=== PATIENT | female | born 1930 | race Two or more races ===

== ENCOUNTER → 2016-06-27 | Emergency (ER) | payer MEDICARE, OTHER ==
[~2016-06-27] MED LIST: Aspirin Low Dose CHEW TAB* 81 MG PO ONE; Ondansetron INJ* 2 MG/ML VIAL IV ONE
[2016-06-27 01:56] LABS: Hematocrit 40 % (35-47); Mean Corpuscular HGB Conc 33 g/dl (31-36); Mean Corpuscular Hemoglobin 30 pg (27-31); Mean Corpuscular Volume 91 fL (80-97); Mean Platelet Volume 9 um3 (7.4-10.4); Red Blood Count 4.39 10^6/ul (4.0-5.4); Red Cell Distribution Width 14 % (10.5-15); White Blood Count 6.4 10^3/ul (3.5-10.8)
--- NOTE | 2016-06-27 01:56 | ED ---
Hermilo Bansal Karl, scribed for Sung Pizano MD on 06/27/16 at 0057 . HPI Chest Pain - HPI Summary HPI Summary: Pt is an 85 y/o female BIBA that presents to the ED c/o constant CP since this morning. Pt reported that her CP has since resolved after tx with NTG from EMT. Pt reported pain is 0/10 while in room stating "I feel fine." Hx: PA, HTN, CAD, CHF. - History of Current Complaint Hx Obtained From: Patient Onset/Duration: Started Hours Ago, Atraumatic Timing: Constant Initial Severity: Mild Current Severity: Mild Pain Intensity: 0 - CP Pain Scale Used: 0-10 Numeric Chest Pain Location: Mid Sternal Aggravating Factor(s): Nothing Alleviating Factor(s): NTG 123, EMS Tx Associated Signs and Symptoms: Positive: Chest Pain - Additional Pertinent History Primary Care Physician: OLLIE - Allergy/Home Medications Allergies/Adverse Reactions: Allergies Allergy/AdvReac Type Severity Reaction Status Date / Time Sulfa Antibiotics Allergy Severe Hives Verified 04/04/13 09:59 PMH/Surg Hx/FS Hx/Imm Hx Endocrine/Hematology History: Reports: Hx Anticoagulant Therapy - plavix, Hx Thyroid Disease - hypothyroid Denies: Hx Diabetes Cardiovascular History: Reports: Hx Angina, Hx Congestive Heart Failure, Hx Coronary Artery Disease, Hx Deep Vein Thrombosis, Hx Hypercholesterolemia, Hx Hypertension, Hx Peripheral Vascular Disease, Other Cardiovascular Problems/ Disorders - HEART MURMUR, CAD, PVD, DVT. Denies: Hx Pacemaker/ICD Respiratory History: Reports: Hx Asthma GI History: Reports: Hx Gastroesophageal Reflux Disease History: Reports: Other Problems/Disorders - solitary congenital kidney Denies: Hx Renal Disease Musculoskeletal History: Reports: Hx Back Problems Denies: Hx Arthritis, Hx Osteoporosis Sensory History: Reports: Hx Contacts or Glasses, Hx Vision Problem, Hx Hearing Problem Denies: Hx Cataracts, Hx Glaucoma Opthamlomology History: Reports: Hx Contacts or Glasses, Hx Vision Problem Denies: Hx Cataracts, Hx Glaucoma Neurological History: Reports: Hx Dementia Denies: Hx Seizures, Other Neuro Impairments/Disorders Psychiatric History: Reports: Hx Anxiety, Hx Depression Denies: Hx Substance Abuse - Surgical History Surgery Procedure, Year, and Place: RCA stent 2010. APPENDECTOMY Hx Anesthesia Reactions: No - Immunization History Date of Tetanus Vaccine: unable to obtain Date of Influenza Vaccine: unkown Infectious Disease History: Denies: Hx Human Immunodeficiency Virus (HIV) - Family History Known Family History: Positive: Cardiac Disease Family History: CAD - Social History Alcohol Use: Daily Alcohol Amount: One glass of Scotch Hx Substance Use: No Substance Use Type: Reports: None Hx Tobacco Use: No Smoking Status (MU): Never Smoked Tobacco Review of Systems Constitutional: Negative Eyes: Negative ENT: Negative Positive: Chest Pain Respiratory: Negative Gastrointestinal: Negative Genitourinary: Negative Musculoskeletal: Negative Skin: Negative Neurological: Negative Psychological: Normal All Other Systems Reviewed And Are Negative: Yes Physical Exam Triage Information Reviewed: Yes Vital Signs On Initial Exam: Initial Vitals Temp Pulse Resp BP Pulse Ox 98.0 F 77 13 125/62 96 06/27/16 00:54 06/27/16 00:54 06/27/16 00:54 06/27/16 00:54 06/27/16 00:54 Vital Signs Reviewed: Yes Appearance: Positive: Well-Appearing, No Pain Distress Skin: Positive: Warm Head/Face: Positive: Normal Head/Face Inspection Eyes: Positive: EOMI, THEE Neck: Positive: Supple Respiratory/Lung Sounds: Positive: Clear to Auscultation, Breath Sounds Present Cardiovascular: Positive: Normal Abdomen Description: Positive: Nontender, No Organomegaly, Soft Bowel Sounds: Positive: Present Musculoskeletal: Positive: Strength/ROM Intact Neurological: Positive: Sensory/Motor Intact, Alert, Oriented to Person Place, Time Psychiatric: Positive: Affect/Mood Appropriate Diagnostics - Vital Signs Vital Signs Temp Pulse Resp BP Pulse Ox 06/27/16 00:54 98.0 F 77 13 125/62 96 - Laboratory Pertinent Lab Values Are: WNL Result Diagrams: 06/27/16 01:36 06/27/16 01:36 Lab Statement: Any lab studies that have been ordered have been reviewed, and results considered in the medical decision making process. - Radiology CXR Xray Interpretation: No Acute Changes Radiology Interpretation Completed By: ED Physician - IMPRESSION: No acute cardiopulmonary disease. Re-Evaluation - Re-Evaluation First Eval Re-Evaluation Time: 05:42 - pt remains pain free, stable angina, will d/c f/u pcp Change: Improved Chest Pain Course/Dx - Diagnoses Provider Diagnoses: Chest pain Discharge - Discharge Plan Condition: Stable Disposition: HOME Patient Education Materials: Chest Pain (ED) Referrals: Hiral Bloom MD [Primary Care Provider] - Additional Instructions: Please follow up with your primary care provider. Return to the emergency department for changing or worsening symptoms. The documentation as recorded by the Hermilo curtis Karl accurately reflects the service I personally performed and the decisions made by me, Sung Pizano MD.
[2016-06-27 02:06] LABS: Albumin 3.3 g/dL (3.2-5.2); BUN/Creatinine Ratio 13.1 (8-20); Calcium 8.9 mg/dL (8.6-10.3); EGFR African American 68.7 (>60); EGFR Non-African American 53.4 (>60); Globulin 3.7 g/dL (2-4); Potassium 3.4 mmol/L (3.5-5.0); Total Bilirubin 0.3 mg/dL (0.2-1.0)
[2016-06-27 02:08] LABS: Troponin I 0.01 ng/mL (<0.04)
[2016-06-27 07:30] VITALS: BP 111/62
--- NOTE | 2016-06-27 07:44 | RAD ---
HISTORY: Chest pain COMPARISONS: May 26, 2016 VIEWS: 2: Frontal dual-energy and lateral views of the chest. FINDINGS: CARDIOMEDIASTINAL SILHOUETTE: The aorta is tortuous. The cardiomediastinal silhouette is otherwise unremarkable. ANALIA: The analia are normal. PLEURA: The costophrenic angles are sharp. No pleural abnormalities are noted. LUNG PARENCHYMA: There is hyperinflation with flattening of the diaphragm and expansion of the AP diameter of the chest. ABDOMEN: The upper abdomen is clear. There is no subphrenic gas. BONES AND SOFT TISSUES: There is diffuse osteopenia. Degenerative changes are noted along the spine. OTHER: None. IMPRESSION: HYPERINFLATION, CONSISTENT WITH COPD. NO ACTIVE CARDIOPULMONARY DISEASE.
== END | disposition home or self-care (01) ==
LOC: ED 00:51
DX: R07.9 Chest pain, unspecified (principal); J45.909 Unspecified asthma, uncomplicated; K21.9 Gastro-esophageal reflux disease without esophagitis; I25.2 Old myocardial infarction; I10 Essential (primary) hypertension; I25.10 Atherosclerotic heart disease of native coronary artery without angina pectoris; I50.9 Heart failure, unspecified; Z88.2 Allergy status to sulfonamides; Z86.718 Personal history of other venous thrombosis and embolism; I73.9 Peripheral vascular disease, unspecified; F17.200 Nicotine dependence, unspecified, uncomplicated
CPT/HCPCS: 36415; 71020; 80053; 83605; 84484; 85025; 93005; 96374; 99283; A9270-GY; J2405

== ENCOUNTER 2016-11-03 00:41 | Emergency (ER) | payer MEDICARE, OTHER ==
[2016-11-03] MEDS ORDERED: Aspirin Low Dose CHEW TAB* 81 MG PO ONE (00:47)
[2016-11-03 01:24] LABS: Hematocrit 44 % (35-47); Hemoglobin 14.3 g/dl (12.0-16.0); Mean Corpuscular HGB Conc 33 g/dl (31-36); Mean Corpuscular Hemoglobin 30 pg (27-31); Mean Corpuscular Volume 91 fL (80-97); Mean Platelet Volume 9 um3 (7.4-10.4); Red Blood Count 4.84 10^6/ul (4.0-5.4); Red Cell Distribution Width 14 % (10.5-15); White Blood Count 9.4 10^3/ul (3.5-10.8)
[2016-11-03 01:25] LABS: Add Diff/Slide Review? Slide Review Added; Comments Flag Yes
[2016-11-03 01:41] LABS: ALT 8 U/L (7-52); AST 12 U/L (13-39); Albumin 3.3 g/dL (3.2-5.2); Alkaline Phosphatase 82 U/L (34-104); Anion Gap 10 mmol/L (2-11); BUN/Creatinine Ratio 16.9 (8-20); Blood Urea Nitrogen 15 mg/dL (6-24); CO2 Carbon Dioxide 30 mmol/L (22-32); Calcium 9.4 mg/dL (8.6-10.3); Chloride 97 mmol/L (101-111); EGFR African American 77.5 (>60); EGFR Non-African American 60.3 (>60); Globulin 4.2 g/dL (2-4); Glucose 110 mg/dL (70-100); Potassium 2.8 mmol/L (3.5-5.0); Sodium 137 mmol/L (133-145); Total Protein 7.5 g/dL (6.4-8.9)
[2016-11-03 01:43] LABS: Troponin I 0.03 ng/mL (<0.04)
[2016-11-03] MEDS ORDERED: Potassium Chlor TAB* 20 MEQ TAB.ER PO ONE (02:06)
[2016-11-03 02:23] LABS: Alcohol < 10 mg/dL (<10)
[2016-11-03] MEDS ORDERED: Potassium Chloride LIQUID* 20 MEQ PACKET ONE (02:28)
[2016-11-03] MEDS ORDERED: Potassium Chloride LIQUID* 20 MEQ PACKET PO ONE (02:29)
--- NOTE | 2016-11-03 05:42 | ED ---
I, Sanjay,Xiomara, scribed for Jerome Robles MD on 11/03/16 at 0146 . HPI Chest Pain - HPI Summary HPI Summary: HPI is somewhat limited due to pt being poor historian. This 86 y/o female presents to ED for acute onset of intermittent chest pain that occurred since this afternoon and currently resolved. Negative jaw pain, diaphoresis, radiation of pain, or n/v. PMHx includes Solitary Congenital Kidney , CAD s/p stent x2, HTN, and SD. Pt lives with her son. Pt consumed Gin earlier today. [facility] was [facility] [place], after which pt was discharged after refusing stress test at [facility] in May 2016. FHx is positive for CAD. Plan of care involving stress test was discussed, and pt again refused stress test. - History of Current Complaint Chief Complaint: EDChestPainROMI Time Seen by Provider: 11/03/16 01:45 Hx Obtained From: Patient, Medical Records Onset/Duration: Started Hours Ago, Atraumatic, Resolved Timing: Intermittent Pain Intensity: 0 Pain Scale Used: 0-10 Numeric Chest Pain Location: Diffuse Chest Pain Radiates: No Character: Dull/Aching Aggravating Factor(s): Nothing Alleviating Factor(s): Spontaneous Resolution Associated Signs and Symptoms: Positive: Chest Pain. Negative: Fever, Diaphoresis, Nausea, Vomiting - Additional Pertinent History Primary Care Physician: OLLIE - Allergy/Home Medications Allergies/Adverse Reactions: Allergies Allergy/AdvReac Type Severity Reaction Status Date / Time Sulfa Antibiotics Allergy Severe Hives Verified 04/04/13 09:59 PMH/Surg Hx/FS Hx/Imm Hx Endocrine/Hematology History: Reports: Hx Anticoagulant Therapy - plavix, Hx Thyroid Disease - hypothyroid Denies: Hx Diabetes Cardiovascular History: Reports: Hx Angina, Hx Congestive Heart Failure, Hx Coronary Artery Disease, Hx Deep Vein Thrombosis, Hx Hypercholesterolemia, Hx Hypertension, Hx Peripheral Vascular Disease, Other Cardiovascular Problems/ Disorders - HEART MURMUR, CAD, PVD, DVT. Denies: Hx Pacemaker/ICD Respiratory History: Reports: Hx Asthma GI History: Reports: Hx Gastroesophageal Reflux Disease History: Reports: Other Problems/Disorders - solitary congenital kidney Denies: Hx Renal Disease Musculoskeletal History: Reports: Hx Back Problems Denies: Hx Arthritis, Hx Osteoporosis Sensory History: Reports: Hx Contacts or Glasses, Hx Vision Problem, Hx Hearing Problem Denies: Hx Cataracts, Hx Glaucoma Opthamlomology History: Reports: Hx Contacts or Glasses, Hx Vision Problem Denies: Hx Cataracts, Hx Glaucoma Neurological History: Reports: Hx Dementia Denies: Hx Seizures, Other Neuro Impairments/Disorders Psychiatric History: Reports: Hx Anxiety, Hx Depression Denies: Hx Substance Abuse - Surgical History Surgery Procedure, Year, and Place: RCA stent 2010. APPENDECTOMY Hx Anesthesia Reactions: No - Immunization History Date of Tetanus Vaccine: unable to obtain Date of Influenza Vaccine: unkown Infectious Disease History: No Infectious Disease History: Denies: Hx Human Immunodeficiency Virus (HIV), Traveled Outside the [place] in Last 30 Days - Family History Known Family History: Positive: Cardiac Disease Family History: CAD - Social History Alcohol Use: Daily Alcohol Amount: One glass of gin Hx Substance Use: No Substance Use Type: Reports: None Hx Tobacco Use: No Smoking Status (MU): Never Smoked Tobacco Review of Systems Negative: Fever, Skin Diaphoresis Negative: Blurred Vision Negative: Sore Throat Positive: Chest Pain Negative: Shortness Of Breath, Cough Negative: Abdominal Pain, Vomiting, Nausea Negative: dysuria, hematuria Negative: Myalgia, Edema Negative: Rash Neurological: Other - Negative dizziness Negative: Headache Negative: Anxious, Depressed All Other Systems Reviewed And Are Negative: Yes Physical Exam - Summary Physical Exam Summary: Constitutional: Well-developed, Well-nourished, Alert. (-) Distressed Skin: Warm, Dry HENT: Normocephalic; Atraumatic Eyes: Conjunctiva normal Neck: Musculoskeletal ROM normal neck. (-) JVD, (-) Stridor, (-) Tracheal deviation Cardio: Rhythm regular, rate normal, Heart sounds normal; Intact distal pulses; The pedal pulses are 2+ and symmetric. Radial pulses are 2+ and symmetric. (-) Murmur Pulmonary/Chest wall: Effort normal. (-) Respiratory distress, (-) Wheezes, (-) Rales Abd: Soft, (-) Tenderness, (-) Distension, (-) Guarding, (-) Rebound Musculoskeletal: (-) Edema Lymph: (-) Cervical adenopathy Neuro: Alert, Oriented x3 Psych: Mood and affect Normal Triage Information Reviewed: Yes Vital Signs On Initial Exam: Initial Vitals Temp Pulse Resp BP Pulse Ox 98.6 F 84 18 120/52 100 11/03/16 00:54 11/03/16 00:54 11/03/16 00:54 11/03/16 00:54 11/03/16 00:54 Vital Signs Reviewed: Yes - [place] Coma Scale Coma Scale Total: 15 Diagnostics - Vital Signs Vital Signs Temp Pulse Resp BP Pulse Ox 11/03/16 01:25 100 11/03/16 01:00 58 17 11/03/16 00:57 19 11/03/16 00:56 120/52 11/03/16 00:54 98.6 F 84 18 120/52 100 - Laboratory Lab Results: Lab Results 11/03/16 11/03/16 11/03/16 Range/Units 01:15 01:15 01:15 WBC 9.4 (3.5-10.8) 10^3/ul RBC 4.84 (4.0-5.4) 10^6/ul Hgb 14.3 (12.0-16.0) g/dl Hct 44 (35-47) % MCV 91 (80-97) fL MCH 30 (27-31) pg MCHC 33 (31-36) g/dl RDW 14 (10.5-15) % Plt Count 369 (150-450) 10^3/ul MPV 9 (7.4-10.4) um3 Neut % (Auto) 80.8 (38-83) % Lymph % (Auto) 8.2 L (25-47) % Armstrong % (Auto) 4.7 (1-9) % Eos % (Auto) 4.0 (0-6) % Baso % (Auto) 2.3 H (0-2) % Absolute Neuts (auto) 7.6 (1.5-7.7) 10^3/ul Absolute Lymphs (auto) 0.8 L (1.0-4.8) 10^3/ul Absolute Monos (auto) 0.4 (0-0.8) 10^3/ul Absolute Eos (auto) 0.4 (0-0.6) 10^3/ul Absolute Basos (auto) 0.2 (0-0.2) 10^3/ul Absolute Nucleated RBC 0 10^3/ul Nucleated RBC % 0 Sodium 137 (133-145) mmol/L Potassium 2.8 L (3.5-5.0) mmol/L Chloride 97 L (101-111) mmol/L Carbon Dioxide 30 (22-32) mmol/L Anion Gap 10 (2-11) mmol/L BUN 15 (6-24) mg/dL Creatinine 0.89 (0.51-0.95) mg/dL Est GFR ( Amer) 77.5 (>60) Est GFR (Non-Af Amer) 60.3 (>60) BUN/Creatinine Ratio 16.9 (8-20) Glucose 110 H (70-100) mg/dL Lactic Acid 1.4 (0.5-2.0) mmol/L Calcium 9.4 (8.6-10.3) mg/dL Magnesium 2.0 (1.9-2.7) mg/dL Total Bilirubin 0.40 (0.2-1.0) mg/dL AST 12 L (13-39) U/L ALT 8 (7-52) U/L Alkaline Phosphatase 82 (34-104) U/L Troponin I 0.03 (<0.04) ng/mL Total Protein 7.5 (6.4-8.9) g/dL Albumin 3.3 (3.2-5.2) g/dL Globulin 4.2 H (2-4) g/dL Albumin/Globulin Ratio 0.8 L (1-3) Result Diagrams: 11/03/16 01:15 11/03/16 01:15 Lab Statement: Any lab studies that have been ordered have been reviewed, and results considered in the medical decision making process. - Radiology CXR Xray Interpretation: No Acute Changes Radiology Interpretation Completed By: ED Physician - EKG 0050 Cardiac Rate: NL - 83 bpm EKG Rhythm: Sinus Rhythm ST Segment: Normal EKG Interpretation: T-wave inversion V2-V6 Chest Pain Course/Dx - Course Assessment/Plan: THis 86 y/o female presents to ED for a day old CP that has been constant since the morning of 11/02/2016. Pt states that her CP is resolved at time of initial evaluation. She was seen at [facility] for similar complaint in May 2016 and June 2016. Pt was reported to have refused stress test during her visit in May 2016. She again refused admission and stress test during today's visit. Repeat trops were done and indicated as 0.03 both at 0115 AM and 0400 AM. Pt is discharged - Diagnoses Provider Diagnoses: Chest pain Discharge - Discharge Plan Condition: Stable Disposition: HOME Patient Education Materials: Chest Pain (ED) Referrals: Hiral Bloom MD [Primary Care Provider] - 2 Days Ed Reeder MD [Medical Doctor] - 11/05/16 Additional Instructions: RETURN TO THE EMERGENCY DEPARTMENT FOR CHANGING OR WORSENING SYMPTOMS The documentation as recorded by the Sanjay curtis Soohyun accurately reflects the service I personally performed and the decisions made by Margaret leone Jerry, MD.
[2016-11-03 07:08] VITALS: BP 136/73
--- NOTE | 2016-11-03 07:37 | RAD ---
HISTORY: Chest pain COMPARISONS: June 27, 2016 VIEWS:1: Single frontal portable view of the chest at 1:35 PM FINDINGS: LINES AND TUBES: None. CARDIOMEDIASTINAL SILHOUETTE: The cardiomediastinal silhouette is normal for portable technique. PLEURA: The costophrenic angles are sharp. No pleural abnormalities are noted. LUNG PARENCHYMA: There is confluent alveolar opacification of the left lung base near the cardiophrenic angle ABDOMEN: The upper abdomen is clear. There is no subphrenic gas. BONES AND SOFT TISSUES: No bone or soft tissue abnormalities are noted. IMPRESSION: LEFT BASILAR ATELECTASIS VERSUS CONSOLIDATION. RECOMMEND FOLLOW-UP UNTIL RESOLUTION TO EXCLUDE UNDERLYING PULMONARY PARENCHYMAL PATHOLOGY.
== END 2016-11-03 07:06 | disposition home or self-care (01) ==
LOC: ED 00:41
DX: R07.9 Chest pain, unspecified (principal)
CPT/HCPCS: 36415; 71010; 80053; 80320; 83605; 83735; 84484; 85025; 93005; 99283; A9270-GY; G0480

== ENCOUNTER 2017-03-10 17:28 | Inpatient (IN) | payer MEDICARE, OTHER ==
[2017-03-10] MEDS ORDERED: NS 0.9% 1000 ML*IV.FLUID IV ONE (18:35)
[2017-03-10] MEDS ORDERED: Vancomycin(*) 1,000 MG VIAL IVPB SCH (19:00)
[2017-03-10] MEDS ORDERED: Vancomycin(*) 1,000 MG - ED ONCE IVPB ONE ×2 (19:00)
--- NOTE | 2017-03-10 19:03 | RAD ---
INDICATION: Fever. COMPARISON: Comparison is made with a prior chest x-ray study from November 03, 2016. TECHNIQUE: A portable view of the chest was obtained. FINDINGS: The heart is within normal limits in size. There is a tortuous ectatic thoracic aorta. The lungs are clear. No pleural effusion is seen. IMPRESSION: NO EVIDENCE FOR ACUTE DISEASE.
[2017-03-10 19:38] LABS: Hematocrit 44 % (35-47); Hemoglobin 14.3 g/dl (12.0-16.0); Mean Corpuscular HGB Conc 33 g/dl (31-36); Mean Corpuscular Hemoglobin 29 pg (27-31); Mean Corpuscular Volume 90 fL (80-97); Mean Platelet Volume 9 um3 (7.4-10.4); Red Blood Count 4.87 10^6/ul (4.0-5.4); Red Cell Distribution Width 16 % (10.5-15); White Blood Count 9.7 10^3/ul (3.5-10.8)
[2017-03-10 19:54] LABS: Troponin I 0.01 ng/mL (<0.04)
[2017-03-10 20:00] LABS: Albumin 3.2 g/dL (3.2-5.2); BUN/Creatinine Ratio 19.3 (8-20); Calcium 9.3 mg/dL (8.6-10.3); EGFR Non-African American 65.3 (>60); Globulin 4.3 g/dL (2-4); Potassium 3.6 mmol/L (3.5-5.0); Total Bilirubin 0.6 mg/dL (0.2-1.0); Total Protein 7.5 g/dL (6.4-8.9)
--- NOTE | 2017-03-10 20:14 | ED ---
Chico Bansal Rebecca, scribed for Nabeel Lantigua MD on 03/10/17 at 1820 . Altered Mental Status - HPI Summary HPI Summary: Pt is an 86 y/o F BIBA who presents to ED accompanied by her son, Sung, presenting to ED with increased AMS and generalized weakness with her son stating that she refuses to get up. Her son reports that she usually is able to get up and walk around, but she has not gotten out of bed for a few days. Her son was able to get her standing today, which is when he noticed that her RLE is swollen and erythematous and that she has sores on her buttock. Pt denies any pain. PMHx dementia. - History Of Current Complaint Chief Complaint: EDShortnessOfBreath Stated Complaint: AMS/GENERAL WEAKNESS Time Seen by Provider: 03/10/17 18:14 Hx Obtained From: Patient, Family/Straw Hat Brusher - Son Onset/Duration: Still Present Timing: Lasting Days Severity Currently: None - No pain currently Character: Responsiveness - Does not want to get up Aggravating Factor(s): Nothing Alleviating Factor(s): Nothing Associated Signs And Symptoms: Positive: Weakness - generalized - Allergies/Home Medications Allergies/Adverse Reactions: Allergies Allergy/AdvReac Type Severity Reaction Status Date / Time Sulfa Antibiotics Allergy Severe Hives Verified 03/10/17 17:38 PMH/Surg Hx/FS Hx/Imm Hx Endocrine/Hematology History: Reports: Hx Anticoagulant Therapy - plavix, Hx Thyroid Disease - hypothyroid Denies: Hx Diabetes Cardiovascular History: Reports: Hx Angina, Hx Congestive Heart Failure, Hx Coronary Artery Disease, Hx Deep Vein Thrombosis, Hx Hypercholesterolemia, Hx Hypertension, Hx Peripheral Vascular Disease, Other Cardiovascular Problems/ Disorders - HEART MURMUR, CAD, PVD, DVT. Denies: Hx Pacemaker/ICD Respiratory History: Reports: Hx Asthma GI History: Reports: Hx Gastroesophageal Reflux Disease History: Reports: Other Problems/Disorders - solitary congenital kidney Denies: Hx Renal Disease Musculoskeletal History: Reports: Hx Back Problems Denies: Hx Arthritis, Hx Osteoporosis Sensory History: Reports: Hx Contacts or Glasses, Hx Vision Problem, Hx Hearing Problem Denies: Hx Cataracts, Hx Glaucoma Opthamlomology History: Reports: Hx Contacts or Glasses, Hx Vision Problem Denies: Hx Cataracts, Hx Glaucoma Neurological History: Reports: Hx Dementia Denies: Hx Seizures, Other Neuro Impairments/Disorders Psychiatric History: Reports: Hx Anxiety, Hx Depression Denies: Hx Substance Abuse - Surgical History Surgery Procedure, Year, and Place: RCA stent 2010. APPENDECTOMY Hx Anesthesia Reactions: No - Immunization History Date of Tetanus Vaccine: unable to obtain Date of Influenza Vaccine: unkown Infectious Disease History: Unable to Obtain/Confirm Infectious Disease History: Denies: Hx Human Immunodeficiency Virus (HIV), Traveled Outside the [place] in Last 30 Days - Family History Known Family History: Positive: Cardiac Disease, Other - Dementia (mother) Family History: CAD - Social History Alcohol Use: Daily Alcohol Amount: One glass of gin Hx Substance Use: No Substance Use Type: Reports: None Hx Tobacco Use: No Smoking Status (MU): Never Smoked Tobacco Review of Systems Positive: Other - Swollen RLE Positive: Other - Erythematous and swollen RLE, sores on the buttock Neurological: Other - Increased AMS Positive: Weakness - Generalized weakness All Other Systems Reviewed And Are Negative: Yes Physical Exam Triage Information Reviewed: Yes Vital Signs On Initial Exam: Initial Vitals Temp Pulse Resp BP Pulse Ox 99.3 F 102 20 120/69 97 03/10/17 17:32 03/10/17 17:32 03/10/17 17:32 03/10/17 17:32 03/10/17 17:32 Vital Signs Reviewed: Yes Appearance: Positive: Well-Appearing, No Pain Distress Skin: Positive: Other - skin break down early decub left hip area, perineal area raw and excoriated with cellulitis Head/Face: Positive: Normal Head/Face Inspection ENT: Positive: Normal ENT inspection Neck: Positive: Supple, Nontender Respiratory/Lung Sounds: Positive: Clear to Auscultation, Breath Sounds Present Cardiovascular: Positive: RRR. Negative: Murmur Abdomen Description: Positive: Nontender Musculoskeletal: Positive: Edema Right - edema which is pronounced compared to the left leg Neurological: Positive: Sensory/Motor Intact, Alert, Oriented to Person Place, Time, CN Intact II-III - [place] Coma Scale Best Eye Response: 4 - Spontaneous Best Motor Response: 6 - Obeys Commands Best Verbal Response: 5 - Oriented Diagnostics - Vital Signs Vital Signs Temp Pulse Resp BP Pulse Ox 03/10/17 17:32 99.3 F 102 20 120/69 97 - Laboratory Result Diagrams: 03/10/17 19:25 03/10/17 19:25 Lab Statement: Any lab studies that have been ordered have been reviewed, and results considered in the medical decision making process. - Radiology CXR Xray Interpretation: No Acute Changes - NO EVIDENCE FOR ACUTE DISEASE. ED physician reviewed radiology report and agrees. Radiology Interpretation Completed By: Radiologist - EKG 6278 Cardiac Rate: NL - 82 bpm EKG Rhythm: Sinus Rhythm EKG Interpretation: No STEMI Altered Mental Statu Course/Dx - Course Course Of Treatment: 86 yr old who cannot get out of bed at home with cellulitis , excoriationof skin perineal and buttock area. With decubitus ulcer left hip area. Plan kramer, admit to hospitalist for IV antibioitcs. - Diagnoses Discharge Diagnoses: Cellulitis of buttock, Decubitus ulcer, Skin excoriation - Provider Notifications Discussed Care Of Patient With: Jimmie Cruz Time Discussed With Above Provider: 20:10 Instructed by Provider To: Other - Accepts pt for admission Discharge - Discharge Plan Condition: Stable Disposition: ADMITTED TO [facility] Referrals: Hiral Bloom MD [Primary Care Provider] - The documentation as recorded by the Chico curtis Rebecca accurately reflects the service I personally performed and the decisions made by , Nabeel Lantigua MD.
[2017-03-10 20:30] LABS: Erythrocyte Sed Rate 53 mm/Hr (0-40)
[2017-03-10] MEDS ORDERED: Acetaminophen TAB* 325 MG PO PRN (20:36)
[2017-03-10] MEDS ORDERED: Ondansetron INJ* 2 MG/ML VIAL IV PRN (20:36)
[2017-03-10 20:49] LABS: Urine Bilirubin Negative (Negative); Urine Glucose Negative (Negative); Urine Nitrite Negative (Negative)
--- NOTE | 2017-03-10 21:00 | RAD ---
INDICATION: Edema right lower extremity. COMPARISON: Comparison is made with a prior study from March 14, 2014. TECHNIQUE: Multiple real-time, color flow and Doppler tracings of the right lower extremity were obtained. FINDINGS: The common femoral, profunda femoral and popliteal veins all demonstrate normal compressibility, augmentation with compression and phasic response with respiration. The femoral vein is small in caliber similar to the prior exam. The mid and distal femoral vein were noncompressible and flow is seen on color Doppler imaging. Evaluation of the calf is limited. The popliteal vein only seen with color imaging. Both peroneal veins are seen on color Doppler imaging and 1 posterior tibial vein is seen on color Doppler imaging. IMPRESSION: LIMITED STUDY. 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
[2017-03-10 21:13] LABS: C Reactive Protein 86.17 mg/L (< 5.00)
[2017-03-10 21:26] LABS: TSH (Thyroid Stimulating Horm) 2.19 mcIU/mL (0.34-5.60)
[2017-03-10] MEDS: Enoxaparin(*) 40 MG/0.4 ML SYR SUBCUT SCH (22:21)
[2017-03-10] MEDS: Nystatin TOP POWDER* 15 GM BTL TOPICAL SCH (22:21)
--- NOTE | 2017-03-10 23:57 | HP ---
CC: Dr. Hiral Bloom* ADMISSION HISTORY AND PHYSICAL: DATE OF ADMISSION: 03/10/2017. PRIMARY CARE PROVIDER: Dr. Hiral Bloom. ADMITTING PROVIDER: DAVEY Kevin SUPERVISING PHYSICIAN: Dr. Jimmie Cruz* (dictated by DAVEY Kevin). CHIEF COMPLAINT: Weakness. HISTORY OF PRESENT ILLNESS: This is an 86-year-old female with history of mild- to- moderate dementia as well as coronary artery disease, prior DVT, hypertension, GERD, hyperlipidemia, and hypothyroidism, who was at home with her son, who was brought by ambulance with multiple sores over her groin and buttocks and profound weakness. The patient's son states that over the last couple of days, she has been unwilling to get out of bed. He has been trying to push the issue but trying to avoid upsetting her and let her be. He finally got her out of bed today and she was unable to stand on her own, which is unusual for her. She is usually able to ambulate independently or with minimal assistance. When he stood her up, he noticed multiple sores and blistering in her groin and area of her buttocks with complaints of pain from the patient. He notes that over the last couple of days, she has had some increased confusion. She is generally incontinent of urine at baseline. She has been telling him as well as that she has been feeling sick and has not wanted to eat anything. Her appetite has been declining for several months and there has been at least a 50-pound weight loss recorded but that is over an almost 2-year period; it is unclear how rapid that weight loss has been over the last couple of months. The patient denies any acute complaints at the time of evaluation including chest pain, shortness of breath, abdominal pain, nausea, or vomiting. PAST MEDICAL HISTORY: 1. Zroz-st-[id number] dementia. 2. Coronary artery disease. 3. History of DVT. 4. Hypertension. 5. GERD. 6. Hypothyroidism. 7. Hyperlipidemia. PAST SURGICAL HISTORY: 1. Prior cardiac catheterization. 2. Cholecystectomy. HOME MEDICATIONS: Following list unfortunately has not been verified but can be verified with primary care provider's office in the morning. 1. Albuterol 2 puffs inhaled q.4 hours as needed for shortness of breath. 2. Aspirin 325 mg p.o. daily. 3. Plavix 75 mg p.o. daily. 4. Donepezil 5 mg p.o. daily. 5. Lexapro 10 mg p.o. daily. 6. Nexium 40 mg p.o. daily. 7. Lasix 40 mg p.o. daily. 8. Isosorbide mononitrate 30 mg p.o. daily. 9. Levothyroxine 150 mcg p.o. daily. 10. Loratadine 10 mg p.o. daily. 11. Melatonin 1 to 3 mg p.o. at bedtime. 12. Metoprolol succinate 25 mg p.o. daily. 13. Nitroglycerin 0.4 mg sublingual daily. 14. Oxybutynin 15 mg p.o. daily. 15. Simvastatin 20 mg p.o. daily. 16. Amlodipine 5 mg p.o. daily. SOCIAL HISTORY: The patient lives at home with her son. Occasional alcohol consumption. She does not smoke. REVIEW OF SYSTEMS: As noted above in HPI. Otherwise reviewed and negative. PHYSICAL EXAMINATION GENERAL: This is an elderly female, in no acute distress accompanied by her son , who appears to be quite attentive. VITAL SIGNS: Initial temperature 99.3 degrees Fahrenheit, pulse 102 beats per minute, respiratory rate 20 per minute, oxygen saturation 97% on 2 L and 95% on room air, blood pressure 120/69 mmHg. HEENT: Head is normocephalic, atraumatic. Mucous membranes are pink and moist. RESPIRATORY: Lungs are clear to auscultation without wheezes, crackles, or rhonchi. CARDIOVASCULAR: Heart has regular rate and rhythm without murmurs, rubs, or gallops. ABDOMEN: Soft and nontender to palpation. EXTREMITIES: The patient has right lower extremity edema, none in the left lower extremity. PSYCH: The patient is alert. Her orientation is questionable, but she is able to be participate in some of the history but most comes from her son. SKIN: The patient has some erythema and superficial breakdown of the area over her left hip. She also has significant erythema of the labia with blistering noted but no severe ulcerations appreciated. DIAGNOSTIC STUDIES/LAB DATA: CBC shows white blood cell count of 9700, hemoglobin of 14.3 g/dL, and platelet count of 430,000. Comprehensive metabolic panel shows sodium of 136 mmol/L, potassium 3.6, bicarb of 26, BUN 16, creatinine of 0.83, random glucose of 99. Lactic acid normal at 1.6. Transaminases and total bilirubin within normal limits. Troponin negative at 0.01. BNP normal at 37. Urinalysis pending. Imaging: Chest x-ray shows no acute process. Lower extremity Doppler is pending. ASSESSMENT AND PLAN: This is an 86-year-old female with history of mild-to- moderate dementia, coronary artery disease, prior deep venous thrombosis, hypertension, gastroesophageal reflux disease, and hypothyroidism, who presents with complaints of weakness and evidence of severe cutaneous yeast infection. 1. Weakness - the patient has had significant decline in her functional status over the last couple of days. Her labs are relatively benign. Urinalysis is still pending, suspect the urinary tract infection would explain her new-onset weakness and some of the confusion that her son describes as well as complaints of kind of generalized malaise and "feeling sick." Without there being a fever , leukocytosis, or other evidence of sepsis, we will not initiate empiric antibiotics at this time until her urinalysis has returned. 2. Cutaneous yeast infection - most of the breakdown and concerns over her skin appears to be yeast at this time. She does have some superficial breakdown over her left hip but the severe rash over her labia and groin appears to be yeast and she does have some under her breasts as well. Because of the severity, we will initiate oral Diflucan as well as topical nystatin. 3. Hypertension - at this point in time to continue home antihypertensives with pending medication reconciliation. 4. Coronary artery disease - no evidence of acute coronary syndrome. We will plan to continue medical management. 5. Hypothyroidism - last TSH is from almost 2 years ago and with her complaints of weakness, we will check TSH to see if this may be contributing to her acute complaints. 6. Hyperlipidemia. 7. History of deep venous thrombosis - the patient is noted to have right lower extremity edema. It is unsure of what the acuity of this is. A Doppler of the right leg has been ordered in the emergency department and results are pending at this time. 8. Code status - the patient is full code. 9. Healthcare proxy is her son, Sung Díaz. 10. DVT prophylaxis - the patient to be started on subcu Lovenox. DISPOSITION: The patient is being admitted to inpatient status with really chief complaint of weakness and suspected urinary tract infection. She is unable to manage at home with her son at this time and would likely benefit from rehab stay. We will order a Physical Therapy consultation for tomorrow to aid in this process and her son is also interested in Social Work consult to discuss how he may be able to augment services at home. DAVEY KEVIN [id number]/[place] #: [id number] MAURICE
[2017-03-11 05:35] LABS: Calcium 8.7 mg/dL (8.6-10.3); EGFR African American 111.4 (>60); EGFR Non-African American 86.6 (>60); Potassium 3.1 mmol/L (3.5-5.0)
[2017-03-11 07:03] LABS: Hematocrit 38 % (35-47); Hemoglobin 12.6 g/dl (12.0-16.0); Mean Corpuscular HGB Conc 33 g/dl (31-36); Mean Corpuscular Hemoglobin 29 pg (27-31); Mean Corpuscular Volume 89 fL (80-97); Mean Platelet Volume 9 um3 (7.4-10.4); Red Blood Count 4.28 10^6/ul (4.0-5.4); Red Cell Distribution Width 15 % (10.5-15); White Blood Count 6.5 10^3/ul (3.5-10.8)
[2017-03-11] MEDS: Fluconazole 100 MG TAB* TAB PO SCH (11:01)
[2017-03-11] MEDS: Nystatin TOP POWDER* 15 GM BTL TOPICAL SCH ×2 (11:02→20:52)
[2017-03-11] MEDS ORDERED: Potassium Chlor TAB* 20 MEQ TAB.ER PO ONE (11:31)
--- NOTE | 2017-03-11 14:25 | RAD ---
Indication: Pneumonia. 2 views of the chest demonstrate no mediastinal shift. Heart is of normal size and configuration. Lungs are clear. IMPRESSION: No active cardiopulmonary disease is noted.
[2017-03-11] MEDS ORDERED: Aspirin EC TAB* 325 MG PO PRN (16:50)
--- NOTE | 2017-03-11 16:51 | PN ---
Subjective Date of Service: 03/11/17 Interval History: This is an 86 yo female admitted yesterday with c/o weakness and severe vulvar yeast infection. UTI was suspected at admission, but UA was later noted to be normal. Doppler US of the RLE demonstrated a femoral vein clot, unsure of the acuity. This am, patient has intermittently complained of nausea, which her son states is a chronic complaint whenever she is asked to do something. She is otherwise asymptomatic and appears to be more alert than at admission yesterday. She denies perineal pain and Thakur catheter is in place. Objective Active Medications: Acetaminophen (Tylenol Tab*) 650 mg PO Q4H PRN PRN Reason: FEVER/PAIN Enoxaparin Sodium (Lovenox(*)) 40 mg SUBCUT Q24H [facility] Last Admin: 03/10/17 22:21 Dose: 40 mg Fluconazole (Diflucan 100 Mg Tab*) 100 mg PO DAILY [facility] Last Admin: 03/11/17 11:01 Dose: 100 mg Nystatin (Nystatin Top Powder*) 1 applic TOPICAL BID [facility] Last Admin: 03/11/17 11:02 Dose: 1 dose Ondansetron HCl (Zofran Inj*) 4 mg IV Q4H PRN PRN Reason: NAUSEA/VOMITING Vital Signs: Temp Pulse Resp BP Pulse Ox 97.6 F 67 16 145/75 98 03/11/17 07:27 03/11/17 07:27 03/11/17 08:00 03/11/17 07:27 03/11/17 08:00 Appearance: Well appearing elderly female accompanied by her son in NAD Respiratory: Symmetrical Chest Expansion and Respiratory Effort, Clear to Auscultation Cardiovascular: NL Sounds; No Murmurs; No JVD, RRR Abdominal: NL Sounds; No Tenderness; No Distention Extremities: - - RLE edema noted Skin: - - improving erythema of the perineal area Neurological: Alert and Oriented x 3 Result Diagrams: 03/11/17 06:36 03/11/17 04:59 Microbiology and Other Data: Microbiology 03/10/17 22:33 Skin and Soft Tissue MRSA/MSSA (PCR - Final Thigh Left Mrsa Negative S.aureus Negative Gram Stain - Final Diagnostic Imaging: Doppler US - R femoral vein clot, unsure of acuity CXR - NAD Assess/Plan/Problems-Billing Assessment: This is an elderly female with CAD, 2 prior DVTs, HTN, GERD, dementia, hypothyroidism, and HLD who presented with c/o weakness. Found to have a DVT, and vulvar yeast infection. - Patient Problems (1) DVT (deep venous thrombosis) Comment: Femoral vein clot noted on US, unsure of acuity Patient is on dual antiplatelet therapy, last cardiac stent ~2yrs ago per pt's daughter Patient has had 2 prior DVTs, at least one associated with a long car ride and patient unsure about the circumstances of the 1st She has previously been on Coumadin, stopped a couple of years ago, no known clotting disorder Will plan to discuss anticoagulation plan with PCP and whether dual antiplatelet therapy needs to continue at this time Patient would likely due best on Coumadin given her fall risk (2) Yeast infection Comment: Cutaneous yeast infection, most concentrated in the vulvar region Improving with oral Diflucan and topical nystatin (3) Weakness Comment: Initially assumed she may have had a UTI, but UA is nl Weakness may be due to DVT and pain surrounding vulvar yeast Appreciate PT consult, patient will likely require JELENA prior to returning home with her son (4) Coronary heart disease Comment: Current Asx Still on dual antiplatelet therapy Will discuss need to cont Plavix with PCP (5) Dementia Comment: Mild to mod without sig behavorial concerns (6) Dyslipidemia Comment: Cont statin (7) GERD (gastroesophageal reflux disease) Comment: Cont PCP (8) HTN (hypertension) Comment: Normotensive Cont home meds (9) Hypothyroid Comment: TSH WNL Cont levothyroxine (10) DVT prophylaxis Comment: Lovenox, plan to initiate Coumadin after discussing with PCP (11) Full code status Status and Disposition: Inpatient. Plan for JELENA. Pending discussion of anticoagulation with PCP
[2017-03-11 17:02] LABS: Magnesium 1.7 mg/dL (1.9-2.7)
[2017-03-11] MEDS ORDERED: Magnesium Sulfate 2 GM IV* 2 GM/50 ML BAG IVPB ONE (18:00)
[2017-03-11] MEDS: CMCS: Melatonin (NF) 3 MG TAB PO SCH (20:52)
[2017-03-11] MEDS: Enoxaparin(*) 40 MG/0.4 ML SYR SUBCUT SCH (20:52)
[2017-03-11] MEDS ORDERED: Enoxaparin(*) 30 MG/0.3 ML SYR SUBCUT ONE (23:00)
[2017-03-12] MEDS: Levothyroxine TAB* 100 MCG TAB PO SCH (06:42)
[2017-03-12] MEDS ORDERED: NS 0.9% 500 ML BAG* 500 ML IV ONE (07:00)
[2017-03-12 07:31] LABS: BUN/Creatinine Ratio 14.3 (8-20); C Reactive Protein 62.26 mg/L (< 5.00); Calcium 8.8 mg/dL (8.6-10.3); EGFR African American 102.3 (>60); EGFR Non-African American 79.5 (>60); Potassium 3.4 mmol/L (3.5-5.0)
[2017-03-12] MEDS: Citalopram TAB* 20 MG PO SCH (08:37)
[2017-03-12] MEDS: Isosorbide Mononitrate ER TAB* 30 MG PO SCH (08:37)
[2017-03-12] MEDS: Atorvastatin* 10 MG TAB PO SCH (08:37)
[2017-03-12] MEDS: Metoprolol Succinate XL TAB* 25 MG PO SCH (08:37)
[2017-03-12] MEDS: Furosemide TAB* 20 MG PO SCH (08:37)
[2017-03-12] MEDS: Fluconazole 100 MG TAB* TAB PO SCH (08:37)
[2017-03-12] MEDS: amLODIPine TAB* 5 MG PO SCH (08:37)
[2017-03-12] MEDS: Aspirin EC Low Dose* 81 MG TAB.EC PO SCH (08:37)
[2017-03-12] MEDS: Enoxaparin(*) 80 MG/0.8 ML SYR SUBCUT SCH ×2 (08:39→21:28)
[2017-03-12] MEDS: Nystatin TOP POWDER* 15 GM BTL TOPICAL SCH ×2 (08:39→21:28)
[2017-03-12] MEDS ORDERED: Clopidogrel TAB* 75 MG PO SCH (09:00)
[2017-03-12] MEDS: Oxybutynin XL TAB* 5 MG PO SCH (10:26)
[2017-03-12] MEDS ORDERED: Warfarin TAB(*) 4 MG PO SCH (17:00)
--- NOTE | 2017-03-12 20:17 | PN ---
Subjective Date of Service: 03/12/17 Interval History: PCP contacted by Anibal Montejo and kolton to stop plavix in anticipation of starting coumadin for new right leg DVT. Pt w/o complaint. Objective Active Medications: Acetaminophen (Tylenol Tab*) 650 mg PO Q4H PRN PRN Reason: FEVER/PAIN Amlodipine Besylate (Norvasc Tab*) 5 mg PO DAILY [facility] Last Admin: 03/12/17 08:37 Dose: 5 mg Aspirin (Aspirin Ec Low Dose*) 81 mg PO DAILY [facility] Last Admin: 03/12/17 08:37 Dose: 81 mg Atorvastatin Calcium (Lipitor*) 10 mg PO DAILY [facility] Last Admin: 03/12/17 08:37 Dose: 10 mg Citalopram Hydrobromide (Celexa Tab*) 20 mg PO DAILY [facility] Last Admin: 03/12/17 08:37 Dose: 20 mg Enoxaparin Sodium (Lovenox(*)) 70 mg SUBCUT Q12H [facility] Last Admin: 03/12/17 08:39 Dose: 70 mg Fluconazole (Diflucan 100 Mg Tab*) 100 mg PO DAILY [facility] Last Admin: 03/12/17 08:37 Dose: 100 mg Furosemide (Lasix Tab*) 40 mg PO DAILY [facility] Last Admin: 03/12/17 08:37 Dose: 40 mg Isosorbide Mononitrate (Imdur Er Tab*) 30 mg PO DAILY [facility] Last Admin: 03/12/17 08:37 Dose: 30 mg Levothyroxine Sodium (Synthroid Tab*) 200 mcg PO DAILY@0600 [facility] Last Admin: 03/12/17 06:42 Dose: 200 mcg Melatonin (Melatonin (Nf)) 3 mg PO BEDTIME [facility] Last Admin: 03/11/17 20:52 Dose: 3 mg Metoprolol Succinate (Toprol Xl Tab*) 25 mg PO DAILY [facility] Last Admin: 03/12/17 08:37 Dose: 25 mg Nystatin (Nystatin Top Powder*) 1 applic TOPICAL BID [facility] Last Admin: 03/12/17 08:39 Dose: 1 dose Ondansetron HCl (Zofran Inj*) 4 mg IV Q4H PRN PRN Reason: NAUSEA/VOMITING Oxybutynin Chloride (Ditropan Xl Tab*) 15 mg PO DAILY [facility] Last Admin: 03/12/17 10:26 Dose: 15 mg Pharmacy Profile Note (Coumadin Daily Reminder*) 0 note FOLLOW UP 1700 [facility] Last Admin: 03/12/17 17:03 Dose: 1 note Warfarin Sodium (Coumadin Tab(*)) 4 mg PO DAILY@1700 [facility] PRN Reason: Protocol Last Admin: 03/12/17 17:03 Dose: 4 mg Vital Signs 03/11/17 03/11/17 03/11/17 20:22 20:38 23:57 Temperature 97.4 F 97.4 F Pulse Rate 81 80 Respiratory 18 20 Rate Blood Pressure 148/102 144/82 139/77 (mmHg) O2 Sat by Pulse 99 98 Oximetry 03/12/17 03/12/17 03/12/17 07:40 08:00 11:31 Temperature 97.5 F 97.4 F Pulse Rate 72 72 Respiratory 20 16 16 Rate Blood Pressure 150/107 132/67 (mmHg) O2 Sat by Pulse 100 100 97 Oximetry 03/12/17 15:17 Temperature 97.4 F Pulse Rate 62 Respiratory 16 Rate Blood Pressure 132/68 (mmHg) O2 Sat by Pulse 98 Oximetry Oxygen Devices in Use Now: None Appearance: no acute distress. Sitting in chair. Eyes: No Scleral Icterus, PERRLA Ears/Nose/Mouth/Throat: NL Teeth, Lips, Gums, Mucous Membranes Moist Neck: NL Appearance and Movements; NL JVP, Trachea Midline Respiratory: Symmetrical Chest Expansion and Respiratory Effort, Clear to Auscultation Cardiovascular: NL Sounds; No Murmurs; No JVD, RRR Abdominal: NL Sounds; No Tenderness; No Distention, No Hepatosplenomegaly Extremities: No Edema, No Clubbing, Cyanosis Skin: No Rash or Ulcers, - - inguinal/genital exam deffered Neurological: NL Sensation, NL Muscle Strength and Tone - oriented to person and place, thought year 1916 Result Diagrams: 03/11/17 06:36 03/12/17 06:52 Microbiology and Other Data: Microbiology 03/10/17 22:33 Skin and Soft Tissue MRSA/MSSA (PCR - Final Thigh Left Mrsa Negative S.aureus Negative Gram Stain - Final Diagnostic Imaging: Doppler US - R femoral vein clot, unsure of acuity CXR - NAD Assess/Plan/Problems-Billing Assessment: This is an elderly female with CAD, 2 prior DVTs, HTN, GERD, dementia, hypothyroidism, and HLD who presented with c/o weakness. Found to have a new right leg DVT, and vulvar yeast infection. - Patient Problems (1) DVT (deep venous thrombosis) Current Visit: Yes Status: Acute Code(s): I82.409 - ACUTE EMBOLISM AND THOMBOS UNSP DEEP VN UNSP LOWER EXTREMITY SNOMED Code(s): 067504942 Comment: Femoral vein clot noted on US, unsure of acuity Patient is on dual antiplatelet therapy, last cardiac stent ~2yrs ago per pt's daughter Patient has had 2 prior DVTs, at least one associated with a long car ride and patient unsure about the circumstances of the 1st She has previously been on Coumadin, stopped a couple of years ago, no known clotting disorder plan discussed in re anticoagulation plan with PCP: plavix stopped, coumadin started. (2) Weakness Current Visit: Yes Status: Acute Code(s): R53.1 - WEAKNESS SNOMED Code(s) : 30623822 Comment: Initially assumed she may have had a UTI, but UA is nl Weakness may be due to DVT and pain surrounding vulvar yeast Appreciate PT consult, patient will likely require JELENA at [facility] prior to returning home with her son (3) Yeast infection Current Visit: Yes Status: Acute Code(s): B37.9 - CANDIDIASIS, UNSPECIFIED SNOMED Code(s): 7735117 Comment: Cutaneous yeast infection, most concentrated in the vulvar region Improving with oral Diflucan and topical nystatin (4) DVT prophylaxis Current Visit: No Status: Acute Onset Date: 09/28/14 Code(s): BNY7657 - SNOMED Code(s): 951476479 Comment: Savage, plan to initiate Coumadin after discussing with PCP Status and Disposition: Inpatient. Plan for [facility] JELENA on 03/13 . Attending: Jesus Treviño
[2017-03-12] MEDS: CMCS: Melatonin (NF) 3 MG TAB PO SCH (21:28)
[2017-03-13] MEDS: Levothyroxine TAB* 100 MCG TAB PO SCH (05:23)
[2017-03-13 08:17] VITALS: BP 142/62
[2017-03-13] MEDS: Aspirin EC Low Dose* 81 MG TAB.EC PO SCH (08:37)
[2017-03-13] MEDS: Fluconazole 100 MG TAB* TAB PO SCH (08:37)
[2017-03-13] MEDS: Isosorbide Mononitrate ER TAB* 30 MG PO SCH (08:38)
[2017-03-13] MEDS: Metoprolol Succinate XL TAB* 25 MG PO SCH (08:38)
[2017-03-13] MEDS: amLODIPine TAB* 5 MG PO SCH (08:38)
[2017-03-13] MEDS: Enoxaparin(*) 80 MG/0.8 ML SYR SUBCUT SCH (08:38)
[2017-03-13] MEDS: Citalopram TAB* 20 MG PO SCH (08:38)
[2017-03-13] MEDS: Atorvastatin* 10 MG TAB PO SCH (08:38)
[2017-03-13] MEDS: Oxybutynin XL TAB* 5 MG PO SCH (08:38)
[2017-03-13] MEDS: Furosemide TAB* 20 MG PO SCH (08:38)
[2017-03-13] MEDS: Nystatin TOP POWDER* 15 GM BTL TOPICAL SCH (10:16)
--- NOTE | 2017-03-13 13:15 | DS ---
DISCHARGE SUMMARY DATE OF ADMISSION: 03/10/17 DATE OF DISCHARGE: 03/13/17 ADMITTING PROVIDER: DAVEY Gonzalez ATTENDING PHYSICIAN: Jimmie Morales MD and Jesus Treviño MD PRIMARY CARE PROVIDER: Hiral Bloom MD CHIEF COMPLAINT: Weakness; inability to get out of bed. PRIMARY DIAGNOSES: 1. Right leg deep vein thrombosis. 2. Vulvar yeast infection. HISTORY OF PRESENT ILLNESS AND HOSPITAL COURSE: Claudia Vaca is an 86-year - old female, PMH mild to moderate dementia, coronary artery disease, prior DVT , hypertension, GERD, hyperlipidemia, hypothyroidism who was residing at home with her son. For the last couple of days was unwilling to get out of bed and was noted to have multiple sores in her groin and buttocks, and profound weakness. She had been unable to stand on her own which is not her baseline and she is usually able to ambulate independently with minimal assistance. She had increasing confusion and was noted to be generally incontinent of urine at baseline. She told me that she was feeling sick and not wanting to eat anything. Her appetite had been declining for several months and reportedly had a 50 pound weight loss over approximately 2 year period. Unclear how recent weight loss trends have been over the last couple of months. Patient was admitted to the hospital and discovered to have vulvar yeast infection which was treated with topical nystatin powder and oral Diflucan. She was noted to have swelling in her right lower extremity and ultrasound of same showed a DVT which was read as mid and distal femoral veins, not compressible, likely secondary to chronic venous thrombosis, although acute DVT could not be excluded. She was started on Lovenox 70 mg b.i.d. and primary care physician, Dr. Bloom, was contacted who was okay with stopping the patient's Plavix given the remoteness of her coronary artery disease stents. Patient was started on Coumadin 4 mg daily and will need to have close [id number] followup with her INRs with goal range of 2 to 3. She is discharged also on Lovenox bridge 70 mg b.i.d. to be stopped once INR is above 2. Patient was discharged with a few more days of oral Diflucan and topical nystatin powder. No other changes in medications. She will be going to [facility] for a few days to recuperate before eventual disposition back home. A kramer catheter was placed in ED, seemingly for vulvular and buttocks skin irritation ulcerations and history of incontinence. This should be attempted to be removed at [facility] or as outpatient as skin improves. DISCHARGE DIET: Regular, no restrictions, unchanged. DISCHARGE DISPOSITION: [facility]. HOME MEDICATIONS: Include: 1. Lexapro 10 mg daily. 2. Synthroid 200 micrograms daily. 3. Imdur (isosorbide mononitrate) 30 mg p.o. daily. 4. Lasix 40 mg p.o. daily. 5. Metoprolol succinate XL 25 mg p.o. daily. 6. Melatonin 1 to 3 mg p.o. q.p.m. 7. Amlodipine 5 mg p.o. daily. 8. Simvastatin 20 mg p.o. daily. 9. Oxybutynin chloride 15 mg p.o. daily. NEW MEDICATION: 1. Warfarin 4 mg p.o. daily. 2. Nystatin topical powder b.i.d. 3. Fluconazole 100 mg p.o. daily 4 tabs. 4. Lovenox 70 mg subcutaneous every 12 hours until INR is therapeutic. 5. Aspirin 81 mg p.o. daily. Of note Plavix 75 mg was stopped. FOLLOWUP: Patient will to follow with Dr. Bloom after discharge from [facility] and close INR checks at both [facility] and as an outpatient with new prescription for Coumadin. TIME SPENT: Time spent on discharge is 35 minutes. [id number]/[facility] #: [id number] MTDD
== END 2017-03-13 14:27 | DRG 758 ==
LOC: ED 17:28 → MEDTELE 20:36
PROVIDERS: ADMIT Hospitalist; ATTEND Internal Medicine
DX: B37.3 Candidiasis of vulva and vagina (principal); B37.89 Other sites of candidiasis; I82.411 Acute embolism and thrombosis of right femoral vein; F03.90 Unspecified dementia, unspecified severity, without behavioral disturbance, psychotic disturbance, mood disturbance, and anxiety; I82.511 Chronic embolism and thrombosis of right femoral vein; I11.9 Hypertensive heart disease without heart failure; E03.9 Hypothyroidism, unspecified; I25.10 Atherosclerotic heart disease of native coronary artery without angina pectoris; K21.9 Gastro-esophageal reflux disease without esophagitis; E78.5 Hyperlipidemia, unspecified; Z79.01 Long term (current) use of anticoagulants; Z79.82 Long term (current) use of aspirin; Z79.899 Other long term (current) drug therapy
CPT/HCPCS: 36415; 71010; 71020; 80048; 80053; 81003; 82550; 83605; 83735; 83880; 84443; 84484; 85025; 85610; 85652; 85730; 86140; 87040; 87070; 87077; 87186; 87205; 87640; 87641; 93005; A9270-GY; J1650; J2543; J3475

== ENCOUNTER 2017-03-18 22:19 | Inpatient (IN) | payer MEDICARE, OTHER ==
[2017-03-18 23:20] LABS: Hematocrit 30 % (35-47); Mean Corpuscular HGB Conc 33 g/dl (31-36); Mean Corpuscular Hemoglobin 29 pg (27-31); Mean Corpuscular Volume 89 fL (80-97); Mean Platelet Volume 10 um3 (7.4-10.4); Red Blood Count 3.42 10^6/ul (4.0-5.4); Red Cell Distribution Width 16 % (10.5-15); White Blood Count 7.5 10^3/ul (3.5-10.8)
[2017-03-18 23:29] LABS: Urine Bacteria Absent (Absent); Urine Bilirubin Negative (Negative); Urine Glucose Negative (Negative); Urine Nitrite Negative (Negative)
[2017-03-18 23:36] LABS: Albumin 3.1 g/dL (3.2-5.2); C Reactive Protein 25.24 mg/L (< 5.00); Calcium 8.7 mg/dL (8.6-10.3); EGFR Non-African American 55.2 (>60); Globulin 3.4 g/dL (2-4); Magnesium 1.6 mg/dL (1.9-2.7); Total Bilirubin 0.4 mg/dL (0.2-1.0); Total Protein 6.5 g/dL (6.4-8.9)
[2017-03-18 23:37] LABS: Troponin I 0.02 ng/mL (<0.04)
[2017-03-19 00:42] LABS: TSH (Thyroid Stimulating Horm) 5.48 mcIU/mL (0.34-5.60)
[2017-03-19] MEDS ORDERED: Phytonadione Oral Solution* 5 MG/25 ML UDC PO ONE ×2 (01:13→07:51)
[2017-03-19] MEDS ORDERED: Magnesium Sulfate 2 GM IV* 2 GM/50 ML BAG IVPB ONE (01:48)
[2017-03-19] MEDS: NS 0.9% 1000 ML* 1,000 ML IV SCH ×2 (02:22→05:41)
[2017-03-19] MEDS ORDERED: Pantoprazole IV* 40 MG IV ONE (03:14)
[2017-03-19] MEDS ORDERED: Potassium Chlor TAB* 20 MEQ TAB.ER PO ONE (03:15)
--- NOTE | 2017-03-19 04:23 | HP ---
CC: Dr. Hiral Bloom * ADMISSION HISTORY AND PHYSICAL: DATE OF ADMISSION: 03/19/17 PRIMARY CARE PROVIDER: Dr. Hiral Bloom. HEALTHCARE PROXY: The patient unable to identify healthcare proxy. CODE STATUS: The patient unable to identify code status. SOURCE OF INFORMATION: History obtained from interview with past medical history as well as review of records from [facility]. Interview with the patient is unreliable. CHIEF COMPLAINT: Witnessed dark stool and apparently blood in vomit. HISTORY OF PRESENT ILLNESS: An 86-year-old female with past medical history of dementia, recent hospital stay [place] 03/10/17 [place]13[place] [facility] with weakness, treated for vaginal infection as well as started on Coumadin for DVT. Discharged to [facility] where she was doing well; however, today as noted above, was noted to have dark black stool as well as what was thought to be emesis with blood. She was referred [place] [facility] [place] where her INR was noted to be 5.8 and her stool was guaiac positive. Her hemoglobin today is 10.0, 2.6 g/dL lower than when she was discharged on 03/11/17. In interview with the patient, she is unable to relay any information reliably. She cannot say why she is in the hospital. She does deny headache, nausea, vomiting, abdominal pain, chest pain, shortness of breath. She states she did not have any vomiting today which is in direct contraindication to what the report is from [facility]. PAST MEDICAL HISTORY: Includes: 1. Dementia. 2. CAD. 3. History of remote DVT. 4. Right lower leg DVT thought chronic versus acute, diagnosed in recent hospital stay. 5. Hypertension. 6. GERD. 7. Hypothyroidism. 8. Hyperlipidemia. PAST SURGICAL HISTORY: Cholecystectomy. MEDICATIONS: At discharge from [facility] last hospital stay include : 1. Coumadin 4 mg daily. 2. Lovenox bridge, now discontinued. 3. Aspirin 81 mg daily. 4. Simvastatin 20 mg daily. 5. Oxybutynin ER 15 mg daily. 6. Amlodipine 5 mg daily. 7. Melatonin 1 to 3 mg in the evening as needed. 8. Metoprolol succinate 25 mg daily. 9. Imdur ER 30 mg daily. 10. Furosemide 40 mg daily. 11. Levothyroxine 200 mcg daily. 12. Lexapro 10 mg daily. ALLERGIES: SULFA ANTIBIOTICS. FAMILY HISTORY: Unable to obtain from the patient at this time. SOCIAL HISTORY: Discharged to [facility] on 03/11/17. No alcohol. REVIEW OF SYSTEMS: Unable to obtain from the patient. PHYSICAL EXAMINATION GENERAL: Elderly woman, appears stated age. No apparent distress. VITAL SIGNS: In the emergency room, 107/75, heart rate 79, respiratory rate 17. She is 95% on room air. T-max 98.5. HEENT: Oropharynx is clear. She has dry mucous membranes. Sclerae anicteric. NECK: Nonelevated JVD. LUNGS: Clear to auscultation. HEART: Regular rate and rhythm. ABDOMEN: Soft, nontender, and nondistended. Positive bowel sounds. EXTREMITIES: Warm, well perfused without clubbing, cyanosis, or edema. NEUROLOGIC: She is alert and oriented x3 to herself, the fact that she is in a hospital and to the year, although cannot say how she got here, why she came here, or any other surrounding data. She is unable to name the president. No apparent anxiety, agitation or depression. DIAGNOSTIC STUDIES/LAB DATA: Pertinent labs reviewed as indicated above. INR 5.8. Hemoglobin 10, hematocrit 30, platelets 419,000. Sodium 135, potassium 3.0 , chloride 95, BUN 48, creatinine 0.96, glucose 149, lactic acid 2.5. ASSESSMENT AND PLAN: This is an 86-year-old female with past medical history of dementia, recent hospital stay with weakness, discharged on Coumadin, now returning with episode of dark stool and reported bloody emesis following supratherapeutic INR. 1. Upper GI bleed. Received 5 mg oral vitamin K in the emergency room. No evidence of continuing bleed at this time. Repeat INR and trend H and H every 4 hours. If it appears to be ongoing bleeding, we will consider institution of FFP for reversal. Start Protonix 80 mg bolus and then drip for suspected upper GI bleed. Supratherapeutic INR is indicated above. Oral vitamin K today and repeat INR tomorrow. 2. Hypokalemia. Replete orally now 60 mEq. Check BMP tomorrow. 3. Lactic acidosis. Repeat value in 15 minutes from now. 4. Elevated BUN concerning for upper GI bleed. Continue with normal saline 150 cc per hour started by emergency room. If continues to downtrend on next check, we will transfuse unit packed red blood cells. 5. Hypertension. Continue metoprolol, holding amlodipine and Imdur. 6. DVT prophylaxis. SCDs in the setting of active GI bleed. [id number]/[facility] #: [id number] MTDD
[2017-03-19 06:11] LABS: Hematocrit 27 % (35-47); Hemoglobin 9.2 g/dl (12.0-16.0)
[2017-03-19] MEDS: Levothyroxine TAB* 100 MCG TAB PO SCH (06:24)
[2017-03-19 06:29] LABS: BUN/Creatinine Ratio 60.4 (8-20); Calcium 8.5 mg/dL (8.6-10.3); EGFR African American 75.6 (>60); EGFR Non-African American 58.8 (>60)
[2017-03-19] MEDS ORDERED: Ondansetron INJ* 2 MG/ML VIAL IV PRN (06:42)
[2017-03-19 08:26] LABS: Magnesium 2.6 mg/dL (1.9-2.7)
--- NOTE | 2017-03-19 08:48 | ED ---
Chico Bansal Rebecca, scribed for Ld Olguin MD on 03/18/17 at 2346 . GI/ HPI - HPI Summary HPI Summary: Pt is an 86 y/o F BIBA from [facility] [place] who presents to ED d/t concerns of melena and hematemesis, per triage. Upon evaluation pt c/o nausea. When asked why she is here, she states "I don't know" and repeatedly gives the locations as "[place]." Level 5 caveat due to dementia. - History of Current Complaint Chief Complaint: EDGIBleed Stated Complaint: VOMITING BLEEDING Hx Obtained From: Medical Records Hx From Patient Unobtainable Due To: Dementia Onset/Duration: Still Present Current Severity: None Pain Intensity: 0 Associated Signs and Symptoms: Positive: Abdominal Pain Aggravating Factor(s): Nothing Alleviating Factor(s): Nothing - Additional Pertinent History Primary Care Physician: OLLIE - Allergy/Home Medications Allergies/Adverse Reactions: Allergies Allergy/AdvReac Type Severity Reaction Status Date / Time Sulfa Antibiotics Allergy Severe Hives Verified 03/10/17 17:38 PMH/Surg Hx/FS Hx/Imm Hx Endocrine/Hematology History: Reports: Hx Anticoagulant Therapy - plavix, Hx Thyroid Disease - hypothyroid Denies: Hx Diabetes Cardiovascular History: Reports: Hx Angina, Hx Congestive Heart Failure, Hx Coronary Artery Disease, Hx Deep Vein Thrombosis, Hx Hypercholesterolemia, Hx Hypertension, Hx Peripheral Vascular Disease, Other Cardiovascular Problems/ Disorders - HEART MURMUR, CAD, PVD, DVT. Denies: Hx Pacemaker/ICD Respiratory History: Reports: Hx Asthma GI History: Reports: Hx Gastroesophageal Reflux Disease History: Reports: Other Problems/Disorders - solitary congenital kidney Denies: Hx Renal Disease Musculoskeletal History: Reports: Hx Back Problems Denies: Hx Arthritis, Hx Osteoporosis Sensory History: Reports: Hx Contacts or Glasses, Hx Vision Problem, Hx Hearing Problem Denies: Hx Cataracts, Hx Glaucoma, Hx Hearing Aid Opthamlomology History: Reports: Hx Contacts or Glasses, Hx Vision Problem Denies: Hx Cataracts, Hx Glaucoma Neurological History: Reports: Hx Dementia Denies: Hx Seizures, Other Neuro Impairments/Disorders Psychiatric History: Reports: Hx Anxiety, Hx Depression Denies: Hx Substance Abuse - Surgical History Surgery Procedure, Year, and Place: RCA stent 2010. 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 Denies: Hx Human Immunodeficiency Virus (HIV), Traveled Outside the [place] in Last 30 Days - Family History Known Family History: Positive: Cardiac Disease, Other - Dementia (mother) Family History: CAD - Social History Alcohol Use: Occasionally Alcohol Amount: One glass of gin Hx Substance Use: No Substance Use Type: Reports: None Hx Tobacco Use: No Smoking Status (MU): Never Smoked Tobacco Review of Systems - ROS Summary Review of Systems Summary: Level 5 caveat due to dementia Positive: Nausea, Other - Hematemesis Positive: other - Melena All Other Systems Reviewed And Are Negative: No Physical Exam - Summary Physical Exam Summary: General: well-appearing, no pain distress Skin: warm, color reflects adequate perfusion, dry Head: normal Eyes: EOMI, THEE ENT: normal Neck: supple, nontender Respiratory: CTA, breath sounds present Cardiovascular: RRR Abdomen: soft Bowel: present Musculoskeletal: normal, strength/ROM intact, moves all 4 extremities in a grossly normal manner Neurological: sensor intact, Psychological: affect/mood appropriate' Level 5 caveat due to dementia. Triage Information Reviewed: Yes Vital Signs On Initial Exam: Initial Vitals BP 108/70 03/18/17 22:25 Vital Signs Reviewed: Yes Completion Of Physical Exam Limited Due To: Dementia - Davey Coma Scale Coma Scale Total: 14 Diagnostics - Vital Signs Vital Signs Temp Pulse Resp BP Pulse Ox 03/18/17 23:04 96 03/18/17 22:41 98.5 F 84 18 108/70 100 03/18/17 22:30 87 96/60 97 03/18/17 22:28 87 98 03/18/17 22:25 108/70 - Laboratory Lab Results: Lab Results 03/18/17 03/18/17 03/18/17 Range/Units 22:35 22:35 22:35 WBC (3.5-10.8) 10^3/ul RBC (4.0-5.4) 10^6/ul Hgb (12.0-16.0) g/dl Hct (35-47) % MCV (80-97) fL MCH (27-31) pg MCHC (31-36) g/dl RDW (10.5-15) % Plt Count (150-450) 10^3/ul MPV (7.4-10.4) um3 Neut % (Auto) (38-83) % Lymph % (Auto) (25-47) % [place] % (Auto) (1-9) % Eos % (Auto) (0-6) % Baso % (Auto) (0-2) % Absolute Neuts (auto) (1.5-7.7) 10^3/ul Absolute Lymphs (auto) (1.0-4.8) 10^3/ul Absolute Monos (auto) (0-0.8) 10^3/ul Absolute Eos (auto) (0-0.6) 10^3/ul Absolute Basos (auto) (0-0.2) 10^3/ul Absolute Nucleated RBC 10^3/ul Nucleated RBC % Sodium 135 (133-145) mmol/L Potassium 3.0 L (3.5-5.0) mmol/L Chloride 95 L (101-111) mmol/L Carbon Dioxide 28 (22-32) mmol/L Anion Gap 12 H (2-11) mmol/L BUN 48 H (6-24) mg/dL Creatinine 0.96 H (0.51-0.95) mg/dL Est GFR ( Amer) 71.0 (>60) Est GFR (Non-Af Amer) 55.2 (>60) BUN/Creatinine Ratio 50.0 H (8-20) Glucose 149 H (70-100) mg/dL Calcium 8.7 (8.6-10.3) mg/dL Magnesium 1.6 L (1.9-2.7) mg/dL Total Bilirubin 0.40 (0.2-1.0) mg/dL AST 11 L (13-39) U/L ALT 12 (7-52) U/L Alkaline Phosphatase 66 (34-104) U/L Troponin I 0.02 (<0.04) ng/mL C-Reactive Protein 25.24 H (< 5.00) mg/L B-Natriuretic Peptide 26 ( - 100) pg/mL Total Protein 6.5 (6.4-8.9) g/dL Albumin 3.1 L (3.2-5.2) g/dL Globulin 3.4 (2-4) g/dL Albumin/Globulin Ratio 0.9 L (1-3) Lipase 16 (11.0-82.0) U/L TSH Pending Urine Color Urine Appearance Urine pH (5-9) Ur Specific [place] (1.010-1.030) Urine Protein (Negative) Urine Ketones (Negative) Urine Blood (Negative) Urine Nitrate (Negative) Urine Bilirubin (Negative) Urine Urobilinogen (Negative) Ur Leukocyte Esterase (Negative) Urine WBC (Auto) (Absent) Urine RBC (Auto) (Absent) Urine Bacteria (Absent) Urine Glucose (Negative) Blood Type O Positive Antibody Screen Pending 03/18/17 03/18/17 Range/Units 22:35 23:15 WBC 7.5 (3.5-10.8) 10^3/ul RBC 3.42 L (4.0-5.4) 10^6/ul Hgb 10.0 L (12.0-16.0) g/dl Hct 30 L (35-47) % MCV 89 (80-97) fL MCH 29 (27-31) pg MCHC 33 (31-36) g/dl RDW 16 H (10.5-15) % Plt Count 419 (150-450) 10^3/ul MPV 10 (7.4-10.4) um3 Neut % (Auto) 84.4 H (38-83) % Lymph % (Auto) 10.2 L (25-47) % [place] % (Auto) 4.3 (1-9) % Eos % (Auto) 0 (0-6) % Baso % (Auto) 1.1 (0-2) % Absolute Neuts (auto) 6.4 (1.5-7.7) 10^3/ul Absolute Lymphs (auto) 0.8 L (1.0-4.8) 10^3/ul Absolute Monos (auto) 0.3 (0-0.8) 10^3/ul Absolute Eos (auto) 0 (0-0.6) 10^3/ul Absolute Basos (auto) 0.1 (0-0.2) 10^3/ul Absolute Nucleated RBC 0 10^3/ul Nucleated RBC % 0.1 Sodium (133-145) mmol/L Potassium (3.5-5.0) mmol/L Chloride (101-111) mmol/L Carbon Dioxide (22-32) mmol/L Anion Gap (2-11) mmol/L BUN (6-24) mg/dL Creatinine (0.51-0.95) mg/dL Est GFR ( Amer) (>60) Est GFR (Non-Af Amer) (>60) BUN/Creatinine Ratio (8-20) Glucose (70-100) mg/dL Calcium (8.6-10.3) mg/dL Magnesium (1.9-2.7) mg/dL Total Bilirubin (0.2-1.0) mg/dL AST (13-39) U/L ALT (7-52) U/L Alkaline Phosphatase (34-104) U/L Troponin I (<0.04) ng/mL C-Reactive Protein (< 5.00) mg/L B-Natriuretic Peptide ( - 100) pg/mL Total Protein (6.4-8.9) g/dL Albumin (3.2-5.2) g/dL Globulin (2-4) g/dL Albumin/Globulin Ratio (1-3) Lipase (11.0-82.0) U/L TSH Urine Color Yellow Urine Appearance Clear Urine pH 5.0 (5-9) Ur Specific [place] 1.011 (1.010-1.030) Urine Protein Negative (Negative) Urine Ketones Negative (Negative) Urine Blood 1+ H (Negative) Urine Nitrate Negative (Negative) Urine Bilirubin Negative (Negative) Urine Urobilinogen Negative (Negative) Ur Leukocyte Esterase Trace H (Negative) Urine WBC (Auto) Trace(0-5/hpf) (Absent) Urine RBC (Auto) Trace(0-2/hpf) (Absent) Urine Bacteria Absent (Absent) Urine Glucose Negative (Negative) Blood Type Antibody Screen Result Diagrams: 03/19/17 05:28 03/19/17 05:51 Lab Statement: Any lab studies that have been ordered have been reviewed, and results considered in the medical decision making process. - EKG 0345 Cardiac Rate: NL - 83 bpm EKG Rhythm: Sinus Rhythm ST Segment: Non-Specific - Non-specific T abnormalities in the diffuse leads Ectopy: None Re-Evaluation - Re-Evaluation First Eval Re-Evaluation Time: 00:08 Comment: On examiantion, the stool appears to have bright red blood. GIGU Course/Dx - Course Assessment/Plan: Pt is an 86 y/o F BIBA from [facility] [place] who presents to ED d/t concerns of melena and hematemesis, per triage. Upon evaluation pt c/o nausea. When asked why she is here, she states "I don't know" and repeatedly gives the locations as "[place].". Level 5 caveat due to dementia. INR of 5.83, lactic acid of 2.5, troponin of 0.02. EKG is sinus rhythm with non-specific T abnormalities in diffuse leads. Discussed care of pt with Dr. Bloom who accepts pt for admission. Pt will be admitted with Dx of GI bleed. Pt medications reviewed this visit. 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 CRITICAL CARE TIME LESS THAN 30 MINUTES. - Diagnoses Provider Diagnoses: GI bleed - Physician Notifications Discussed Care Of Patient With: Jose Bloom Time Discussed With Above Provider: 01:35 Instructed by Provider To: Other - Accepts pt for admission Discharge - Discharge Plan Condition: Stable Disposition: ADMITTED TO [facility] [place] The documentation as recorded by the Chico curtis Rebecca accurately reflects the service I personally performed and the decisions made by me, Ld Olguin MD.
[2017-03-19] MEDS ORDERED: Furosemide TAB* 40 MG PO SCH (09:00)
[2017-03-19] MEDS ORDERED: Isosorbide Mononitrate ER TAB* 30 MG PO SCH (09:00)
[2017-03-19] MEDS ORDERED: Aspirin EC Low Dose* 81 MG TAB.EC PO SCH (09:00)
--- NOTE | 2017-03-19 10:22 | PN ---
Subjective Date of Service: 03/19/17 Interval History: This is an 86 yo female admitted from [facility] overnight with reports of melena and hematachezia. Initial Hgb is 2.6 g lower than 1 week prior. No additional melena or vomiting reported overnight. Patient is quite fatigued this am with her late night admission and wishes to continue sleeping. She does not provide additional complaints. Objective Active Medications: Aspirin (Aspirin Ec Low Dose*) 81 mg PO DAILY [facility] Atorvastatin Calcium (Lipitor*) 10 mg PO DAILY [facility] Citalopram Hydrobromide (Celexa Tab*) 20 mg PO DAILY [facility] Furosemide (Lasix Tab*) 40 mg PO DAILY [facility] Sodium Chloride (Ns 0.9% 1000 Ml*) 1,000 mls @ 150 mls/hr IV PER RATE [facility] Last Admin: 03/19/17 05:41 Dose: 150 mls/hr Potassium Chloride (Potassium Chloride 10 Meq/50 Ml Ivpremix*) 10 meq in 50 mls @ 50 mls/hr IV Q1H [facility] Stop: 03/19/17 13:29 Levothyroxine Sodium (Synthroid Tab*) 200 mcg PO 0600 [facility] Last Admin: 03/19/17 06:24 Dose: 200 mcg Metoprolol Succinate (Toprol Xl Tab*) 25 mg PO DAILY [facility] Ondansetron HCl (Zofran Inj*) 4 mg IV Q4H PRN PRN Reason: NAUSEA Oxybutynin Chloride (Ditropan Xl Tab*) 15 mg PO DAILY [facility] Vital Signs: Temp Pulse Resp BP Pulse Ox 98.0 F 66 16 123/67 100 03/19/17 07:49 03/19/17 07:49 03/19/17 07:49 03/19/17 07:49 03/19/17 07:49 Oxygen Devices in Use Now: None Appearance: Patient is sleeping, in NAD. Respiratory: Symmetrical Chest Expansion and Respiratory Effort, Clear to Auscultation Cardiovascular: NL Sounds; No Murmurs; No JVD, RRR Abdominal: NL Sounds; No Tenderness; No Distention Extremities: No Edema Neurological: - - sedated Result Diagrams: 03/19/17 05:28 03/19/17 05:51 Additional Lab and Data: . Assess/Plan/Problems-Billing Assessment: This is an 86 yo female recently discharged on Coumadin for a DVT who returns with reported melena, hematachezia with heme positive stool and supratherapeutic INR. - Patient Problems (1) GI bleed Comment: Upper GI bleed with melena and hematachezia No further BMs since admission INR supratherapeutic, reversing with vit K and FFP Cont to trend H&H Protonix drip Hemodynamically stable, no indication for transfusion at this time Requested GI consult (2) Coumadin toxicity Comment: INR 6 at admission Reversing with FFP and vit K (3) DVT (deep venous thrombosis) Comment: Diagnosed during admission last week Started on coumadin at that time Now supratherapeutic INR Coumadin stopped and INR being reversed Consider IVC filter once clinically stable (4) HTN (hypertension) Comment: Normotensive Holding Lasix (5) Hypokalemia Comment: Replete as necessary (6) Coronary heart disease Comment: Current Asx Holding ASA in setting of active bleeding (7) Dementia Comment: Mild to mod without sig behavorial concerns (8) Dyslipidemia Comment: Cont statin (9) Hypothyroid Comment: Recent TSH WNL Cont levothyroxine (10) DVT prophylaxis Comment: Supratherapeutic INR and active bleeding Chemical prophylaxis contraindicated (11) Full code status Status and Disposition: Transition to inpatient. Unsure about discharge planning at this time.
[2017-03-19] MEDS: Citalopram TAB* 20 MG PO SCH (10:44)
[2017-03-19] MEDS: Atorvastatin* 10 MG TAB PO SCH (10:44)
[2017-03-19] MEDS: Oxybutynin XL TAB* 5 MG PO SCH (10:44)
[2017-03-19] MEDS: Metoprolol Succinate XL TAB* 25 MG PO SCH (10:49)
[2017-03-19] MEDS: KCL 10 MEQ/50 ML IVPREMIX* 10 MEQ/50 ML BAG IV SCH ×3 (11:17→13:03)
--- NOTE | 2017-03-19 12:30 | CONSULT ---
Consult Consult: Reason for consult: Suspected GI bleeding HPI: 86 year old female with multiple comorbidities including dementia admitted with suspected GI bleeding. Patient has severe dementia and history of obtained from reviewing medical chart. Apparently patient was recently started on coumadin and had INR checked with was < 2 and later noted to have dark stools and hematochezia. She was found to have a INR>5 and GI consulted for concern of GI bleeding. ROS: Unable to obtain given patient's mental state PAST MEDICAL HISTORY Dementia Hypertension DVT ALL Sulfa antibiotics MEDS: Escitalopram (NF) [Lexapro 10 mg (NF)] 10 mg PO DAILY 09/28/14 [History Confirmed 03/19/17] Simvastatin TAB(NF) [Zocor 20 MG (NF)] 20 mg PO DAILY 09/28/14 [History Confirmed 03/19/17] Furosemide TAB* [Lasix TAB*] 40 mg PO DAILY 06/18/15 [History Confirmed 03/19/17 ] Isosorbide Mononitrate ER TAB* [Imdur ER TAB*] 30 mg PO DAILY 06/18/15 [History Confirmed 03/19/17] Melatonin 1 - 3 mg PO QPM 06/18/15 [History Confirmed 03/19/17] Metoprolol Succinate XL TAB* [Toprol XL TAB*] 25 mg PO DAILY 06/18/15 [History Confirmed 03/19/17] Oxybutynin Chloride [Oxybutynin Chloride ER] 15 mg PO DAILY 06/18/15 [History Confirmed 03/19/17] amLODIPine TAB* [Norvasc 5 mg TAB*] 5 mg PO DAILY 06/18/15 [History Confirmed ] Levothyroxine TAB* [Synthroid 150 MCG TAB*] 200 mcg PO DAILY 03/11/17 [History Confirmed 03/19/17] Aspirin EC Low Dose* [Ecotrin EC Low Dose 81 MG*] 81 mg PO DAILY tab.ec [Rx Confirmed 03/19/17] Enoxaparin(*) [Lovenox(*)] 70 mg SUBCUT Q12H #10 syringe 03/13/17 [Rx Confirmed 03/19/17] Warfarin TAB(*) [Coumadin TAB(*)] 4 mg PO DAILY@1700 #20 tab 03/13/17 [Rx Confirmed 03/19/17] Vitals: Vital Signs Temp Pulse Resp BP Pulse Ox 98.4 F 71 16 121/70 95 03/19/17 12:32 03/19/17 12:32 03/19/17 12:32 03/19/17 12:32 03/19/17 12:32 GEN Appears comfortable and in no acute distress HEENT: anicteric sclera, pale conjunctiva CHEST Clear to auscultation anteriorly CV: Regular rate rhythm s1 s2 no rubs or gallops ABD: soft, nontender normocative bowel sounds EXT: no lower extremity denma Labs: Laboratory Last Values WBC 7.5 10^3/ul (3.5-10.8) 03/18/17 22:35 RBC 3.42 10^6/ul (4.0-5.4) L 03/18/17 22:35 Hgb 9.2 g/dl (12.0-16.0) L 03/19/17 05:28 Hct 27 % (35-47) L 03/19/17 05:28 MCV 89 fL (80-97) 03/18/17 22:35 MCH 29 pg (27-31) 03/18/17 22:35 MCHC 33 g/dl (31-36) 03/18/17 22:35 RDW 16 % (10.5-15) H 03/18/17 22:35 Plt Count 419 10^3/ul (150-450) 03/18/17 22:35 MPV 10 um3 (7.4-10.4) 03/18/17 22:35 Neut % (Auto) 84.4 % (38-83) H 03/18/17 22:35 Lymph % (Auto) 10.2 % (25-47) L 03/18/17 22:35 [place] % (Auto) 4.3 % (1-9) 03/18/17 22:35 Eos % (Auto) 0 % (0-6) 03/18/17 22:35 Baso % (Auto) 1.1 % (0-2) 03/18/17 22:35 Absolute Neuts (auto) 6.4 10^3/ul (1.5-7.7) 03/18/17 22:35 Absolute Lymphs (auto) 0.8 10^3/ul (1.0-4.8) L 03/18/17 22:35 Absolute Monos (auto) 0.3 10^3/ul (0-0.8) 03/18/17 22:35 Absolute Eos (auto) 0 10^3/ul (0-0.6) 03/18/17 22:35 Absolute Basos (auto) 0.1 10^3/ul (0-0.2) 03/18/17 22:35 Absolute Nucleated RBC 0 10^3/ul 03/18/17 22:35 Nucleated RBC % 0.1 03/18/17 22:35 INR (Anticoag Therapy) 5.61 (0.89-1.11) H* 03/19/17 05:51 APTT 40.9 seconds (26.0-36.3) H 03/18/17 22:35 Sodium 136 mmol/L (133-145) 03/19/17 05:51 Potassium 3.0 mmol/L (3.5-5.0) L 03/19/17 05:51 Chloride 98 mmol/L (101-111) L 03/19/17 05:51 Carbon Dioxide 28 mmol/L (22-32) 03/19/17 05:51 Anion Gap 10 mmol/L (2-11) 03/19/17 05:51 BUN 55 mg/dL (6-24) H 03/19/17 05:51 Creatinine 0.91 mg/dL (0.51-0.95) 03/19/17 05:51 Est GFR ( Amer) 75.6 (>60) 03/19/17 05:51 Est GFR (Non-Af Amer) 58.8 (>60) 03/19/17 05:51 BUN/Creatinine Ratio 60.4 (8-20) H 03/19/17 05:51 Glucose 132 mg/dL (70-100) H 03/19/17 05:51 Lactic Acid 2.1 mmol/L (0.5-2.0) H* 03/19/17 05:51 Calcium 8.5 mg/dL (8.6-10.3) L 03/19/17 05:51 Magnesium 2.6 mg/dL (1.9-2.7) 03/19/17 05:51 Total Bilirubin 0.40 mg/dL (0.2-1.0) 03/18/17 22:35 AST 11 U/L (13-39) L 03/18/17 22:35 ALT 12 U/L (7-52) 03/18/17 22:35 Alkaline Phosphatase 66 U/L (34-104) 03/18/17 22:35 Troponin I 0.02 ng/mL (<0.04) 03/18/17 22:35 C-Reactive Protein 25.24 mg/L (< 5.00) H 03/18/17 22:35 B-Natriuretic Peptide 26 pg/mL (-100) 03/18/17 22:35 Total Protein 6.5 g/dL (6.4-8.9) 03/18/17 22:35 Albumin 3.1 g/dL (3.2-5.2) L 03/18/17 22:35 Globulin 3.4 g/dL (2-4) 03/18/17 22:35 Albumin/Globulin Ratio 0.9 (1-3) L 03/18/17 22:35 Lipase 16 U/L (11.0-82.0) 03/18/17 22:35 TSH 5.48 mcIU/mL (0.34-5.60) 03/18/17 22:35 Urine Color Yellow 03/18/17 23:15 Urine Appearance Clear 03/18/17 23:15 Urine pH 5.0 (5-9) 03/18/17 23:15 Ur Specific [place] 1.011 (1.010-1.030) 03/18/17 23:15 Urine Protein Negative (Negative) 03/18/17 23:15 Urine Ketones Negative (Negative) 03/18/17 23:15 Urine Blood 1+ (Negative) H 03/18/17 23:15 Urine Nitrate Negative (Negative) 03/18/17 23:15 Urine Bilirubin Negative (Negative) 03/18/17 23:15 Urine Urobilinogen Negative (Negative) 03/18/17 23:15 Ur Leukocyte Esterase Trace (Negative) H 03/18/17 23:15 Urine WBC (Auto) Trace(0-5/hpf) (Absent) 03/18/17 23:15 Urine RBC (Auto) Trace(0-2/hpf) (Absent) 03/18/17 23:15 Urine Bacteria Absent (Absent) 03/18/17 23:15 Urine Glucose Negative (Negative) 03/18/17 23:15 Blood Type O Positive 03/18/17 22:35 Antibody Screen Negative 03/18/17 22:35 Impression: 86 year old female with above medical problems admitted with GI bleeding in the setting of supratherapeutic INR. 1. GI Bleeding in setting of Supratherapeutic INR: Likely related to medication induced coagulopathy rather that new GI bleeding. Nonetheless, would like to pursue endoscopic evaluation once coagulopathy is corrected. Thus far, INR is 5 today and goal would be <2 at a [address]. Please place 2 large bore IVs, type and screen, and transfuse if Hb <8. 2. Continue ppi infusion 3. Ok for clears for now. 4. NPO p MN for possible EGD tomorrow if INR is improved. 5. Check H/H q8 for now.
[2017-03-19 14:17] LABS: Hematocrit 23 % (35-47); Hemoglobin 7.8 g/dl (12.0-16.0)
[2017-03-19] MEDS: Pantoprazole IV* 80 MG in NS 0.9% 250 ML* 250 ML IVPB SCH (14:41)
[2017-03-19 18:32] LABS: Hematocrit 25 % (35-47); Hemoglobin 8.4 g/dl (12.0-16.0)
[2017-03-20 00:41] LABS: Hematocrit 29 % (35-47); Hemoglobin 9.7 g/dl (12.0-16.0)
[2017-03-20] MEDS: Pantoprazole IV* 80 MG in NS 0.9% 250 ML* 250 ML IVPB SCH ×3 (01:46→12:19)
[2017-03-20] MEDS: Levothyroxine TAB* 100 MCG TAB PO SCH (05:47)
[2017-03-20 11:43] LABS: Hematocrit 33 % (35-47); Hemoglobin 10.5 g/dl (12.0-16.0)
[2017-03-20 12:14] LABS: BUN/Creatinine Ratio 36.2 (8-20); Blood Urea Nitrogen 25 mg/dL (6-24); CO2 Carbon Dioxide 24 mmol/L (22-32); Calcium 8.1 mg/dL (8.6-10.3); Chloride 106 mmol/L (101-111); EGFR Non-African American 80.9 (>60); Glucose 77 mg/dL (70-100); Sodium 137 mmol/L (133-145)
[2017-03-20 12:19] LABS: Anion Gap 7 mmol/L (2-11)
[2017-03-20] MEDS ORDERED: Midazolam* 1 MG/ML 10 ML VIAL (10 MG) ONE (13:35)
[2017-03-20] MEDS ORDERED: Meperidine SYRINGE* 50 MG/ML ONE (13:35)
[2017-03-20] MEDS: Atorvastatin* 10 MG TAB PO SCH (15:59)
[2017-03-20] MEDS: Citalopram TAB* 20 MG PO SCH (15:59)
[2017-03-20] MEDS: Metoprolol Succinate XL TAB* 25 MG PO SCH (15:59)
[2017-03-20] MEDS: Oxybutynin XL TAB* 5 MG PO SCH (16:03)
--- NOTE | 2017-03-20 16:17 | PN ---
Subjective Date of Service: 03/20/17 Interval History: Patient has no new complaints overnight. Oriented only to self and pleasantly confused. Patient not reliable historian. Patient denies abdominal pain, SOB, Dizziness, CP, N/V, F/C, or any other new pains. Patient states she is thirsty from being NPO overnight. Family History: Unchanged from Admission Social History: Unchanged from Admission Past Medical History: Unchanged from Admission Objective Active Medications: Atorvastatin Calcium (Lipitor*) 10 mg PO DAILY [facility] Last Admin: 03/20/17 15:59 Dose: 10 mg Citalopram Hydrobromide (Celexa Tab*) 20 mg PO DAILY [facility] Last Admin: 03/20/17 15:59 Dose: 20 mg Sodium Chloride (Ns 0.9% 1000 Ml*) 1,000 mls @ 150 mls/hr IV PER RATE [facility] Last Admin: 03/19/17 05:41 Dose: 150 mls/hr Pantoprazole Sodium 80 mg/ (Sodium Chloride) 250 mls @ 25 mls/hr IVPB Q10H [facility] Last Admin: 03/20/17 12:19 Dose: 25 mls/hr Levothyroxine Sodium (Synthroid Tab*) 200 mcg PO 0600 [facility] Last Admin: 03/20/17 05:47 Dose: 200 mcg Metoprolol Succinate (Toprol Xl Tab*) 25 mg PO DAILY [facility] Last Admin: 03/20/17 15:59 Dose: Not Given Ondansetron HCl (Zofran Inj*) 4 mg IV Q4H PRN PRN Reason: NAUSEA Oxybutynin Chloride (Ditropan Xl Tab*) 15 mg PO DAILY [facility] Last Admin: 03/20/17 16:03 Dose: 15 mg Vital Signs 03/19/17 03/19/17 03/19/17 16:14 16:54 19:55 Temperature 97.8 F 98 F 97.9 F Pulse Rate 67 64 58 Respiratory 16 16 Rate Blood Pressure 112/51 106/50 104/51 (mmHg) O2 Sat by Pulse 93 100 97 Oximetry 03/19/17 03/19/17 03/19/17 20:17 21:35 23:25 Temperature 98.3 F 97.6 F Pulse Rate 57 55 Respiratory 16 16 16 Rate Blood Pressure 103/49 115/49 (mmHg) O2 Sat by Pulse 95 94 Oximetry 03/20/17 03/20/17 03/20/17 04:48 07:30 08:00 Temperature 97.2 F Pulse Rate 55 56 Respiratory 16 16 16 Rate Blood Pressure 122/51 112/50 (mmHg) O2 Sat by Pulse 98 100 Oximetry 03/20/17 03/20/17 03/20/17 11:18 15:32 15:47 Temperature 97.4 F 97.5 F 97.5 F Pulse Rate 53 52 52 Respiratory 16 16 15 Rate Blood Pressure 123/38 109/61 109/61 (mmHg) O2 Sat by Pulse 97 73 95 Oximetry Oxygen Devices in Use Now: None Appearance: Patient is an 86yo female who appears stated age and is sitting in the bed in [facility]. Eyes: No Scleral Icterus, PERRLA Ears/Nose/Mouth/Throat: NL Teeth, Lips, Gums, Clear Oropharnyx, Mucous Membranes Moist Neck: NL Appearance and Movements; NL JVP Respiratory: Symmetrical Chest Expansion and Respiratory Effort, Clear to Auscultation Cardiovascular: NL Sounds; No Murmurs; No JVD, RRR, No Edema Abdominal: NL Sounds; No Tenderness; No Distention, No Hepatosplenomegaly Lymphatic: No Cervical Adenopathy Extremities: No Edema, No Clubbing, Cyanosis Skin: No Rash or Ulcers, No Nodules or Sclerosis Neurological: - - Patient alert only to self, CN II-XII grossly intact. Result Diagrams: 03/20/17 11:17 03/20/17 12:28 Additional Lab and Data: . 03/18/17 03/18/17 03/18/17 22:35 22:35 22:35 WBC RBC Hgb Hct MCV MCH MCHC RDW Plt Count MPV Neut % (Auto) Lymph % (Auto) [place] % (Auto) Eos % (Auto) Baso % (Auto) Absolute Neuts (auto) Absolute Lymphs (auto) Absolute Monos (auto) Absolute Eos (auto) Absolute Basos (auto) Absolute Nucleated RBC Nucleated RBC % INR (Anticoag Therapy) 5.83 H* APTT 40.9 H Sodium Potassium Chloride Carbon Dioxide Anion Gap BUN Creatinine Est GFR ( Amer) Est GFR (Non-Af Amer) BUN/Creatinine Ratio Glucose Lactic Acid Calcium Magnesium Total Bilirubin AST ALT Alkaline Phosphatase Troponin I C-Reactive Protein B-Natriuretic Peptide 26 Total Protein Albumin Globulin Albumin/Globulin Ratio Lipase TSH Urine Color Urine Appearance Urine pH Ur Specific [place] Urine Protein Urine Ketones Urine Blood Urine Nitrate Urine Bilirubin Urine Urobilinogen Ur Leukocyte Esterase Urine WBC (Auto) Urine RBC (Auto) Urine Bacteria Urine Glucose Blood Type O Positive Antibody Screen Negative Crossmatch See Detail 03/18/17 03/18/17 03/18/17 22:35 22:35 22:35 WBC 7.5 RBC 3.42 L Hgb 10.0 L Hct 30 L MCV 89 MCH 29 MCHC 33 RDW 16 H Plt Count 419 MPV 10 Neut % (Auto) 84.4 H Lymph % (Auto) 10.2 L [place] % (Auto) 4.3 Eos % (Auto) 0 Baso % (Auto) 1.1 Absolute Neuts (auto) 6.4 Absolute Lymphs (auto) 0.8 L Absolute Monos (auto) 0.3 Absolute Eos (auto) 0 Absolute Basos (auto) 0.1 Absolute Nucleated RBC 0 Nucleated RBC % 0.1 INR (Anticoag Therapy) APTT Sodium 135 Potassium 3.0 L Chloride 95 L Carbon Dioxide 28 Anion Gap 12 H BUN 48 H Creatinine 0.96 H Est GFR ( Amer) 71.0 Est GFR (Non-Af Amer) 55.2 BUN/Creatinine Ratio 50.0 H Glucose 149 H Lactic Acid 2.5 H* Calcium 8.7 Magnesium 1.6 L Total Bilirubin 0.40 AST 11 L ALT 12 Alkaline Phosphatase 66 Troponin I 0.02 C-Reactive Protein 25.24 H B-Natriuretic Peptide Total Protein 6.5 Albumin 3.1 L Globulin 3.4 Albumin/Globulin Ratio 0.9 L Lipase 16 TSH 5.48 Urine Color Urine Appearance Urine pH Ur Specific [place] Urine Protein Urine Ketones Urine Blood Urine Nitrate Urine Bilirubin Urine Urobilinogen Ur Leukocyte Esterase Urine WBC (Auto) Urine RBC (Auto) Urine Bacteria Urine Glucose Blood Type Antibody Screen Crossmatch 03/18/17 03/19/17 03/19/17 23:15 05:28 05:51 WBC RBC Hgb 9.2 L Hct 27 L MCV MCH MCHC RDW Plt Count MPV Neut % (Auto) Lymph % (Auto) [place] % (Auto) Eos % (Auto) Baso % (Auto) Absolute Neuts (auto) Absolute Lymphs (auto) Absolute Monos (auto) Absolute Eos (auto) Absolute Basos (auto) Absolute Nucleated RBC Nucleated RBC % INR (Anticoag Therapy) 5.61 H* APTT Sodium Potassium Chloride Carbon Dioxide Anion Gap BUN Creatinine Est GFR ( Amer) Est GFR (Non-Af Amer) BUN/Creatinine Ratio Glucose Lactic Acid Calcium Magnesium Total Bilirubin AST ALT Alkaline Phosphatase Troponin I C-Reactive Protein B-Natriuretic Peptide Total Protein Albumin Globulin Albumin/Globulin Ratio Lipase TSH Urine Color Yellow Urine Appearance Clear Urine pH 5.0 Ur Specific [place] 1.011 Urine Protein Negative Urine Ketones Negative Urine Blood 1+ H Urine Nitrate Negative Urine Bilirubin Negative Urine Urobilinogen Negative Ur Leukocyte Esterase Trace H Urine WBC (Auto) Trace(0-5/hpf) Urine RBC (Auto) Trace(0-2/hpf) Urine Bacteria Absent Urine Glucose Negative Blood Type Antibody Screen Crossmatch 03/19/17 03/19/17 03/19/17 05:51 05:51 14:00 WBC RBC Hgb 7.8 L Hct 23 L MCV MCH MCHC RDW Plt Count MPV Neut % (Auto) Lymph % (Auto) [place] % (Auto) Eos % (Auto) Baso % (Auto) Absolute Neuts (auto) Absolute Lymphs (auto) Absolute Monos (auto) Absolute Eos (auto) Absolute Basos (auto) Absolute Nucleated RBC Nucleated RBC % INR (Anticoag Therapy) APTT Sodium 136 Potassium 3.0 L Chloride 98 L Carbon Dioxide 28 Anion Gap 10 BUN 55 H Creatinine 0.91 Est GFR ( Amer) 75.6 Est GFR (Non-Af Amer) 58.8 BUN/Creatinine Ratio 60.4 H Glucose 132 H Lactic Acid 2.1 H* Calcium 8.5 L Magnesium 2.6 Total Bilirubin AST ALT Alkaline Phosphatase Troponin I C-Reactive Protein B-Natriuretic Peptide Total Protein Albumin Globulin Albumin/Globulin Ratio Lipase TSH Urine Color Urine Appearance Urine pH Ur Specific [place] Urine Protein Urine Ketones Urine Blood Urine Nitrate Urine Bilirubin Urine Urobilinogen Ur Leukocyte Esterase Urine WBC (Auto) Urine RBC (Auto) Urine Bacteria Urine Glucose Blood Type Antibody Screen Crossmatch 03/19/17 03/19/17 03/20/17 18:25 18:25 00:28 WBC RBC Hgb 8.4 L 9.7 L Hct 25 L 29 L MCV MCH MCHC RDW Plt Count MPV Neut % (Auto) Lymph % (Auto) [place] % (Auto) Eos % (Auto) Baso % (Auto) Absolute Neuts (auto) Absolute Lymphs (auto) Absolute Monos (auto) Absolute Eos (auto) Absolute Basos (auto) Absolute Nucleated RBC Nucleated RBC % INR (Anticoag Therapy) 1.74 H APTT Sodium Potassium Chloride Carbon Dioxide Anion Gap BUN Creatinine Est GFR ( Amer) Est GFR (Non-Af Amer) BUN/Creatinine Ratio Glucose Lactic Acid Calcium Magnesium Total Bilirubin AST ALT Alkaline Phosphatase Troponin I C-Reactive Protein B-Natriuretic Peptide Total Protein Albumin Globulin Albumin/Globulin Ratio Lipase TSH Urine Color Urine Appearance Urine pH Ur Specific [place] Urine Protein Urine Ketones Urine Blood Urine Nitrate Urine Bilirubin Urine Urobilinogen Ur Leukocyte Esterase Urine WBC (Auto) Urine RBC (Auto) Urine Bacteria Urine Glucose Blood Type Antibody Screen Crossmatch 03/20/17 03/20/17 03/20/17 11:17 11:17 12:28 WBC RBC Hgb 10.5 L Hct 33 L MCV MCH MCHC RDW Plt Count MPV Neut % (Auto) Lymph % (Auto) [place] % (Auto) Eos % (Auto) Baso % (Auto) Absolute Neuts (auto) Absolute Lymphs (auto) Absolute Monos (auto) Absolute Eos (auto) Absolute Basos (auto) Absolute Nucleated RBC Nucleated RBC % INR (Anticoag Therapy) 1.75 H APTT Sodium 137 Potassium TNP Chloride 106 Carbon Dioxide 24 Anion Gap 7 BUN 25 H Creatinine 0.69 Est GFR ( Amer) 104.0 Est GFR (Non-Af Amer) 80.9 BUN/Creatinine Ratio 36.2 H Glucose 77 Lactic Acid Calcium 8.1 L Magnesium Total Bilirubin AST ALT Alkaline Phosphatase Troponin I C-Reactive Protein B-Natriuretic Peptide Total Protein Albumin Globulin Albumin/Globulin Ratio Lipase TSH Urine Color Urine Appearance Urine pH Ur Specific [place] Urine Protein Urine Ketones Urine Blood Urine Nitrate Urine Bilirubin Urine Urobilinogen Ur Leukocyte Esterase Urine WBC (Auto) Urine RBC (Auto) Urine Bacteria Urine Glucose Blood Type Antibody Screen Crossmatch 03/20/17 12:28 WBC RBC Hgb Hct MCV MCH MCHC RDW Plt Count MPV Neut % (Auto) Lymph % (Auto) [place] % (Auto) Eos % (Auto) Baso % (Auto) Absolute Neuts (auto) Absolute Lymphs (auto) Absolute Monos (auto) Absolute Eos (auto) Absolute Basos (auto) Absolute Nucleated RBC Nucleated RBC % INR (Anticoag Therapy) APTT Sodium Potassium 3.7 Chloride Carbon Dioxide Anion Gap BUN Creatinine Est GFR ( Amer) Est GFR (Non-Af Amer) BUN/Creatinine Ratio Glucose Lactic Acid Calcium Magnesium Total Bilirubin AST ALT Alkaline Phosphatase Troponin I C-Reactive Protein B-Natriuretic Peptide Total Protein Albumin Globulin Albumin/Globulin Ratio Lipase TSH Urine Color Urine Appearance Urine pH Ur Specific [place] Urine Protein Urine Ketones Urine Blood Urine Nitrate Urine Bilirubin Urine Urobilinogen Ur Leukocyte Esterase Urine WBC (Auto) Urine RBC (Auto) Urine Bacteria Urine Glucose Blood Type Antibody Screen Crossmatch Assess/Plan/Problems-Billing Assessment: This is an 86 yo female recently discharged on Coumadin for a DVT who returns with reported melena, hematachezia with heme positive stool and supratherapeutic INR who underwent EGD today. - Patient Problems (1) GI bleed Current Visit: Yes Status: Acute Code(s): K92.2 - GASTROINTESTINAL HEMORRHAGE, UNSPECIFIED SNOMED Code(s): 15509986 Comment: Upper GI bleed with melena and hematachezia No further BMs or vomiting since admission Protonix drip Hemodynamically stable, no indication for transfusion at this time Continue to trend H&H. GI consulting and took for EGD today. (2) Coumadin toxicity Current Visit: Yes Status: Acute Code(s): T45.511A - POISONING BY ANTICOAGULANTS, ACCIDENTAL, INIT SNOMED Code(s): 58491578 Comment: INR 1.75 today, able to undergo endoscopy. (3) DVT (deep venous thrombosis) Current Visit: No Status: Acute Code(s): I82.409 - ACUTE EMBOLISM AND THOMBOS UNSP DEEP VN UNSP LOWER EXTREMITY SNOMED Code(s): 855648601 Comment: Diagnosed during admission last week, Started on coumadin at that time Subthearpeutic INR. Continue to hold anticoagulation Consider IVC filter once clinically stable (4) Dementia Current Visit: No Status: Chronic Code(s): F03.90 - UNSPECIFIED DEMENTIA WITHOUT BEHAVIORAL DISTURBANCE SNOMED Code(s): 94983440 Comment: Mild to mod without sig behavorial concerns (5) Dyslipidemia Current Visit: No Status: Chronic Code(s): E78.5 - HYPERLIPIDEMIA, UNSPECIFIED SNOMED Code(s): 726589143 Comment: Cont statin (6) Hypothyroid Current Visit: No Status: Chronic Code(s): E03.9 - HYPOTHYROIDISM, UNSPECIFIED SNOMED Code(s): 75580094 Comment: Recent TSH WNL Cont levothyroxine (7) Full code status Current Visit: No Status: Acute Onset Date: 09/28/14 Code(s): Z78.9 - OTHER SPECIFIED HEALTH STATUS SNOMED Code(s): 277797185 Status and Disposition: Transition to inpatient. Patient will return to [facility] when medically able.
[2017-03-20 23:11] LABS: Hematocrit 30 % (35-47); Hemoglobin 9.9 g/dl (12.0-16.0)
[2017-03-21] MEDS: Pantoprazole IV* 80 MG in NS 0.9% 250 ML* 250 ML IVPB SCH ×3 (02:36→13:19)
[2017-03-21] MEDS: Levothyroxine TAB* 100 MCG TAB PO SCH (05:59)
[2017-03-21 06:29] LABS: Hematocrit 28 % (35-47); Hemoglobin 9.4 g/dl (12.0-16.0); Mean Corpuscular HGB Conc 34 g/dl (31-36); Mean Corpuscular Hemoglobin 29 pg (27-31); Mean Corpuscular Volume 87 fL (80-97); Mean Platelet Volume 9 um3 (7.4-10.4); Red Cell Distribution Width 16 % (10.5-15); White Blood Count 5.2 10^3/ul (3.5-10.8)
[2017-03-21 06:47] LABS: BUN/Creatinine Ratio 24.6 (8-20); EGFR African American 111.4 (>60); EGFR Non-African American 86.6 (>60); Potassium 2.9 mmol/L (3.5-5.0)
[2017-03-21] MEDS: Oxybutynin XL TAB* 5 MG PO SCH (09:59)
[2017-03-21] MEDS: Citalopram TAB* 20 MG PO SCH (10:00)
[2017-03-21] MEDS: Atorvastatin* 10 MG TAB PO SCH (10:00)
--- NOTE | 2017-03-21 10:58 | PN ---
Progress Note - Progress Note Date of Service: 03/21/17 Note: Patient appears much improved. Erosive esophagitis found on EGD per Dr. Medrano. Continue ppi BID for 8 weeks. Ok to advance diet as tolerated.
[2017-03-21] MEDS: Potassium Chlor TAB* 20 MEQ TAB.ER PO SCH ×2 (11:45→22:17)
[2017-03-21 14:43] LABS: Hematocrit 30 % (35-47)
--- NOTE | 2017-03-21 15:09 | PN ---
Subjective Date of Service: 03/21/17 Interval History: Patient continues to be confused and oriented only to person and place. Patient denies any new complaints overnight. Patient had several small brown and green stools overnight which showed no blood or melena according to the nursing staff. Patient has been asymptomatically bradycardic, metoprolol has been held for 2 days now. EKG normal, no symptoms reported by patient. Family History: Unchanged from Admission Social History: Unchanged from Admission Past Medical History: Unchanged from Admission Objective Active Medications: Atorvastatin Calcium (Lipitor*) 10 mg PO DAILY [facility] Last Admin: 03/21/17 10:00 Dose: 10 mg Citalopram Hydrobromide (Celexa Tab*) 20 mg PO DAILY [facility] Last Admin: 03/21/17 10:00 Dose: 20 mg Sodium Chloride (Ns 0.9% 1000 Ml*) 1,000 mls @ 150 mls/hr IV PER RATE [facility] Last Admin: 03/19/17 05:41 Dose: 150 mls/hr Pantoprazole Sodium 80 mg/ (Sodium Chloride) 250 mls @ 25 mls/hr IVPB Q10H [facility] Last Admin: 03/21/17 13:19 Dose: 25 mls/hr Levothyroxine Sodium (Synthroid Tab*) 200 mcg PO 0600 [facility] Last Admin: 03/21/17 05:59 Dose: 200 mcg Ondansetron HCl (Zofran Inj*) 4 mg IV Q4H PRN PRN Reason: NAUSEA Oxybutynin Chloride (Ditropan Xl Tab*) 15 mg PO DAILY [facility] Last Admin: 03/21/17 09:59 Dose: 15 mg Potassium Chloride (Klor Con Er Tab*) 20 meq PO BID [facility] Last Admin: 03/21/17 11:45 Dose: 20 meq Vital Signs 03/20/17 03/20/17 03/20/17 15:32 15:47 16:11 Temperature 97.5 F 97.5 F Pulse Rate 52 52 Respiratory 16 15 Rate Blood Pressure 109/61 109/61 102/58 (mmHg) O2 Sat by Pulse 73 95 Oximetry 03/20/17 03/20/17 03/20/17 16:17 17:07 17:16 Temperature 97.7 F 97.8 F Pulse Rate 55 58 Respiratory 16 16 Rate Blood Pressure 85/59 104/56 (mmHg) O2 Sat by Pulse 99 100 Oximetry 03/20/17 03/20/17 03/20/17 19:25 20:00 21:15 Temperature 97.8 F 97.9 F Pulse Rate 51 50 Respiratory 16 18 12 Rate Blood Pressure 104/50 96/45 (mmHg) O2 Sat by Pulse 97 100 Oximetry 03/20/17 03/21/17 03/21/17 23:32 04:26 08:00 Temperature 97.3 F 97.8 F Pulse Rate 53 51 Respiratory 16 16 16 Rate Blood Pressure 105/39 101/37 (mmHg) O2 Sat by Pulse 100 98 Oximetry 03/21/17 08:04 Temperature 97.5 F Pulse Rate 47 Respiratory Rate Blood Pressure 103/81 (mmHg) O2 Sat by Pulse 98 Oximetry Oxygen Devices in Use Now: None Appearance: Patient is a 86yo female who appears stated age sitting comfortably in the bed in NAD. Eyes: No Scleral Icterus, PERRLA Ears/Nose/Mouth/Throat: NL Teeth, Lips, Gums, Clear Oropharnyx, Mucous Membranes Moist Neck: NL Appearance and Movements; NL JVP, Trachea Midline Respiratory: Symmetrical Chest Expansion and Respiratory Effort, Clear to Auscultation Cardiovascular: NL Sounds; No Murmurs; No JVD, No Edema, - - Bradycardic at 56. Abdominal: NL Sounds; No Tenderness; No Distention, No Hepatosplenomegaly Lymphatic: No Cervical Adenopathy Extremities: No Edema Skin: No Rash or Ulcers, No Nodules or Sclerosis, - - No sign of fungal infection in groin from last admission. Neurological: - - Alert and oriented only to person and place. CNII-XII grossly intact. Result Diagrams: 03/21/17 14:20 03/21/17 05:57 Additional Lab and Data: . 03/18/17 03/18/17 03/18/17 22:35 22:35 22:35 WBC RBC Hgb Hct MCV MCH MCHC RDW Plt Count MPV Neut % (Auto) Lymph % (Auto) [place] % (Auto) Eos % (Auto) Baso % (Auto) Absolute Neuts (auto) Absolute Lymphs (auto) Absolute Monos (auto) Absolute Eos (auto) Absolute Basos (auto) Absolute Nucleated RBC Nucleated RBC % INR (Anticoag Therapy) 5.83 H* APTT 40.9 H Sodium Potassium Chloride Carbon Dioxide Anion Gap BUN Creatinine Est GFR ( Amer) Est GFR (Non-Af Amer) BUN/Creatinine Ratio Glucose Lactic Acid Calcium Magnesium Total Bilirubin AST ALT Alkaline Phosphatase Troponin I C-Reactive Protein B-Natriuretic Peptide 26 Total Protein Albumin Globulin Albumin/Globulin Ratio Lipase TSH Urine Color Urine Appearance Urine pH Ur Specific [place] Urine Protein Urine Ketones Urine Blood Urine Nitrate Urine Bilirubin Urine Urobilinogen Ur Leukocyte Esterase Urine WBC (Auto) Urine RBC (Auto) Urine Bacteria Urine Glucose Blood Type O Positive Antibody Screen Negative Crossmatch See Detail 03/18/17 03/18/17 03/18/17 22:35 22:35 22:35 WBC 7.5 RBC 3.42 L Hgb 10.0 L Hct 30 L MCV 89 MCH 29 MCHC 33 RDW 16 H Plt Count 419 MPV 10 Neut % (Auto) 84.4 H Lymph % (Auto) 10.2 L [place] % (Auto) 4.3 Eos % (Auto) 0 Baso % (Auto) 1.1 Absolute Neuts (auto) 6.4 Absolute Lymphs (auto) 0.8 L Absolute Monos (auto) 0.3 Absolute Eos (auto) 0 Absolute Basos (auto) 0.1 Absolute Nucleated RBC 0 Nucleated RBC % 0.1 INR (Anticoag Therapy) APTT Sodium 135 Potassium 3.0 L Chloride 95 L Carbon Dioxide 28 Anion Gap 12 H BUN 48 H Creatinine 0.96 H Est GFR ( Amer) 71.0 Est GFR (Non-Af Amer) 55.2 BUN/Creatinine Ratio 50.0 H Glucose 149 H Lactic Acid 2.5 H* Calcium 8.7 Magnesium 1.6 L Total Bilirubin 0.40 AST 11 L ALT 12 Alkaline Phosphatase 66 Troponin I 0.02 C-Reactive Protein 25.24 H B-Natriuretic Peptide Total Protein 6.5 Albumin 3.1 L Globulin 3.4 Albumin/Globulin Ratio 0.9 L Lipase 16 TSH 5.48 Urine Color Urine Appearance Urine pH Ur Specific [place] Urine Protein Urine Ketones Urine Blood Urine Nitrate Urine Bilirubin Urine Urobilinogen Ur Leukocyte Esterase Urine WBC (Auto) Urine RBC (Auto) Urine Bacteria Urine Glucose Blood Type Antibody Screen Crossmatch 03/18/17 03/19/17 03/19/17 23:15 05:28 05:51 WBC RBC Hgb 9.2 L Hct 27 L MCV MCH MCHC RDW Plt Count MPV Neut % (Auto) Lymph % (Auto) [place] % (Auto) Eos % (Auto) Baso % (Auto) Absolute Neuts (auto) Absolute Lymphs (auto) Absolute Monos (auto) Absolute Eos (auto) Absolute Basos (auto) Absolute Nucleated RBC Nucleated RBC % INR (Anticoag Therapy) 5.61 H* APTT Sodium Potassium Chloride Carbon Dioxide Anion Gap BUN Creatinine Est GFR ( Amer) Est GFR (Non-Af Amer) BUN/Creatinine Ratio Glucose Lactic Acid Calcium Magnesium Total Bilirubin AST ALT Alkaline Phosphatase Troponin I C-Reactive Protein B-Natriuretic Peptide Total Protein Albumin Globulin Albumin/Globulin Ratio Lipase TSH Urine Color Yellow Urine Appearance Clear Urine pH 5.0 Ur Specific [place] 1.011 Urine Protein Negative Urine Ketones Negative Urine Blood 1+ H Urine Nitrate Negative Urine Bilirubin Negative Urine Urobilinogen Negative Ur Leukocyte Esterase Trace H Urine WBC (Auto) Trace(0-5/hpf) Urine RBC (Auto) Trace(0-2/hpf) Urine Bacteria Absent Urine Glucose Negative Blood Type Antibody Screen Crossmatch 03/19/17 03/19/17 03/19/17 05:51 05:51 14:00 WBC RBC Hgb 7.8 L Hct 23 L MCV MCH MCHC RDW Plt Count MPV Neut % (Auto) Lymph % (Auto) [place] % (Auto) Eos % (Auto) Baso % (Auto) Absolute Neuts (auto) Absolute Lymphs (auto) Absolute Monos (auto) Absolute Eos (auto) Absolute Basos (auto) Absolute Nucleated RBC Nucleated RBC % INR (Anticoag Therapy) APTT Sodium 136 Potassium 3.0 L Chloride 98 L Carbon Dioxide 28 Anion Gap 10 BUN 55 H Creatinine 0.91 Est GFR ( Amer) 75.6 Est GFR (Non-Af Amer) 58.8 BUN/Creatinine Ratio 60.4 H Glucose 132 H Lactic Acid 2.1 H* Calcium 8.5 L Magnesium 2.6 Total Bilirubin AST ALT Alkaline Phosphatase Troponin I C-Reactive Protein B-Natriuretic Peptide Total Protein Albumin Globulin Albumin/Globulin Ratio Lipase TSH Urine Color Urine Appearance Urine pH Ur Specific [place] Urine Protein Urine Ketones Urine Blood Urine Nitrate Urine Bilirubin Urine Urobilinogen Ur Leukocyte Esterase Urine WBC (Auto) Urine RBC (Auto) Urine Bacteria Urine Glucose Blood Type Antibody Screen Crossmatch 03/19/17 03/19/17 03/20/17 18:25 18:25 00:28 WBC RBC Hgb 8.4 L 9.7 L Hct 25 L 29 L MCV MCH MCHC RDW Plt Count MPV Neut % (Auto) Lymph % (Auto) [place] % (Auto) Eos % (Auto) Baso % (Auto) Absolute Neuts (auto) Absolute Lymphs (auto) Absolute Monos (auto) Absolute Eos (auto) Absolute Basos (auto) Absolute Nucleated RBC Nucleated RBC % INR (Anticoag Therapy) 1.74 H APTT Sodium Potassium Chloride Carbon Dioxide Anion Gap BUN Creatinine Est GFR ( Amer) Est GFR (Non-Af Amer) BUN/Creatinine Ratio Glucose Lactic Acid Calcium Magnesium Total Bilirubin AST ALT Alkaline Phosphatase Troponin I C-Reactive Protein B-Natriuretic Peptide Total Protein Albumin Globulin Albumin/Globulin Ratio Lipase TSH Urine Color Urine Appearance Urine pH Ur Specific [place] Urine Protein Urine Ketones Urine Blood Urine Nitrate Urine Bilirubin Urine Urobilinogen Ur Leukocyte Esterase Urine WBC (Auto) Urine RBC (Auto) Urine Bacteria Urine Glucose Blood Type Antibody Screen Crossmatch 03/20/17 03/20/17 03/20/17 11:17 11:17 12:28 WBC RBC Hgb 10.5 L Hct 33 L MCV MCH MCHC RDW Plt Count MPV Neut % (Auto) Lymph % (Auto) [place] % (Auto) Eos % (Auto) Baso % (Auto) Absolute Neuts (auto) Absolute Lymphs (auto) Absolute Monos (auto) Absolute Eos (auto) Absolute Basos (auto) Absolute Nucleated RBC Nucleated RBC % INR (Anticoag Therapy) 1.75 H APTT Sodium 137 Potassium TNP Chloride 106 Carbon Dioxide 24 Anion Gap 7 BUN 25 H Creatinine 0.69 Est GFR ( Amer) 104.0 Est GFR (Non-Af Amer) 80.9 BUN/Creatinine Ratio 36.2 H Glucose 77 Lactic Acid Calcium 8.1 L Magnesium Total Bilirubin AST ALT Alkaline Phosphatase Troponin I C-Reactive Protein B-Natriuretic Peptide Total Protein Albumin Globulin Albumin/Globulin Ratio Lipase TSH Urine Color Urine Appearance Urine pH Ur Specific [place] Urine Protein Urine Ketones Urine Blood Urine Nitrate Urine Bilirubin Urine Urobilinogen Ur Leukocyte Esterase Urine WBC (Auto) Urine RBC (Auto) Urine Bacteria Urine Glucose Blood Type Antibody Screen Crossmatch 03/20/17 12:28 WBC RBC Hgb Hct MCV MCH MCHC RDW Plt Count MPV Neut % (Auto) Lymph % (Auto) [place] % (Auto) Eos % (Auto) Baso % (Auto) Absolute Neuts (auto) Absolute Lymphs (auto) Absolute Monos (auto) Absolute Eos (auto) Absolute Basos (auto) Absolute Nucleated RBC Nucleated RBC % INR (Anticoag Therapy) APTT Sodium Potassium 3.7 Chloride Carbon Dioxide Anion Gap BUN Creatinine Est GFR ( Amer) Est GFR (Non-Af Amer) BUN/Creatinine Ratio Glucose Lactic Acid Calcium Magnesium Total Bilirubin AST ALT Alkaline Phosphatase Troponin I C-Reactive Protein B-Natriuretic Peptide Total Protein Albumin Globulin Albumin/Globulin Ratio Lipase TSH Urine Color Urine Appearance Urine pH Ur Specific [place] Urine Protein Urine Ketones Urine Blood Urine Nitrate Urine Bilirubin Urine Urobilinogen Ur Leukocyte Esterase Urine WBC (Auto) Urine RBC (Auto) Urine Bacteria Urine Glucose Blood Type Antibody Screen Crossmatch Microbiology and Other Data: Microbiology 03/20/17 14:20 CLOtest - Final Gastric Antrum Assess/Plan/Problems-Billing Assessment: This is an 86 yo female recently discharged on Coumadin for a DVT who returns with reported melena, hematachezia with heme positive stool and supratherapeutic INR who underwent EGD today. - Patient Problems (1) GI bleed Current Visit: Yes Status: Acute Code(s): K92.2 - GASTROINTESTINAL HEMORRHAGE, UNSPECIFIED SNOMED Code(s): 28643491 Comment: Upper GI bleed with melena and hematachezia Brown/Green BMs without melena. No vomiting. Protonix drip Hemodynamically stable, no indication for transfusion at this time Continue to trend H&H Q8H. Most recent EGD showed erosive esophagitis with oozing ulcer. Clotest negative. Will restart coumadin in 5 days after procedure if no further signs of bleeding per GI. Appreciate GI input. (2) Coumadin toxicity Current Visit: Yes Status: Acute Code(s): T45.511A - POISONING BY ANTICOAGULANTS, ACCIDENTAL, INIT SNOMED Code(s): 60424669 Comment: INR 1.75 yesterday, coumadin will be restarted 5 days after procedure. (3) DVT (deep venous thrombosis) Current Visit: No Status: Acute Code(s): I82.409 - ACUTE EMBOLISM AND THOMBOS UNSP DEEP VN UNSP LOWER EXTREMITY SNOMED Code(s): 390769164 Comment: Diagnosed during admission last week, Started on coumadin at that time Subthearpeutic INR. Continue to hold anticoagulation Consider IVC filter once clinically stable if bleeding recurs, able to restart coumadin per GI. (4) Dementia Current Visit: No Status: Chronic Code(s): F03.90 - UNSPECIFIED DEMENTIA WITHOUT BEHAVIORAL DISTURBANCE SNOMED Code(s): 44467780 Comment: Mild to mod without sig behavorial concerns (5) Dyslipidemia Current Visit: No Status: Chronic Code(s): E78.5 - HYPERLIPIDEMIA, UNSPECIFIED SNOMED Code(s): 621317808 Comment: Cont statin (6) Hypothyroid Current Visit: No Status: Chronic Code(s): E03.9 - HYPOTHYROIDISM, UNSPECIFIED SNOMED Code(s): 23437146 Comment: Recent TSH WNL Cont levothyroxine (7) History of hypertension Current Visit: Yes Status: Acute Code(s): Z86.79 - PERSONAL HISTORY OF OTHER DISEASES OF THE CIRCULATORY SYSTEM SNOMED Code(s): 327609941 Comment: Patient is bordeline hypotensive off all medications. Continue fluids. Continue to hold all medications. (8) Bradycardia Current Visit: Yes Status: Acute Code(s): R00.1 - BRADYCARDIA, UNSPECIFIED SNOMED Code(s): 26047979 Comment: Of unknown etiology, EKG normal without blocks. No symptoms. May be due to anesthesia from yesterday. Will continue to monitor and hold metoprolol. (9) Full code status Current Visit: No Status: Acute Onset Date: 09/28/14 Code(s): Z78.9 - OTHER SPECIFIED HEALTH STATUS SNOMED Code(s): 127390640 Status and Disposition: Transition to inpatient. Patient will return to [facility] when medically able, hopefully within 1-2 days.
[2017-03-21] MEDS ORDERED: ALPRAZolam TAB* 0.25 MG PO PRN (22:43)
[2017-03-21 23:07] LABS: Hematocrit 28 % (35-47); Hemoglobin 9.3 g/dl (12.0-16.0)
[2017-03-22] MEDS: Pantoprazole IV* 80 MG in NS 0.9% 250 ML* 250 ML IVPB SCH ×2 (02:15→11:50)
[2017-03-22] MEDS: NS 0.9% 1000 ML* 1,000 ML IV SCH ×2 (03:49→14:06)
[2017-03-22] MEDS: Levothyroxine TAB* 100 MCG TAB PO SCH (05:47)
[2017-03-22 09:11] LABS: Hematocrit 29 % (35-47); Hemoglobin 9.7 g/dl (12.0-16.0); Mean Corpuscular HGB Conc 34 g/dl (31-36); Mean Corpuscular Hemoglobin 30 pg (27-31); Mean Corpuscular Volume 89 fL (80-97); Mean Platelet Volume 9 um3 (7.4-10.4); Red Blood Count 3.24 10^6/ul (4.0-5.4); Red Cell Distribution Width 16 % (10.5-15); White Blood Count 6.3 10^3/ul (3.5-10.8)
[2017-03-22 09:31] LABS: BUN/Creatinine Ratio 16.2 (8-20); EGFR African American 95.9 (>60); EGFR Non-African American 74.6 (>60); Potassium 3.7 mmol/L (3.5-5.0)
[2017-03-22] MEDS: Atorvastatin* 10 MG TAB PO SCH (11:29)
[2017-03-22] MEDS: Potassium Chlor TAB* 20 MEQ TAB.ER PO SCH ×2 (11:30→21:02)
[2017-03-22] MEDS: Oxybutynin XL TAB* 5 MG PO SCH (11:30)
[2017-03-22 11:33] LABS: Magnesium 1.9 mg/dL (1.9-2.7)
[2017-03-22] MEDS ORDERED: Hemorrhoidal OINT PR PRN (11:35)
[2017-03-22] MEDS: Citalopram TAB* 20 MG PO SCH (11:51)
[2017-03-22] MEDS: Omeprazole CAP* 20 MG PO SCH ×2 (13:57→16:53)
[2017-03-22] MEDS ORDERED: Trimethobenzamide CAP* 300 MG PO PRN (15:17)
--- NOTE | 2017-03-22 15:18 | PN ---
Subjective Date of Service: 03/22/17 Interval History: Patient complains only of pain and itching "in my butt." Patient confused at same level as yesterday. Patient has no other complaints. No bowel movements. H/ H stable. Discussed IVC filter vs Restarting Coumadin at length with children and they would like to think about it, will report back Thursday. Family History: Unchanged from Admission Social History: Unchanged from Admission Past Medical History: Unchanged from Admission Objective Active Medications: Alprazolam (Xanax Tab*) 0.25 mg PO BEDTIME PRN PRN Reason: ANXIETY Last Admin: 03/21/17 23:16 Dose: 0.25 mg Atorvastatin Calcium (Lipitor*) 10 mg PO DAILY [facility] Last Admin: 03/22/17 11:29 Dose: 10 mg Sodium Chloride (Ns 0.9% 1000 Ml*) 1,000 mls @ 150 mls/hr IV PER RATE [facility] Last Admin: 03/22/17 14:06 Dose: 150 mls/hr Levothyroxine Sodium (Synthroid Tab*) 200 mcg PO 0600 [facility] Last Admin: 03/22/17 05:47 Dose: 200 mcg Omeprazole (Prilosec Cap*) 20 mg PO BID@0730,1630 [facility] Last Admin: 03/22/17 13:57 Dose: 20 mg Ondansetron HCl (Zofran Inj*) 4 mg IV Q4H PRN PRN Reason: NAUSEA Last Admin: 03/22/17 13:56 Dose: 4 mg Oxybutynin Chloride (Ditropan Xl Tab*) 15 mg PO DAILY [facility] Last Admin: 03/22/17 11:30 Dose: 15 mg Phenyleph/Shark Oil/Min Oil/Petrol (Preparation H*) 1 applic MD QID PRN PRN Reason: ITCHING Potassium Chloride (Klor Con Er Tab*) 20 meq PO BID [facility] Last Admin: 03/22/17 11:30 Dose: 20 meq Vital Signs 03/21/17 03/21/17 03/21/17 15:24 19:21 20:00 Temperature 97.8 F 98.5 F Pulse Rate 52 66 Respiratory 16 14 16 Rate Blood Pressure 109/51 94/42 (mmHg) O2 Sat by Pulse 95 97 Oximetry 03/21/17 03/22/17 03/22/17 23:16 00:20 01:16 Temperature 98.4 F Pulse Rate 58 Respiratory 16 20 20 Rate Blood Pressure 92/42 (mmHg) O2 Sat by Pulse 97 Oximetry 03/22/17 03/22/17 03:25 08:48 Temperature 97.9 F 97.7 F Pulse Rate 57 56 Respiratory 20 18 Rate Blood Pressure 94/46 123/59 (mmHg) O2 Sat by Pulse 93 100 Oximetry Oxygen Devices in Use Now: None Appearance: Patient is a 86yo female who appears stated age sitting comfortably in the bed in NAD. Eyes: No Scleral Icterus Ears/Nose/Mouth/Throat: NL Teeth, Lips, Gums, Clear Oropharnyx, - - Lips dry. Neck: NL Appearance and Movements; NL JVP, Trachea Midline Respiratory: Symmetrical Chest Expansion and Respiratory Effort, Clear to Auscultation Cardiovascular: NL Sounds; No Murmurs; No JVD, RRR, No Edema Abdominal: NL Sounds; No Tenderness; No Distention, No Hepatosplenomegaly, - - Anus pink without protruding hemorrhoids or blood. Lymphatic: No Cervical Adenopathy Extremities: No Edema Skin: - - Small area of blanchable redness over coccyx similar to previous exam. Neurological: - - A/Ox2. Pleasantly confused. Result Diagrams: 03/22/17 08:58 03/22/17 08:59 Additional Lab and Data: . 03/18/17 03/18/17 03/18/17 22:35 22:35 22:35 WBC RBC Hgb Hct MCV MCH MCHC RDW Plt Count MPV Neut % (Auto) Lymph % (Auto) [place] % (Auto) Eos % (Auto) Baso % (Auto) Absolute Neuts (auto) Absolute Lymphs (auto) Absolute Monos (auto) Absolute Eos (auto) Absolute Basos (auto) Absolute Nucleated RBC Nucleated RBC % INR (Anticoag Therapy) 5.83 H* APTT 40.9 H Sodium Potassium Chloride Carbon Dioxide Anion Gap BUN Creatinine Est GFR ( Amer) Est GFR (Non-Af Amer) BUN/Creatinine Ratio Glucose Lactic Acid Calcium Magnesium Total Bilirubin AST ALT Alkaline Phosphatase Troponin I C-Reactive Protein B-Natriuretic Peptide 26 Total Protein Albumin Globulin Albumin/Globulin Ratio Lipase TSH Urine Color Urine Appearance Urine pH Ur Specific [place] Urine Protein Urine Ketones Urine Blood Urine Nitrate Urine Bilirubin Urine Urobilinogen Ur Leukocyte Esterase Urine WBC (Auto) Urine RBC (Auto) Urine Bacteria Urine Glucose Blood Type O Positive Antibody Screen Negative Crossmatch See Detail 03/18/17 03/18/17 03/18/17 22:35 22:35 22:35 WBC 7.5 RBC 3.42 L Hgb 10.0 L Hct 30 L MCV 89 MCH 29 MCHC 33 RDW 16 H Plt Count 419 MPV 10 Neut % (Auto) 84.4 H Lymph % (Auto) 10.2 L [place] % (Auto) 4.3 Eos % (Auto) 0 Baso % (Auto) 1.1 Absolute Neuts (auto) 6.4 Absolute Lymphs (auto) 0.8 L Absolute Monos (auto) 0.3 Absolute Eos (auto) 0 Absolute Basos (auto) 0.1 Absolute Nucleated RBC 0 Nucleated RBC % 0.1 INR (Anticoag Therapy) APTT Sodium 135 Potassium 3.0 L Chloride 95 L Carbon Dioxide 28 Anion Gap 12 H BUN 48 H Creatinine 0.96 H Est GFR ( Amer) 71.0 Est GFR (Non-Af Amer) 55.2 BUN/Creatinine Ratio 50.0 H Glucose 149 H Lactic Acid 2.5 H* Calcium 8.7 Magnesium 1.6 L Total Bilirubin 0.40 AST 11 L ALT 12 Alkaline Phosphatase 66 Troponin I 0.02 C-Reactive Protein 25.24 H B-Natriuretic Peptide Total Protein 6.5 Albumin 3.1 L Globulin 3.4 Albumin/Globulin Ratio 0.9 L Lipase 16 TSH 5.48 Urine Color Urine Appearance Urine pH Ur Specific [place] Urine Protein Urine Ketones Urine Blood Urine Nitrate Urine Bilirubin Urine Urobilinogen Ur Leukocyte Esterase Urine WBC (Auto) Urine RBC (Auto) Urine Bacteria Urine Glucose Blood Type Antibody Screen Crossmatch 03/18/17 03/19/17 03/19/17 23:15 05:28 05:51 WBC RBC Hgb 9.2 L Hct 27 L MCV MCH MCHC RDW Plt Count MPV Neut % (Auto) Lymph % (Auto) [place] % (Auto) Eos % (Auto) Baso % (Auto) Absolute Neuts (auto) Absolute Lymphs (auto) Absolute Monos (auto) Absolute Eos (auto) Absolute Basos (auto) Absolute Nucleated RBC Nucleated RBC % INR (Anticoag Therapy) 5.61 H* APTT Sodium Potassium Chloride Carbon Dioxide Anion Gap BUN Creatinine Est GFR ( Amer) Est GFR (Non-Af Amer) BUN/Creatinine Ratio Glucose Lactic Acid Calcium Magnesium Total Bilirubin AST ALT Alkaline Phosphatase Troponin I C-Reactive Protein B-Natriuretic Peptide Total Protein Albumin Globulin Albumin/Globulin Ratio Lipase TSH Urine Color Yellow Urine Appearance Clear Urine pH 5.0 Ur Specific [place] 1.011 Urine Protein Negative Urine Ketones Negative Urine Blood 1+ H Urine Nitrate Negative Urine Bilirubin Negative Urine Urobilinogen Negative Ur Leukocyte Esterase Trace H Urine WBC (Auto) Trace(0-5/hpf) Urine RBC (Auto) Trace(0-2/hpf) Urine Bacteria Absent Urine Glucose Negative Blood Type Antibody Screen Crossmatch 03/19/17 03/19/17 03/19/17 05:51 05:51 14:00 WBC RBC Hgb 7.8 L Hct 23 L MCV MCH MCHC RDW Plt Count MPV Neut % (Auto) Lymph % (Auto) [place] % (Auto) Eos % (Auto) Baso % (Auto) Absolute Neuts (auto) Absolute Lymphs (auto) Absolute Monos (auto) Absolute Eos (auto) Absolute Basos (auto) Absolute Nucleated RBC Nucleated RBC % INR (Anticoag Therapy) APTT Sodium 136 Potassium 3.0 L Chloride 98 L Carbon Dioxide 28 Anion Gap 10 BUN 55 H Creatinine 0.91 Est GFR ( Amer) 75.6 Est GFR (Non-Af Amer) 58.8 BUN/Creatinine Ratio 60.4 H Glucose 132 H Lactic Acid 2.1 H* Calcium 8.5 L Magnesium 2.6 Total Bilirubin AST ALT Alkaline Phosphatase Troponin I C-Reactive Protein B-Natriuretic Peptide Total Protein Albumin Globulin Albumin/Globulin Ratio Lipase TSH Urine Color Urine Appearance Urine pH Ur Specific [place] Urine Protein Urine Ketones Urine Blood Urine Nitrate Urine Bilirubin Urine Urobilinogen Ur Leukocyte Esterase Urine WBC (Auto) Urine RBC (Auto) Urine Bacteria Urine Glucose Blood Type Antibody Screen Crossmatch 03/19/17 03/19/17 03/20/17 18:25 18:25 00:28 WBC RBC Hgb 8.4 L 9.7 L Hct 25 L 29 L MCV MCH MCHC RDW Plt Count MPV Neut % (Auto) Lymph % (Auto) [place] % (Auto) Eos % (Auto) Baso % (Auto) Absolute Neuts (auto) Absolute Lymphs (auto) Absolute Monos (auto) Absolute Eos (auto) Absolute Basos (auto) Absolute Nucleated RBC Nucleated RBC % INR (Anticoag Therapy) 1.74 H APTT Sodium Potassium Chloride Carbon Dioxide Anion Gap BUN Creatinine Est GFR ( Amer) Est GFR (Non-Af Amer) BUN/Creatinine Ratio Glucose Lactic Acid Calcium Magnesium Total Bilirubin AST ALT Alkaline Phosphatase Troponin I C-Reactive Protein B-Natriuretic Peptide Total Protein Albumin Globulin Albumin/Globulin Ratio Lipase TSH Urine Color Urine Appearance Urine pH Ur Specific [place] Urine Protein Urine Ketones Urine Blood Urine Nitrate Urine Bilirubin Urine Urobilinogen Ur Leukocyte Esterase Urine WBC (Auto) Urine RBC (Auto) Urine Bacteria Urine Glucose Blood Type Antibody Screen Crossmatch 03/20/17 03/20/17 03/20/17 11:17 11:17 12:28 WBC RBC Hgb 10.5 L Hct 33 L MCV MCH MCHC RDW Plt Count MPV Neut % (Auto) Lymph % (Auto) [place] % (Auto) Eos % (Auto) Baso % (Auto) Absolute Neuts (auto) Absolute Lymphs (auto) Absolute Monos (auto) Absolute Eos (auto) Absolute Basos (auto) Absolute Nucleated RBC Nucleated RBC % INR (Anticoag Therapy) 1.75 H APTT Sodium 137 Potassium TNP Chloride 106 Carbon Dioxide 24 Anion Gap 7 BUN 25 H Creatinine 0.69 Est GFR ( Amer) 104.0 Est GFR (Non-Af Amer) 80.9 BUN/Creatinine Ratio 36.2 H Glucose 77 Lactic Acid Calcium 8.1 L Magnesium Total Bilirubin AST ALT Alkaline Phosphatase Troponin I C-Reactive Protein B-Natriuretic Peptide Total Protein Albumin Globulin Albumin/Globulin Ratio Lipase TSH Urine Color Urine Appearance Urine pH Ur Specific [place] Urine Protein Urine Ketones Urine Blood Urine Nitrate Urine Bilirubin Urine Urobilinogen Ur Leukocyte Esterase Urine WBC (Auto) Urine RBC (Auto) Urine Bacteria Urine Glucose Blood Type Antibody Screen Crossmatch 03/20/17 12:28 WBC RBC Hgb Hct MCV MCH MCHC RDW Plt Count MPV Neut % (Auto) Lymph % (Auto) [place] % (Auto) Eos % (Auto) Baso % (Auto) Absolute Neuts (auto) Absolute Lymphs (auto) Absolute Monos (auto) Absolute Eos (auto) Absolute Basos (auto) Absolute Nucleated RBC Nucleated RBC % INR (Anticoag Therapy) APTT Sodium Potassium 3.7 Chloride Carbon Dioxide Anion Gap BUN Creatinine Est GFR ( Amer) Est GFR (Non-Af Amer) BUN/Creatinine Ratio Glucose Lactic Acid Calcium Magnesium Total Bilirubin AST ALT Alkaline Phosphatase Troponin I C-Reactive Protein B-Natriuretic Peptide Total Protein Albumin Globulin Albumin/Globulin Ratio Lipase TSH Urine Color Urine Appearance Urine pH Ur Specific [place] Urine Protein Urine Ketones Urine Blood Urine Nitrate Urine Bilirubin Urine Urobilinogen Ur Leukocyte Esterase Urine WBC (Auto) Urine RBC (Auto) Urine Bacteria Urine Glucose Blood Type Antibody Screen Crossmatch Microbiology and Other Data: Microbiology 03/20/17 14:20 CLOtest - Final Gastric Antrum Assess/Plan/Problems-Billing Assessment: This is an 86 yo female recently discharged on Coumadin for a DVT who returns with reported melena, hematachezia with heme positive stool and supratherapeutic INR who underwent EGD today. - Patient Problems (1) GI bleed Current Visit: Yes Status: Acute Code(s): K92.2 - GASTROINTESTINAL HEMORRHAGE, UNSPECIFIED SNOMED Code(s): 22421680 Comment: Upper GI bleed with melena and hematachezia Brown/Green BMs without melena. No vomiting. Protonix drip Hemodynamically stable, no indication for transfusion at this time Continue to trend H&H Q8H. Most recent EGD showed erosive esophagitis with oozing ulcer. Clotest negative. Will restart coumadin in 5 days after procedure if no further signs of bleeding per GI. Family considering IVC filter alternatively. Appreciate GI input. (2) Coumadin toxicity Current Visit: Yes Status: Acute Code(s): T45.511A - POISONING BY ANTICOAGULANTS, ACCIDENTAL, INIT SNOMED Code(s): 70362289 Comment: Coumadin will be restarted minimum 5 days after procedure (3) DVT (deep venous thrombosis) Current Visit: No Status: Acute Code(s): I82.409 - ACUTE EMBOLISM AND THOMBOS UNSP DEEP VN UNSP LOWER EXTREMITY SNOMED Code(s): 312946429 Comment: Diagnosed during admission last week, Started on coumadin at that time Subthearpeutic INR. Continue to hold anticoagulation Family will decide on IVC filter vs Anticoagulation. Risks associated with each route clearly explained to children x2 (4) Dementia Current Visit: No Status: Chronic Code(s): F03.90 - UNSPECIFIED DEMENTIA WITHOUT BEHAVIORAL DISTURBANCE SNOMED Code(s): 84916528 Comment: Mild to mod without sig behavorial concerns (5) Dyslipidemia Current Visit: No Status: Chronic Code(s): E78.5 - HYPERLIPIDEMIA, UNSPECIFIED SNOMED Code(s): 019900349 Comment: Cont statin (6) Hypothyroid Current Visit: No Status: Chronic Code(s): E03.9 - HYPOTHYROIDISM, UNSPECIFIED SNOMED Code(s): 07222840 Comment: Recent TSH WNL Cont levothyroxine (7) History of hypertension Current Visit: Yes Status: Acute Code(s): Z86.79 - PERSONAL HISTORY OF OTHER DISEASES OF THE CIRCULATORY SYSTEM SNOMED Code(s): 041878125 Comment: Patient is bordeline hypotensive off all medications. Continue fluids. Continue to hold all medications. (8) Bradycardia Current Visit: Yes Status: Acute Code(s): R00.1 - BRADYCARDIA, UNSPECIFIED SNOMED Code(s): 40803908 Comment: Of unknown etiology, EKG normal without blocks. No symptoms. May be due to anesthesia from yesterday. Will continue to monitor and hold metoprolol. (9) Prolonged QT interval Current Visit: Yes Status: Acute Code(s): R94.31 - ABNORMAL ELECTROCARDIOGRAM [ECG] [EKG] SNOMED Code(s): 588701959 Comment: QTc 520 on EKG. Supplemented K+ and Mg++. Stopped Citalopram and Zofran. Started Tigan PRN for nausea. Will recheck in morning. (10) Anxiety Current Visit: Yes Status: Acute Code(s): F41.9 - ANXIETY DISORDER, UNSPECIFIED SNOMED Code(s): 55637212 Comment: Got anxious overnight, given Xanax .5mg nightly. Will trial being off citalopram due to QTc concerns. Will consider alternative agent if anxiety worsens. (11) Full code status Current Visit: No Status: Acute Onset Date: 09/28/14 Code(s): Z78.9 - OTHER SPECIFIED HEALTH STATUS SNOMED Code(s): 843217533 Status and Disposition: Transition to inpatient. Patient will return to [facility] when medically able, hopefully within 1-2 days.
[2017-03-22] MEDS ORDERED: Magnesium Sulfate 2 GM IV* 2 GM/50 ML BAG IVPB ONE (15:23)
[2017-03-23] MEDS: NS 0.9% 1000 ML* 1,000 ML IV SCH ×4 (00:03→23:50)
[2017-03-23] MEDS: Levothyroxine TAB* 100 MCG TAB PO SCH (05:40)
[2017-03-23] MEDS: Omeprazole CAP* 20 MG PO SCH ×2 (07:32→16:01)
--- NOTE | 2017-03-23 09:36 | PRO ---
DATE OF PROCEDURE: 03/20/17 - ROOM #[id number] REFERRING PHYSICIAN: Dr. Bloom. PROCEDURE: EGD. INDICATION: Anemia, melena. MEDICATIONS GIVEN: No Demerol, 2 mg IV Versed. DESCRIPTION OF PROCEDURE: After the EGD procedure, including the risks, benefits, and alternatives, not limited to perforation, surgery, and/or were explained to the patient, written consent was then obtained. IV medication was given and a bite block was placed between the teeth. An Olympus pediatric gastroscope was then inserted into the patient's mouth and advanced down the esophagus, into the stomach, into the distal duodenum. In the esophagus, at the GE junction, there was a grade C erosive esophagitis with some oozing of blood. This is the most likely cause for her bleeding. Scope was advanced through the GE junction, into the body of the stomach. Retroflex view was unremarkable. Forward view was also unremarkable. An H. pylori biopsy was obtained. The scope was advanced through a widely patent pylorus, into the duodenal bulb, into the distal duodenum. There was mild duodenitis. The scope was then withdrawn from the patient. She tolerated the procedure well and was returned to her hospital room in stable condition. IMPRESSION: 1. Complete upper endoscopy into the distal duodenum with biopsies. 2. Erosive esophagitis, oozing of blood. 3. Duodenitis. 4. Biopsy for H. pylori. 5. I will follow up on all the biopsies and report back to the patient at that time. She should be maintained on a PPI. She should have her Coumadin level maintained in the correct range. [id number]/[facility] #: [id number] [facility]
[2017-03-23] MEDS: Atorvastatin* 10 MG TAB PO SCH (10:08)
[2017-03-23] MEDS: Oxybutynin XL TAB* 5 MG PO SCH (10:08)
[2017-03-23] MEDS: Potassium Chlor TAB* 20 MEQ TAB.ER PO SCH ×2 (10:09→19:59)
[2017-03-23 13:15] LABS: Hematocrit 30 % (35-47); Hemoglobin 9.9 g/dl (12.0-16.0); Mean Corpuscular HGB Conc 33 g/dl (31-36); Mean Corpuscular Hemoglobin 29 pg (27-31); Mean Corpuscular Volume 90 fL (80-97); Mean Platelet Volume 9 um3 (7.4-10.4); Red Blood Count 3.36 10^6/ul (4.0-5.4); Red Cell Distribution Width 16 % (10.5-15); White Blood Count 5.3 10^3/ul (3.5-10.8)
[2017-03-23 13:35] LABS: BUN/Creatinine Ratio 11.6 (8-20); Calcium 7.8 mg/dL (8.6-10.3); EGFR Non-African American 80.9 (>60); Potassium 4.2 mmol/L (3.5-5.0)
[2017-03-23] MEDS ORDERED: Phytonadione Oral Solution* 5 MG/25 ML UDC PO ONE (14:09)
[2017-03-23] MEDS ORDERED: Polyethylene Glycol 3350* 17 GM PACKET PO PRN (15:35)
--- NOTE | 2017-03-23 15:40 | PN ---
Subjective Date of Service: 03/23/17 Interval History: Patient remains pleasantly confused and has no acute complaints. Patient states that the pain and itching in her "butt" has subsided. Patient has not had a bowel movement. Patient denies abdominal pain, pain in her legs, pain with urination, chest pain, or shortness of breath. Family History: Unchanged from Admission Social History: Unchanged from Admission Past Medical History: Unchanged from Admission Objective Active Medications: Alprazolam (Xanax Tab*) 0.25 mg PO BEDTIME PRN PRN Reason: ANXIETY Last Admin: 03/21/17 23:16 Dose: 0.25 mg Atorvastatin Calcium (Lipitor*) 10 mg PO DAILY [facility] Last Admin: 03/23/17 10:08 Dose: 10 mg Sodium Chloride (Ns 0.9% 1000 Ml*) 1,000 mls @ 150 mls/hr IV PER RATE [facility] Last Admin: 03/23/17 14:33 Dose: 150 mls/hr Levothyroxine Sodium (Synthroid Tab*) 200 mcg PO 0600 [facility] Last Admin: 03/23/17 05:40 Dose: 200 mcg Omeprazole (Prilosec Cap*) 20 mg PO BID@0730,1630 [facility] Last Admin: 03/23/17 07:32 Dose: 20 mg Oxybutynin Chloride (Ditropan Xl Tab*) 15 mg PO DAILY [facility] Last Admin: 03/23/17 10:08 Dose: 15 mg Phenyleph/Shark Oil/Min Oil/Petrol (Preparation H*) 1 applic MA QID PRN PRN Reason: ITCHING Potassium Chloride (Klor Con Er Tab*) 20 meq PO BID [facility] Last Admin: 03/23/17 10:09 Dose: 20 meq Trimethobenzamide HCl (Tigan Cap*) 300 mg PO Q6H PRN PRN Reason: NAUSEA Vital Signs 03/22/17 03/22/17 03/23/17 16:47 20:00 00:20 Temperature 98.2 F 98.1 F Pulse Rate 72 63 Respiratory 20 18 15 Rate Blood Pressure 116/53 117/62 (mmHg) O2 Sat by Pulse 97 97 Oximetry 03/23/17 03/23/17 03/23/17 03:34 07:43 08:00 Temperature 97.7 F 97.7 F Pulse Rate 63 56 Respiratory 14 18 16 Rate Blood Pressure 111/58 115/63 (mmHg) O2 Sat by Pulse 96 97 Oximetry 03/23/17 11:38 Temperature Pulse Rate 56 Respiratory 17 Rate Blood Pressure 126/47 (mmHg) O2 Sat by Pulse 93 Oximetry Oxygen Devices in Use Now: None Appearance: Patient is a 86yo female who appears stated age and is sitting in the bed in NAD. Eyes: No Scleral Icterus, PERRLA Ears/Nose/Mouth/Throat: NL Teeth, Lips, Gums, Clear Oropharnyx, Mucous Membranes Moist, - - Chapped Lips Neck: NL Appearance and Movements; NL JVP Respiratory: Symmetrical Chest Expansion and Respiratory Effort, Clear to Auscultation Cardiovascular: NL Sounds; No Murmurs; No JVD, RRR, No Edema Abdominal: NL Sounds; No Tenderness; No Distention, No Hepatosplenomegaly Lymphatic: No Cervical Adenopathy Extremities: No Edema, No Clubbing, Cyanosis, - - No tenderness to palpation over the calves or thighs. Skin: No Rash or Ulcers, No Nodules or Sclerosis Neurological: - - A/Ox3 Result Diagrams: 03/23/17 12:55 03/23/17 12:55 Additional Lab and Data: . 03/18/17 03/18/17 03/18/17 22:35 22:35 22:35 WBC RBC Hgb Hct MCV MCH MCHC RDW Plt Count MPV Neut % (Auto) Lymph % (Auto) [place] % (Auto) Eos % (Auto) Baso % (Auto) Absolute Neuts (auto) Absolute Lymphs (auto) Absolute Monos (auto) Absolute Eos (auto) Absolute Basos (auto) Absolute Nucleated RBC Nucleated RBC % INR (Anticoag Therapy) 5.83 H* APTT 40.9 H Sodium Potassium Chloride Carbon Dioxide Anion Gap BUN Creatinine Est GFR ( Amer) Est GFR (Non-Af Amer) BUN/Creatinine Ratio Glucose Lactic Acid Calcium Magnesium Total Bilirubin AST ALT Alkaline Phosphatase Troponin I C-Reactive Protein B-Natriuretic Peptide 26 Total Protein Albumin Globulin Albumin/Globulin Ratio Lipase TSH Urine Color Urine Appearance Urine pH Ur Specific [place] Urine Protein Urine Ketones Urine Blood Urine Nitrate Urine Bilirubin Urine Urobilinogen Ur Leukocyte Esterase Urine WBC (Auto) Urine RBC (Auto) Urine Bacteria Urine Glucose Blood Type O Positive Antibody Screen Negative Crossmatch See Detail 10/04/17 10/04/17 10/04/17 22:35 22:35 22:35 WBC 7.5 RBC 3.42 L Hgb 10.0 L Hct 30 L MCV 89 MCH 29 MCHC 33 RDW 16 H Plt Count 419 MPV 10 Neut % (Auto) 84.4 H Lymph % (Auto) 10.2 L [place] % (Auto) 4.3 Eos % (Auto) 0 Baso % (Auto) 1.1 Absolute Neuts (auto) 6.4 Absolute Lymphs (auto) 0.8 L Absolute Monos (auto) 0.3 Absolute Eos (auto) 0 Absolute Basos (auto) 0.1 Absolute Nucleated RBC 0 Nucleated RBC % 0.1 INR (Anticoag Therapy) APTT Sodium 135 Potassium 3.0 L Chloride 95 L Carbon Dioxide 28 Anion Gap 12 H BUN 48 H Creatinine 0.96 H Est GFR ( Amer) 71.0 Est GFR (Non-Af Amer) 55.2 BUN/Creatinine Ratio 50.0 H Glucose 149 H Lactic Acid 2.5 H* Calcium 8.7 Magnesium 1.6 L Total Bilirubin 0.40 AST 11 L ALT 12 Alkaline Phosphatase 66 Troponin I 0.02 C-Reactive Protein 25.24 H B-Natriuretic Peptide Total Protein 6.5 Albumin 3.1 L Globulin 3.4 Albumin/Globulin Ratio 0.9 L Lipase 16 TSH 5.48 Urine Color Urine Appearance Urine pH Ur Specific [place] Urine Protein Urine Ketones Urine Blood Urine Nitrate Urine Bilirubin Urine Urobilinogen Ur Leukocyte Esterase Urine WBC (Auto) Urine RBC (Auto) Urine Bacteria Urine Glucose Blood Type Antibody Screen Crossmatch 03/18/17 03/19/17 03/19/17 23:15 05:28 05:51 WBC RBC Hgb 9.2 L Hct 27 L MCV MCH MCHC RDW Plt Count MPV Neut % (Auto) Lymph % (Auto) [place] % (Auto) Eos % (Auto) Baso % (Auto) Absolute Neuts (auto) Absolute Lymphs (auto) Absolute Monos (auto) Absolute Eos (auto) Absolute Basos (auto) Absolute Nucleated RBC Nucleated RBC % INR (Anticoag Therapy) 5.61 H* APTT Sodium Potassium Chloride Carbon Dioxide Anion Gap BUN Creatinine Est GFR ( Amer) Est GFR (Non-Af Amer) BUN/Creatinine Ratio Glucose Lactic Acid Calcium Magnesium Total Bilirubin AST ALT Alkaline Phosphatase Troponin I C-Reactive Protein B-Natriuretic Peptide Total Protein Albumin Globulin Albumin/Globulin Ratio Lipase TSH Urine Color Yellow Urine Appearance Clear Urine pH 5.0 Ur Specific [place] 1.011 Urine Protein Negative Urine Ketones Negative Urine Blood 1+ H Urine Nitrate Negative Urine Bilirubin Negative Urine Urobilinogen Negative Ur Leukocyte Esterase Trace H Urine WBC (Auto) Trace(0-5/hpf) Urine RBC (Auto) Trace(0-2/hpf) Urine Bacteria Absent Urine Glucose Negative Blood Type Antibody Screen Crossmatch 03/19/17 03/19/17 03/19/17 05:51 05:51 14:00 WBC RBC Hgb 7.8 L Hct 23 L MCV MCH MCHC RDW Plt Count MPV Neut % (Auto) Lymph % (Auto) [place] % (Auto) Eos % (Auto) Baso % (Auto) Absolute Neuts (auto) Absolute Lymphs (auto) Absolute Monos (auto) Absolute Eos (auto) Absolute Basos (auto) Absolute Nucleated RBC Nucleated RBC % INR (Anticoag Therapy) APTT Sodium 136 Potassium 3.0 L Chloride 98 L Carbon Dioxide 28 Anion Gap 10 BUN 55 H Creatinine 0.91 Est GFR ( Amer) 75.6 Est GFR (Non-Af Amer) 58.8 BUN/Creatinine Ratio 60.4 H Glucose 132 H Lactic Acid 2.1 H* Calcium 8.5 L Magnesium 2.6 Total Bilirubin AST ALT Alkaline Phosphatase Troponin I C-Reactive Protein B-Natriuretic Peptide Total Protein Albumin Globulin Albumin/Globulin Ratio Lipase TSH Urine Color Urine Appearance Urine pH Ur Specific [place] Urine Protein Urine Ketones Urine Blood Urine Nitrate Urine Bilirubin Urine Urobilinogen Ur Leukocyte Esterase Urine WBC (Auto) Urine RBC (Auto) Urine Bacteria Urine Glucose Blood Type Antibody Screen Crossmatch 03/19/17 03/19/17 03/20/17 18:25 18:25 00:28 WBC RBC Hgb 8.4 L 9.7 L Hct 25 L 29 L MCV MCH MCHC RDW Plt Count MPV Neut % (Auto) Lymph % (Auto) [place] % (Auto) Eos % (Auto) Baso % (Auto) Absolute Neuts (auto) Absolute Lymphs (auto) Absolute Monos (auto) Absolute Eos (auto) Absolute Basos (auto) Absolute Nucleated RBC Nucleated RBC % INR (Anticoag Therapy) 1.74 H APTT Sodium Potassium Chloride Carbon Dioxide Anion Gap BUN Creatinine Est GFR ( Amer) Est GFR (Non-Af Amer) BUN/Creatinine Ratio Glucose Lactic Acid Calcium Magnesium Total Bilirubin AST ALT Alkaline Phosphatase Troponin I C-Reactive Protein B-Natriuretic Peptide Total Protein Albumin Globulin Albumin/Globulin Ratio Lipase TSH Urine Color Urine Appearance Urine pH Ur Specific [place] Urine Protein Urine Ketones Urine Blood Urine Nitrate Urine Bilirubin Urine Urobilinogen Ur Leukocyte Esterase Urine WBC (Auto) Urine RBC (Auto) Urine Bacteria Urine Glucose Blood Type Antibody Screen Crossmatch 03/20/17 03/20/17 03/20/17 11:17 11:17 12:28 WBC RBC Hgb 10.5 L Hct 33 L MCV MCH MCHC RDW Plt Count MPV Neut % (Auto) Lymph % (Auto) [place] % (Auto) Eos % (Auto) Baso % (Auto) Absolute Neuts (auto) Absolute Lymphs (auto) Absolute Monos (auto) Absolute Eos (auto) Absolute Basos (auto) Absolute Nucleated RBC Nucleated RBC % INR (Anticoag Therapy) 1.75 H APTT Sodium 137 Potassium TNP Chloride 106 Carbon Dioxide 24 Anion Gap 7 BUN 25 H Creatinine 0.69 Est GFR ( Amer) 104.0 Est GFR (Non-Af Amer) 80.9 BUN/Creatinine Ratio 36.2 H Glucose 77 Lactic Acid Calcium 8.1 L Magnesium Total Bilirubin AST ALT Alkaline Phosphatase Troponin I C-Reactive Protein B-Natriuretic Peptide Total Protein Albumin Globulin Albumin/Globulin Ratio Lipase TSH Urine Color Urine Appearance Urine pH Ur Specific [place] Urine Protein Urine Ketones Urine Blood Urine Nitrate Urine Bilirubin Urine Urobilinogen Ur Leukocyte Esterase Urine WBC (Auto) Urine RBC (Auto) Urine Bacteria Urine Glucose Blood Type Antibody Screen Crossmatch 03/20/17 12:28 WBC RBC Hgb Hct MCV MCH MCHC RDW Plt Count MPV Neut % (Auto) Lymph % (Auto) [place] % (Auto) Eos % (Auto) Baso % (Auto) Absolute Neuts (auto) Absolute Lymphs (auto) Absolute Monos (auto) Absolute Eos (auto) Absolute Basos (auto) Absolute Nucleated RBC Nucleated RBC % INR (Anticoag Therapy) APTT Sodium Potassium 3.7 Chloride Carbon Dioxide Anion Gap BUN Creatinine Est GFR ( Amer) Est GFR (Non-Af Amer) BUN/Creatinine Ratio Glucose Lactic Acid Calcium Magnesium Total Bilirubin AST ALT Alkaline Phosphatase Troponin I C-Reactive Protein B-Natriuretic Peptide Total Protein Albumin Globulin Albumin/Globulin Ratio Lipase TSH Urine Color Urine Appearance Urine pH Ur Specific [place] Urine Protein Urine Ketones Urine Blood Urine Nitrate Urine Bilirubin Urine Urobilinogen Ur Leukocyte Esterase Urine WBC (Auto) Urine RBC (Auto) Urine Bacteria Urine Glucose Blood Type Antibody Screen Crossmatch Microbiology and Other Data: Microbiology 03/20/17 14:20 CLOtest - Final Gastric Antrum Assess/Plan/Problems-Billing Assessment: This is an 86 yo female recently discharged on Coumadin for a DVT who returns with reported melena, hematachezia with heme positive stool and supratherapeutic INR who underwent EGD today. - Patient Problems (1) GI bleed Current Visit: Yes Status: Acute Code(s): K92.2 - GASTROINTESTINAL HEMORRHAGE, UNSPECIFIED SNOMED Code(s): 89481020 Comment: Upper GI bleed with melena and hematachezia. INR 1.8 today. Brown/Green BMs without melena. No vomiting. PO omeprazole 20mg BID Hemodynamically stable, no indication for transfusion at this time, Continue to trend H&H daily Appreciate GI input. Family opted for IVC filter, talked with surgery. Will attempt placement tomorrow. will fully reverse INR with Vitamin K oral 10mg PO and FFP in morning if needed. Appreciate surgery input. (2) Coumadin toxicity Current Visit: Yes Status: Acute Code(s): T45.511A - POISONING BY ANTICOAGULANTS, ACCIDENTAL, INIT SNOMED Code(s): 57793415 Comment: Opted against further anticoagulation. INR 1.80, reversing with Vitamin K for procedure tomorrow. (3) DVT (deep venous thrombosis) Current Visit: No Status: Acute Code(s): I82.409 - ACUTE EMBOLISM AND THOMBOS UNSP DEEP VN UNSP LOWER EXTREMITY SNOMED Code(s): 187759057 Comment: Diagnosed during admission last week, Started on coumadin at that time Subthearpeutic INR. Continue to hold anticoagulation Family will decide on IVC filter vs Anticoagulation. Risks associated with each route clearly explained to children x2. Family opted for IVC filter. (4) Dementia Current Visit: No Status: Chronic Code(s): F03.90 - UNSPECIFIED DEMENTIA WITHOUT BEHAVIORAL DISTURBANCE SNOMED Code(s): 49635815 Comment: Mild to mod without sig behavorial concerns (5) Dyslipidemia Current Visit: No Status: Chronic Code(s): E78.5 - HYPERLIPIDEMIA, UNSPECIFIED SNOMED Code(s): 032892349 Comment: Cont statin (6) Hypothyroid Current Visit: No Status: Chronic Code(s): E03.9 - HYPOTHYROIDISM, UNSPECIFIED SNOMED Code(s): 60302664 Comment: Recent TSH WNL Cont levothyroxine (7) History of hypertension Current Visit: Yes Status: Acute Code(s): Z86.79 - PERSONAL HISTORY OF OTHER DISEASES OF THE CIRCULATORY SYSTEM SNOMED Code(s): 357096195 Comment: Patient is bordeline hypotensive off all medications. Continue fluids. Continue to hold all medications. (8) Bradycardia Current Visit: Yes Status: Acute Code(s): R00.1 - BRADYCARDIA, UNSPECIFIED SNOMED Code(s): 32101518 Comment: Of unknown etiology, EKG normal without blocks. No symptoms. May be due to anesthesia from yesterday. Will continue to monitor and hold metoprolol. (9) Prolonged QT interval Current Visit: Yes Status: Acute Code(s): R94.31 - ABNORMAL ELECTROCARDIOGRAM [ECG] [EKG] SNOMED Code(s): 209691928 Comment: QTc 520 on EKG. Supplemented K+ and Mg++. Stopped Citalopram and Zofran. Started Tigan PRN for nausea. Will recheck in morning. (10) Anxiety Current Visit: Yes Status: Acute Code(s): F41.9 - ANXIETY DISORDER, UNSPECIFIED SNOMED Code(s): 03746995 Comment: Xanax .5mg nightly. Will trial being off citalopram due to QTc concerns. Will consider alternative agent if anxiety worsens. No increased behavioral concerns. (11) Full code status Current Visit: No Status: Acute Onset Date: 09/28/14 Code(s): Z78.9 - OTHER SPECIFIED HEALTH STATUS SNOMED Code(s): 769403812 Status and Disposition: Transition to inpatient. Patient will return to [facility] [place] when medically able, hopefully within 1-2 days after IVC placement.
[2017-03-23] MEDS ORDERED: Buffered Lidocaine 0.9% SYRIN* 5 ML/SYR SYRINGE INTRADERM ONE (15:43)
[2017-03-24] MEDS: Levothyroxine TAB* 100 MCG TAB PO SCH (05:59)
[2017-03-24 06:13] LABS: Hematocrit 27 % (35-47); Mean Corpuscular HGB Conc 33 g/dl (31-36); Mean Corpuscular Hemoglobin 30 pg (27-31); Mean Corpuscular Volume 90 fL (80-97); Mean Platelet Volume 9 um3 (7.4-10.4); Red Blood Count 3.04 10^6/ul (4.0-5.4); Red Cell Distribution Width 16 % (10.5-15); White Blood Count 6.6 10^3/ul (3.5-10.8)
[2017-03-24 06:26] LABS: BUN/Creatinine Ratio 11.1 (8-20); Calcium 7.7 mg/dL (8.6-10.3); EGFR African American 86.4 (>60); EGFR Non-African American 67.2 (>60); Potassium 4.4 mmol/L (3.5-5.0)
[2017-03-24] MEDS: Omeprazole CAP* 20 MG PO SCH ×2 (08:41→17:12)
[2017-03-24] MEDS: Oxybutynin XL TAB* 5 MG PO SCH (08:41)
[2017-03-24] MEDS: Atorvastatin* 10 MG TAB PO SCH (08:41)
[2017-03-24] MEDS: Potassium Chlor TAB* 20 MEQ TAB.ER PO SCH ×2 (08:41→21:09)
--- NOTE | 2017-03-24 09:02 | PN ---
Subjective Date of Service: 03/24/17 Interval History: Patient seen and examined at bedside. Pt denies fever, chills, shortness of breath, chest discomfort, N/V/D. Pt denies any signs of bleeding. Family History: Unchanged from Admission Social History: Unchanged from Admission Past Medical History: Unchanged from Admission Objective Active Medications: Alprazolam (Xanax Tab*) 0.25 mg PO BEDTIME PRN Reason: ANXIETY Atorvastatin Calcium (Lipitor*) 10 mg PO DAILY [facility] Sodium Chloride (Ns 0.9% 1000 Ml*) 1,000 mls @ 150 mls/hr IV PER RATE [facility] Lactated Ringer's (Lactated Ringers 1000 Ml Bag*) 1,000 mls @ 125 mls/hr IV PER RATE [facility] Levothyroxine Sodium (Synthroid Tab*) 200 mcg PO 0600 [facility] Omeprazole (Prilosec Cap*) 20 mg PO BID@0730,1630 [facility] Oxybutynin Chloride (Ditropan Xl Tab*) 15 mg PO DAILY [facility] Phenyleph/Shark Oil/Min Oil/Petrol (Preparation H*) 1 applic NE QID PRN Reason : ITCHING Polyethylene Glycol/Electrolytes (Miralax*) 17 gm PO DAILY PRN Reason: CONSTIPATION Potassium Chloride (Klor Con Er Tab*) 20 meq PO BID [facility] Trimethobenzamide HCl (Tigan Cap*) 300 mg PO Q6H PRN Reason: NAUSEA Vital Signs 03/23/17 03/23/17 03/23/17 11:38 16:25 19:45 Temperature 98.0 F 98.2 F Pulse Rate 56 58 57 Respiratory 17 20 20 Rate Blood Pressure 126/47 113/49 110/46 (mmHg) O2 Sat by Pulse 93 97 98 Oximetry 03/23/17 03/23/17 03/24/17 20:00 23:25 04:37 Temperature 97.8 F 98.6 F Pulse Rate 58 62 Respiratory 18 16 16 Rate Blood Pressure 122/53 105/56 (mmHg) O2 Sat by Pulse 97 16 Oximetry Oxygen Devices in Use Now: None Appearance: NAD, sitting up in bed Eyes: No Scleral Icterus Ears/Nose/Mouth/Throat: Mucous Membranes Moist Respiratory: Symmetrical Chest Expansion and Respiratory Effort, Clear to Auscultation - , diminished Cardiovascular: NL Sounds; No Murmurs; No JVD, RRR Abdominal: NL Sounds; No Tenderness; No Distention Extremities: - - Trace bilateral LE edema Skin: No Rash or Ulcers Neurological: Alert and Oriented x 3, NL Muscle Strength and Tone Lines/Tubes/Other Access: Clean, Dry and Intact Peripheral IV - site benign Nutrition: Taking PO's Result Diagrams: 03/24/17 05:43 03/24/17 05:38 Microbiology and Other Data: Microbiology 03/20/17 14:20 CLOtest - Final Gastric Antrum Assess/Plan/Problems-Billing Assessment: Ms. Arjun Vaca is an 86 yo female recently discharged on Coumadin for a DVT who returns with reported melena, hematachezia with heme positive stool and supratherapeutic INR who underwent an EGD showing erosive esophagitis. - Patient Problems (1) GI bleed Code(s): K92.2 - GASTROINTESTINAL HEMORRHAGE, UNSPECIFIED SNOMED Code(s): 90622128 Comment: - Upper GI bleed with melena and hematachezia. INR 1.6 today. - Brown/Green BMs without melena. No vomiting. - Hemodynamically stable, no indication for transfusion at this time, Continue to trend H&H daily - Appreciate GI and surgery input. - Family opted for IVC filter, talked with surgery. Will attempt placement tomorrow. - Continue omeprazole 20mg BID (2) Coumadin toxicity Code(s): T45.511A - POISONING BY ANTICOAGULANTS, ACCIDENTAL, INIT SNOMED Code( s): 26274522 Comment: - Opted against further anticoagulation. - INR 1.60. (3) DVT (deep venous thrombosis) Code(s): I82.409 - ACUTE EMBOLISM AND THOMBOS UNSP DEEP VN UNSP LOWER EXTREMITY SNOMED Code(s): 682685352 Comment: - Diagnosed during previous admission, started on coumadin at that time. - Family decided on IVC filter instead of Anticoagulation. - Will get Hem consult. (4) Dementia Code(s): F03.90 - UNSPECIFIED DEMENTIA WITHOUT BEHAVIORAL DISTURBANCE SNOMED Code(s): 40486570 Comment: - Mild to mod without significant behavorial concerns (5) Anxiety Code(s): F41.9 - ANXIETY DISORDER, UNSPECIFIED SNOMED Code(s): 90764360 Comment: - Will trial being off citalopram due to QTc concerns. - Will consider alternative agent if anxiety worsens. - No increased behavioral concerns. - Continue Xanax as needed at bedtime. (6) Bradycardia Code(s): R00.1 - BRADYCARDIA, UNSPECIFIED SNOMED Code(s): 67556629 Comment: - Unknown etiology, EKG normal without blocks. - Asymptomatic. - Will continue to monitor and hold metoprolol. (7) Prolonged QT interval Code(s): R94.31 - ABNORMAL ELECTROCARDIOGRAM [ECG] [EKG] SNOMED Code(s): 967877179 Comment: - QTc 520 on EKG. - Supplemented K+ and Mg++. - Discontinued Citalopram and Zofran. (8) Coronary heart disease Code(s): I25.10 - ATHSCL HEART DISEASE OF [place] CORONARY ARTERY W/O ANG PCTRS SNOMED Code(s): 69629911 Comment: - Asymptomatic - Holding ASA in setting of GI bleeding (9) Dyslipidemia Code(s): E78.5 - HYPERLIPIDEMIA, UNSPECIFIED SNOMED Code(s): 282998175 Comment: - Continue statin (10) HTN (hypertension) Code(s): I10 - ESSENTIAL (PRIMARY) HYPERTENSION SNOMED Code(s): 43824784 Comment: - Normotensive - Holding Lasix, amlopidine, Imdur and Metoprolol (11) Hypothyroid Code(s): E03.9 - HYPOTHYROIDISM, UNSPECIFIED SNOMED Code(s): 35720966 Comment: - TSH 5.48 on 03/18 - Continue levothyroxine (12) DVT prophylaxis Comment: - Subtherapeutic INR at this point and active bleeding - Chemical prophylaxis contraindicated (13) Full code status SNOMED Code(s): 600725832 Status and Disposition: Inpatient. Patient will return to [facility] [place] when medically able, hopefully within 1-2 days after IVC placement.
--- NOTE | 2017-03-24 12:47 | CONSULT ---
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 History of Present Illness: Mrs. Arjun Vaca received a venous doppler of her right leg d/t swelling and a history of DVT (of the left femoral vein in 2012, treated with coumadin for close to a year per son's recollection and switched to an anti-platelet d/t difficulty with INRs) which revealed a chronic clot, though acute on chronic could not be ruled out. She has a history of dementia and was unable to state when her swelling started, however her son tells me it started approx. 1 day prior though did have some positional influence. He tried lasix which did not help. She was started on Coumadin 4 mg PO BID and Lovenox 70 mg sq BID on d/c from the hospital 03/13 to [facility]. On admission her INR was 1.29 and on 03/16 it was 1.9. On 03/18 her son was visiting and he noticed that she was very 'grumpy' and 'miserable', that evening the jail then noted bloody stools and emesis and she was sent to the ER. In the ER she dehydrated with H& H 04/13 with elevated anticoags revealing INR 5.83 and ptt 40.9. She was admitted for presumed GI bleed and her labs were monitored. Per H&P on admission she was d/c'd off of it, however I can not obtain records from [facility] that truly states this and her son is not aware of what she was on. Therefore, ultimately it appears she was on both agents at presentation to the ER. On admission she received a total of 10 mg PO Vit. K and by the 03/19 her INR was down to 1.74. GI was consulted on 03/19 and an EGD performed on 03/20 revealed erosive esophagitis with bleeding. At this time she has no further evidence of bleeding and her labs have stabilized. However, with acute bleeding it was suggested by hospitalist to consider filter placement on 03/23. On 03/24 Dr. August consulted and wanted hematology input as to wether other options for anti-coagulant management was prudent. Allergies/Medications Medication: Home Medications: Medication Instructions Recorded Confirmed Type Escitalopram (NF) [Lexapro 10 mg 10 mg PO DAILY 09/28/14 03/19/17 History (NF)] Simvastatin TAB(NF) [Zocor 20 MG 20 mg PO DAILY 09/28/14 03/19/17 History (NF)] Furosemide TAB* [Lasix TAB*] 40 mg PO DAILY 06/18/15 03/19/17 History Isosorbide Mononitrate ER TAB* 30 mg PO DAILY 06/18/15 03/19/17 History [Imdur ER TAB*] Melatonin 1 - 3 mg PO QPM 06/18/15 03/19/17 History Metoprolol Succinate XL TAB* 25 mg PO DAILY 06/18/15 03/19/17 History [Toprol XL TAB*] Oxybutynin Chloride [Oxybutynin 15 mg PO DAILY 06/18/15 03/19/17 History Chloride ER] amLODIPine TAB* [Norvasc 5 mg TAB*] 5 mg PO DAILY 06/18/15 03/19/17 History Levothyroxine TAB* [Synthroid 150 200 mcg PO DAILY 03/11/17 03/19/17 History MCG TAB*] Aspirin EC Low Dose* [Ecotrin EC 81 mg PO DAILY tab.ec 03/13/17 03/19/17 Rx Low Dose 81 MG*] Enoxaparin(*) [Lovenox(*)] 70 mg SUBCUT Q12H #10 syringe 03/13/17 03/19/17 Rx Warfarin TAB(*) [Coumadin TAB(*)] 4 mg PO DAILY@1700 #20 tab 03/13/17 03/19/17 Rx Current Medications: Alprazolam (Xanax Tab*) 0.25 mg PO BEDTIME PRN PRN Reason: ANXIETY Last Admin: 03/21/17 23:16 Dose: 0.25 mg Atorvastatin Calcium (Lipitor*) 10 mg PO DAILY [facility] Last Admin: 03/24/17 08:41 Dose: 10 mg Lactated Ringer's (Lactated Ringers 1000 Ml Bag*) 1,000 mls @ 125 mls/hr IV PER RATE CAPRICE Last Admin: 03/24/17 08:44 Dose: 125 mls/hr Levothyroxine Sodium (Synthroid Tab*) 200 mcg PO 0600 [facility] Last Admin: 03/24/17 05:59 Dose: 200 mcg Omeprazole (Prilosec Cap*) 20 mg PO BID@0730,1630 [facility] Last Admin: 03/24/17 17:12 Dose: 20 mg Oxybutynin Chloride (Ditropan Xl Tab*) 15 mg PO DAILY [facility] Last Admin: 03/24/17 08:41 Dose: 15 mg Phenyleph/Shark Oil/Min Oil/Petrol (Preparation H*) 1 applic HI QID PRN PRN Reason: ITCHING Polyethylene Glycol/Electrolytes (Miralax*) 17 gm PO DAILY PRN PRN Reason: CONSTIPATION Potassium Chloride (Klor Con Er Tab*) 20 meq PO BID [facility] Last Admin: 03/24/17 08:41 Dose: 20 meq Trimethobenzamide HCl (Tigan Cap*) 300 mg PO Q6H PRN PRN Reason: NAUSEA Warfarin Sodium (Coumadin Tab(*)) 3 mg PO DAILY@1700 [facility] PRN Reason: Protocol Allergies/Adverse Reactions: Allergies Allergy/AdvReac Type Severity Reaction Status Date / Time Sulfa Antibiotics Allergy Severe Hives Verified 03/10/17 17:38 History - Past Medical History Hx Blood Dyscrasias: No Hx Cancer: No Hx Cardiac Disorders: Yes - CAD Hx Circulatory Problems: Yes - hands and feet get cold a lot Hx Hypercholesterolemia: Yes Hx Hypertension: Yes Surgical History: Yes Surgery Procedure, Year, and Place: appendectomy per pt. cholecystectomy per H& P Hx Endocrine Problem: Yes - hypothyroidism Other History: Dementia, GERD. per son born with one kidney - Family History Hx Family Cancer: Yes - maternal aunt Breast Cancer Hx Family Cardiac Disorders: Yes - grandparents Other Family History: son has a gene for clotting, though can't recall - Social History Other Social History: has lived with son who is decision maker, recently @ rehab Review of Systems - Review of Systems Constitutional Symptoms: Positive: Weakness Dermatology: Positive: Normal HEENT: Positive: Normal Eyes: Positive: Normal Pulmonary: Positive: Normal Cardiology: Positive: Normal Gastroenterology: Positive: Blood in Stools, Haematemesis Genital - Urinary: Positive: Normal Endocrinology: Positive: Thyroid Problems Hematologic/Lymphatic: Positive: Use of Anticoagulant, Use of Antiplatelet Drugs Neurology: Positive: Change in Memory Physical Exam - Physical Exam Physical Examination: Well appearing, obese, elderly woman. Alert and oriented to self though difficulty with situation. Able to answer questions coherently, though can't recall a lot of information. HRR, S1S2, no murmur noted LS clear bilat +BS, abd soft and non-angela +1 firm edema Right ankle, left trace edema Bilat. LEs brawny Results - Lab Results Lab Results: 03/21/17 03/21/17 03/22/17 14:20 22:59 08:58 WBC 6.3 RBC 3.24 L Hgb 10.0 L 9.3 L 9.7 L Hct 30 L 28 L 29 L MCV 89 MCH 30 MCHC 34 RDW 16 H Plt Count 266 MPV 9 Neut % (Auto) 78.8 Lymph % (Auto) 13.2 L [place] % (Auto) 4.6 Eos % (Auto) 2.3 Baso % (Auto) 1.1 Absolute Neuts (auto) 5.0 Absolute Lymphs (auto) 0.8 L Absolute Monos (auto) 0.3 Absolute Eos (auto) 0.1 Absolute Basos (auto) 0.1 Absolute Nucleated RBC 0 Nucleated RBC % 0 INR (Anticoag Therapy) Sodium Potassium Chloride Carbon Dioxide Anion Gap BUN Creatinine Est GFR ( Amer) Est GFR (Non-Af Amer) BUN/Creatinine Ratio Glucose Calcium Magnesium 03/22/17 03/23/17 03/23/17 08:59 12:55 12:55 WBC 5.3 RBC 3.36 L Hgb 9.9 L Hct 30 L MCV 90 MCH 29 MCHC 33 RDW 16 H Plt Count 302 MPV 9 Neut % (Auto) 72.0 Lymph % (Auto) 15.9 L [place] % (Auto) 7.0 Eos % (Auto) 3.8 Baso % (Auto) 1.3 Absolute Neuts (auto) 3.8 Absolute Lymphs (auto) 0.8 L Absolute Monos (auto) 0.4 Absolute Eos (auto) 0.2 Absolute Basos (auto) 0.1 Absolute Nucleated RBC 0.01 Nucleated RBC % 0.2 INR (Anticoag Therapy) Sodium 135 135 Potassium 3.7 4.2 Chloride 108 110 Carbon Dioxide 23 23 Anion Gap 4 2 BUN 12 8 Creatinine 0.74 0.69 Est GFR ( Amer) 95.9 104.0 Est GFR (Non-Af Amer) 74.6 80.9 BUN/Creatinine Ratio 16.2 11.6 Glucose 92 83 Calcium 8.0 L 7.8 L Magnesium 1.9 03/23/17 03/24/17 03/24/17 12:55 05:38 05:38 WBC RBC Hgb Hct MCV MCH MCHC RDW Plt Count MPV Neut % (Auto) Lymph % (Auto) [place] % (Auto) Eos % (Auto) Baso % (Auto) Absolute Neuts (auto) Absolute Lymphs (auto) Absolute Monos (auto) Absolute Eos (auto) Absolute Basos (auto) Absolute Nucleated RBC Nucleated RBC % INR (Anticoag Therapy) 1.80 H 1.60 H Sodium 135 Potassium 4.4 Chloride 111 Carbon Dioxide 22 Anion Gap 2 BUN 9 Creatinine 0.81 Est GFR ( Amer) 86.4 Est GFR (Non-Af Amer) 67.2 BUN/Creatinine Ratio 11.1 Glucose 99 Calcium 7.7 L Magnesium 03/24/17 05:43 WBC 6.6 RBC 3.04 L Hgb 9.0 L Hct 27 L MCV 90 MCH 30 MCHC 33 RDW 16 H Plt Count 282 MPV 9 Neut % (Auto) 73.9 Lymph % (Auto) 14.0 L [place] % (Auto) 6.3 Eos % (Auto) 4.9 Baso % (Auto) 0.9 Absolute Neuts (auto) 4.9 Absolute Lymphs (auto) 0.9 L Absolute Monos (auto) 0.4 Absolute Eos (auto) 0.3 Absolute Basos (auto) 0.1 Absolute Nucleated RBC 0 Nucleated RBC % 0 INR (Anticoag Therapy) Sodium Potassium Chloride Carbon Dioxide Anion Gap BUN Creatinine Est GFR ( Amer) Est GFR (Non-Af Amer) BUN/Creatinine Ratio Glucose Calcium Magnesium - Other Results -: Vital Signs Temp Pulse Resp BP Pulse Ox 98.1 F 61 20 114/61 100 03/24/17 15:29 03/24/17 15:29 03/24/17 15:29 03/24/17 15:29 03/24/17 15:29 Assessment and Plan Impression: 86 yo female in reasonable health with recently diagnosed acute on chronic DVT in opposite leg of distant history DVT (left 2012). To note she had a negative bilat. exam in 2013 and developed acute edema one day prior to her recent diagnosis. She was treated with coumadin and lovenox bridging and then developed acute GI bleed causing current admission. Ultimately it appears she was supra therapeutic with both anti-coagulants (elevated PT/INR and elevated PTT) which can frequently happen in the elderly as renal function is often over estimated and therefore I would not consider it a coumadin failure. With her history of multiple DVTs, poor mobility, and otherwise reasonable performance status (despite dementia limiting her involvement in IADLs) she is certainly a person we would consider for life long anti-coagulation. With her age however I would prefer coumadin over NOAcs both for reversibility and less dependency on renal function. At this point though a filter is an option we would still consider treatment and as such have recommended re-starting coumadin but at a lower dose with more frequent monitoring. Her INR at baseline is elevated and therefore I would not bridge. Suggest starting at 3 mg daily and check INR in 3 days. Finally, although this is a new unprovoked event I would not suggest investigating any underlying cause (as her life expectancy would not benefit from investigation). Plan: Case discussed with patient's son, Sung. Reviewed recommendations with Dr. August and FREYA Chaves Should the son decide to pursue resuming coumadin we will be happy to follow and she can see Dr. Soler as an outpatient within approx. 2 weeks after d/c
[2017-03-24] MEDS: NS 0.9% 1000 ML* 1,000 ML IV SCH (13:17)
[2017-03-25] MEDS: Levothyroxine TAB* 100 MCG TAB PO SCH (05:24)
[2017-03-25 05:29] LABS: Hematocrit 28 % (35-47); Hemoglobin 9.3 g/dl (12.0-16.0); Mean Corpuscular HGB Conc 34 g/dl (31-36); Mean Corpuscular Hemoglobin 30 pg (27-31); Mean Corpuscular Volume 88 fL (80-97); Mean Platelet Volume 8 um3 (7.4-10.4); Red Blood Count 3.15 10^6/ul (4.0-5.4); Red Cell Distribution Width 16 % (10.5-15); White Blood Count 5.3 10^3/ul (3.5-10.8)
[2017-03-25] MEDS: Potassium Chlor TAB* 20 MEQ TAB.ER PO SCH (09:35)
[2017-03-25] MEDS: Atorvastatin* 10 MG TAB PO SCH (09:36)
[2017-03-25] MEDS: Oxybutynin XL TAB* 5 MG PO SCH (09:36)
[2017-03-25] MEDS: Omeprazole CAP* 20 MG PO SCH (09:36)
[2017-03-25 11:17] VITALS: BP 118/61
--- NOTE | 2017-03-25 12:55 | PN ---
Subjective Date of Service: 03/25/17 Interval History: Patient seen and examined at bedside. Pt states that she is feeling well today. Denies signs of bleeding, fever, chills, shortness of breath, chest discomfort, N/V/D. Discussed with Pt's son Sung about discharge back to [facility] today. Family History: Unchanged from Admission Social History: Unchanged from Admission Past Medical History: Unchanged from Admission Objective Active Medications: Alprazolam (Xanax Tab*) 0.25 mg PO BEDTIME PRN Reason: ANXIETY Atorvastatin Calcium (Lipitor*) 10 mg PO DAILY [facility] Levothyroxine Sodium (Synthroid Tab*) 200 mcg PO 0600 [facility] Omeprazole (Prilosec Cap*) 20 mg PO BID@0730,1630 [facility] Oxybutynin Chloride (Ditropan Xl Tab*) 15 mg PO DAILY [facility] Phenyleph/Shark Oil/Min Oil/Petrol (Preparation H*) 1 applic MN QID PRN Reason : ITCHING Polyethylene Glycol/Electrolytes (Miralax*) 17 gm PO DAILY PRN Reason: CONSTIPATION Potassium Chloride (Klor Con Er Tab*) 20 meq PO BID [facility] Trimethobenzamide HCl (Tigan Cap*) 300 mg PO Q6H PRN Reason: NAUSEA Warfarin Sodium (Coumadin Tab(*)) 3 mg PO DAILY@1700 [facility] Reason: Protocol Vital Signs 03/24/17 03/24/17 03/24/17 15:29 20:33 21:45 Temperature 98.1 F 97.9 F Pulse Rate 61 68 Respiratory 20 20 18 Rate Blood Pressure 114/61 113/58 (mmHg) O2 Sat by Pulse 100 100 Oximetry 03/24/17 03/25/17 03/25/17 23:15 03:15 07:15 Temperature 98.3 F 97.7 F 98.1 F Pulse Rate 65 62 Respiratory 16 17 Rate Blood Pressure 115/55 138/63 (mmHg) O2 Sat by Pulse 16 100 Oximetry 03/25/17 03/25/17 08:00 11:15 Temperature 97.9 F Pulse Rate 64 Respiratory 18 16 Rate Blood Pressure 118/61 (mmHg) O2 Sat by Pulse 99 Oximetry Oxygen Devices in Use Now: None Appearance: NAD, sitting in a chair Ears/Nose/Mouth/Throat: Mucous Membranes Moist Respiratory: Symmetrical Chest Expansion and Respiratory Effort, Clear to Auscultation Cardiovascular: NL Sounds; No Murmurs; No JVD, RRR Abdominal: NL Sounds; No Tenderness; No Distention Extremities: - - 1+ edema to left LE and 2+ edema to right LE Skin: No Rash or Ulcers Neurological: Alert and Oriented x 3 - Oriented to Person, Place and situation, NL Muscle Strength and Tone Nutrition: Taking PO's Result Diagrams: 03/25/17 05:08 03/24/17 05:38 Microbiology and Other Data: Microbiology 03/20/17 14:20 CLOtest - Final Gastric Antrum Assess/Plan/Problems-Billing Assessment: Ms. Arjun Vaca is an 86 yo female recently discharged on Coumadin for a DVT who returns with reported melena, hematachezia with heme positive stool and supratherapeutic INR who underwent an EGD showing erosive esophagitis. - Patient Problems (1) GI bleed Code(s): K92.2 - GASTROINTESTINAL HEMORRHAGE, UNSPECIFIED SNOMED Code(s): 01552806 Comment: - Upper GI bleed with melena and hematachezia. INR 1.27 today. - Brown/Green BMs without melena. No vomiting. - Hemodynamically stable, no indication for transfusion at this time - Appreciate GI and surgery input. - Family opted to hold on the IVC filter. - Continue omeprazole 20mg BID (2) Coumadin toxicity Code(s): T45.511A - POISONING BY ANTICOAGULANTS, ACCIDENTAL, INIT SNOMED Code( s): 71142100 Comment: - INR 1.27 today - Resumed warfarin yesterday - INR Q3 days (3) DVT (deep venous thrombosis) Code(s): I82.409 - ACUTE EMBOLISM AND THOMBOS UNSP DEEP VN UNSP LOWER EXTREMITY SNOMED Code(s): 961637810 Comment: - Diagnosed during previous admission, started on coumadin at that time. - Family on warfarin instead of IVC filter. - Hem consult, appreciate input (4) Dementia Code(s): F03.90 - UNSPECIFIED DEMENTIA WITHOUT BEHAVIORAL DISTURBANCE SNOMED Code(s): 18437843 Comment: - Mild to mod without significant behavorial concerns (5) Anxiety Code(s): F41.9 - ANXIETY DISORDER, UNSPECIFIED SNOMED Code(s): 80884526 Comment: - Will trial being off citalopram due to QTc concerns. - Will consider alternative agent if anxiety worsens. - No increased behavioral concerns. - Continue Xanax as needed at bedtime. (6) Bradycardia Code(s): R00.1 - BRADYCARDIA, UNSPECIFIED SNOMED Code(s): 68165569 Comment: - Unknown etiology, EKG normal without blocks. - Asymptomatic. - Will continue to monitor and hold metoprolol. (7) Prolonged QT interval Code(s): R94.31 - ABNORMAL ELECTROCARDIOGRAM [ECG] [EKG] SNOMED Code(s): 183690356 Comment: - QTc 520 on EKG. - Supplemented K+ and Mg++. - Discontinued Citalopram and Zofran. (8) Coronary heart disease Code(s): I25.10 - ATHSCL HEART DISEASE OF [place] CORONARY ARTERY W/O ANG PCTRS SNOMED Code(s): 98804257 Comment: - Asymptomatic - Holding ASA in setting of GI bleeding (9) Dyslipidemia Code(s): E78.5 - HYPERLIPIDEMIA, UNSPECIFIED SNOMED Code(s): 365188174 Comment: - Continue statin (10) HTN (hypertension) Code(s): I10 - ESSENTIAL (PRIMARY) HYPERTENSION SNOMED Code(s): 44625964 Comment: - Normotensive - Holding Lasix, amlopidine, Imdur and Metoprolol (11) Hypothyroid Code(s): E03.9 - HYPOTHYROIDISM, UNSPECIFIED SNOMED Code(s): 72597740 Comment: - TSH 5.48 on 03/18 - Continue levothyroxine (12) DVT prophylaxis Comment: - Subtherapeutic INR at this point and no active bleeding - Chemical prophylaxis contraindicated (13) Full code status SNOMED Code(s): 379425375 Status and Disposition: Inpatient. Stable for return to [facility] today.
--- NOTE | 2017-03-25 14:22 | DS ---
CC: Dr. Hiral Bloom; [facility] * DATE OF ADMISSION: 03/19/2017. DATE OF DISCHARGE: 03/25/2017. AGE: 86. ATTENDING PHYSICIAN: Dr. Gilmer Morales * (dictated by Nereida Lemos NP). PRIMARY CARE PHYSICIAN: Dr. Hiral Bloom. PRIMARY DIAGNOSES: 1. Upper GI bleed. 2. Supratherapeutic INR, now resolved. 3. Deep vein thrombosis of the right lower extremity. 4. Bradycardia. 5. Prolonged QT interval. SECONDARY DIAGNOSES: 1. Hyperthyroidism. 2. Hypertension. 3. Dyslipidemia. 4. Coronary artery disease. 5. Anxiety. 6. Dementia. CONSULTATIONS WHILE IN THE HOSPITAL: Dr. Eliazar Sanabria with Gastroenterology; Dr. Cachorro Soler with Hematology; Dr. Jacob August with General Surgery. PROCEDURES WHILE IN THE HOSPITAL: Status post complete upper endoscopy into the distal duodenum with biopsies on 03/20/[address] Kota Medrano. STUDIES WHILE IN THE HOSPITAL: None. DISCHARGE MEDICATIONS: New home medications: 1. Xanax 0.25 mg oral daily at bedtime as needed for anxiety. 2. Preparation-H applied topical 4 times daily as needed for anal itching. 3. Omeprazole 20 mg oral twice daily. 4. MiraLax 17 gm oral daily as needed for constipation. 5. Potassium Chloride 20 mEq oral twice daily. Continued home medications: 1. Simvastatin 20 mg oral daily. 2. Oxybutynin 15 mg oral daily. 3. Melatonin 1 to 3 mg oral every evening as needed for insomnia. 4. Levothyroxine 200 mcg oral daily. Changed home medications: 1. Warfarin 3 mg oral daily. Discontinued home medications: 1. Lexapro. 2. Amlodipine. 3. Furosemide. 4. Imdur ER. 5. Metoprolol Succinate. 6. Aspirin. 7. Lovenox. HISTORY OF PRESENT ILLNESS/HOSPITAL COURSE: Ms. Arjun Vaca is an 86-year- old female with a past medical history significant for dementia, recent hospital stay from March 10 to March 13 after presenting with weakness and treated for vaginal infection, as well as started on Warfarin for right lower extremity DVT. The patient was discharged to [facility] where she was doing well. On the day of admission, the patient was noted to have a dark black stool, as well as what was thought to be blood in her emesis. The patient was sent to the emergency room for further evaluation. While in the emergency room, the patient was found to have an INR of 5.8 and a stool that was guaiac positive. The patient's hemoglobin was 10, which was lower than her previous labs. The Hospitalists were asked to evaluate the patient for admission. While in the hospital, the patient's INR was 5.8. The patient received oral vitamin K. She had no signs of continued bleeding. Her H and H was trended. She had report INR's. The patient was also started on a Protonix drip for suspected upper GI bleed. The patient was also found to be hypokalemic. She received oral replacement. She also was found to have a lactic acidosis. It was improved on repeat draw. During her stay, she continued to require further vitamin K. She received two units of FFP and two units of packed red blood cells. The patient underwent a complete upper endoscopy with Dr. Kota Medrano on March 20 showing an erosive esophagitis with oozing with blood and duodenitis. During her stay, it was discussed with the family the risks and the benefits of the patient with a patient background of Coumadin for anticoagulation therapy due to her deep vein thrombosis versus having an IVC filter placed. Initially the patient's son opted for IVC filter placement, but then changed his mind and felt that she was at greater risk of developing further blood clots and he requested she be started back on Warfarin. The patient was resumed on Warfarin on the evening of March 24. The patient was also seen in consultation by Hematology for recommendations about anticoagulation versus IVC filter. They are willing to follow the patient in the outpatient setting to help manage her Warfarin. It is also to note that the patient was found to be bradycardic during her stay. The etiology was unclear. She had a normal EKG without block. She was asymptomatic. Her Metoprolol was held. She was also found to have a prolonged QTC. She received potassium and magnesium supplementation and her Citalopram and Zofran were discontinued. The patient's blood pressures were normotensive off her Lasix, Amlodipine, Imdur and Metoprolol. Ms. Arjun Vaca is stable for discharge to [facility] today. Vital signs are as follows: Temperature 97.9, heart rate 64, respiratory rate 16, O2 sat 99 percent on room air, blood pressure 118/61. DISCHARGE PLAN: Ms. Arjun Vaca will be discharged to [facility]. Activities is as tolerated. She should be on a soft, regular diet. As far as the patient's GI bleed, I suspect this is secondary to her INR being supratherapeutic. Her INR was reversed. She has had no further signs of acute bleeding and she was resumed on her Warfarin yesterday. As far as the patient' s DVT, she will likely need to be on lifelong anticoagulation. She should be seen in follow-up by Dr. Soler in his office in two weeks. His office will assist with managing of the patient's Warfarin. The patient should have an INR rechecked on March 27. As far as the patient's history of hypertension, she has actually been normotensive here and on the softer side. We have been holding her blood pressure medications of Lasix, Imdur, Amlodipine , and Metoprolol. These should be resumed as necessary if she gets better and her blood pressure stabilizes. Due to the patient's history of coronary artery disease, I would recommend with restarting the patient's Metoprolol as soon as her blood pressure allows and if she is no longer bradycardic. Up until yesterday she had still continued to be bradycardic with heart rates into the low 50s. The patient's aspirin has been held due to her recent GI bleed. The patient should be seen in follow-up by either her primary care provider, Dr. Hiral Bloom, or provider at [facility] in the next few days. The patient can be activity as tolerated. The patient should return to the emergency room for any new signs of bleeding, shortness of breath or chest pain. This is a summarized report of a complex medical history and hospital stay. For further details, please see the entire medical record. Time for this discharge was approximately 60 minutes, greater than half of that was spent [id number] with the patient and on the phone with the son discussing discharge plans and instructions. CONDITION ON DISCHARGE: Stable. NEREIDA LEMOS, FREYA [id number]/[facility] #: [id number] MAURICE
[2017-03-25] MEDS ORDERED: Warfarin TAB(*) 3 MG PO SCH (17:00)
== END 2017-03-25 15:05 | DRG 813 ==
LOC: ED 22:19 → MED 03-19 03:17 → OBSVTOIN 03-19 10:35
PROVIDERS: ADMIT Internal Medicine; ATTEND Internal Medicine
PROC: 30233K1 Transfusion of Nonautologous Frozen Plasma into Peripheral Vein, Percutaneous Approach (ICD-10-PCS; 2017-03-19)
PROC: 30233N1 Transfusion of Nonautologous Red Blood Cells into Peripheral Vein, Percutaneous Approach (ICD-10-PCS; 2017-03-19)
PROC: 0DB68ZX Excision of Stomach, Via Natural or Artificial Opening Endoscopic, Diagnostic (ICD-10-PCS; principal; 2017-03-20)
DX: D68.32 Hemorrhagic disorder due to extrinsic circulating anticoagulants (principal); K22.11 Ulcer of esophagus with bleeding; E87.2 Acidosis; I50.9 Heart failure, unspecified; I11.0 Hypertensive heart disease with heart failure; I82.501 Chronic embolism and thrombosis of unspecified deep veins of right lower extremity; K92.1 Melena; Q60.0 Renal agenesis, unilateral; I73.9 Peripheral vascular disease, unspecified; E03.9 Hypothyroidism, unspecified; E78.5 Hyperlipidemia, unspecified; I25.10 Atherosclerotic heart disease of native coronary artery without angina pectoris; J45.909 Unspecified asthma, uncomplicated; K21.9 Gastro-esophageal reflux disease without esophagitis; F03.90 Unspecified dementia, unspecified severity, without behavioral disturbance, psychotic disturbance, mood disturbance, and anxiety; F41.9 Anxiety disorder, unspecified; E87.6 Hypokalemia; T45.515A Adverse effect of anticoagulants, initial encounter; K29.80 Duodenitis without bleeding; F32.9 Major depressive disorder, single episode, unspecified; Z86.19 Personal history of other infectious and parasitic diseases; Z72.89 Other problems related to lifestyle; Z82.49 Family history of ischemic heart disease and other diseases of the circulatory system; Z88.2 Allergy status to sulfonamides; Z90.49 Acquired absence of other specified parts of digestive tract; Y92.009 Unspecified place in unspecified non-institutional (private) residence as the place of occurrence of the external cause; R00.1 Bradycardia, unspecified; I45.81 Long QT syndrome; Z79.01 Long term (current) use of anticoagulants
CPT/HCPCS: 36415; 80048; 80053; 81003; 81015; 82270; 83605; 83690; 83735; 83880; 84443; 84484; 85014; 85018; 85025; 85379; 85610; 85730; 86140; 86850; 86900; 86901; 86922; 86927; 87077; 87086; 87186; 93005; 99156; 99223; A9270-GY; G0378; J2250; J2310; J2405; J3475; P9017; P9040

== ENCOUNTER 2017-09-08 10:39 | Inpatient (IN) | payer MEDICARE, OTHER ==
--- NOTE | 2017-09-08 11:44 | RAD ---
INDICATION: Syncope COMPARISON: CT brain June 18, 2015 TECHNIQUE: Noncontrast axial source images were acquired from the skull base to the vertex. FINDINGS: Ventricles/sulci: There is cortical atrophy with compensatory dilatation of the CSF spaces. Brain parenchyma: There is periventricular and subcortical white matter change compatible with chronic ischemia. Intracranial hemorrhage:None. Extra-axial spaces: There are no abnormal extra axial fluid collections or evidence of extra-axial mass. Calvarium: There is no calvarial fracture or other calvarial abnormality. Scalp: There is no evidence of scalp or extracalvarial soft tissue abnormality. Paranasal sinuses/mastoid: The paranasal sinuses and mastoid air cells are clear. Other: None. IMPRESSION: CORTICAL ATROPHY WITH CHRONIC MICROVASCULAR ISCHEMIC CHANGES. NO ACUTE FINDINGS.
--- NOTE | 2017-09-08 11:57 | RAD ---
HISTORY: Altered mental status COMPARISONS: March 11, 2017 VIEWS: 1: frontal portable view of the chest at 11:20 AM FINDINGS: LINES AND TUBES: None. CARDIOMEDIASTINAL SILHOUETTE: The cardiomediastinal silhouette is normal for portable technique. PLEURA: The costophrenic angles are sharp. No pleural abnormalities are noted. LUNG PARENCHYMA: There is hyperinflation. ABDOMEN: The upper abdomen is clear. There is no subphrenic gas. BONES AND SOFT TISSUES: No bone or soft tissue abnormalities are noted. IMPRESSION: NO ACTIVE CARDIOPULMONARY DISEASE.
[2017-09-08 12:04] LABS: ABS Basophils 0.1 10^3/ul (0-0.2); ABS Eosinophils 0 10^3/ul (0-0.6); ABS Lymphocytes 0.5 10^3/ul (1.0-4.8); ABS Monocytes 0.3 10^3/ul (0-0.8); ABS Neutrophils 8.1 10^3/ul (1.5-7.7); ABS Nucleated RBC 0 10^3/ul; Eosinophil % 0.4 % (0-6); Hematocrit 35 % (35-47); Hemoglobin 10.8 g/dl (12.0-16.0); Lymphocyte % 5.2 % (25-47); Mean Corpuscular HGB Conc 31 g/dl (31-36); Mean Corpuscular Hemoglobin 23 pg (27-31); Mean Corpuscular Volume 74 fL (80-97); Mean Platelet Volume 8.2 um3 (7.4-10.4); Nucleated Red Blood Cells % 0; Platelet Count 475 10^3/ul (150-450); Red Blood Count 4.72 10^6/ul (4.0-5.4); Red Cell Distribution Width 21 % (10.5-15)
[2017-09-08 12:08] LABS: INR 2.46 (0.77-1.02)
[2017-09-08 13:23] LABS: EGFR Non-African American 68.2 (>60)
--- NOTE | 2017-09-08 14:13 | ED ---
Mike Bansal Jennifer, scribed for Jessee Quesada on 09/08/17 at 1102 . Neurological HPI - HPI Summary HPI Summary: The patient is an 86 year old female who was brought to the ED after a fall this morning. The patient denies loss of consciousness but she doesnt remember what she was doing at the time of the fall. She denies any pain. - History of Current Complaint Stated Complaint: NEAR SYNCOPE Time Seen by Provider: 09/08/17 10:48 Hx Obtained From: Patient Onset/Duration: Sudden Onset, Started hours ago Timing: Intermittent Episodes Lasting: Onset Severity: Mild Current Severity: None Pain Intensity: 0 Pain Scale Used: 0-10 Numeric Character: Other: - Confusion Syncope Context: Unknown Aggravating: Nothing Alleviating: Nothing Associated Signs and Symptoms: Positive: Confusion. Negative: Loss of Consciousness, Pain - Additional Pertinent History Primary Care Physician: OLLIE - Allergy/Home Medications Allergies/Adverse Reactions: Allergies Allergy/AdvReac Type Severity Reaction Status Date / Time Sulfa (Sulfonamide Allergy Severe Hives Verified 09/08/17 12:13 Antibiotics) Home Medications: Home Medications Acetaminophen [Acetaminophen Extra Strength] 1,000 mg PO Q8H PRN 09/08/17 [ History Confirmed 09/08/17] Levothyroxine TAB* [Synthroid TAB*] 125 mcg PO DAILY 09/08/17 [History Confirmed 09/08/17] Melatonin (NF) [Meladox] 3 mg PO BEDTIME 09/08/17 [History Confirmed 09/08/17] Omeprazole CAP* [Prilosec CAP* 20 MG] 20 mg PO DAILY 09/08/17 [History Confirmed 09/08/17] Oxybutynin XL TAB* [Ditropan XL TAB*] 15 mg PO DAILY 09/08/17 [History Confirmed 09/08/17] Rivaroxaban TAB(*) [Xarelto 10 mg (*)] 20 mg PO DAILY 09/08/17 [History Confirmed 09/08/17] PMH/Surg Hx/FS Hx/Imm Hx Endocrine/Hematology History: Reports: Hx Anticoagulant Therapy - plavix, Hx Thyroid Disease Denies: Hx Diabetes Cardiovascular History: Reports: Hx Angina, Hx Congestive Heart Failure, Hx Coronary Artery Disease, Hx Deep Vein Thrombosis, Hx Hypercholesterolemia, Hx Hypertension, Hx Peripheral Vascular Disease, Other Cardiovascular Problems/ Disorders - HEART MURMUR, CAD, PVD, DVT. Denies: Hx Pacemaker/ICD Respiratory History: Reports: Hx Asthma GI History: Reports: Hx Gastroesophageal Reflux Disease History: Reports: Other Problems/Disorders - solitary congenital kidney Denies: Hx Renal Disease Musculoskeletal History: Reports: Hx Back Problems Denies: Hx Arthritis, Hx Osteoporosis Sensory History: Reports: Hx Contacts or Glasses, Hx Vision Problem, Hx Hearing Problem Denies: Hx Cataracts, Hx Glaucoma, Hx Hearing Aid Opthamlomology History: Reports: Hx Contacts or Glasses, Hx Vision Problem Denies: Hx Cataracts, Hx Glaucoma Neurological History: Reports: Hx Dementia Denies: Hx Seizures, Other Neuro Impairments/Disorders Psychiatric History: Reports: Hx Anxiety, Hx Depression Denies: Hx Substance Abuse - Surgical History Surgery Procedure, Year, and Place: appendectomy per pt. 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 Denies: Hx Human Immunodeficiency Virus (HIV) - Family History Known Family History: Positive: Cardiac Disease, Other - Dementia (mother) Family History: CAD - Social History Alcohol Use: Occasionally Alcohol Amount: One glass of gin Hx Substance Use: No Substance Use Type: Reports: None Hx Tobacco Use: No Smoking Status (MU): Never Smoked Tobacco Review of Systems Negative: Myalgia Neurological: Negative - Loss of consciousness, Other - Confusion All Other Systems Reviewed And Are Negative: Yes Physical Exam - Summary Physical Exam Summary: Appearance: Well appearing, no pain distress Skin: warm, dry, reflects adequate perfusion Head/face: normal Eyes: EOMI, THEE ENT: Dry mucous membranes Neck: supple, non-tender Respiratory: CTA, breath sounds present Cardiovascular: RRR, pulses symmetrical ~ Abdomen: non-tender, soft Bowel: present Musculoskeletal: normal, strength/ROM intact Neuro: Alert and confused, sensory motor intact. Triage Information Reviewed: Yes Vital Signs On Initial Exam: Initial Vitals BP 125/84 09/08/17 10:49 Vital Signs Reviewed: Yes Diagnostics - Vital Signs Vital Signs Temp Pulse Resp BP Pulse Ox 09/08/17 13:30 54 16 135/63 95 09/08/17 13:16 126/71 09/08/17 13:03 55 91 09/08/17 13:00 57 137/112 93 09/08/17 12:30 125/71 09/08/17 12:26 17 09/08/17 12:04 54 17 99/57 96 09/08/17 12:00 58 18 95 09/08/17 11:00 17 136/70 09/08/17 10:53 98.2 F 56 16 136/70 95 09/08/17 10:50 16 09/08/17 10:49 125/84 - Laboratory Lab Results: Lab Results 09/08/17 09/08/17 09/08/17 Range/Units 11:50 11:50 11:50 WBC 9.0 (3.5-10.8) 10^3/ul RBC 4.72 (4.0-5.4) 10^6/ul Hgb 10.8 L (12.0-16.0) g/dl Hct 35 (35-47) % MCV 74 L (80-97) fL MCH 23 L (27-31) pg MCHC 31 (31-36) g/dl RDW 21 H (10.5-15) % Plt Count 475 H (150-450) 10^3/ul MPV 8.2 (7.4-10.4) um3 Neut % (Auto) 89.8 H (38-83) % Lymph % (Auto) 5.2 L (25-47) % [place] % (Auto) 3.4 (0-7) % Eos % (Auto) 0.4 (0-6) % Baso % (Auto) 1.2 (0-2) % Absolute Neuts (auto) 8.1 H (1.5-7.7) 10^3/ul Absolute Lymphs (auto) 0.5 L (1.0-4.8) 10^3/ul Absolute Monos (auto) 0.3 (0-0.8) 10^3/ul Absolute Eos (auto) 0 (0-0.6) 10^3/ul Absolute Basos (auto) 0.1 (0-0.2) 10^3/ul Absolute Nucleated RBC 0 10^3/ul Nucleated RBC % 0 INR (Anticoag Therapy) 2.46 H (0.77-1.02) APTT 39.3 H (26.0-36.3) seconds Sodium 139 (139-145) mmol/L Potassium 4.3 (3.5-5.0) mmol/L Chloride 109 (101-111) mmol/L Carbon Dioxide 23 (22-32) mmol/L Anion Gap 7 (2-11) mmol/L BUN 17 (6-24) mg/dL Creatinine 0.80 (0.51-0.95) mg/dL Est GFR ( Amer) 87.7 (>60) Est GFR (Non-Af Amer) 68.2 (>60) BUN/Creatinine Ratio 21.3 H (8-20) Glucose 102 H (70-100) mg/dL Lactic Acid (0.5-2.0) mmol/L Calcium 9.5 (8.6-10.3) mg/dL Total Bilirubin 0.30 (0.2-1.0) mg/dL AST 14 (13-39) U/L ALT 9 (7-52) U/L Alkaline Phosphatase 89 (34-104) U/L Troponin I 0.05 H* (<0.04) ng/mL Total Protein 7.3 (6.4-8.9) g/dL Albumin 3.4 (3.2-5.2) g/dL Globulin 3.9 (2-4) g/dL Albumin/Globulin Ratio 0.9 L (1-3) Influenza A (Rapid) (Negative) Influenza B (Rapid) (Negative) 09/08/17 09/08/17 Range/Units 11:50 12:07 WBC (3.5-10.8) 10^3/ul RBC (4.0-5.4) 10^6/ul Hgb (12.0-16.0) g/dl Hct (35-47) % MCV (80-97) fL MCH (27-31) pg MCHC (31-36) g/dl RDW (10.5-15) % Plt Count (150-450) 10^3/ul MPV (7.4-10.4) um3 Neut % (Auto) (38-83) % Lymph % (Auto) (25-47) % [place] % (Auto) (0-7) % Eos % (Auto) (0-6) % Baso % (Auto) (0-2) % Absolute Neuts (auto) (1.5-7.7) 10^3/ul Absolute Lymphs (auto) (1.0-4.8) 10^3/ul Absolute Monos (auto) (0-0.8) 10^3/ul Absolute Eos (auto) (0-0.6) 10^3/ul Absolute Basos (auto) (0-0.2) 10^3/ul Absolute Nucleated RBC 10^3/ul Nucleated RBC % INR (Anticoag Therapy) (0.77-1.02) APTT (26.0-36.3) seconds Sodium (139-145) mmol/L Potassium (3.5-5.0) mmol/L Chloride (101-111) mmol/L Carbon Dioxide (22-32) mmol/L Anion Gap (2-11) mmol/L BUN (6-24) mg/dL Creatinine (0.51-0.95) mg/dL Est GFR ( Amer) (>60) Est GFR (Non-Af Amer) (>60) BUN/Creatinine Ratio (8-20) Glucose (70-100) mg/dL Lactic Acid 1.9 (0.5-2.0) mmol/L Calcium (8.6-10.3) mg/dL Total Bilirubin (0.2-1.0) mg/dL AST (13-39) U/L ALT (7-52) U/L Alkaline Phosphatase (34-104) U/L Troponin I (<0.04) ng/mL Total Protein (6.4-8.9) g/dL Albumin (3.2-5.2) g/dL Globulin (2-4) g/dL Albumin/Globulin Ratio (1-3) Influenza A (Rapid) Negative (Negative) Influenza B (Rapid) Negative (Negative) Result Diagrams: 09/08/17 11:50 09/08/17 11:50 Lab Statement: Any lab studies that have been ordered have been reviewed, and results considered in the medical decision making process. - Radiology CXR Xray Interpretation: No Acute Changes - NO ACTIVE CARDIOPULMONARY DISEASE. Dr. Quesada has reviewed this report. Radiology Interpretation Completed By: Radiologist - CT CT Brain CT Interpretation: No Acute Changes - CORTICAL ATROPHY WITH CHRONIC MICROVASCULAR ISCHEMIC CHANGES. NO ACUTE FINDINGS. Dr. Quesada has reviewed this report. CT Interpretation Completed By: Radiologist - EKG 11:07 Cardiac Rate: Bradycardia EKG Rhythm: Sinus Bradycardia - 50 BPM Ectopy: PVCs EKG Comparison: No Significant Change Course/Dx - Course Course Of Treatment: The patient is an 86 year old female who was brought to the ED after a fall this morning. Bloodwork and urinalysis were obtained. Influenza A and B were negative. CXR, EKG, and CT Brain were obtained. The patient was diagnosed with syncope and elevated troponin. Patient was [place] [facility]. - Differential Dx Differential Diagnoses Neuro: Positive: Cerebrovascular Accident, Transient Ischemic Attack, Vasovagal Reaction - mi - Diagnoses Provider Diagnoses: Syncope, Elevated troponin - Physician Notifications Discussed Care Of Patient With: Lilia Correa Time Discussed With Above Provider: 14:00 Instructed by Provider To: Admit As Inpatient Discharge - Sign-Out/Discharge Documenting (check all that apply): Discharge - Discharge Plan Condition: Good Disposition: ADMITTED TO [facility] Referrals: Hiral Bloom MD [Primary Care Provider] - 3 Days Additional Instructions: Follow up with your primary care physician in three days. Return to the emergency department for any new or worsening symptoms. - Billing Disposition and Condition Condition: GOOD Disposition: [facility] The documentation as recorded by the Mike curtis Jennifer accurately reflects the service I personally performed and the decisions made by Sangita leone Emmanuel.
[2017-09-08 14:24] LABS: Urine Appearance Clear; Urine Blood Negative (Negative); Urine Color Yellow; Urine Ketones Negative (Negative); Urine Protein Negative (Negative); Urine Red Blood Cell Absent (Absent); Urine Specific Gravity 1.013 (1.010-1.030); Urine Urobilinogen Negative (Negative); Urine White Blood Cell Absent (Absent)
[2017-09-08] MEDS ORDERED: Acetaminophen TAB* 325 MG PO PRN (14:50)
--- NOTE | 2017-09-08 16:51 | ECHO ---
Patient: KYAW MARTINEZ [facility] Rec#: [id number] : 1930 Date: 09/08/2017 Age: 86y Height: 157.48 cm / 62.0 in Weight: 54.43 kg / 120.0 lbs Sex: F BSA: 1.54 Room#: ED 6 Admit Date#: 09/08/2017 Type: Inpatient Referring: Lilia Correa DO Reading: Kevin Abreu MD [employer] Operator: Maddi Zimmerman RDCS CC: Hiral Bloom Transthoracic Echocardiogram Indication: Syncope BP: 110/75 HR: 55 Rhythm: Bradycardia Findings History: Dementia, CAD with DE s/p PCI, DVT, HTN, hypothyroid, GERD, HLD, CHF, and PVD. Technical Comments: The study quality is fair. Completed at 1630. Left Ventricle: The left ventricular chamber size is decreased. Mild concentric left ventricular hypertrophy is observed. Global left ventricular wall motion and contractility are within normal limits. There is normal left ventricular systolic function. The estimated ejection fraction is 55-60%. Abnormal left ventricular diastolic function is observed. Abnormal left ventricular diastolic filling is observed, consistent with impaired relaxation. Left Atrium: The left atrium is mildly dilated.The area tracing are suboptimal for assessment. Right Ventricle: Moderator Band present. The right ventricular cavity size is normal. The right ventricular global systolic function is normal. Right Atrium: The right atrial cavity size is normal. Aortic Valve: The aortic valve is trileaflet. The aortic valve leaflets are mildly thickened. There is a trace of aortic regurgitation. There is no evidence of aortic stenosis. Mitral Valve: There is mitral annular calcification. The mitral valve leaflets are mildly thickened. There is mild mitral regurgitation. There is no evidence of mitral stenosis. Tricuspid Valve: The tricuspid valve leaflets are normal. There is trace tricuspid regurgitation. Unable to estimate the right ventricular systolic pressure. There is no tricuspid stenosis. Pulmonic Valve: The pulmonic valve structure is not well visualized. There is a trace pulmonic regurgitation. There is no pulmonic stenosis. Pericardium: There is no significant pericardial effusion. Aorta: There is no dilatation of the ascending aorta. The aortic arch is not well visualized. The aortic root is normal in size. Pulmonary Artery: The main pulmonary artery appears normal. Venous: The inferior vena cava appears normal in size. There is a greater than 50% respiratory change in the inferior vena cava dimension. Conclusions Mild concentric left ventricular hypertrophy is observed. There is normal left ventricular systolic function. The estimated ejection fraction is 55-60%. Abnormal left ventricular diastolic filling is observed, consistent with impaired relaxation. No significant valvular disease: There is a trace of aortic regurgitation. There is mild mitral regurgitation. There is trace tricuspid regurgitation. Unable to estimate the right ventricular systolic pressure. There is a trace pulmonic regurgitation. Compared to report of study from 05/27/2016 the overall LV systolic function is better(was 45-50%).The mitral regurgitation is mildly increased (was trace). Measurements Name Value Normal Range RVIDd (AP) 2D 3.3 cm (0.9 - 2.6) RVDdMajor (2D) 4.2 cm (2.2 - 4.4) RAd ISD 4CH 5.5 cm (3.4 - 4.9) RA (A4C)W 4.1 cm (2.9 - 4.6) IVSd (2D) 1.2 cm (0.6 - 1) LVPWd (2D) 1.2 cm (0.6 - 1) LVIDd (2D) 3 cm (3.6 - 5.4) LVIDs (2D) 2.4 cm - LV FS (2D) 21 % (25 - 45) Aortic Annulus 1.8 cm (1.4 - 2.6) Ao root diameter (2D) 2.7 cm (2.1 - 3.5) Ascending Ao 2.9 cm (2.1 - 3.4) LA dimension (AP) 2D 3.4 cm (2.3 - 3.8) LAd ISD 4CH 6.5 cm (2.9 - 5.3) LA ISD 4CH W 5.3 cm (2.5 - 4.5) Name Value Normal Range LA ESV SP 4CH (A/L) 102 ml - LA ESV SP 2CH (A/L) 67 ml - LA ESV BP (A/L) 87 ml - LA ESV BP (A/L) index 56 ml/m2 - LA ESV SP 4CH (MOD) 90 ml - LA ESV SP 2CH (MOD) 63 ml - Name Value Normal Range MV E-wave Vmax 0.57 m/sec - MV deceleration time 261.9 msec - MV A-wave Vmax 1.12 m/sec - MV E:A ratio 0.5 ratio - LV septal e' Vmax 0.03 m/sec - LV lateral e' Vmax 0.04 m/sec - LV E:e' septal ratio 19 ratio - LV E:e' lateral ratio 14.25 ratio - Name Value Normal Range AV Vmax 1.43 m/sec - AV VTI 32.2 cm - AV peak gradient 8.29 mmHg - AV mean gradient 3.68 mmHg - LVOT Vmax 0.78 m/sec - LVOT VTI 20.92 cm - LVOT peak gradient 2.46 mmHg - LVOT mean gradient 1.07 mmHg - KRUPA Vmax 0.5 m/sec - Name Value Normal Range IVC diameter 1.2 cm - Name Value Normal Range PV Vmax 0.86 m/sec - PV peak gradient 2.95 mmHg -
[2017-09-08] MEDS: Aspirin EC TAB* 325 MG PO SCH (17:21)
[2017-09-08] MEDS: NS 0.9% 1000 ML* 1,000 ML IV SCH (17:21)
--- NOTE | 2017-09-08 17:39 | HP ---
CC: Provider at [facility] * HISTORY AND PHYSICAL: DATE OF ADMISSION: 09/08/17 PRIMARY CARE PROVIDER: Provider at [facility]. CHIEF COMPLAINT: Syncope. HISTORY OF PRESENT ILLNESS: Ms. Arjun Vaca is an 86-year-old female with history of dementia, who is really unable to provide any meaningful history. She states that she knows she fell today, but she was unsure of why or where. She states that all she knows is that people were staring at her. According to nursing notes, the patient reportedly had an episode of syncope where she lost consciousness and was lowered to the floor by an aide at [facility]. She then looked pale and boss, and her O2 saturation was noted to be in the 50s. When the patient came to, she was then assisted to a chair and her O2 saturation came back up into the high 90s. She then had another episode of declining and was complaining of nausea and dizziness. She therefore, was brought to the emergency room for evaluation. Currently, she states that she feels quite well. She denies any chest pain. She denies shortness of breath. She denies dizziness. She states that she has had no nausea, vomiting or diarrhea. She denies any abdominal pain. She denies any issues with urination. PAST MEDICAL HISTORY: 1. Dementia. 2. Coronary artery disease. 3. History of DVT. 4. Hypertension. 5. GERD. 6. Hypothyroidism. 7. Hyperlipidemia. PAST SURGICAL HISTORY: Cholecystectomy. MEDICATIONS: 1. Tylenol 1000 mg p.o. q.8 hours p.r.n. pain. 2. Xarelto 20 mg p.o. daily. 3. Levothyroxine 125 mcg p.o. daily. 4. Omeprazole 20 mg p.o. daily. 5. Oxybutynin 15 mg p.o. daily. 6. Melatonin 3 mg p.o. q.h.s. 7. Potassium chloride 20 mEq p.o. b.i.d. ALLERGIES: SULFA MEDICATIONS. FAMILY HISTORY: Unobtainable from the patient. SOCIAL HISTORY: The patient currently resides at [facility]. Her son, Sung, is her healthcare proxy. REVIEW OF SYSTEMS: A complete 11-system review of systems is obtained. Pertinent positives and negatives are as per HPI and otherwise negative. PHYSICAL EXAMINATION GENERAL: The patient is a well-developed elderly female seen sitting up in the stretcher, in no acute distress. VITAL SIGNS: Blood pressure 149/98, pulse 56, respirations 18, temp 98.2, O2 sat 99% on room air. HEENT: Pupils are equal and round. Extraocular muscles are intact. Oropharynx is clear. Oral mucosa is moist. There is no submandibular, cervical , or supraclavicular adenopathy. Thyroid is not enlarged. No thyroid nodules noted. PULMONARY: Lungs are clear with fine bibasilar crackles. CARDIAC: Normal S1, S2. Regular rate and rhythm. I do not appreciate any murmurs. There is no lower extremity edema. ABDOMEN: Bowel sounds are present. Abdomen is soft, nontender, nondistended. MUSCULOSKELETAL: There is no cyanosis or clubbing of the digits. There is full active range of motion of all 4 extremities. NEURO: Cranial nerves II through XII are grossly intact. Sensation is intact to light touch throughout. Strength is 5/5 and symmetric in both upper and lower extremities bilaterally. PSYCH: The patient is alert. She is pleasantly confused. SKIN: Warm and dry. There are no rashes. DIAGNOSTIC STUDIES/LAB DATA: WBC 9.0, hemoglobin 10.8, hematocrit 35, platelets 475,000. INR 2.46. Sodium 139, potassium 4.3, chloride 109, CO2 of 23, BUN 17, creatinine 0.8, glucose 102, lactic acid 1.9, calcium 9.5, bilirubin 0.3. AST 14, ALT 9, alk phos 89, troponin 0.05. Albumin 3.4. Urinalysis reveals a specific gravity of 1.013 with positive nitrites, otherwise negative. Influenza A and B negative. EKG reveals sinus bradycardia with a PVC and no acute ST-T wave abnormalities. Chest x-ray, no active cardiopulmonary disease. CT of the brain, cortical atrophy with chronic microvascular ischemic changes are noted. No acute findings are noted. ASSESSMENT AND PLAN: Ms. Arjun Vaca is an 86-year-old female, who has a history of dementia, coronary artery disease, history of deep venous thrombosis , hypertension, hyperlipidemia, and hypothyroidism, who presents to the emergency room after having a syncopal episode at [facility] with associated hypoxia which quickly resolved and complaints of nausea and dizziness. 1. Syncope. The etiology behind her syncope is unclear. I suspect that this may be orthostatic related. The patient did have orthostatic vital signs obtained in the emergency room, which revealed her blood pressure going from 141 /105 to 110/75. She also reported dizziness upon standing. The patient's hemoglobin is higher than where it has been most recently in July 2017. Perhaps, she is hemoconcentrated. The patient will be receiving normal saline at 75 mL/hr. In addition, we will obtain a transthoracic echocardiogram as the patient does have a very mildly elevated troponin of 0.05. 2. Elevated troponin. Perhaps this represents demand ischemia. She denies any chest pain. Reportedly, at the time of the event, she did not complain of any chest pain either. EKG is unrevealing. Echocardiogram will be obtained. I will get a troponin now. 3. History of deep venous thrombosis. The patient will continue on Xarelto 20 mg p.o. daily. 4. Hypertension. At this point, the patient's blood pressure while lying is mildly elevated. I will not introduce an antihypertensive at this time as her blood pressure does drop upon standing. 5. Dementia. We will continue to reorient as needed. 6. DVT prophylaxis. According to the Adult Thrombosis Prophylaxis Risk Factor Assessment Guide, the patient has a total risk factor score of 6, making her the highest risk. She is already on Xarelto and this will act as her DVT prophylaxis. 7. Code status is full. TIME SPENT: 55 minutes was spent admitting this patient. [id number]/[facility] #: [id number] MAURICE
[2017-09-08] MEDS: CMCS: Melatonin (NF) 3 MG TAB PO SCH (21:18)
[2017-09-08] MEDS: Potassium Chlor TAB* 20 MEQ TAB.ER PO SCH (21:18)
[2017-09-09] MEDS: Levothyroxine TAB* 125 MCG TAB PO SCH (06:12)
[2017-09-09 06:27] LABS: Hematocrit 29 % (35-47); Hemoglobin 9.1 g/dl (12.0-16.0); Mean Corpuscular HGB Conc 31 g/dl (31-36); Mean Corpuscular Hemoglobin 23 pg (27-31); Mean Corpuscular Volume 73 fL (80-97); Mean Platelet Volume 8.4 um3 (7.4-10.4); Platelet Count 413 10^3/ul (150-450); Red Blood Count 3.94 10^6/ul (4.0-5.4); Red Cell Distribution Width 20 % (10.5-15); White Blood Count 6.2 10^3/ul (3.5-10.8)
[2017-09-09] MEDS: Oxybutynin XL TAB* 5 MG PO SCH (09:25)
[2017-09-09] MEDS: Aspirin EC TAB* 325 MG PO SCH (09:25)
[2017-09-09] MEDS: Potassium Chlor TAB* 20 MEQ TAB.ER PO SCH ×2 (09:26→22:16)
[2017-09-09] MEDS: NS 0.9% 1000 ML* 1,000 ML IV SCH (09:28)
--- NOTE | 2017-09-09 12:12 | PN ---
Subjective Date of Service: 09/09/17 Interval History: Pt examined today at the bedside. She states that she is hungry. Denies chest pain and denies sob. States she does not feel nauseous. Denies fever. ROS-denies fever, denies chills, denies chest pain, denies sob, denies abdominal pain, denies nausea, denies vomiting, denies lightheadedness, denies loc, review of 11 systems completed all others negative, Objective Active Medications: Acetaminophen (Tylenol Tab*) 650 mg PO Q4H PRN PRN Reason: PAIN Aspirin (Ecotrin Ec Tab*) 325 mg PO DAILY [facility] Last Admin: 09/09/17 09:25 Dose: 325 mg Sodium Chloride (Ns 0.9% 1000 Ml*) 1,000 mls @ 75 mls/hr IV PER RATE [facility] Last Admin: 09/09/17 09:28 Dose: 75 mls/hr Levothyroxine Sodium (Synthroid Tab*) 125 mcg PO DAILY@0600 [facility] Last Admin: 09/09/17 06:12 Dose: 125 mcg Melatonin (Melatonin (Nf)) 3 mg PO BEDTIME [facility] PRN Reason: Protocol Last Admin: 09/08/17 21:18 Dose: 3 mg Omeprazole (Prilosec Cap*) 20 mg PO DAILY@0730 [facility] Oxybutynin Chloride (Ditropan Xl Tab*) 15 mg PO DAILY [facility] Last Admin: 09/09/17 09:25 Dose: 15 mg Potassium Chloride (Klor Con Er Tab*) 20 meq PO BID [facility] Last Admin: 09/09/17 09:26 Dose: 20 meq Rivaroxaban (Xarelto(*)) 20 mg PO DAILY@1700 [facility] Vital Signs - 8 hr 09/09/17 09/09/17 07:59 08:31 Temperature 97.8 F 97.8 F Pulse Rate 67 67 Respiratory 16 16 Rate Blood Pressure 135/66 135/66 (mmHg) O2 Sat by Pulse 95 95 Oximetry Oxygen Devices in Use Now: None Appearance: 86 y/o female patient NAD, Sitting in bed, Eyes: No Scleral Icterus, PERRLA Ears/Nose/Mouth/Throat: NL Teeth, Lips, Gums Neck: NL Appearance and Movements; NL JVP Respiratory: Symmetrical Chest Expansion and Respiratory Effort, Clear to Auscultation Cardiovascular: NL Sounds; No Murmurs; No JVD Abdominal: NL Sounds; No Tenderness; No Distention Lymphatic: No Cervical Adenopathy Skin: No Rash or Ulcers Neurological: - - confused to place and confused to time, alert to self, Lines/Tubes/Other Access: Clean, Dry and Intact Peripheral IV Result Diagrams: 09/09/17 05:30 09/08/17 11:50 Additional Lab and Data: Lab Results 09/08/17 09/08/17 09/08/17 Range/Units 11:50 11:50 11:50 WBC 9.0 (3.5-10.8) 10^3/ul RBC 4.72 (4.0-5.4) 10^6/ul Hgb 10.8 L (12.0-16.0) g/dl Hct 35 (35-47) % MCV 74 L (80-97) fL MCH 23 L (27-31) pg MCHC 31 (31-36) g/dl RDW 21 H (10.5-15) % Plt Count 475 H (150-450) 10^3/ul MPV 8.2 (7.4-10.4) um3 Neut % (Auto) 89.8 H (38-83) % Lymph % (Auto) 5.2 L (25-47) % Shackelford % (Auto) 3.4 (0-7) % Eos % (Auto) 0.4 (0-6) % Baso % (Auto) 1.2 (0-2) % Absolute Neuts (auto) 8.1 H (1.5-7.7) 10^3/ul Absolute Lymphs (auto) 0.5 L (1.0-4.8) 10^3/ul Absolute Monos (auto) 0.3 (0-0.8) 10^3/ul Absolute Eos (auto) 0 (0-0.6) 10^3/ul Absolute Basos (auto) 0.1 (0-0.2) 10^3/ul Absolute Nucleated RBC 0 10^3/ul Nucleated RBC % 0 INR (Anticoag Therapy) 2.46 H (0.77-1.02) APTT 39.3 H (26.0-36.3) seconds Sodium 139 (139-145) mmol/L Potassium 4.3 (3.5-5.0) mmol/L Chloride 109 (101-111) mmol/L Carbon Dioxide 23 (22-32) mmol/L Anion Gap 7 (2-11) mmol/L BUN 17 (6-24) mg/dL Creatinine 0.80 (0.51-0.95) mg/dL Est GFR ( Amer) 87.7 (>60) Est GFR (Non-Af Amer) 68.2 (>60) BUN/Creatinine Ratio 21.3 H (8-20) Glucose 102 H (70-100) mg/dL Lactic Acid (0.5-2.0) mmol/L Calcium 9.5 (8.6-10.3) mg/dL Total Bilirubin 0.30 (0.2-1.0) mg/dL AST 14 (13-39) U/L ALT 9 (7-52) U/L Alkaline Phosphatase 89 (34-104) U/L Troponin I 0.05 H* (<0.04) ng/mL Total Protein 7.3 (6.4-8.9) g/dL Albumin 3.4 (3.2-5.2) g/dL Globulin 3.9 (2-4) g/dL Albumin/Globulin Ratio 0.9 L (1-3) Influenza A (Rapid) (Negative) Influenza B (Rapid) (Negative) 09/08/17 09/08/17 Range/Units 11:50 12:07 WBC (3.5-10.8) 10^3/ul RBC (4.0-5.4) 10^6/ul Hgb (12.0-16.0) g/dl Hct (35-47) % MCV (80-97) fL MCH (27-31) pg MCHC (31-36) g/dl RDW (10.5-15) % Plt Count (150-450) 10^3/ul MPV (7.4-10.4) um3 Neut % (Auto) (38-83) % Lymph % (Auto) (25-47) % Shackelford % (Auto) (0-7) % Eos % (Auto) (0-6) % Baso % (Auto) (0-2) % Absolute Neuts (auto) (1.5-7.7) 10^3/ul Absolute Lymphs (auto) (1.0-4.8) 10^3/ul Absolute Monos (auto) (0-0.8) 10^3/ul Absolute Eos (auto) (0-0.6) 10^3/ul Absolute Basos (auto) (0-0.2) 10^3/ul Absolute Nucleated RBC 10^3/ul Nucleated RBC % INR (Anticoag Therapy) (0.77-1.02) APTT (26.0-36.3) seconds Sodium (139-145) mmol/L Potassium (3.5-5.0) mmol/L Chloride (101-111) mmol/L Carbon Dioxide (22-32) mmol/L Anion Gap (2-11) mmol/L BUN (6-24) mg/dL Creatinine (0.51-0.95) mg/dL Est GFR ( Amer) (>60) Est GFR (Non-Af Amer) (>60) BUN/Creatinine Ratio (8-20) Glucose (70-100) mg/dL Lactic Acid 1.9 (0.5-2.0) mmol/L Calcium (8.6-10.3) mg/dL Total Bilirubin (0.2-1.0) mg/dL AST (13-39) U/L ALT (7-52) U/L Alkaline Phosphatase (34-104) U/L Troponin I (<0.04) ng/mL Total Protein (6.4-8.9) g/dL Albumin (3.2-5.2) g/dL Globulin (2-4) g/dL Albumin/Globulin Ratio (1-3) Influenza A (Rapid) Negative (Negative) Influenza B (Rapid) Negative (Negative) Microbiology and Other Data: Microbiology 09/08/17 15:50 Nasal Screen MRSA (PCR)(CAHPO) - Final Nasal Mrsa Not Detected Assess/Plan/Problems-Billing Assessment: 86 y/o female patient presenting to [facility] with complaints of syncope, admitted for syncope, - Patient Problems (1) Syncope Current Visit: Yes Status: Acute Priority: High Comment: Suspect r/t orthostatic hypotension, repeating orthos today, recieved hydration overnight, suspect dehydration leading to orthostasis, ? PE although unliekly as paient onxarelto but will obtain cta given trops elvated and reported hypoxia, (2) Elevated troponin Current Visit: Yes Status: Acute Priority: High Comment: unclear etiology echo unchagne and ekg stable, trop max to .98 ? demend ischemia in setting of hypoxia reported 02 sat 50 percent ? arrythmia, no chest pain or sob, will consult cards, and discuss with family, (3) DVT prophylaxis Current Visit: Yes Status: Acute Priority: High Comment: xarelto (4) Full code status Current Visit: Yes Status: Acute Priority: High (5) UTI (urinary tract infection) Current Visit: Yes Status: Acute Priority: High Comment: Ecoli growing continue ceftriaxone (6) Coronary heart disease Current Visit: Yes Status: Chronic Priority: High Comment: Trops elevated ? demand ischemia, no chest pain, awarting cardiology consult, hesistate to add asa given hx of gi bleed, (7) Dementia Current Visit: Yes Status: Chronic Priority: High Comment: continue supportive care, (8) Dyslipidemia Current Visit: Yes Status: Chronic Priority: High Comment: fall with pcp (9) GERD (gastroesophageal reflux disease) Current Visit: Yes Status: Chronic Priority: High Comment: stable, (10) HTN (hypertension) Current Visit: Yes Status: Chronic Priority: High Comment: bp stable 135/ 70 (11) Hypothyroid Current Visit: Yes Status: Chronic Priority: High Comment: checking tsh - Continue levothyroxine Status and Disposition: CTA chest today to r/o PE unlikely given xarelto, continue tele for 24 hrs more await cards input, home when stable
[2017-09-09] MEDS ORDERED: Iodixanol* (CONTRAST) 320 MG/ML 100 ML SDV IV ONE (13:29)
[2017-09-09] MEDS: Metoprolol Tartrate TAB* 25 MG PO SCH ×2 (13:32→22:16)
--- NOTE | 2017-09-09 15:22 | RAD ---
INDICATION: Syncope. Evaluate for pulmonary embolus. COMPARISON: Chest x-ray September 08, 2017 TECHNIQUE: Axial source images were obtained from the thoracic inlet to the hemidiaphragms following administration of [address] angiographic technique was utilized. Coronal and sagittal reconstructed images were acquired. CHEST FINDINGS: Neck/thyroid: The visualized neck to include the thyroid appear normal. Chest wall: There are no acute abnormalities of the bony thorax or chest wall. There is no supraclavicular, infraclavicular, or axillary lymphadenopathy. Lungs : There is minimal linear airspace disease in the right lung base most consistent with atelectasis or scarring. There are no pulmonary parenchymal masses or other infiltrates. The pulmonary interstitium appears normal. There are no endobronchial lesions. Cardiomediastinal structures: There is no CT evidence of acute pulmonary embolic disease. The heart is normal mildly enlarged there is no pericardial effusion. There is no evidence of aortic aneurysm or dissection. There is uncoiling and ectasia of the thoracic aorta There is no mediastinal or hilar adenopathy. The esophagus appears normal. Pleura : There are no pleural-based masses or effusions. Other: There is a hiatal hernia. IMPRESSION: NO CT EVIDENCE OF ACUTE PULMONARY EMBOLIC DISEASE. NO ACTIVE DISEASE.
[2017-09-09] MEDS ORDERED: Rivaroxaban TAB(*) 20 MG TAB PO SCH (17:00)
[2017-09-09] MEDS: Omeprazole CAP* 20 MG PO SCH (17:02)
[2017-09-09] MEDS ORDERED: cefTRIAXone(*) 1 GM in NS 0.9% 50 ML* 50 ML IVPB SCH (21:00)
[2017-09-09 22:02] LABS: Hematocrit 28 % (35-47); Hemoglobin 8.7 g/dl (12.0-16.0)
[2017-09-09] MEDS: cefTRIAXone 1000 MG SYRINGE IVPB Q24H (in NaCl) IVPB SCH ×2 (22:15)
[2017-09-09] MEDS: CMCS: Melatonin (NF) 3 MG TAB PO SCH (22:16)
--- NOTE | 2017-09-10 00:31 | CONS ---
CC: Hospitalist Service; Dr. Hiral Bloom * CONSULTATION REPORT: DATE OF CONSULT: 09/09/17 REASON FOR CONSULT: Syncope, elevated troponins, and known history of atherosclerotic heart disease. CHIEF COMPLAINT: Loss of consciousness. HISTORY OF PRESENT ILLNESS: Ms. Claudia Vaca is an 86-year-old woman with known atherosclerotic disease, last cath in 2012. The patient is currently a resident of [facility] and she presented to [facility] yesterday, 09/08/17, due to a fall. The patient was not a reliable historian, but the admission note documents nursing notes saying she lost consciousness, was lowered to the floor by an aide and assisted to a chair. They documented transient drop in oxygen saturation, but she was not found to be hypoxic in the emergency department. The patient had another episode of syncope associated with nausea and dizziness and this brought her to the emergency department. Workup here revealed she has a urinary tract infection and has grown out E. coli , her blood pressures are found to be quite low and she continues to get normal saline for hydration, she had an elevation of troponins, initially 0.05 but it increased to 0.98. The patient additionally had a low TSH, which although improved from July of 2017. She is chronically anemic, but her mean cell volume has declined gradually from 95 into the 70s. The patient has a history of dementia and in my talking to her she denies any problems. She says she is feeling well. She cannot recollect events. She could not provide any meaningful history to me. The history I obtained in her past included being born in [facility], never knowing her father, raised by her grandparents in [facility], but she cannot tell me where in [facility] [place]. She is not sure where she is. She does not know where she lives. She does know she has a son named Sung. PAST MEDICAL HISTORY: 1. Coronary artery disease, status post a drug-eluting stent to the second diagonal in November of 2011. Cardiac catheterization in 2012 showed LAD with 30% and 50% occlusions, diagonal branches were 35% to 40% occlusion, circumflex 30% occlusion, right coronary artery up to 60% occlusion. 2. Hypertension. 3. Dyslipidemia. 4. Hypothyroid. 5. Reflux. 6. History of DVT. 7. History of GI bleed, erosive esophagitis. 8. Dementia. 9. Chronic DVT, right leg. PAST SURGICAL HISTORY: Includes cholecystectomy. MEDICATIONS: Outpatient medications included: 1. Xarelto. 2. Tylenol. 3. Levothyroxine 125 mcg a day. 4. Omeprazole 20 mg p.o. a day. 5. Oxybutynin. 6. Melatonin. 7. Potassium 40 mEq a day. Current inpatient medications include: 1. Aspirin 325 mg a day. 2. Tylenol. 3. Synthroid 125 mcg a day. 4. Melatonin. 5. Metoprolol 12.5 mg p.o. q.12 hours. 6. Prilosec 20 mg a day. 7. Ditropan 15 mg a day. 8. Potassium chloride 20 mEq a day. 9. Xarelto 20 mg a day. 10. Sodium chloride. I do not see any antibiotics listed. ALLERGIES: She is allergic to SULFA. FAMILY HISTORY: Unable to get any history from her father's side of her family. She said her mother , but is unable to tell if old or young. She states her grandfather lived into old age, not reliable. SOCIAL HISTORY: The patient is a resident of [facility]. She denies any smoking , but said she likes to take a tipple. REVIEW OF SYSTEMS: Also not reliable. She said she feels fine, denies shortness of breath, chest pain, pressure, heaviness. She said she is hungry. She denies dysuria. PHYSICAL EXAM: The patient is 5 feet 2 inches, weighs 144 pounds with a BMI of 26. Vitals: Currently blood pressure is 122/60, pulse of 64, oxygen saturation 97%, temperature 98.6. On admission yesterday, vitals similar. Orthostatic blood pressures done today showed blood pressure 122/81, lying; 119/65, sitting ; 109/67, standing. Orthostatic on 09/08/17 at 2018 are documented to being done, but I cannot find. At 2300, she had a systolic pressure of 98/49. General Appearance: Elderly woman mildly overweight, seated at 45 degrees, in no acute distress. Psychologically, pleasant and cooperative but vague. Neurologically, not oriented to place is oriented to person, did not evaluate for time. Skin: Warm and dry without cyanosis. HEENT: Pupils are equal and round. Mucous membranes are moderately moist. Neck: Without increased JVP appreciated. Breath sounds few crackles at the bases, but with deep breathing, these improved and nearly clear. Mild kyphoscoliosis incidentally noted. Coronary: S1, S2 regular without murmurs or rubs. Abdomen: Overweight, soft, nontender. No epigastric or suprapubic tenderness. She does smell of strong urine. Lower extremities were free of edema and warm. DIAGNOSTIC STUDIES/LAB DATA: The patient's echocardiogram from 09/08/17 shows mild left ventricular hypertrophy, ejection fraction 55% to 60% with abnormal diastolic filling, mild mitral insufficiency. Chest x-ray from 09/08/17 shows no acute pulmonary disease. Brain CT from 09/08/17 showed cortical atrophy with chronic microvascular ischemic changes. CT angiogram of the chest showed no evidence of acute embolic or PE. Initial EKG from 09/08/17 shows normal sinus rhythm of 65 beats a minute. QRS axis of 0 with normal AV and IV conduction times QS in the leads III and aVF, I and aVL, otherwise upright ST segments are normal. ECG from this morning, sinus bradycardia 50 beats a minute, QRS axis is 0, normal AV and IV conduction times and unremarkable STs, prominent R wave progression V1 to V3, cannot rule out an old inferior wall PA. White count 6.2, hemoglobin 9.1, hematocrit 29, mean cell volume 73 (In March 2017, mean cell volume 89 and in June 2015, mean cell volume 97). INR 2.46, PTT 39. Sodium 139, potassium 4.3, chloride 103, bicarb 23, BUN 17, creatinine 0.8, glucose 102. ALT 9. Troponin #1 0.05, troponin #2 0.38, troponin #3 0.72 , troponin #4 0.98, troponin #5 0.80. TSH 0.31. Urinalysis: Leukocyte esterase negative, glucose negative. Lipids from 05/27/16, shows total cholesterol 90, triglycerides 85, LDL cholesterol 53, and HDL cholesterol 20. Serology was negative for influenza A and B. Microbiology: Urine culture grew E. coli greater than 100,000. IMPRESSION AND PLAN: In summary, Claudia Vaca is an 86-year-old woman with 2 episodes of loss of consciousness at the [facility]. She was admitted hypotensive with possible urinary tract infection with Escherichia coli growing in the urine. She has a microcytic anemia. Her TSH is low raising concerns of Synthroid over replacement and current INR is above 2 and not on Coumadin (is on Xarelto). The cardiac concerns include her underlying atherosclerotic heart disease and an elevated troponin. Based on her cath in 2012, Claudia certainly is at risk for a stress-induced ischemia and it is possible the moderate occlusion in the left anterior descending artery and right coronary artery has progressed. Right now , Claudia's dementia is quite profound and that she is not having chest pain and her EKGs do not suggest acute ischemia. I would for now recommend medically managing her, beta blocking her as you are until heart rates in the 60s. As I do not see that she has an intolerance to statin documented, you could update her lipid panel and consider optimizing lipid control. I would try to adjust her thyroid replacement or to prevent over replacement as this should put less demand on the heart. I would look into the microcytic anemia as the microcytosis is new, even with her history of DVTs, I would consider holding the Xarelto looking for gastrointestinal bleed, and perhaps a Hematology consultation and/or GI consultation. If it is truly felt that urinary infection is contributing to her hypotension on admission and potential for orthostasis, then antibiotics would be in order. If it is felt this is a factitious infection as her urine smells so strong, we may want to repeat UA, C and S with a straight cath as if she does have a true urinary infection, she may stabilize with treatment. If the patient's mentation and functional ability improves we could consider ischemic workup, but for now I would optimize medical management for symptom relief. Regarding the patient's syncope I think infection could be the sole etiology. With her normal ejection fraction and based on telemetry, I do not feel she is at high risk for tachy or bradyarrhythmias but additional options would include an event monitor on discharge, (although unless she had MCOT device, I do not feel she would be able to triggor her dizzy episodes. In terms of what looks like recurrent gastrointestinal bleed with microcytic anemia, I would recommend discontinuing her aspirin as this could contribute a cause or contribute additional erosive symptoms in her GI tract. Thank you for allowing me to assist in this nice woman's care. [id number]/[facility] #: [id number] MAURICE
[2017-09-10] MEDS: NS 0.9% 1000 ML* 1,000 ML IV SCH ×2 (04:06→18:16)
[2017-09-10 05:52] LABS: ABS Basophils 0.1 10^3/ul (0-0.2); ABS Eosinophils 0.4 10^3/ul (0-0.6); ABS Lymphocytes 2.1 10^3/ul (1.0-4.8); ABS Monocytes 0.5 10^3/ul (0-0.8); ABS Neutrophils 2.8 10^3/ul (1.5-7.7); ABS Nucleated RBC 0 10^3/ul; Eosinophil % 6.9 % (0-6); Hematocrit 29 % (35-47); Hemoglobin 8.9 g/dl (12.0-16.0); Lymphocyte % 35.6 % (25-47); Mean Corpuscular HGB Conc 31 g/dl (31-36); Mean Corpuscular Hemoglobin 23 pg (27-31); Mean Corpuscular Volume 75 fL (80-97); Mean Platelet Volume 8.5 um3 (7.4-10.4); Nucleated Red Blood Cells % 0.1; Platelet Count 330 10^3/ul (150-450); Red Blood Count 3.83 10^6/ul (4.0-5.4); Red Cell Distribution Width 21 % (10.5-15); White Blood Count 5.8 10^3/ul (3.5-10.8)
[2017-09-10] MEDS: Levothyroxine TAB* 125 MCG TAB PO SCH (06:03)
[2017-09-10 06:11] LABS: EGFR Non-African American 67.2 (>60)
[2017-09-10] MEDS: Metoprolol Tartrate TAB* 25 MG PO SCH ×2 (08:07→20:58)
[2017-09-10] MEDS: Oxybutynin XL TAB* 5 MG PO SCH (08:07)
[2017-09-10] MEDS: Potassium Chlor TAB* 20 MEQ TAB.ER PO SCH ×2 (08:07→20:58)
[2017-09-10] MEDS: Omeprazole CAP* 20 MG PO SCH (08:07)
--- NOTE | 2017-09-10 10:43 | PN ---
Subjective Date of Service: 09/10/17 Interval History: Patient seen and examined. Very pleasantly confused, states she's hungry "all the time", has no other complaints. No SOB, no abdominal pain, no chest pain, no SOB. Objective Active Medications: Acetaminophen (Tylenol Tab*) 650 mg PO Q4H PRN PRN Reason: PAIN Sodium Chloride (Ns 0.9% 1000 Ml*) 1,000 mls @ 75 mls/hr IV PER RATE [facility] Last Admin: 09/10/17 04:06 Dose: 75 mls/hr Ceftriaxone Sodium 1,000 mg/ (Sodium Chloride) 10 mls @ 40 mls/hr IVPB Q24H [facility] Last Admin: 09/09/17 22:15 Dose: 40 mls/hr Levothyroxine Sodium (Synthroid Tab*) 125 mcg PO DAILY@0600 [facility] Last Admin: 09/10/17 06:03 Dose: 125 mcg Melatonin (Melatonin (Nf)) 3 mg PO BEDTIME [facility] PRN Reason: Protocol Last Admin: 09/09/17 22:16 Dose: 3 mg Metoprolol Tartrate (Lopressor Tab*) 12.5 mg PO Q12HR [facility] Last Admin: 09/10/17 08:07 Dose: 12.5 mg Omeprazole (Prilosec Cap*) 20 mg PO DAILY@0730 [facility] Last Admin: 09/10/17 08:07 Dose: 20 mg Oxybutynin Chloride (Ditropan Xl Tab*) 15 mg PO DAILY [facility] Last Admin: 09/10/17 08:07 Dose: 15 mg Potassium Chloride (Klor Con Er Tab*) 20 meq PO BID [facility] Last Admin: 09/10/17 08:07 Dose: 20 meq Rivaroxaban (Xarelto(*)) 20 mg PO DAILY@1700 [facility] Last Admin: 09/09/17 17:02 Dose: 20 mg Vital Signs - 8 hr 09/10/17 09/10/17 09/10/17 03:50 07:32 08:00 Temperature 98.2 F 98.6 F Pulse Rate 60 59 Respiratory 18 18 18 Rate Blood Pressure 137/65 135/77 (mmHg) O2 Sat by Pulse 98 97 Oximetry Oxygen Devices in Use Now: None Appearance: Alert, well appearing, NAD Ears/Nose/Mouth/Throat: Mucous Membranes Moist Neck: NL Appearance and Movements; NL JVP, Trachea Midline Respiratory: Symmetrical Chest Expansion and Respiratory Effort, Clear to Auscultation Cardiovascular: NL Sounds; No Murmurs; No JVD, RRR, No Edema Abdominal: NL Sounds; No Tenderness; No Distention Extremities: No Edema Neurological: - - confused at baseline Result Diagrams: 09/10/17 05:04 09/10/17 05:04 Additional Lab and Data: Lab Results 09/08/17 09/08/17 09/08/17 Range/Units 11:50 11:50 11:50 WBC 9.0 (3.5-10.8) 10^3/ul RBC 4.72 (4.0-5.4) 10^6/ul Hgb 10.8 L (12.0-16.0) g/dl Hct 35 (35-47) % MCV 74 L (80-97) fL MCH 23 L (27-31) pg MCHC 31 (31-36) g/dl RDW 21 H (10.5-15) % Plt Count 475 H (150-450) 10^3/ul MPV 8.2 (7.4-10.4) um3 Neut % (Auto) 89.8 H (38-83) % Lymph % (Auto) 5.2 L (25-47) % [place] % (Auto) 3.4 (0-7) % Eos % (Auto) 0.4 (0-6) % Baso % (Auto) 1.2 (0-2) % Absolute Neuts (auto) 8.1 H (1.5-7.7) 10^3/ul Absolute Lymphs (auto) 0.5 L (1.0-4.8) 10^3/ul Absolute Monos (auto) 0.3 (0-0.8) 10^3/ul Absolute Eos (auto) 0 (0-0.6) 10^3/ul Absolute Basos (auto) 0.1 (0-0.2) 10^3/ul Absolute Nucleated RBC 0 10^3/ul Nucleated RBC % 0 INR (Anticoag Therapy) 2.46 H (0.77-1.02) APTT 39.3 H (26.0-36.3) seconds Sodium 139 (139-145) mmol/L Potassium 4.3 (3.5-5.0) mmol/L Chloride 109 (101-111) mmol/L Carbon Dioxide 23 (22-32) mmol/L Anion Gap 7 (2-11) mmol/L BUN 17 (6-24) mg/dL Creatinine 0.80 (0.51-0.95) mg/dL Est GFR ( Amer) 87.7 (>60) Est GFR (Non-Af Amer) 68.2 (>60) BUN/Creatinine Ratio 21.3 H (8-20) Glucose 102 H (70-100) mg/dL Lactic Acid (0.5-2.0) mmol/L Calcium 9.5 (8.6-10.3) mg/dL Total Bilirubin 0.30 (0.2-1.0) mg/dL AST 14 (13-39) U/L ALT 9 (7-52) U/L Alkaline Phosphatase 89 (34-104) U/L Troponin I 0.05 H* (<0.04) ng/mL Total Protein 7.3 (6.4-8.9) g/dL Albumin 3.4 (3.2-5.2) g/dL Globulin 3.9 (2-4) g/dL Albumin/Globulin Ratio 0.9 L (1-3) Influenza A (Rapid) (Negative) Influenza B (Rapid) (Negative) 09/08/17 09/08/17 Range/Units 11:50 12:07 WBC (3.5-10.8) 10^3/ul RBC (4.0-5.4) 10^6/ul Hgb (12.0-16.0) g/dl Hct (35-47) % MCV (80-97) fL MCH (27-31) pg MCHC (31-36) g/dl RDW (10.5-15) % Plt Count (150-450) 10^3/ul MPV (7.4-10.4) um3 Neut % (Auto) (38-83) % Lymph % (Auto) (25-47) % [place] % (Auto) (0-7) % Eos % (Auto) (0-6) % Baso % (Auto) (0-2) % Absolute Neuts (auto) (1.5-7.7) 10^3/ul Absolute Lymphs (auto) (1.0-4.8) 10^3/ul Absolute Monos (auto) (0-0.8) 10^3/ul Absolute Eos (auto) (0-0.6) 10^3/ul Absolute Basos (auto) (0-0.2) 10^3/ul Absolute Nucleated RBC 10^3/ul Nucleated RBC % INR (Anticoag Therapy) (0.77-1.02) APTT (26.0-36.3) seconds Sodium (139-145) mmol/L Potassium (3.5-5.0) mmol/L Chloride (101-111) mmol/L Carbon Dioxide (22-32) mmol/L Anion Gap (2-11) mmol/L BUN (6-24) mg/dL Creatinine (0.51-0.95) mg/dL Est GFR ( Amer) (>60) Est GFR (Non-Af Amer) (>60) BUN/Creatinine Ratio (8-20) Glucose (70-100) mg/dL Lactic Acid 1.9 (0.5-2.0) mmol/L Calcium (8.6-10.3) mg/dL Total Bilirubin (0.2-1.0) mg/dL AST (13-39) U/L ALT (7-52) U/L Alkaline Phosphatase (34-104) U/L Troponin I (<0.04) ng/mL Total Protein (6.4-8.9) g/dL Albumin (3.2-5.2) g/dL Globulin (2-4) g/dL Albumin/Globulin Ratio (1-3) Influenza A (Rapid) Negative (Negative) Influenza B (Rapid) Negative (Negative) Microbiology and Other Data: Microbiology 09/08/17 15:50 Nasal Screen MRSA (PCR)([facility]) - Final Nasal Mrsa Not Detected Diagnostic Imaging: CTA CHEST Patient Name: KYAW MARTINEZ Medical Record#: [id number] Ordering Physician: Shiraz Bedolla CRM DEVELOPER Acct.#: [id number] : 1930 Age: 86 Sex: F Location: [address] [place] [address]/TELEMETRY Exam Date: 09/09/17 1202 ADM Status: ADM Jailene Order Information: CTA CHEST Accession Number: [id number] CPT: 64029 INDICATION: Syncope. Evaluate for pulmonary embolus. COMPARISON: Chest x-ray September 08, 2017 TECHNIQUE: Axial source images were obtained from the thoracic inlet to the hemidiaphragms following administration of [address] angiographic technique was utilized. Coronal and sagittal reconstructed images were acquired. CHEST FINDINGS: Neck/thyroid: The visualized neck to include the thyroid appear normal. Chest wall: There are no acute abnormalities of the bony thorax or chest wall. There is no supraclavicular, infraclavicular, or axillary lymphadenopathy. Lungs : There is minimal linear airspace disease in the right lung base most consistent with atelectasis or scarring. There are no pulmonary parenchymal masses or other infiltrates. The pulmonary interstitium appears normal. There are no endobronchial lesions. Cardiomediastinal structures: There is no CT evidence of acute pulmonary embolic disease. The heart is normal mildly enlarged there is no pericardial effusion. There is no evidence of aortic aneurysm or dissection. There is uncoiling and ectasia of the thoracic aorta There is no mediastinal or hilar adenopathy. The esophagus appears normal. Pleura : There are no pleural-based masses or effusions. Other: There is a hiatal hernia. IMPRESSION: NO CT EVIDENCE OF ACUTE PULMONARY EMBOLIC DISEASE. NO ACTIVE DISEASE. <Electronically signed by Ld Simons MD in [place]> 09/09/17 1518 Dictated By: Ld Simons MD Dictated Date/Time: 09/09/17 1518 Transcribed Date/Time: 09/09/17 1509 Copy to: BRAIN CT: Patient Name: KYAW MARTINEZ Medical Record#: [id number] Ordering Physician: Jessee Quesada MD Acct.#: [id number] : 1930 Age: 86 Sex: F Location: EMERGENCY DEPARTMENT Exam Date: 09/08/17 1059 ADM Status: PRE ER Order Information: CT BRAIN WO Accession Number: [id number] CPT: 21094 INDICATION: Syncope COMPARISON: CT brain June 18, 2015 TECHNIQUE: Noncontrast axial source images were acquired from the skull base to the vertex. FINDINGS: Ventricles/sulci: There is cortical atrophy with compensatory dilatation of the CSF spaces. Brain parenchyma: There is periventricular and subcortical white matter change compatible with chronic ischemia. Intracranial hemorrhage:None. Extra-axial spaces: There are no abnormal extra axial fluid collections or evidence of extra-axial mass. Calvarium: There is no calvarial fracture or other calvarial abnormality. Scalp: There is no evidence of scalp or extracalvarial soft tissue abnormality. Paranasal sinuses/mastoid: The paranasal sinuses and mastoid air cells are clear. Other: None. IMPRESSION: CORTICAL ATROPHY WITH CHRONIC MICROVASCULAR ISCHEMIC CHANGES. NO ACUTE FINDINGS. <Electronically signed by Ld Simons MD in [place]> 09/08/17 1140 Dictated By: Ld Simons MD Dictated Date/Time: 09/08/17 1140 Transcribed Date/Time: 09/08/17 1137 Copy to: Assess/Plan/Problems-Billing Assessment: 86 y/o female patient presenting to [facility] with complaints of syncope and UTI. - Patient Problems (1) UTI (urinary tract infection) Comment: - Positive cx with eColi - Susceptible to ceftriaxone, will continue (2) Coronary heart disease Code(s): I25.10 - ATHSCL HEART DISEASE OF [place] CORONARY ARTERY W/O ANG PCTRS SNOMED Code(s): 09982093 Comment: - [place] demand ischemia, no chest pain, trops trending down - Per cardio, reduce synthroid - Hx of GI bleed with erosive esophagitis, hold off on ASA for now, check occult stool (3) Dementia Code(s): F03.90 - UNSPECIFIED DEMENTIA WITHOUT BEHAVIORAL DISTURBANCE SNOMED Code(s): 04046021 Comment: - At baseline - continue supportive care (4) Anemia Code(s): D64.9 - ANEMIA, UNSPECIFIED SNOMED Code(s): 153471078 Comment: - Hx of GI bleed with erosive esophagitis, hold off on ASA for now, check occult stool - Follow H&H (5) Elevated troponin Code(s): R74.8 - ABNORMAL LEVELS OF OTHER SERUM ENZYMES SNOMED Code(s): 792128187 Comment: - Likely demand, currently trending down with no chest pain - Cardiology consult appreciated - Decreased synthroid to decrease demand (6) Dyslipidemia Code(s): E78.5 - HYPERLIPIDEMIA, UNSPECIFIED SNOMED Code(s): 052328465 Comment: - Continue with statin (7) GERD (gastroesophageal reflux disease) Code(s): K21.9 - GASTRO-ESOPHAGEAL REFLUX DISEASE WITHOUT ESOPHAGITIS SNOMED Code(s): 780434055 Comment: - On PPI, may consider IV protonix with occult positive Status and Disposition: Remain inpatient.
[2017-09-10] MEDS: CMCS: Melatonin (NF) 3 MG TAB PO SCH (20:58)
[2017-09-10] MEDS: cefTRIAXone 1000 MG SYRINGE IVPB Q24H (in NaCl) IVPB SCH ×2 (21:54)
[2017-09-11] MEDS: Levothyroxine TAB* 100 MCG TAB PO SCH (06:16)
[2017-09-11] MEDS: Potassium Chlor TAB* 20 MEQ TAB.ER PO SCH ×2 (07:48→19:44)
[2017-09-11] MEDS: Omeprazole CAP* 20 MG PO SCH (07:48)
[2017-09-11] MEDS: Oxybutynin XL TAB* 5 MG PO SCH (07:48)
[2017-09-11] MEDS: Metoprolol Tartrate TAB* 25 MG PO SCH (07:48)
[2017-09-11] MEDS: NS 0.9% 1000 ML* 1,000 ML IV SCH (07:54)
[2017-09-11 10:39] LABS: ABS Basophils 0.2 10^3/ul (0-0.2); ABS Eosinophils 0.3 10^3/ul (0-0.6); ABS Monocytes 0.4 10^3/ul (0-0.8); ABS Neutrophils 3.9 10^3/ul (1.5-7.7); ABS Nucleated RBC 0 10^3/ul; Eosinophil % 5.9 % (0-6); Hematocrit 31 % (35-47); Hemoglobin 9.3 g/dl (12.0-16.0); Lymphocyte % 17.2 % (25-47); Mean Corpuscular HGB Conc 31 g/dl (31-36); Mean Corpuscular Hemoglobin 23 pg (27-31); Mean Corpuscular Volume 75 fL (80-97); Mean Platelet Volume 8.4 um3 (7.4-10.4); Nucleated Red Blood Cells % 0; Platelet Count 388 10^3/ul (150-450); Red Blood Count 4.09 10^6/ul (4.0-5.4); Red Cell Distribution Width 21 % (10.5-15); White Blood Count 5.9 10^3/ul (3.5-10.8)
[2017-09-11 10:55] LABS: EGFR Non-African American 72.3 (>60)
[2017-09-11] MEDS ORDERED: Metoprolol Tartrate TAB* 25 MG PO SCH (12:00)
[2017-09-11] MEDS ORDERED: Ferrous Gluconate TAB* 324 MG TAB PO SCH (15:00)
[2017-09-11] MEDS ORDERED: Ascorbic Acid TAB* 500 MG PO SCH (15:00)
--- NOTE | 2017-09-11 16:19 | PN ---
Subjective Date of Service: 09/11/17 Interval History: Patient continues to be pleasantly confused. Aware she is in a hospital but not aware of date or which hospital. Patient denies any pain, F/C, N/V, CP, SOB, Abdominal pain, dysuria, constipation, lightheadedness, or other pain. Patient complains only of hunger. Discussed with patient's son clinical course and he states that he would like to take her home instead of having her go back to [facility]. Family History: Unchanged from Admission Social History: Unchanged from Admission Past Medical History: Unchanged from Admission Objective Active Medications: Acetaminophen (Tylenol Tab*) 650 mg PO Q4H PRN PRN Reason: PAIN Ascorbic Acid (Vitamin C Tab*) 250 mg PO 1500 [facility] Docusate Sodium (Colace Cap*) 100 mg PO DAILY [facility] Ferrous Gluconate (Fergon Tab*) 324 mg PO 1500 [facility] Ceftriaxone Sodium 1,000 mg/ (Sodium Chloride) 10 mls @ 40 mls/hr IVPB Q24H [facility] Last Admin: 09/10/17 21:54 Dose: 40 mls/hr Levothyroxine Sodium (Synthroid Tab*) 100 mcg PO DAILY@0600 [facility] Last Admin: 09/11/17 06:16 Dose: 100 mcg Melatonin (Melatonin (Nf)) 3 mg PO BEDTIME [facility] PRN Reason: Protocol Last Admin: 09/10/17 20:58 Dose: 3 mg Metoprolol Tartrate (Lopressor Tab*) 12.5 mg PO 0900 [facility] Omeprazole (Prilosec Cap*) 20 mg PO DAILY@0730 [facility] Last Admin: 09/11/17 07:48 Dose: 20 mg Oxybutynin Chloride (Ditropan Xl Tab*) 15 mg PO DAILY [facility] Last Admin: 09/11/17 07:48 Dose: 15 mg Potassium Chloride (Klor Con Er Tab*) 20 meq PO BID [facility] Last Admin: 09/11/17 07:48 Dose: 20 meq Rivaroxaban (Xarelto(*)) 15 mg PO DAILY@1700 [facility] Vital Signs - 8 hr 09/11/17 09/11/17 09/11/17 11:57 12:01 12:10 Temperature 97.6 F Pulse Rate 51 59 65 Respiratory 20 Rate Blood Pressure 128/52 130/58 143/70 (mmHg) O2 Sat by Pulse 100 Oximetry 09/11/17 15:11 Temperature 98.0 F Pulse Rate 58 Respiratory 16 Rate Blood Pressure 152/52 (mmHg) O2 Sat by Pulse 100 Oximetry Oxygen Devices in Use Now: None Appearance: Patient is an 86yo female who appears stated age and is sitting in the bed in NAD. Eyes: No Scleral Icterus, PERRLA Ears/Nose/Mouth/Throat: NL Teeth, Lips, Gums, Clear Oropharnyx, Mucous Membranes Moist Neck: NL Appearance and Movements; NL JVP, Trachea Midline Respiratory: Symmetrical Chest Expansion and Respiratory Effort, Clear to Auscultation Cardiovascular: NL Sounds; No Murmurs; No JVD, RRR, No Edema Abdominal: NL Sounds; No Tenderness; No Distention, No Hepatosplenomegaly Lymphatic: No Cervical Adenopathy Extremities: No Edema, No Clubbing, Cyanosis Skin: No Rash or Ulcers, No Nodules or Sclerosis Neurological: NL Sensation, NL Muscle Strength and Tone, - - A/Ox2. No Focal deficits. Result Diagrams: 09/11/17 10:06 09/11/17 10:06 Additional Lab and Data: Lab Results Microbiology and Other Data: Microbiology 09/08/17 15:50 Nasal Screen MRSA (PCR)([facility]) - Final Nasal Mrsa Not Detected Assess/Plan/Problems-Billing Assessment: 86 y/o female patient with a PMH for mild cognitive impairment, presenting to [facility] with complaints of syncope and UTI. She is no longer orthostatic but had an elevated temperature and has new iron deficiency anemia with possible recurrence of GI bleeding. - Patient Problems (1) Syncope Current Visit: Yes Status: Acute Priority: High Code(s): R55 - SYNCOPE AND COLLAPSE SNOMED Code(s): 747452673 Comment: Likely related to UTI causing orthostatic hypotension. No longer orthostatic. (2) Coronary heart disease Current Visit: Yes Status: Chronic Priority: High Code(s): I25.10 - ATHSCL HEART DISEASE OF [place] CORONARY ARTERY W/O ANG PCTRS SNOMED Code(s): 18265185 Comment: Likely demand ischemia, no chest pain, trops trending down Per cardio, reduce synthroid Hx of GI bleed with erosive esophagitis, hold off on ASA for now, check occult stool Likely due to INDU with low iron studies, R/O active bleeding. (3) Anemia Current Visit: Yes Status: Acute Code(s): D64.9 - ANEMIA, UNSPECIFIED SNOMED Code(s): 810780591 Comment: Hx of GI bleed with erosive esophagitis, hold off on ASA for now, check occult stool Follow H&H, Stable now. Continue Xarelto for now. Begin Oral iron supplementation with vitamin C. No blood or stool in rectal vault on Rectal exam. Likely due to INDU. (4) Elevated troponin Current Visit: Yes Status: Acute Priority: High Code(s): R74.8 - ABNORMAL LEVELS OF OTHER SERUM ENZYMES SNOMED Code(s): 062258577 Comment: Likely demand, currently trending down with no chest pain Cardiology consult appreciated Decreased synthroid to decrease demand (5) UTI (urinary tract infection) Current Visit: Yes Status: Acute Priority: High Onset Date: 09/28/14 Comment: Positive cx with eColi Susceptible to ceftriaxone, will continue Isolated elevated temperature today. Check Blood cultures. (6) Dementia Current Visit: Yes Status: Chronic Priority: High Code(s): F03.90 - UNSPECIFIED DEMENTIA WITHOUT BEHAVIORAL DISTURBANCE SNOMED Code(s): 99313583 Comment: At baseline, continue supportive care. (7) Dyslipidemia Current Visit: Yes Status: Chronic Priority: High Code(s): E78.5 - HYPERLIPIDEMIA, UNSPECIFIED SNOMED Code(s): 278364202 Comment: Continue with statin (8) GERD (gastroesophageal reflux disease) Current Visit: Yes Status: Chronic Priority: High Code(s): K21.9 - GASTRO- ESOPHAGEAL REFLUX DISEASE WITHOUT ESOPHAGITIS SNOMED Code(s): 317842556 Comment: With Erosive esophagitis, continue PPI. (9) HTN (hypertension) Current Visit: Yes Status: Chronic Priority: High Code(s): I10 - ESSENTIAL (PRIMARY) HYPERTENSION SNOMED Code(s): 63665355 Comment: BP intermittently slightly elevated. Continue BP meds. (10) Hypothyroid Current Visit: Yes Status: Chronic Priority: High Code(s): E03.9 - HYPOTHYROIDISM, UNSPECIFIED SNOMED Code(s): 29819137 Comment: TSH low. Decreased synthroid to decrease strain on heart. (11) DVT prophylaxis Current Visit: Yes Status: Acute Priority: High Onset Date: 09/28/14 Code(s): BFI2752 - SNOMED Code(s): 101282939 Comment: pat (12) Full code status Current Visit: Yes Status: Acute Priority: High Onset Date: 09/28/14 Code(s): Z78.9 - OTHER SPECIFIED HEALTH STATUS SNOMED Code(s): 743387403 Status and Disposition: Remain inpatient. Son wants to take home. Was from [place].
[2017-09-11] MEDS ORDERED: Rivaroxaban TAB(*) 15 MG PO SCH (17:00)
[2017-09-11] MEDS: CMCS: Melatonin (NF) 3 MG TAB PO SCH (19:44)
[2017-09-11] MEDS: cefTRIAXone 1000 MG SYRINGE IVPB Q24H (in NaCl) IVPB SCH ×2 (20:00)
[2017-09-12] MEDS: Levothyroxine TAB* 100 MCG TAB PO SCH (05:21)
[2017-09-12 05:32] LABS: ABS Basophils 0.2 10^3/ul (0-0.2); ABS Eosinophils 0.5 10^3/ul (0-0.6); ABS Lymphocytes 1.2 10^3/ul (1.0-4.8); ABS Monocytes 0.5 10^3/ul (0-0.8); ABS Neutrophils 3.5 10^3/ul (1.5-7.7); ABS Nucleated RBC 0 10^3/ul; Eosinophil % 7.9 % (0-6); Hematocrit 30 % (35-47); Hemoglobin 9.5 g/dl (12.0-16.0); Lymphocyte % 20.3 % (25-47); Mean Corpuscular HGB Conc 32 g/dl (31-36); Mean Corpuscular Hemoglobin 23 pg (27-31); Mean Corpuscular Volume 74 fL (80-97); Mean Platelet Volume 8.8 um3 (7.4-10.4); Nucleated Red Blood Cells % 0.1; Platelet Count 360 10^3/ul (150-450); Red Blood Count 4.05 10^6/ul (4.0-5.4); Red Cell Distribution Width 20 % (10.5-15); White Blood Count 5.8 10^3/ul (3.5-10.8)
[2017-09-12 05:43] LABS: EGFR Non-African American 62.7 (>60)
[2017-09-12] MEDS: Omeprazole CAP* 20 MG PO SCH (08:00)
[2017-09-12] MEDS: Oxybutynin XL TAB* 5 MG PO SCH (08:00)
[2017-09-12] MEDS: Potassium Chlor TAB* 20 MEQ TAB.ER PO SCH (08:00)
[2017-09-12] MEDS ORDERED: Metoprolol Tartrate TAB* 25 MG PO SCH (09:00)
[2017-09-12] MEDS ORDERED: Docusate CAP* 100 MG PO SCH (09:52)
[2017-09-12 12:36] VITALS: BP 111/59
--- NOTE | 2017-09-12 13:58 | DS ---
CC: Dr. Hiral Bloom * DISCHARGE SUMMARY: DATE OF ADMISSION: 09/08/17 DATE OF DISCHARGE: 09/12/17 PRIMARY CARE PROVIDER: Hiral Bloom MD. The patient is currently a resident at [facility]. MY ATTENDING WHILE IN THE HOSPITAL: Sera Bacon DO.* (DICTATED BY DAVEY HERNÁNDEZ) CONSULTING SHUTTLE REPAIRER: Alis Mathis MD. PRIMARY DISCHARGE DIAGNOSES: 1. Syncope. 2. Urinary tract infection. 3. Elevated troponin. 4. Iron-deficiency anemia. SECONDARY DISCHARGE DIAGNOSES: 1. History of deep vein thrombosis. 2. History of gastrointestinal bleed from erosive esophagitis. 3. Dementia. 4. Coronary artery disease. 5. Hypertension. 6. Gastroesophageal reflux disease. 7. Hypothyroidism. 8. Hyperlipidemia. STUDIES DONE WHILE IN THE HOSPITAL: Chest x-ray from 09/08/17 read as no active cardiopulmonary disease. Electrocardiogram from 09/08/17 showed sinus bradycardia, single PAC. No ST segment changes. QTc of 456. No hypertrophy or enlargement. No other abnormalities. Low amplitudes. Poor R-wave progression across the precordium. EKG from 09/08/17 shows normal sinus rhythm. No significant changes from previous exam except for rate of 65. Brain CT from 09/08/17 read as cortical atrophy with chronic microvascular ischemic changes. No acute findings. Chest and thorax CTA from 09/09/[address] evidence of acute embolic disease. No active disease. Transthoracic echocardiogram shows mild left ventricular hypertrophy, normal ejection systolic function, ejection fraction of 50% to 60%, abnormal left ventricular systolic function with impaired relaxation, no significant valvular disease, trace aortic regurgitation, mild mitral regurgitation, trace tricuspid regurgitation, trace pulmonic regurgitation, which shows improvement from previous echocardiogram. MEDICATIONS ON DISCHARGE: 1. Potassium chloride 20 mEq p.o. b.i.d. 2. Oxybutynin 15 mg p.o. daily. 3. Melatonin 3 mg p.o. at bedtime. 4. Tylenol 1000 mg p.o. q.8 hours as needed. 5. Omeprazole 20 mg p.o. daily. 6. Vitamin C 250 mg p.o. 1300. 7. Docusate 100 mg p.o. daily. 8. Ferrous gluconate 324 mg p.o. every other day. 9. Levothyroxine 100 mcg p.o. daily. 10. Metoprolol tartrate 12.5 mg p.o. daily. 11. Rivaroxaban 15 mg p.o. daily. 12. Cefuroxime 250 mg p.o. b.i.d. x8. New medications at discharge: 1. Vitamin C. 2. Docusate. 3. Ferrous gluconate. 4. Levothyroxine. 5. Metoprolol. 6. Rivaroxaban. 7. Cefuroxime. Medications discontinued at discharge: 1. Xarelto 20 mg p.o. daily. 2. Levothyroxine 125 mcg p.o. daily. HOSPITAL COURSE: This is a brief summary of the patient's presentation. For more details, please see history and physical by Dr. Lilia Correa, on . In brief, the patient is an 86-year-old female with past medical history significant for the above who presents from [facility] after a fall. She was unable to relate to the circumstances of her fall; however, according to the nursing notes she had syncope and loss of consciousness. Her O2 saturation was found to be in the 50s, but then twan to the high 90s after sitting up. She had a second episode with nausea and dizziness and she was brought to the emergency room for evaluation. She had no other complaints. No chest pain, shortness of breath, or issues with urination while in the emergency department. She had urinalysis positive only for nitrites, which grew out greater than 100,000 colonies of E. coli. Negative blood cultures, negative influenza. Her blood pressure on admission was normal, then drifted down to a low of 95/52 before increasing. The patient had an elevated troponin on admission of 0.05, elevating to 0.38, 0.72, 0.98, and then decreasing to 0.80. The patient had anemia, with a hemoglobin of 10.8 on admission, which then decrease to 9.1, 8.7, and then increased again to 8.9, 9.3, and 9.5. The patient had no black or tarry bowel movements and stool occult blood was unable to be obtained during the hospital. The patient had new onset of microcytic anemia. Her anemia was previously normocytic in the setting of a GI bleed. The patient had iron studies, which showed iron of 21, percent saturation 21, and ferritin less than 10. The patient had an elevated TSH of 0.31. The patient had no other issues while she was in the hospital. The patient was pleasantly confused. The patient always felt that she was hungry. The patient denied fever, nausea, and vomiting. The patient had one elevated temperature to 100, but no other elevated temperatures while in the hospital. The patient was orthostatic in the emergency department. Repeat orthostatic vital signs were normal. It was concluded this was likely due to her urinary tract infection causing orthostatic hypotension as well as a component of dehydration. The patient was seen in consultation by Dr. Alis Mathis and it was determined that she should not be have a cardiac catheterization at this time and that her coronary artery disease should be managed medically. The patient had a transthoracic echocardiogram, which was read as above, and showed no focal wall motion abnormalities or signs of recent OK. The patient was stable for discharge on 09/11/17 for discharge back to [facility]. The patient was treated with ceftriaxone for her urinary tract infection while in the hospital and was started on ferrous gluconate with vitamin C for her iron-deficiency anemia, which she tolerated well. PHYSICAL EXAMINATION: On the day of discharge, General: The patient is an 86- year- old female, appears stated age and sitting comfortably in bed, in no acute distress. Vital Signs: At the time of discharge, temperature 98.9, pulse rate 59, respiratory rate 20, oxygen saturation 98% on room air, blood pressure 152/62. HEENT: Head normocephalic, atraumatic. Sclerae are anicteric. No conjunctival injection. Nasal mucosa moist. Oral mucosa moist. No pharyngeal erythema, discharge, or exudate. Neck: Supple, nontender. No lymphadenopathy. No carotid bruits auscultated. No JVD. Cardiac: Regular rate and rhythm. No clicks, murmurs, gallops, or rubs. Pulses 2+ in bilateral dorsalis pedis, posterior tibialis, and radial areas. No bilateral calf tenderness noted. Respiratory: Clear to auscultation bilaterally. No wheezes, rales, or rhonchi. Good air exchange bilaterally. Abdomen: Soft, nontender, and nondistended. Bowel sounds present and normoactive in all 4 quadrants. No hepatosplenomegaly. No abdominal bruits auscultated. Genitourinary: No suprapubic or CVA tenderness. Skin: Clean, dry, and intact. No rash. Neuro: Cranial nerves II through XII intact. Alert and oriented to self and place, but not date. Psychiatric: Very pleasant, cooperative. LABORATORY DATA: On the day of discharge, white blood cell count 6.2, hemoglobin 9.5, hematocrit 30, MCV 74, MCH 23, RDW 20. Sodium 140, potassium 4.4, chloride 113, carbon dioxide 24, anion gap 3, BUN 15, creatinine 0.86, glucose 89, calcium 8.9, magnesium 1.9. Triglycerides 90, cholesterol 95, LDL cholesterol 54, HDL cholesterol 23. Other pertinent laboratory data from this admission outlined above in the HPI. DISCHARGE PLAN: The patient will be discharge back to [facility]. The patient will be continued on Ceftin for 4 more days for treatment of her urinary tract infection. The patient had negative blood cultures. The patient will be started on ferrous gluconate every other day as well as vitamin C. The patient will have dose of her rivaroxaban reduced due to elevated INR above what would be expected for rivaroxaban. The patient also had her levothyroxine dose reduced to reduce the strain on her heart. The patient will start on metoprolol to also reduce the strain on her heart. The patient was unable to tolerate 25 mg daily and was reduced to 12.5 mg daily. The patient was given aspirin in the hospital, but this has discontinued due to concerns over GI bleeding. The patient will be continued on all other supplementation of medications. The patient should engage in activity as tolerated. The patient should have a heart healthy diet without caffeine. There should be consideration for the patient to transition home with her son, Sung, in the future, assuming this is a safe plan, as the patient would probably be more content in a more familiar environment. TIME SPENT: Approximately 60 minutes were spent on this discharge, 30 of which was spent [id number] with the patient, obtaining history and physical, and discussing treatment plan. DAVEY HERNÁNDEZ [id number]/[facility] #: [id number] MAUR[place]
== END 2017-09-12 13:30 | DRG 690 ==
LOC: ED 10:39 → MEDTELE 14:50 → OBSVTOIN 09-09 15:00
PROVIDERS: ADMIT Hospitalist; ATTEND Internal Medicine
DX: N39.0 Urinary tract infection, site not specified (principal); Q60.0 Renal agenesis, unilateral; I82.501 Chronic embolism and thrombosis of unspecified deep veins of right lower extremity; I95.1 Orthostatic hypotension; F03.90 Unspecified dementia, unspecified severity, without behavioral disturbance, psychotic disturbance, mood disturbance, and anxiety; E03.9 Hypothyroidism, unspecified; I25.10 Atherosclerotic heart disease of native coronary artery without angina pectoris; K21.9 Gastro-esophageal reflux disease without esophagitis; E78.5 Hyperlipidemia, unspecified; I11.0 Hypertensive heart disease with heart failure; I50.9 Heart failure, unspecified; I73.9 Peripheral vascular disease, unspecified; J45.909 Unspecified asthma, uncomplicated; H91.90 Unspecified hearing loss, unspecified ear; F41.9 Anxiety disorder, unspecified; F32.9 Major depressive disorder, single episode, unspecified; Z72.89 Other problems related to lifestyle; Z82.0 Family history of epilepsy and other diseases of the nervous system; B96.20 Unspecified Escherichia coli [E. coli] as the cause of diseases classified elsewhere; R09.02 Hypoxemia; D50.9 Iron deficiency anemia, unspecified; R00.1 Bradycardia, unspecified; I08.3 Combined rheumatic disorders of mitral, aortic and tricuspid valves; E86.0 Dehydration; R74.8 Abnormal levels of other serum enzymes; Z88.2 Allergy status to sulfonamides; Z90.49 Acquired absence of other specified parts of digestive tract; Z86.14 Personal history of Methicillin resistant Staphylococcus aureus infection; Z79.01 Long term (current) use of anticoagulants; Z82.49 Family history of ischemic heart disease and other diseases of the circulatory system
CPT/HCPCS: 36415; 70450; 71045; 71275; 80048; 80053; 80061; 81003; 81015; 82728; 83540; 83550; 83605; 83735; 84443; 84484; 85014; 85018; 85025; 85027; 85610; 85730; 87040; 87077; 87086; 87186; 87502; 87641; 93005; 93306; 99283; A9270-GY; G0378; J0696; Q9967

== ENCOUNTER 2017-12-30 18:11 | Emergency (ER) | payer MEDICARE, OTHER ==
--- OUTSIDE RECORDS SUMMARY | 2017-12-30 19:08 | XMS REPORT ---
:1930 External Reference #:[id number] Author Organization [facility] Address [address] [place] [address] Phone [phone] Care Team Providers Name Role Phone Enrique Bloom M.D. 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 Primary Care Physician Unavailable Payers Type Date Identification Numbers Payment Provider Subscriber Medicare Primary Effective: Policy Number: Medicare [place] Claudia Davila 1995 [id number] PayID: [id number] [address] [place] [address] Commercial Effective: 1998 Policy Number: 4 [facility] [id number] 2ND To FAIZAN Davila PayID: [id number] [address] [place] [address] Problems Date Description Provider Status Onset: 07/19/2014 Gastroesophageal reflux disease Enrique Bloom M.D. Active Onset: 07/19/2014 H/O: Deep vein thrombosis Enrique Bloom M.D. Active Onset: 07/19/2014 Old myocardial infarction Enrique Bloom M.D. Active Onset: 07/19/2014 Hypothyroidism Enrique Bloom M.D. Active Onset: 07/19/2014 Dementia Enrique Bloom M.D. Active Onset: 07/19/2014 Kidney disease Enrique Bloom M.D. Active Note: single kidney Onset: 07/19/2014 Hyperlipidemia Enrique Bloom M.D. Active Onset: 07/19/2014 H/O: alcoholism Enrique Bloom M.D. Active Onset: 07/19/2014 Stented coronary artery Enrique Bloom M.D. Active Onset: 07/19/2014 Coronary arteriosclerosis Enrique Bloom M.D. Active Onset: 07/24/2014 External hemorrhoids without Enrique Bloom M.D. Active complication Onset: 09/11/2014 Urinary incontinence Enrique Bloom M.D. Active Onset: 09/11/2014 Intrinsic asthma without status Enrique Bloom M.D. Active asthmaticus Onset: 09/11/2014 Degenerative joint disease involving Enrique Bloom M.D. Active multiple joints Onset: 09/11/2014 Benign essential hypertension Enrique Bloom M.D. Active Onset: 03/22/2015 Essential hypertension Enrique Bloom M.D. Active Onset: 03/22/2015 Mixed hyperlipidemia Enrique Bloom M.D. Active Onset: 07/19/2014 Benign hypertension Enrique Bloom M.D. Resolved Resolved: 03/22/2015 Onset: 09/11/2014 Candidal vulvovaginitis Enrique Bloom M.D. Resolved Resolved: 03/22/2015 Family History Date Family Member(s) Problem(s) Comments Father non-contributory Social History Type Date Description Comments Cigarette Use Never Smoked Cigarettes Smoking Nonsmoker Allergies, Adverse Reactions, Alerts Date Description Reaction Status Severity Comments 07/24/2014 Sulfa active Medications Medication Date Status Form Strength Qnty SIG Indications Ordering Provider Depend 12/15/ Active Misc 1Box Use as daily Enrique Protection 2018 as needed Katherin Bloom Maximum dx: r39.81 Stoney Absorbency/Larg waist- 36 e inches Handicapped 12/09/ Active Needs Indu Mastg 2018 handicapped rich Francisco NP premit for riding in multiple vehicles. 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 2017 Levothyroxine 06/04/ Hx Tablets 150mcg 1 by mouth Enrique Sodium 2016 - every day [place], M.D. 2015 Levothyroxine 02/14/ Hx Tablets 200mcg 30tab 1 by mouth Enrique Sodium 2016 - s every day [place], M.D. 2015 Augmentin 04/18/ Hx Tablets 500-125mg 14tab 1 tab by H60.8x1 Enrique 2014 - s mouth twice [place], 07/03/ a day x M.D. 2016 7days Oxybutynin 04/18/ Hx Tablets 15mg 90tab 1 tab by R39.81 Enrique Chloride ER 2015 - ER 24HR s mouth every [place], 12/09/ day M.D. 2017 Wheelchair With Hx wide wheel R60.0 [place] Leg Rest 2014 - chair with [facility], 11/26/ leg rest [facility] 2016 G30.1 Furosemide 03/22/2015 - Hx Tablets 20mg 60tabs take 2 R60.0 [facility] 12/09/2017 tablet by [place] M.DJeni every day as needed Levothyroxine 09/25/2014 - Hx Tablets 150mcg 30tabs 1 by mouth Enrique Sodium 02/15/2016 every day Stoney Bloom Advair HFA 09/11/2014 - Hx Aerosol 230-21m 1units 1 puff 493.10 [facility] 11/27/2015 cg/Act twice a [place], day M.D. Pataday 09/11/2014 - Hx Solution 0.2% 1units 2 drops 372.05 [facility] 12/09/2017 twice a [place], day as M.D. needed Isosorbide 07/26/2014 - Hx Tablets ER 30mg 30tabs 1 by mouth Parvin Mononitrate ER 12/09/2017 24HR every day Esme Mendez Levothyroxine 07/24/2014 - Hx Tablets 100mcg 30tabs 1 by mouth Enrique Sodium 09/25/2014 every day Stoney Bloom Metoprolol 07/24/2014 - Hx Tablets ER 25mg 30tabs 1 by mouth Parvin Succinate ER 12/11/2017 24HR every day Esme Mendez Nexium 24HR 07/24/2014 - Hx Capsules DR 20mg 60caps 2 a day by 530.81 Enrique 02/24/2017 mouth Stoney Bloom Iron Supplement 07/24/2014 - Hx Tablets 325(65F 30tabs 1 by mouth [facility] 02/24/2017 e) mg every day Stoney Bloom Amlodipine 07/24/2014 - Hx Tablets 5mg 30tabs 1 by mouth Parvin Besylate 12/09/2017 every day Esme Mendez Donepezil HCL 07/24/2014 - Hx Tablets 5mg 60tabs 2 by mouth Parvin 02/24/2017 every day Esme Mendez Melatonin 07/24/2014 - Hx Capsules 1mg 60caps 2 by mouth [facility] 11/27/2015 every [place], night at M.D. bedtime Albuterol Sulfate 07/24/2014 - Hx Tablets 4mg 60tabs take one Ravi F. 02/24/2017 tablet by Ni, mouth 2 M.D. times daily Fluconazole 07/24/2014 - Hx Tablets 150mg 2tabs one tab by 112.1 [facility] 03/22/2015 mouth [place], once, october M.DJeni repeat in five days Nystatin 07/24/2014 - Hx Powder [id number] 1units apply to 112.1 [facility] 11/27/2015 nit/GM affected [facility] twice M.D. a day Aspirin Low Dose 07/24/2014 - Hx Tablets 81mg 30tabs 1 once a [facility] 03/22/2015 day Stoney Bloom Isosorbide 07/24/2014 - Hx Tablets 30mg 30tabs 1 by mouth Enrique Dinitrate 07/26/2014 daily Stoney Bloom Proair HFA 07/24/2014 - Hx Aerosol 108(90B 1units 2 puffs [facility] 11/27/2015 ase) every 4-6 [place], mcg/Act hours as M.DJeni needed Simvastatin 07/24/2014 - Hx Tablets 20mg 30tabs 1 by mouth Parvin 12/09/2017 every day Esme Mendez Loratadine 07/24/2014 - Hx Tablets 10mg 30tabs 1 by mouth [facility] 02/24/2017 every day Stoney Bloom Escitalopram 07/24/2014 - Hx Tablets 10mg 30tabs 1 by mouth Parvin Oxalate 12/29/2017 every day Esme Mendez Clopidogrel 07/24/2014 - Hx Tablets 75mg 30tabs take 1 Enrique Bisulfate 12/09/2017 tablet by [place], mouth once M.D. daily Acetaminophen - Hx Tablets 325mg 1-2 by Unknown 07/24/2014 mouth every 6 hours as needed Cyclobenzaprine - Hx Tablets 10mg 1 by mouth Unknown HCL 03/22/2015 three times a day as needed Naproxen - Hx Tablets 500mg 1 by mouth Unknown 03/22/2015 twice a day as needed pain take with food Vancomycin HCL - Hx Capsules 250mg 1 by mouth Unknown 04/18/2015 4 times a day Clotrimazole/Betam - Hx Cream 1-0.05% apply to Unknown ethasone 03/22/2015 affected Dipropionate area twice a day Aspirin - Hx Tablets 325mg 1 by mouth Unknown 12/29/2017 every day Benadryl - Hx Tablets 25mg 2-3 po qhs Unknown 02/24/2017 Levothyroxine - Hx Tablets 100mcg 1 by mouth Unknown Sodium 12/09/2017 every day Synthroid - Hx Tablets 100mcg 1 by mouth Unknown 12/11/2017 every day Potassium Chloride - Hx Capsules ER 1 by mouth Unknown ER 12/11/2017 a day Immunizations CPT Code Status Date Vaccine Lot # [id number] Given 02/24/2017 High-Dose, Influenza Virus Vacccine-fluzone 65 and [id number] older 72646 Given 02/14/2016 Pneumococcal Conjugate Vacc-13 [id number] Given 02/14/2016 High-Dose, Influenza Virus Vacccine-fluzone 65 and [id number] older 83845 Given 03/22/2015 Influenza Vac, Quadrivalent, Slit Virus, Im [id number] Vital Signs Date Vital Result Comment 12/29/2017 BP Systolic 118 mmHg BP Diastolic 66 mmHg Heart Rate 64 /min Body Temperature 98.7 F Respiratory Rate 15 /min 12/09/2017 BP Systolic 150 mmHg BP Diastolic 82 mmHg Heart Rate 60 /min Body Temperature 97.9 F Weight 137.00 lb 02/24/2017 BP Systolic 110 mmHg BP Diastolic 60 mmHg Heart Rate 72 /min Body Temperature 98.8 F Respiratory Rate 16 /min Weight 156.00 lb 09/04/2016 BP Systolic 110 mmHg BP Diastolic 68 mmHg Heart Rate 68 /min Body Temperature 97.5 F Respiratory Rate 16 /min 06/05/2016 BP Systolic 134 mmHg BP Diastolic 80 mmHg Heart Rate 68 /min Body Temperature 97.4 F Respiratory Rate 18 /min Height 59 inches 4'11" 02/14/2016 BP Systolic 112 mmHg BP Diastolic 64 mmHg Heart Rate 76 /min Body Temperature 97.5 F Respiratory Rate 16 /min Height 59 inches 4'11" 11/27/2015 Heart Rate 60 /min Body Temperature 97.6 F Height 59 inches 4'11" 07/03/2015 BP Systolic 130 mmHg BP Diastolic 80 mmHg Heart Rate 64 /min Body Temperature 98.3 F Respiratory Rate 20 /min Height 59 inches 4'11" Weight 205.00 lb BMI (Body Mass Index) 41.4 kg/m2 04/18/2015 BP Systolic 144 mmHg BP Diastolic 88 mmHg Heart Rate 80 /min Body Temperature 98.1 F Respiratory Rate 18 /min 03/22/2015 BP Systolic 130 mmHg BP Diastolic 64 mmHg Heart Rate 72 /min Body Temperature 98.1 F Respiratory Rate 16 /min Weight 206.00 lb 09/11/2014 BP Systolic 142 mmHg BP Diastolic 100 mmHg Heart Rate 88 /min Body Temperature 97.6 F O2 % BldC Oximetry 97 % Height 59 inches 4'11" 07/24/2014 BP Systolic 140 mmHg BP Diastolic 80 mmHg Heart Rate 60 /min Body Temperature 97.4 F Respiratory Rate 16 /min Height 59 inches 4'11" Weight 197.12 lb BMI (Body Mass Index) 39.8 kg/m2 Results Test Date Test Result H/L Range Note CBC Electronic Fma 12/09/2017 WBC 5.7 x10^3/UL 4.0-10.0 RBC 4.22 x10^6/UL 3.93-6.00 HGB 11.4 g/dL Low 12.0-17.0 HCT 36 % 35-50 MCV 86.3 fL 80.0-95.0 MCH 27.0 pg 25.6-32.2 MCHC 32.2 g/dL 32.2-36.0 RDW-CV 20.0 % High 11.6-14.4 PLT 363 x10^3/UL 163-400 MPV 10.4 fL 9.4-12.4 Bimal# 3.37 x10^3/UL 1.56-6.13 Lymph# 1.32 x10^3/UL 1.18-3.74 [place]# 0.50 x10^3/UL 0.24-0.82 Eos # 0.4 x10^3/UL 0.0-0.5 Baso # 0.10 x10^3/UL High 0.01-0.08 Bimal% 58.9 % 34.0-70.0 Lymph % 23.0 % 20.0-52.0 [place]% 8.7 % 5.0-12.0 Eos% 7.5 % High 0.7-7.0 Baso% 1.7 % High 0.1-1.2 Laboratory test finding 12/09/2017 TSH 0.94 mIU/L 0.50-6.00 Urinalysis Profile 09/08/2017 Urine Color Yellow Urine Appearance Clear Urine Specific [place] 1.013 1.010-1.030 Urine pH 5.0 5-9 Urine Urobilinogen Negative Negative Urine Ketones Negative Negative Urine Protein Negative Negative Urine Leukocytes Negative Negative Urine Blood Negative Negative Urine Nitrite Positive Negative Urine Bilirubin Negative Negative Urine Glucose Negative Negative Urine White Blood Cell Absent Absent Urine Red Blood Cell Absent Absent Urine Bacteria Absent Absent Laboratory test 09/08/2017 Urine Culture And SEE RESULT BELOW 1 finding Sensitivities Rapid Influenza A & 09/08/2017 Influenza A Molecular NEGATIVE Negative 2 B Molecular Influenza B Molecular NEGATIVE Negative Laboratory test 09/08/2017 Rapid Influenza A & B SEE RESULT BELOW 3 finding Antigen CBC Auto Diff 09/08/2017 White Blood Count 9.0 10^3/uL 3.5-10.8 Red Blood Count 4.72 10^6/uL 4.0-5.4 Hemoglobin 10.8 g/dL Low 12.0-16.0 Hematocrit 35 % 35-47 Mean Corpuscular Volume 74 fL Low 80-97 4 Mean Corpuscular Hemoglobin 23 pg Low 27-31 Mean Corpuscular HGB Conc 31 g/dL 31-36 Red Cell Distribution Width 21 % High 10.5-15 Platelet Count 475 10^3/uL High 150-450 Mean Platelet Volume 8.2 um3 7.4-10.4 Abs Neutrophils 8.1 10^3/uL High 1.5-7.7 Abs Lymphocytes 0.5 10^3/uL Low 1.0-4.8 Abs Monocytes 0.3 10^3/uL 0-0.8 Abs Eosinophils 0 10^3/uL 0-0.6 Abs Basophils 0.1 10^3/uL 0-0.2 Abs Nucleated RBC 0 10^3/uL Granulocyte % 89.8 % High 38-83 Lymphocyte % 5.2 % Low 25-47 Monocyte % 3.4 % 0-7 Eosinophil % 0.4 % 0-6 Basophil % 1.2 % 0-2 Nucleated Red Blood Cells % 0 Inr/Protime 09/08/2017 Inr 2.46 High 0.77-1.02 Laboratory test finding 09/08/2017 Partial Thrombo Time 39.3 seconds High 26.0-36.3 PTT Troponin I 0.05 ng/mL High <0.04 5 Comp Metabolic Panel 09/08/2017 Sodium 139 mmol/L 139-145 Potassium 4.3 mmol/L 3.5-5.0 Chloride 109 mmol/L 101-111 Co2 Carbon Dioxide 23 mmol/L 22-32 Anion Gap 7 mmol/L 2-11 Glucose 102 mg/dL High 70-100 Blood Urea Nitrogen 17 mg/dL 6-24 Creatinine 0.80 mg/dL 0.51-0.95 BUN/Creatinine Ratio 21.3 High 8-20 Calcium 9.5 mg/dL 8.6-10.3 Total Protein 7.3 g/dL 6.4-8.9 Albumin 3.4 g/dL 3.2-5.2 Globulin 3.9 g/dL 2-4 Albumin/Globulin Ratio 0.9 Low 1-3 Total Bilirubin 0.30 mg/dL 0.2-1.0 Alkaline Phosphatase 89 U/L 34-104 Alt 9 U/L 7-52 Ast 14 U/L 13-39 Egfr Non- 68.2 >60 Egfr 87.7 >60 6 Laboratory test finding 09/08/2017 Lactic Acid 1.9 mmol/L 0.5-2.0 7 TSH (Thyroid Stim Horm) 0.31 mcIU/mL Low 0.34-5.60 Iron & Iron Binding Capacity 09/08/2017 Iron 21 g/dL Low 50-212 Unsaturated Iron Binding 312 g/dL Total Iron Binding Capacity 333 g/dL 250-450 Transferrin 238 mg/dL 203-362 % Iron Saturation 6 % Low 15-55 Laboratory test 09/08/2017 Ferritin < 10.0 ng/mL Low 11-307 finding Laboratory test 07/22/2017 Inr/Protime 2.42 High 0.77-1.02 finding Laboratory test 03/19/2017 Stool Occult SEE RESULT BELOW 8 finding Blood, Screen Inr/Protime 03/18/2017 Inr 5.83 High 0.89-1.11 9 Laboratory test 03/18/2017 Partial Thrombo 40.9 seconds High 26.0-36.3 finding Time PTT Type & Screen 03/18/2017 Patient Blood Type O Positive Antibody Screen NEGATIVE Comp Metabolic Panel 03/18/2017 Sodium 135 mmol/L 133-145 Potassium 3.0 mmol/L Low 3.5-5.0 Chloride 95 mmol/L Low 101-111 Co2 Carbon Dioxide 28 mmol/L 22-32 Anion Gap 12 mmol/L High 2-11 Glucose 149 mg/dL High 70-100 Blood Urea Nitrogen 48 mg/dL High 6-24 Creatinine 0.96 mg/dL High 0.51-0.95 BUN/Creatinine Ratio 50.0 High 8-20 Calcium 8.7 mg/dL 8.6-10.3 Total Protein 6.5 g/dL 6.4-8.9 Albumin 3.1 g/dL Low 3.2-5.2 Globulin 3.4 g/dL 2-4 Albumin/Globulin Ratio 0.9 Low 1-3 Total Bilirubin 0.40 mg/dL 0.2-1.0 Alkaline Phosphatase 66 U/L 34-104 Alt 12 U/L 7-52 Ast 11 U/L Low 13-39 Egfr Non- 55.2 >60 Egfr 71.0 >60 10 Laboratory test finding 03/18/2017 Magnesium 1.6 mg/dL Low 1.9-2.7 Lipase 16 U/L 11.0-82.0 Troponin I 0.02 ng/mL <0.04 TSH (Thyroid Stim Horm) 5.48 mcIU/mL 0.34-5.60 C Reactive Protein 25.24 mg/L High < 5.00 11 Type & Screen 03/18/2017 Patient Blood Type O Positive Antibody Screen NEGATIVE Laboratory test finding 03/18/2017 Packed Cells SEE RESULTS BELO <SEE NOTE> 12 Fresh Frozen Plasma SEE RESULTS BELO <SEE NOTE> 13 Laboratory test finding 03/18/2017 B-Type Natriuretic Peptide BNP 26 pg/mL 14 Lactic Acid 2.5 mmol/L High 0.5-2.0 15 Laboratory test finding 03/10/2017 Erythrocyte Sed Rate 53 mm/Hr High 0- 40 C Reactive Protein 86.17 mg/L High < 5.00 16 TSH (Thyroid Stim Horm) 2.19 mcIU/mL 0.34-5.60 Blood Culture SEE RESULT BELOW 17 CBC Auto Diff 03/10/2017 White Blood Count 9.7 10^3/uL 3.5-10.8 Red Blood Count 4.87 10^6/uL 4.0-5.4 Hemoglobin 14.3 g/dL 12.0-16.0 Hematocrit 44 % 35-47 Mean Corpuscular Volume 90 fL 80-97 Mean Corpuscular Hemoglobin 29 pg 27-31 Mean Corpuscular HGB Conc 33 g/dL 31-36 Red Cell Distribution Width 16 % High 10.5-15 Platelet Count 430 10^3/uL 150-450 Mean Platelet Volume 9 um3 7.4-10.4 Abs Neutrophils 8.6 10^3/uL High 1.5-7.7 Abs Lymphocytes 0.5 10^3/uL Low 1.0-4.8 Abs Monocytes 0.6 10^3/uL 0-0.8 Abs Eosinophils 0 10^3/uL 0-0.6 Abs Basophils 0.1 10^3/uL 0-0.2 Abs Nucleated RBC 0 10^3/uL Granulocyte % 88.0 % High 38-83 Lymphocyte % 5.5 % Low 25-47 Monocyte % 5.8 % 1-9 Eosinophil % 0.1 % 0-6 Basophil % 0.6 % 0-2 Nucleated Red Blood Cells % 0 Laboratory test finding 03/10/2017 Partial Thrombo Time 29.6 seconds 26.0 -36.3 PTT Laboratory test finding 03/10/2017 B-Type Natriuretic 37 pg/mL 18 Peptide BNP Lactic Acid 1.6 mmol/L 0.5-2.0 19 Troponin I 0.01 ng/mL <0.04 Urinalysis Profile 03/10/2017 Urine Color Straw Urine Appearance Clear Urine Specific [place] 1.006 Low 1.010-1.030 Urine pH 5.0 5-9 Urine Urobilinogen Negative Negative Urine Ketones Trace Negative Urine Protein Negative Negative Urine Leukocytes Negative Negative Urine Blood Negative Negative Urine Nitrite Negative Negative Urine Bilirubin Negative Negative Urine Glucose Negative Negative Comp Metabolic Panel 03/10/2017 Sodium 136 mmol/L 133-145 Potassium 3.6 mmol/L 3.5-5.0 Chloride 100 mmol/L Low 101-111 Co2 Carbon Dioxide 26 mmol/L 22-32 Anion Gap 10 mmol/L 2-11 Glucose 99 mg/dL 70-100 Blood Urea Nitrogen 16 mg/dL 6-24 Creatinine 0.83 mg/dL 0.51-0.95 BUN/Creatinine Ratio 19.3 8-20 Calcium 9.3 mg/dL 8.6-10.3 Total Protein 7.5 g/dL 6.4-8.9 Albumin 3.2 g/dL 3.2-5.2 Globulin 4.3 g/dL High 2-4 Albumin/Globulin Ratio 0.7 Low 1-3 Total Bilirubin 0.60 mg/dL 0.2-1.0 Alkaline Phosphatase 84 U/L 34-104 Alt 11 U/L 7-52 Ast 19 U/L 13-39 Egfr Non- 65.3 >60 Egfr 84.0 >60 20 Laboratory test finding 03/10/2017 Creatine Kinase(CK) 12 U/L 10-223 Inr/Protime 03/10/2017 Inr 1.29 High 0.89-1.11 Comprehensive Metabolic 02/24/2017 Sodium 137 mEq/L 134-149 Prof Potassium 4.0 mEq/L 3.6-5.5 Chloride 101 mEq/L 94-112 Carbon Dioxide 23 mEq/L 21-32 Glucose 89 mg/dL 70-105 BUN 9 mg/dL 6-26 Creatinine 0.8 mg/dL 0.6-1.4 BUN/Creat Ratio 11.3 CALC 8.0-36.0 Calcium 8.9 mg/dL 8.6-10.2 Total Protein 7.0 g/dL 6.4-8.3 Albumin 3.5 g/dL Low 3.8-5.5 21 Globulin 3.5 g/dL 2.0-4.8 A/G Ratio 1.0 CALC 0.6-2.3 Alk. Phosphatase 83 U/L 30-110 Alt (SGPT) 9 U/L 7-35 Ast (Sgot) 17 U/L 5-34 Total Bilirubin 0.5 mg/dL 0.2-1.3 GFR Non- >60 ml/min/1.73m^ >=60 GFR >60 ml/min/1.73m^ >=60 Laboratory test finding 02/24/2017 Free T4 1.25 ng/dL 0.75-1.54 TSH 9.22 mIU/L High 0.50-6.00 22 Complete Blood Count 02/24/2017 WBC 7.6 x10^3/UL 3.6-9.6 RBC 4.50 x10^6/UL 3.90-5.70 HGB 13.5 g/dL 12.1-17.2 HCT 40 % 36-50 MCV 89.0 fL 82.2-97.4 MCH 30.0 pg 27.6-33.3 MCHC 33.7 g/dL 33.0-35.5 RDW 14.8 % High 11.6-13.7 PLT 327 x10^3/UL 150-400 MPV 6.6 fL Low 7.4-10.4 Gran # 4.7 x10^3/UL 1.5-7.2 Lymph# 2.5 x10^3/UL 0.7-4.9 [place]# 0.4 x10^3/UL 0.1-0.9 Gran % 61.3 % 42.2-75.2 Lymph % 33.4 % 20.5-51.1 [place]% 5.3 % 1.7-9.3 Laboratory test finding 11/03/2016 Troponin I 0.03 ng/mL <0.04 23 Laboratory test finding 06/27/2016 Troponin I 0.01 ng/mL <0.04 24 Comp Metabolic Panel 06/27/2016 Sodium 136 mmol/L 133-145 Potassium 3.4 mmol/L Low 3.5-5.0 Chloride 102 mmol/L 101-111 Co2 Carbon Dioxide 28 mmol/L 22-32 Anion Gap 6 mmol/L 2-11 Glucose 102 mg/dL High 70-100 Blood Urea Nitrogen 13 mg/dL 6-24 Creatinine 0.99 mg/dL High 0.51-0.95 BUN/Creatinine Ratio 13.1 8-20 Calcium 8.9 mg/dL 8.6-10.3 Total Protein 7.0 g/dL 6.4-8.9 Albumin 3.3 g/dL 3.2-5.2 Globulin 3.7 g/dL 2-4 Albumin/Globulin Ratio 0.9 Low 1-3 Total Bilirubin 0.30 mg/dL 0.2-1.0 Alkaline Phosphatase 73 U/L 34-104 Alt 8 U/L 7-52 Ast 11 U/L Low 13-39 Egfr Non- 53.4 >60 Egfr 68.7 >60 25 Laboratory test finding 06/27/2016 Troponin I 0.01 ng/mL <0.04 26 CBC Auto Diff 06/27/2016 White Blood Count 6.4 10^3/uL 3.5-10.8 Red Blood Count 4.39 10^6/uL 4.0-5.4 Hemoglobin 13.0 g/dL 12.0-16.0 Hematocrit 40 % 35-47 Mean Corpuscular Volume 91 fL 80-97 Mean Corpuscular Hemoglobin 30 pg 27-31 Mean Corpuscular HGB Conc 33 g/dL 31-36 Red Cell Distribution Width 14 % 10.5-15 Platelet Count 307 10^3/uL 150-450 Mean Platelet Volume 9 um3 7.4-10.4 Abs Neutrophils 4.8 10^3/uL 1.5-7.7 Abs Lymphocytes 0.7 10^3/uL Low 1.0-4.8 Abs Monocytes 0.5 10^3/uL 0-0.8 Abs Eosinophils 0.2 10^3/uL 0-0.6 Abs Basophils 0.3 10^3/uL High 0-0.2 Abs Nucleated RBC 0 10^3/uL Granulocyte % 74.9 % 38-83 Lymphocyte % 10.3 % Low 25-47 Monocyte % 7.1 % 1-9 Eosinophil % 3.5 % 0-6 Basophil % 4.2 % High 0-2 Nucleated Red Blood Cells % 0 Laboratory test finding 06/27/2016 Lactic Acid 1.1 mmol/L 0.5-2.0 27 Laboratory test finding 05/26/2016 Creatine Kinase(CK) 47 U/L 10-223 Troponin I 0.01 ng/mL <0.04 28 Myoglobin 33.3 ng/mL 14.3-65.8 Lactic Acid 1.5 mmol/L 0.5-2.0 29 B-Type Natriuretic Peptide BNP 30 pg/mL 30 MRSA/S. aureus Blood Cult PCR SEE RESULT BELOW 31 Blood Culture SEE RESULT BELOW 32 Comp Metabolic Panel 05/26/2016 Potassium TNP mmol/L 3.5-5.0 33 Ast TNP U/L 13-39 34 Sodium 130 mmol/L Low 133-145 Chloride 100 mmol/L Low 101-111 Co2 Carbon Dioxide 23 mmol/L 22-32 Anion Gap TNP mmol/L 2-11 Glucose 122 mg/dL High 70-100 Blood Urea Nitrogen 16 mg/dL 6-24 Creatinine 0.96 mg/dL High 0.51-0.95 BUN/Creatinine Ratio 16.7 8-20 Calcium 8.8 mg/dL 8.6-10.3 Total Protein 7.7 g/dL 6.4-8.9 Albumin 3.4 g/dL 3.2-5.2 Globulin 4.3 g/dL High 2-4 Albumin/Globulin Ratio 0.8 Low 1-3 Total Bilirubin 0.40 mg/dL 0.2-1.0 Alkaline Phosphatase 66 U/L 34-104 Alt 13 U/L 7-52 Egfr Non- 55.4 >60 Egfr 71.2 >60 35 Laboratory test finding 05/26/2016 Partial Thrombo Time 26.6 seconds 26.0 -36.3 PTT Inr/Protime 05/26/2016 Inr 1.29 High 0.89-1.11 CBC Auto Diff 05/26/2016 White Blood Count 8.6 10^3/uL 3.5-10.8 Red Blood Count 4.43 10^6/uL 4.0-5.4 Hemoglobin 13.1 g/dL 12.0-16.0 Hematocrit 40 % 35-47 Mean Corpuscular Volume 91 fL 80-97 Mean Corpuscular Hemoglobin 30 pg 27-31 Mean Corpuscular HGB Conc 33 g/dL 31-36 Red Cell Distribution Width 13 % 10.5-15 Platelet Count 383 10^3/uL 150-450 Mean Platelet Volume 10 um3 7.4-10.4 Abs Neutrophils 7.1 10^3/uL 1.5-7.7 Abs Lymphocytes 0.9 10^3/uL Low 1.0-4.8 Abs Monocytes 0.4 10^3/uL 0-0.8 Abs Eosinophils 0.1 10^3/uL 0-0.6 Abs Basophils 0.1 10^3/uL 0-0.2 Abs Nucleated RBC 0 10^3/uL Granulocyte % 81.6 % 38-83 Lymphocyte % 10.9 % Low 25-47 Monocyte % 4.9 % 1-9 Eosinophil % 1.4 % 0-6 Basophil % 1.2 % 0-2 Nucleated Red Blood Cells % 0 Laboratory test finding 05/26/2016 Potassium Redraw 3.0 mmol/L Low 3.5- 5.0 36 Ast Redraw 18 U/L 13-39 36 CKMB 1.0 ng/mL 0.6-6.3 36, 37 Laboratory test finding 02/14/2016 TSH 9.04 mIU/L High 0.50-6.00 38 Free T4 0.92 ng/dL 0.75-1.54 Comprehensive Metabolic Prof 02/14/2016 Sodium 135 mEq/L 134-149 Potassium 3.6 mEq/L 3.6-5.5 Chloride 98 mEq/L 94-112 Carbon Dioxide 26 mEq/L 21-32 Glucose 99 mg/dL 70-105 BUN 20 mg/dL 6-26 Creatinine 1.1 mg/dL 0.6-1.4 BUN/Creat Ratio 18.2 CALC 8.0-36.0 Calcium 8.8 mg/dL 8.6-10.2 Total Protein 7.3 g/dL 6.4-8.3 Albumin 3.8 g/dL 3.8-5.5 Globulin 3.5 g/dL 2.0-4.8 A/G Ratio 1.1 CALC 0.6-2.3 Alk. Phosphatase 79 U/L 30-110 Alt (SGPT) 9 U/L 7-35 Ast (Sgot) 15 U/L 5-34 Total Bilirubin 0.3 mg/dL 0.2-1.3 GFR Non- 50 ml/min/1.73m^ Low >=60 GFR >60 ml/min/1.73m^ >=60 CBC Electronic (a) 02/14/2016 WBC 5.6 3.6-9.6 RBC 4.53 3.90-5.70 Hemoglobin (Fma/CMC/CTX) 14.1 g/dL 12.1 - 17.2 Hematocrit (Fma/CMC/CTX) 43.1 % 36.1 - 50.3 Platelets 310 10^3/ul 150-400 Lymph% 16.3 % Low 17.0-48.0 Mixed% 6.2 Neutrophils % 77.5 Mean Corpuscular Vol 95 82.2-97.4 Mean Corpuscular Hemoglobin 31.2 27.6-33.3 Mean Corpuscular Hemo Concen 32.8 32.0-36.0 RDW 14.5 High 11.6-13.7 Mean Platelet Volume 7.9 5.5-11.0 CBC Auto Diff 01/07/2016 White Blood Count 8.3 10^3/uL 3.5-10.8 Red Blood Count 4.58 10^6/uL 4.0-5.4 Hemoglobin 13.9 g/dL 12.0-16.0 Hematocrit 43 % 35-47 Mean Corpuscular Volume 93 fL 80-97 Mean Corpuscular Hemoglobin 30 pg 27-31 Mean Corpuscular HGB Conc 33 g/dL 31-36 Red Cell Distribution Width 14 % 10.5-15 Platelet Count 333 10^3/uL 150-450 Mean Platelet Volume 9 um3 7.4-10.4 Abs Neutrophils 6.6 10^3/uL 1.5-7.7 Abs Lymphocytes 0.9 10^3/uL Low 1.0-4.8 Abs Monocytes 0.4 10^3/uL 0-0.8 Abs Eosinophils 0.2 10^3/uL 0-0.6 Abs Basophils 0.1 10^3/uL 0-0.2 Abs Nucleated RBC 0 10^3/uL Granulocyte % 79.6 % 38-83 Lymphocyte % 11.2 % Low 25-47 Monocyte % 5.2 % 1-9 Eosinophil % 2.9 % 0-6 Basophil % 1.1 % 0-2 Nucleated Red Blood Cells % 0 Laboratory test finding 01/07/2016 Partial Thrombo Time 29.9 seconds 26.0 -36.3 PTT Comp Metabolic Panel 01/07/2016 Sodium 137 mmol/L 133-145 Chloride 98 mmol/L Low 101-111 Co2 Carbon Dioxide 29 mmol/L 22-32 Glucose 166 mg/dL High 70-100 Blood Urea Nitrogen 15 mg/dL 6-24 Creatinine 1.20 mg/dL High 0.51-0.95 BUN/Creatinine Ratio 12.5 8-20 Calcium 9.1 mg/dL 8.6-10.3 Total Protein 8.1 g/dL 6.4-8.9 Albumin 3.5 g/dL 3.2-5.2 Globulin 4.6 g/dL High 2-4 Albumin/Globulin Ratio 0.8 Low 1-3 Total Bilirubin 0.40 mg/dL 0.2-1.0 Alkaline Phosphatase 91 U/L 34-104 Alt 8 U/L 7-52 Egfr Non- 42.8 >60 Egfr 55.0 >60 39 Potassium 3.7 mmol/L 3.5-5.0 Anion Gap 10 mmol/L 2-11 Ast 17 U/L 13-39 Laboratory test finding 01/07/2016 Lipase 13 U/L 11.0-82.0 Troponin I 0.02 ng/mL <0.03 40 CKMB 01/07/2016 CKMB ng/mL 0.8 ng/mL 0.6-6.3 Laboratory test finding 01/07/2016 Lactic Acid 2.4 mmol/L High 0.5-2.0 41 B Type Natriuretic Peptide 28 pg/mL 42 Anticardiolipin AB, 11/27/2015 Anticardiolipin <9 GPLU/mL 0-14 43, 44 Igg/Igm Ab,IgG,Qn Anticardiolipin Ab,IgM,Qn 9 MPLU/mL 0-12 43, 45 Factor V Leiden Mutation 11/27/2015 Factor V Leiden See Comment: 43, 46 Comment: See Comment: 43, 47 Lupus Anticoagulant 11/27/2015 Dilute Prothrombin 49.3 sec 0.0-55.0 43 Comprehensive Time(dPT) dPT Confirm Ratio 0.91 Ratio 0.00-1.40 43 Thrombin Time 18.1 sec 0.0-20.0 43 PTT-LA 35.0 sec 0.0-50.0 43 dRVVT 33.4 sec 0.0-55.1 43 Lupus Reflex Interpretation Comment: 43, 48 Protein C Ag & Protein S Ag 11/27/2015 Protein C Antigen 87 % 70-140 43 Protein S, Total 142 % 58-150 43 Protein S, Free 89 % 56-124 43 Antithrombin Deficiency Profile 11/27/2015 Antithrombin Activity 91 % 75- 135 43 (At3) Antithrombin Antigen 93 % 75-130 43 Laboratory test finding 11/27/2015 Vitamin B-12 319 pg/mL 230-1050 TSH 8.54 mIU/L High 0.50-6.00 49 Vitamin D25 12 Low 30-100 Complete Blood Count 11/27/2015 WBC 7.2 x10^3/UL 3.6-9.6 RBC 4.52 x10^6/UL 3.90-5.70 HGB 14.1 g/dL 12.1-17.2 HCT 43 % 36-50 MCV 94.0 fL 82.2-97.4 MCH 31.3 pg 27.6-33.3 MCHC 33.2 g/dL 33.0-35.5 RDW 15.1 % High 11.6-13.7 PLT 335 x10^3/UL 150-400 MPV 8.3 fL 7.4-10.4 Gran # 5.9 x10^3/UL 1.5-7.2 Lymph# 0.9 x10^3/UL 0.7-4.9 [place]# 0.4 x10^3/UL 0.1-0.9 Gran % 80.6 % High 42.2-75.2 Lymph % 13.1 % Low 20.5-51.1 [place]% 6.3 % 1.7-9.3 Comprehensive Metabolic Prof 11/27/2015 Sodium 138 mEq/L 134-149 Potassium 3.8 mEq/L 3.6-5.5 Chloride 97 mEq/L 94-112 Carbon Dioxide 28 mEq/L 21-32 Glucose 108 mg/dL High 70-105 50 BUN 22 mg/dL 6-26 Creatinine 1.1 mg/dL 0.6-1.4 BUN/Creat Ratio 20.0 CALC 8.0-36.0 Calcium 9.1 mg/dL 8.6-10.2 Total Protein 8.1 g/dL 6.4-8.3 Albumin 4.1 g/dL 3.8-5.5 Globulin 4.0 g/dL 2.0-4.8 A/G Ratio 1.0 CALC 0.6-2.3 Alk. Phosphatase 82 U/L 30-110 Alt (SGPT) 8 U/L 7-35 Ast (Sgot) 15 U/L 5-34 Total Bilirubin 0.7 mg/dL 0.2-1.3 GFR Non- 50 ml/min/1.73m^ Low >=60 GFR >60 ml/min/1.73m^ >=60 Lipid Profile 11/27/2015 Cholesterol 169 mg/dL 120-200 Triglycerides 102 mg/dL 30-200 HDL Cholesterol 48 mg/dL 30-85 LDL (Calculated) 101 CALC 0-129 VLDL Cholesterol 20 mg/dL 0-50 HDL Risk Factor 3.5 CALC 0.0-4.4 Laboratory test finding 11/27/2015 CK 26 U/L 26-140 CBC Auto Diff 07/07/2015 White Blood Count 6.6 10^3/uL 3.5-10.8 Red Blood Count 3.94 10^6/uL Low 4.0-5.4 Hemoglobin 12.1 g/dL 12.0-16.0 Hematocrit 38 % 35-47 Mean Corpuscular Volume 97 fL 80-97 Mean Corpuscular Hemoglobin 31 pg 27-31 Mean Corpuscular HGB Conc 32 g/dL 31-36 Red Cell Distribution Width 16 % High 10.5-15 Platelet Count 355 10^3/uL 150-450 Mean Platelet Volume 9 um3 7.4-10.4 Abs Neutrophils 4.7 10^3/uL 1.5-7.7 Abs Lymphocytes 0.8 10^3/uL Low 1.0-4.8 Abs Monocytes 0.5 10^3/uL 0-0.8 Abs Eosinophils 0.5 10^3/uL 0-0.6 Abs Basophils 0.2 10^3/uL 0-0.2 Abs Nucleated RBC 0 10^3/uL Granulocyte % 71.9 % 38-83 Lymphocyte % 11.6 % Low 25-47 Monocyte % 7.1 % 1-9 Eosinophil % 6.9 % High 0-6 Basophil % 2.5 % High 0-2 Nucleated Red Blood Cells % 0 Laboratory test finding 07/07/2015 Lactic Acid 0.7 mmol/L 0.5-2.0 51 Inr/Protime 07/07/2015 Inr 1.25 High 0.89-1.11 Laboratory test finding 07/07/2015 Partial Thrombo Time 29.5 seconds 26.0 -36.3 PTT Comp Metabolic Panel 07/07/2015 Sodium 136 mmol/L 133-145 Potassium 4.2 mmol/L 3.5-5.0 Chloride 104 mmol/L 101-111 Co2 Carbon Dioxide 27 mmol/L 22-32 Anion Gap 5 mmol/L 2-11 Glucose 94 mg/dL 70-100 Blood Urea Nitrogen 20 mg/dL 6-24 Creatinine 1.01 mg/dL High 0.51-0.95 BUN/Creatinine Ratio 19.8 8-20 Calcium 9.0 mg/dL 8.6-10.3 Total Protein 7.5 g/dL 6.4-8.9 Albumin 3.8 g/dL 3.2-5.2 Globulin 3.7 g/dL 2-4 Albumin/Globulin Ratio 1.0 1-3 Total Bilirubin 0.50 mg/dL 0.2-1.0 Alkaline Phosphatase 79 U/L 34-104 Alt 8 U/L 7-52 Ast 13 U/L 13-39 Egfr Non- 52.3 >60 Egfr 67.3 >60 52 Laboratory test finding 07/07/2015 Creatine Kinase 31 U/L 10-223 Troponin I 0.00 ng/mL <0.03 53 CKMB 07/07/2015 CKMB ng/mL 1.3 ng/mL 0.6-6.3 Laboratory test finding 07/07/2015 B Type Natriuretic Peptide 44 pg/mL 54 TSH (Thyroid Stim Horm) 26.76 ?IU/mL High 0.34-5.60 T3 Free 2.90 pg/mL 2.5-3.9 Free T4 (Free Thyroxine) 0.48 ng/mL Low 0.61-1.12 Urinalysis Profile 06/18/2015 Urine Color Yellow Urine Appearance Cloudy Urine Specific [place] 1.006 Low 1.010-1.030 Urine pH 6.0 5-9 Urine Urobilinogen Negative Negative Urine Ketones Negative Negative Urine Protein Negative Negative Urine Leukocytes 3+ Negative Urine Blood 1+ Negative Urine Nitrite Positive Negative Urine Bilirubin Negative Negative Urine Glucose Negative Negative Urine White Blood Cell 3+(>20/hpf) Absent Urine Red Blood Cell 2+(6-10/hpf) Absent Urine Bacteria 1+ Absent Urine Squamous Epithelial Cell Present Absent Laboratory test 06/18/2015 Urine Culture And SEE RESULT 55, 56 finding Sensitivities BELOW CBC Auto Diff 06/18/2015 White Blood Count 7.8 10^3/uL 3.5-10.8 Red Blood Count 4.18 10^6/uL 4.0-5.4 Hemoglobin 12.9 g/dL 12.0-16.0 Hematocrit 40 % 35-47 Mean Corpuscular Volume 96 fL 80-97 Mean Corpuscular Hemoglobin 31 pg 27-31 Mean Corpuscular HGB Conc 32 g/dL 31-36 Red Cell Distribution Width 17 % High 10.5-15 Platelet Count 396 10^3/uL 150-450 Mean Platelet Volume 9 um3 7.4-10.4 Abs Neutrophils 6.4 10^3/uL 1.5-7.7 Abs Lymphocytes 0.8 10^3/uL Low 1.0-4.8 Abs Monocytes 0.4 10^3/uL 0-0.8 Abs Eosinophils 0.1 10^3/uL 0-0.6 Abs Basophils 0.1 10^3/uL 0-0.2 Abs Nucleated RBC 0 10^3/uL Granulocyte % 81.7 % 38-83 Lymphocyte % 10.1 % Low 25-47 Monocyte % 5.6 % 1-9 Eosinophil % 1.7 % 0-6 Basophil % 0.9 % 0-2 Nucleated Red Blood Cells % 0 Inr/Protime 06/18/2015 Inr 1.28 High 0.89-1.11 Laboratory test finding 06/18/2015 Lactic Acid 1.1 mmol/L 0.5-2.0 57 B Type Natriuretic Peptide 45 pg/mL 58 Troponin I 0.01 ng/mL <0.03 59 Comp Metabolic Panel 06/18/2015 Sodium 139 mmol/L 133-145 Potassium 3.5 mmol/L 3.5-5.0 Chloride 103 mmol/L 101-111 Co2 Carbon Dioxide 29 mmol/L 22-32 Anion Gap 7 mmol/L 2-11 Glucose 96 mg/dL 70-100 Blood Urea Nitrogen 12 mg/dL 6-24 Creatinine 0.87 mg/dL 0.51-0.95 BUN/Creatinine Ratio 13.8 8-20 Calcium 9.4 mg/dL 8.6-10.3 Total Protein 7.6 g/dL 6.4-8.9 Albumin 3.6 g/dL 3.2-5.2 Globulin 4.0 g/dL 2-4 Albumin/Globulin Ratio 0.9 Low 1-3 Total Bilirubin 0.50 mg/dL 0.2-1.0 Alkaline Phosphatase 82 U/L 34-104 Alt 6 U/L Low 7-52 Ast 12 U/L Low 13-39 Egfr Non- 62.2 >60 Egfr 80.0 >60 60 Laboratory test finding 06/18/2015 Magnesium 1.8 mg/dL Low 1.9-2.7 Creatine Kinase 36 U/L 10-223 Laboratory test finding 09/28/2014 Troponin I 0.02 ng/mL <0.03 61 Urinalysis Profile 09/28/2014 Urine Color Yellow Urine Appearance Turbid Urine Specific [place] 1.015 1.010-1.030 Urine pH 5.0 5-9 Urine Urobilinogen Negative Negative Urine Ketones Negative Negative Urine Protein 2+(100 mg/dL) Negative Urine Leukocytes 3+ Negative Urine Blood 1+ Negative Urine Nitrite Positive Negative Urine Bilirubin Negative Negative Urine Glucose Negative Negative Urine White Blood Cell 3+(>20/hpf) Absent Urine Red Blood Cell 3+(>10/hpf) Absent Urine Bacteria Absent Absent CBC Auto Diff 09/28/2014 White Blood Count 14.2 10^3/uL High 4.8-10.8 Red Blood Count 3.69 10^6/uL Low 4.0-5.4 Hemoglobin 10.6 g/dL Low 12.0-16.0 Hematocrit 34 % Low 35-47 Mean Corpuscular Volume 91 fL 80-97 Mean Corpuscular Hemoglobin 29 pg 27-31 Mean Corpuscular HGB Conc 32 g/dL 31-36 Red Cell Distribution Width 17 % High 10.5-15 Platelet Count 342 10^3/uL 150-450 Mean Platelet Volume 9 um3 7.4-10.4 Abs Neutrophils 13.2 10^3/uL High 1.5-7.7 Abs Lymphocytes 0.5 10^3/uL Low 1.0-4.8 Abs Monocytes 0.4 10^3/uL 0-0.8 Abs Eosinophils 0 10^3/uL 0-0.6 Abs Basophils 0.1 10^3/uL 0-0.2 Abs Nucleated RBC 0 10^3/uL Granulocyte % 93.0 % High 38-83 Lymphocyte % 3.7 % Low 25-47 Monocyte % 2.6 % 1-9 Eosinophil % 0.3 % 0-6 Basophil % 0.4 % 0-2 Nucleated Red Blood Cells % 0 Comp Metabolic Panel 09/28/2014 Sodium 137 mmol/L 133-145 Potassium 4.2 mmol/L 3.5-5.0 Chloride 106 mmol/L 101-111 Co2 Carbon Dioxide 27 mmol/L 22-32 Anion Gap 4 mmol/L 2-11 Glucose 130 mg/dL High 70-100 Blood Urea Nitrogen 17 mg/dL 6-24 Creatinine 1.09 mg/dL High 0.51-0.95 BUN/Creatinine Ratio 15.6 8-20 Calcium 9.0 mg/dL 8.6-10.3 Total Protein 6.9 g/dL 6.4-8.9 Albumin 3.4 g/dL 3.2-5.2 Globulin 3.5 g/dL 2-4 Albumin/Globulin Ratio 1.0 1-3 Total Bilirubin 0.50 mg/dL 0.2-1.0 Alkaline Phosphatase 62 U/L 34-104 Alt 8 U/L 7-52 Ast 12 U/L Low 13-39 Egfr Non- 48.1 >60 Egfr 61.8 >60 62 Laboratory test finding 09/28/2014 Troponin I 0.02 ng/mL <0.03 63 B Type Natriuretic Peptide 126 pg/mL 64 CBC Auto Diff 09/11/2014 White Blood Count 8.5 10^3/uL 4.8-10.8 Red Blood Count 3.84 10^6/uL Low 4.0-5.4 Hemoglobin 11.5 g/dL Low 12.0-16.0 Hematocrit 35 % 35-47 Mean Corpuscular Volume 90 fL 80-97 Mean Corpuscular Hemoglobin 30 pg 27-31 Mean Corpuscular HGB Conc 33 g/dL 31-36 Red Cell Distribution Width 17 % High 10.5-15 Platelet Count 305 10^3/uL 150-450 Mean Platelet Volume 9 um3 7.4-10.4 Abs Neutrophils 6.9 10^3/uL 1.5-7.7 Abs Lymphocytes 0.8 10^3/uL Low 1.0-4.8 Abs Monocytes 0.5 10^3/uL 0-0.8 Abs Eosinophils 0.2 10^3/uL 0-0.6 Abs Basophils 0.1 10^3/uL 0-0.2 Abs Nucleated RBC 0 10^3/uL Granulocyte % 80.9 % 38-83 Lymphocyte % 10.0 % Low 25-47 Monocyte % 5.7 % 1-9 Eosinophil % 2.2 % 0-6 Basophil % 1.2 % 0-2 Nucleated Red Blood Cells % 0 Laboratory test 09/11/2014 TSH (Thyroid 11.13 IU/mL High 0.34-5.60 finding Stimulating Horm) Erythrocyte Sed Rate 48 mm/Hr High 0-40 Comp Metabolic Panel 09/11/2014 Sodium 138 mmol/L 133-145 Potassium 4.1 mmol/L 3.5-5.0 Chloride 103 mmol/L 101-111 Co2 Carbon Dioxide 29 mmol/L 22-32 Anion Gap 6 mmol/L 2-11 Glucose 87 mg/dL 70-100 Blood Urea Nitrogen 25 mg/dL High 6-24 Creatinine 0.81 mg/dL 0.51-0.95 BUN/Creatinine Ratio 30.9 High 8-20 Calcium 9.3 mg/dL 8.6-10.3 Total Protein 7.3 g/dL 6.4-8.9 Albumin 3.9 g/dL 3.2-5.2 Globulin 3.4 g/dL 2-4 Albumin/Globulin Ratio 1.1 1-3 Total Bilirubin 0.40 mg/dL 0.2-1.0 Alkaline Phosphatase 74 U/L 34-104 Alt 10 U/L 7-52 Ast 13 U/L 13-39 Egfr Non- 67.7 >60 Egfr 87.1 >60 65 Laboratory test finding 09/11/2014 Free T4 0.98 ng/mL 0.61-1.12 Carbon Monoxide 1.6 % High 0.5-1.5 Rheumatoid Factor <15 IU/mL <15 66 1 SEE RESULT BELOW Name: CLAUDIA MARTINEZ : [address]: Lilia Correa DO Acct: [id number] Unit: [id number] AGE: 86 Location: [place] [address] Re09/09/17 SEX: F Status: ADM IN SPEC: [id number] KAYLEN: 09/08/[address] [facility] [address]: Jessee Quesada MD REQ: [id number] RECD: 09/08/17 STATUS: RADHA OCHOA DR: Enrique Bloom MD _ SOURCE: URINE SPDESC: ORDERED: Urine Culture Procedure Result Reported Site Urine Culture Final 09/10/17- 30 ML Organism 1 ESCHERICHIA COLI [place] Count >100,000 (Many) CFU/ML 1. ESCHERICHIA COLI M.I.C. RX --------- ------ Ampicillin <=2 S Cefazolin <=4 S Cefepime <=1 S Ceftriaxone <=1 S Ciprofloxacin <=0.25 S Gentamicin <=1 S Levofloxacin <=0.12 S Meropenem <=0.25 S Nitrofurantoin 64 I Tetracycline <=1 S Pipercillin/Tazobactam <=4 S Trimethoprim/Sulfamethoxazole <=20 S Amoxicillin/Clavulanic Acid <=2 S Aztreonam <=1 S Contact the Microbiology Department for any additional antibiotic reporting. * - Main Lab . END OF REPORT DEPARTMENT OF PATHOLOGY, [address] [place] [address] Avi Nicolas M.D. Director [facility] # [id number] 2 Supervisor Graphite: [id number] 3 SEE RESULT BELOW Name: AIRANNA CLAUDIA DAVILA : [address]: Jessee Quesada MD Acct: [id number] Unit: [id number] AGE: 86 Location: ED Re09/08/17 SEX: F Status: REG ER SPEC: [id number] KAYLEN: 09/08/17-[address] [facility] [address]: Jessee Quesada MD REQ: [id number] RECD: 09/08/17 STATUS: RADHA OCHOA DR: Enrique Bloom MD _ SOURCE: NASAL SPDESC: ORDERED: Flu A B Request Procedure Result Reported Site Rapid Influenza A B Request Final 09/08/17- 1213 ML Specimen received for Influenza A/B Molecular testing * ML - Main Lab . END OF REPORT DEPARTMENT OF PATHOLOGY, [address] [place] [address] Avi Nicolas M.D. Director [facility] # [id number] 4 Consistent with Previous Results Reported on 08/03/17 5 Result TnIDx:0.05 Called to PJ at: 12:23:58 by:[id number] Read back by:PJ 6 Because ethnic data is not always readily available, this report includes an eGFR for both -Americans and non- Americans. The National Kidney Disease Education Program (NKDEP) does not endorse the use of the MDRD equation for patients that are not between the ages of 18 and 70, are , have extremes of body size, muscle mass, or nutritional status, or are non- or non-. According to the National Kidney Foundation, irrespective of diagnosis, the stage of the disease is based on the level of kidney function: Stage Description GFR(mL/min/1.73 m(2)) 1 Kidney damage with normal or decreased GFR 90 2 Kidney damage with mild decrease in GFR 60-89 3 Moderate decrease in GFR 30-59 4 Severe decrease in GFR 15-29 5 Kidney failure <15 (or dialysis) 7 [facility] Severe Sepsis and Septic Shock Management Bundle Measure requires all lactic acids initially measuring >2.0 mmol/L be repeated. 8 SEE RESULT BELOW Name: CLAUDIA MARTINEZ : [address]: Ld Olguin MD Acct: [id number] Unit: [id number] AGE: 86 Location: ED Re03/18/17 SEX: F Status: REG ER SPEC: [id number] KAYLEN: 03/19/[address] [facility] [address]: Ld Olguin MD REQ: [id number] RECD: 03/19/17 STATUS: RADHA OCHOA DR: Enrique Bloom MD [facility] _ SOURCE: STOOL SPDESC: ORDERED: Occult Bl, Scn Procedure Result Reported Site Stool Occult Blood (1) Final 03/19/17- 0028 ML Stool Occult Blood Positive * ML - MAIN LAB ([facility]) . END OF REPORT * ML=Testing performed at Main Lab DEPARTMENT OF PATHOLOGY, [address] [place] [address] Avi Nicolas M.D. Director [facility] # [id number] 9 Verbal to [id number] by [id number] at 2344 on 03/18/17. Results read back accurately. 10 Because ethnic data is not always readily available, this report includes an eGFR for both -Americans and non- Americans. The National Kidney Disease Education Program (NKDEP) does not endorse the use of the MDRD equation for patients that are not between the ages of 18 and 70, are , have extremes of body size, muscle mass, or nutritional status, or are non- or non-. According to the National Kidney Foundation, irrespective of diagnosis, the stage of the disease is based on the level of kidney function: Stage Description GFR(mL/min/1.73 m(2)) 1 Kidney damage with normal or decreased GFR 90 2 Kidney damage with mild decrease in GFR 60-89 3 Moderate decrease in GFR 30-59 4 Severe decrease in GFR 15-29 5 Kidney failure <15 (or dialysis) 11 Acute inflammation: >10.00 12 SEE RESULTS BELOW [id number] OP PC TRANSFUSED 03/19/17 1945 [id number] OP PC TRANSFUSED 03/19/17 1623 13 SEE RESULTS BELOW [id number] AP FFP TRANSFUSED 03/19/17 1238 [id number] AP FFP TRANSFUSED 03/19/17 0956 14 >100 to <200 pg/mL: likely compensated congestive heart failure (CHF) 200 to 400 pg/mL: likely moderate CHF >400 pg/mL: likely moderate to severe CHF 15 Critical Result LACT:2.5 Called to [id number] at: 23:42:07 by:[id number] Read back by:[id number] [place] Severe Sepsis and Septic Shock Management Bundle Measure requires all lactic acids initially measuring >2.0 mmol/L be repeated. 16 Acute inflammation: >10.00 17 SEE RESULT BELOW Name: CLAUDIA MARTINEZ : [address]: Jimmie Cruz MD Acct: [id number] Unit: [id number] AGE: 86 Location: [place] [address] Re03/10/17 SEX: F Status: ADM IN SPEC: [id number] KAYLEN: 03/10/17-[address]: Nabeel Lantigua MD REQ: [id number] RECD: 03/10/17 STATUS: RES [facility] DR: Enrique Bloom MD _ SOURCE: BLOOD,VENO SPDESC: ORDERED: Blood Cult Procedure Result Reported Site Aerobic Culture Bottle Preliminary 03/11/17- 1928 ML No Growth Day 1 Anaerobic Culture Bottle Preliminary 03/11/171928 ML No Growth Day 1 * ML - MAIN LAB ([facility]) . END OF REPORT * ML=Testing performed at Main Lab DEPARTMENT OF PATHOLOGY, [address] [place] [address] Avi Nicolas M.D. Director [facility] # [id number] 18 >100 to <200 pg/mL: likely compensated congestive heart failure (CHF) 200 to 400 pg/mL: likely moderate CHF >400 pg/mL: likely moderate to severe CHF 19 [facility] Severe Sepsis and Septic Shock Management Bundle Measure requires all lactic acids initially measuring >2.0 mmol/L be repeated. 20 Because ethnic data is not always readily available, this report includes an eGFR for both -Americans and non- Americans. The National Kidney Disease Education Program (NKDEP) does not endorse the use of the MDRD equation for patients that are not between the ages of 18 and 70, are , have extremes of body size, muscle mass, or nutritional status, or are non- or non-. According to the National Kidney Foundation, irrespective of diagnosis, the stage of the disease is based on the level of kidney function: Stage Description GFR(mL/min/1.73 m(2)) 1 Kidney damage with normal or decreased GFR 90 2 Kidney damage with mild decrease in GFR 60-89 3 Moderate decrease in GFR 30-59 4 Severe decrease in GFR 15-29 5 Kidney failure <15 (or dialysis) 21 RESULTS VERIFIED BY REPEAT ANALYSIS 22 consistent w/ previous results 23 99th percentile=0.04 ng/mL Troponin results at [facility] and [facility] are not interchangeable. 24 99th percentile=0.04 ng/mL Troponin results at [facility] and [facility] are not interchangeable. 25 Because ethnic data is not always readily available, this report includes an eGFR for both -Americans and non- Americans. The National Kidney Disease Education Program (NKDEP) does not endorse the use of the MDRD equation for patients that are not between the ages of 18 and 70, are , have extremes of body size, muscle mass, or nutritional status, or are non- or non-. According to the National Kidney Foundation, irrespective of diagnosis, the stage of the disease is based on the level of kidney function: Stage Description GFR(mL/min/1.73 m(2)) 1 Kidney damage with normal or decreased GFR 90 2 Kidney damage with mild decrease in GFR 60-89 3 Moderate decrease in GFR 30-59 4 Severe decrease in GFR 15-29 5 Kidney failure <15 (or dialysis) 26 99th percentile=0.04 ng/mL Troponin results at [facility] and [facility] are not interchangeable. 27 [facility] Severe Sepsis and Septic Shock Management Bundle Measure requires all lactic acids initially measuring >2.0 mmol/L be repeated. 28 NOTE: Critical Troponin is now >0.03 ng/mL. 99th percentile=0.04 ng/mL Troponin results at [facility] and [facility] are not interchangeable. 29 [facility] Severe Sepsis and Septic Shock Management Bundle Measure requires all lactic acids initially measuring >2.0 mmol/L be repeated. 30 >100 to <200 pg/mL: likely compensated congestive heart failure (CHF) 200 to 400 pg/mL: likely moderate CHF >400 pg/mL: likely moderate to severe CHF 31 SEE RESULT BELOW Name: ARIANNA AKBARNCLAUDIA : [address]: Lilia Correa DO Acct: [id number] Unit: [id number] AGE: 85 Location: [place] [address] Re05/26/16 SEX: F Status: ADM Jailene SPEC: [id number] KAYLEN: 05/26/[address] [facility] [address]: Theo Mills MD REQ: [id number] RECD: 05/26/16 STATUS: RES OTHR DR: Enrique Bloom MD _ SOURCE: BLOOD,VENO SPDESC: ORDERED: Blood Cult, MRSA/SA BC PCR COMMENTS: Verbal to [id number] by [id number] at 1831 on 05/27/16. Results read back accurately. Procedure Result Reported Site Aerobic Culture Bottle PENDING Anaerobic Culture Bottle PENDING MRSA/S. aureus Blood Cult PCR Final 05/27/16- 1830 ML Organism 1 MRSA NEGATIVE Organism 2 S.AUREUS NEGATIVE * ML - MAIN LAB ([facility]) . END OF REPORT * ML=Testing performed at Main Lab DEPARTMENT OF PATHOLOGY, [address] [place] [address] Avi Nicolas M.D. Director [place] # [id number] 32 SEE RESULT BELOW Name: CLAUDIA MARTINEZ : [address]: Lilia Correa DO Acct: [id number] Unit: [id number] AGE: 85 Location: [place] [address] Re05/26/16 Dis: 05/28/16 SEX: F Status: DIS IN SPEC: [id number] KAYLEN: 05/26/[address] [facility] [address]: Theo Mills MD REQ: [id number] RECD: 05/26/16 STATUS: RADHA OCHOA DR: Enrique Bloom MD _ SOURCE: BLOOD,VENO SPDESC: ORDERED: Blood Cult Procedure Result Reported Site Aerobic Culture Bottle Final 05/31/16- 2226 ML No Growth Day 5 Anaerobic Culture Bottle Final 05/31/16- 2226 ML No Growth Day 5 * ML - MAIN LAB ([facility]) . END OF REPORT * ML=Testing performed at Main Lab DEPARTMENT OF PATHOLOGY, [address] [place] [address] Avi Nicolas M.D. Director [facility] # [id number] 33 Specimen hemolyzed, unable to obtain accurate results. 34 Specimen hemolyzed, unable to obtain accurate results. 35 Because ethnic data is not always readily available, this report includes an eGFR for both -Americans and non- Americans. The National Kidney Disease Education Program (NKDEP) does not endorse the use of the MDRD equation for patients that are not between the ages of 18 and 70, are , have extremes of body size, muscle mass, or nutritional status, or are non- or non-. According to the National Kidney Foundation, irrespective of diagnosis, the stage of the disease is based on the level of kidney function: Stage Description GFR(mL/min/1.73 m(2)) 1 Kidney damage with normal or decreased GFR 90 2 Kidney damage with mild decrease in GFR 60-89 3 Moderate decrease in GFR 30-59 4 Severe decrease in GFR 15-29 5 Kidney failure <15 (or dialysis) 36 Cancelled. Specimen hemolyzed. Unable to perform test requested. Reorder for specimen recollectio 37 Cancelled. Specimen hemolyzed. Unable to perform test requested. Reorder for specimen recollection. PETER/ED was called for recollect at 2040 on 05/26/16 by [id number] RESULTS VERIFIED BY REPEAT ANALYSIS 39 Because ethnic data is not always readily available, this report includes an eGFR for both -Americans and non- Americans. The National Kidney Disease Education Program (NKDEP) does not endorse the use of the MDRD equation for patients that are not between the ages of 18 and 70, are , have extremes of body size, muscle mass, or nutritional status, or are non- or non-. According to the National Kidney Foundation, irrespective of diagnosis, the stage of the disease is based on the level of kidney function: Stage Description GFR(mL/min/1.73 m(2)) 1 Kidney damage with normal or decreased GFR 90 2 Kidney damage with mild decrease in GFR 60-89 3 Moderate decrease in GFR 30-59 4 Severe decrease in GFR 15-29 5 Kidney failure <15 (or dialysis) 40 Reference Range and Interpretation: TnI (ng/mL) Interpretation Less Than 0.03 ng/mL Not supportive of diagnosis of ND 0.03 - 0.50 ng/mL Indeterminate: suggest serial studies if clinically indicated. Greater than 0.5 ng/mL Consistent with diagnosis of ND 41 Critical Result LACT:2.4 Called to [id number] at: 23:46:01 by:[id number] Read back by:KADIE DIMAS Severe Sepsis and Septic Shock Management Bundle Measure requires all lactic acids initially measuring >2.0 mmol/L be repeated. 42 >100 to <200 pg/mL: likely compensated congestive heart failure (CHF) 200 to 400 pg/mL: likely moderate CHF >400 pg/mL: likely moderate to severe CHF 43 SPLIT SPECIMEN 44 Negative: <15 Indeterminate: 15 - 20 Low-Med Positive: >20 - 80 High Positive: >80 45 Negative: <13 Indeterminate: 13 - 20 Low-Med Positive: >20 - 80 High Positive: >80 46 Result: Negative (no mutation found) Factor V Leiden is a specific mutation ([id number]) in the factor V gene that is associated with an increased risk of venous thrombosis. Factor V Leiden is more resistant to inactivation by activated protein C. As a result, factor V persists in the circulation leading to a mild hyper- coagulable state. The Leiden mutation accounts for 90% - 95% of APC resistance. Factor V Leiden has been reported in patients with deep vein thrombosis, pulmonary embolus, central retinal vein occlusion, cerebral sinus thrombosis and hepatic vein thrombosis. Other risk factors to be considered in the workup for venous thrombosis include the [id number] mutation in the factor II (prothrombin) gene, protein S and C deficiency, and antithrombin deficiencies. Anticardiolipin antibody and lupus anticoagulant analysis may be appropriate for certain patients, as well as homocysteine levels. Contact your local [facility] for information on how to order additional testing if desired. 47 Genetic counselors are available for health care providers to discuss results at [phone] ([phone]). Methodology: DNA analysis of the Factor V gene was performed by allele-specific PCR. The diagnostic sensitivity and specificity is >99% for both. Molecular-based testing is highly accurate, but as in any laboratory test, diagnostic errors may occur. All test results must be combined with clinical information for the most accurate interpretation. References: Voelkerding K (1996). Clin Lab Med 16:169-186. Tammie Leonard, PhD, FAC Casi Robles, PhD, FAC Dora Magana, PhD, FAC Laura Salas MJeniSJeni, PhD, FACMG Guerda Monroe, PhD, FACMG Saroj Emmanuel, PhD, FAC Kermit Rubio PhD, FAC 48 No lupus anticoagulant was detected. 49 RESULTS VERIFIED BY REPEAT ANALYSIS 50 NON-FASTING 51 [facility] Severe Sepsis and Septic Shock Management Bundle Measure requires all lactic acids initially measuring >2.0mmol/L be repeated. 52 Because ethnic data is not always readily available, this report includes an eGFR for both -Americans and non- Americans. The National Kidney Disease Education Program (NKDEP) does not endorse the use of the MDRD equation for patients that are not between the ages of 18 and 70, are , have extremes of body size, muscle mass, or nutritional status, or are non- or non-. According to the National Kidney Foundation, irrespective of diagnosis, the stage of the disease is based on the level of kidney function: Stage Description GFR(mL/min/1.73 m(2)) 1 Kidney damage with normal or decreased GFR 90 2 Kidney damage with mild decrease in GFR 60-89 3 Moderate decrease in GFR 30-59 4 Severe decrease in GFR 15-29 5 Kidney failure <15 (or dialysis) 53 Reference Range and Interpretation: TnI (ng/mL) Interpretation Less Than 0.03 ng/mL Not supportive of diagnosis of ND 0.03 - 0.50 ng/mL Indeterminate: suggest serial studies if clinically indicated. Greater than 0.5 ng/mL Consistent with diagnosis of ND 54 >100 to <200 pg/mL: likely compensated congestive heart failure (CHF) 200 to 400 pg/mL: likely moderate CHF >400 pg/mL: likely moderate to severe CHF 55 SEE RESULT BELOW Name: CLAUDIA MARTINEZ : [address]: Valentín Lindsay DO Acct: [id number] Unit: [id number] AGE: 84 Location: ED Re06/18/15 SEX: F Status: DEP ER SPEC: [id number] KAYLEN: 06/18/[address]: Valentín Lindsay DO REQ: [id number] RECD: 06/18/15 STATUS: RADHA OCHOA DR: Wing Bloom MD _ SOURCE: URINE SPDESC: ORDERED: Urine Culture Procedure Result Reported Site Urine Culture Final 06/21/15- 817 ML Organism 1 ESCHERICHIA COLI [place] Count >100,000 (Many) CFU/ML 1. ESCHERICHIA COLI M.I.C. RX --------- ------ Ampicillin 4 S Cefazolin <=4 S Cefepime <=1 S Ceftriaxone <=1 S Ciprofloxacin <=0.25 S Gentamicin <=1 S Levofloxacin <=0.12 S Meropenem <=0.25 S Nitrofurantoin 32 S Tetracycline <=1 S Pipercillin/Tazobactam <=4 S Trimethoprim/Sulfamethoxazole <=20 S Amoxicillin/Clavulanic Acid <=2 S Aztreonam <=1 S Contact the Microbiology Department for any additional antibiotic reporting. * ML - MAIN LAB ([facility]) . END OF REPORT * ML=Testing performed at Main Lab DEPARTMENT OF PATHOLOGY, [address] [place] [address] Avi Nicolas M.D. Director [facility] # [id number] 56 06/21/15 (Thr Jun 21) 11:19 AM ENRIQUE BLOOM treated in ER with cephelaxin 57 [facility] Severe Sepsis and Septic Shock Management Bundle Measure requires all lactic acids initially measuring >2.0mmol/L be repeated. 58 >100 to <200 pg/mL: likely compensated congestive heart failure (CHF) 200 to 400 pg/mL: likely moderate CHF >400 pg/mL: likely moderate to severe CHF 59 Reference Range and Interpretation: TnI (ng/mL) Interpretation Less Than 0.03 ng/mL Not supportive of diagnosis of ND 0.03 - 0.50 ng/mL Indeterminate: suggest serial studies if clinically indicated. Greater than 0.5 ng/mL Consistent with diagnosis of ND 60 Because ethnic data is not always readily available, this report includes an eGFR for both -Americans and non- Americans. The National Kidney Disease Education Program (NKDEP) does not endorse the use of the MDRD equation for patients that are not between the ages of 18 and 70, are , have extremes of body size, muscle mass, or nutritional status, or are non- or non-. According to the National Kidney Foundation, irrespective of diagnosis, the stage of the disease is based on the level of kidney function: Stage Description GFR(mL/min/1.73 m(2)) 1 Kidney damage with normal or decreased GFR 90 2 Kidney damage with mild decrease in GFR 60-89 3 Moderate decrease in GFR 30-59 4 Severe decrease in GFR 15-29 5 Kidney failure <15 (or dialysis) 61 Reference Range and Interpretation: TnI (ng/mL) Interpretation Less Than 0.03 ng/mL Not supportive of diagnosis of ND 0.03 - 0.50 ng/mL Indeterminate: suggest serial studies if clinically indicated. Greater than 0.5 ng/mL Consistent with diagnosis of ND 62 Because ethnic data is not always readily available, this report includes an eGFR for both -Americans and non- Americans. The National Kidney Disease Education Program (NKDEP) does not endorse the use of the MDRD equation for patients that are not between the ages of 18 and 70, are , have extremes of body size, muscle mass, or nutritional status, or are non- or non-. According to the National Kidney Foundation, irrespective of diagnosis, the stage of the disease is based on the level of kidney function: Stage Description GFR(mL/min/1.73 m(2)) 1 Kidney damage with normal or decreased GFR 90 2 Kidney damage with mild decrease in GFR 60-89 3 Moderate decrease in GFR 30-59 4 Severe decrease in GFR 15-29 5 Kidney failure <15 (or dialysis) 63 Reference Range and Interpretation: TnI (ng/mL) Interpretation Less Than 0.03 ng/mL Not supportive of diagnosis of ND 0.03 - 0.50 ng/mL Indeterminate: suggest serial studies if clinically indicated. Greater than 0.5 ng/mL Consistent with diagnosis of ND 64 >100 to <200 pg/mL: likely compensated congestive heart failure (CHF) 200 to 400 pg/mL: likely moderate CHF >400 pg/mL: likely moderate to severe CHF [facility] 65 Because ethnic data is not always readily available, this report includes an eGFR for both -Americans and non- Americans. The National Kidney Disease Education Program (NKDEP) does not endorse the use of the MDRD equation for patients that are not between the ages of 18 and 70, are , have extremes of body size, muscle mass, or nutritional status, or are non- or non-. According to the National Kidney Foundation, irrespective of diagnosis, the stage of the disease is based on the level of kidney function: Stage Description GFR(mL/min/1.73 m(2)) 1 Kidney damage with normal or decreased GFR 90 2 Kidney damage with mild decrease in GFR 60-89 3 Moderate decrease in GFR 30-59 4 Severe decrease in GFR 15-29 5 Kidney failure <15 (or dialysis) 66 Test Performed by: [place] [address] Bicycle Repairer: Ld Perdomo II, M.D., Ph.D. Procedures Description No Information Encounters Type Date Location Provider CPT E/M Dx Office Visit 12/09/2017 1:30p [place] [address] I10 I25.10 E03.9 F02.80 D50.9 R39.81 Office Visit 02/24/2017 2:40p [facility] Enrique Bloom M.D. 07664 F02.80 I10 E03.9 R39.81 I25.10 R63.4 Z23 Office Visit 09/04/2016 7:00p [facility] Enrique Bloom M.D. 28339 F02.80 I10 E03.8 R60.0 Office Visit 06/05/2016 5:00p [facility] Office Enrique Bloom M.D. 94451 F02.80 I10 E03.8 I25.10 Office Visit 02/14/2016 4:00p Main Office Enrique Bloom M.D. 73348 F02.80 I25.10 I10 E03.8 R39.81 Z23 Office Visit 11/27/2015 11:00a Main Office Ravi Dan M.D. 66276 F02.80 I25.10 Office Visit 07/03/2015 3:30p [facility] Office Enrique Bloom M.D. 22583 I10 R60.0 R39.81 G30.1 Office Visit 04/18/2015 4:10p [facility] Enrique Bloom M.D. 29027 H60.8x1 I10 R60.0 R39.81 Office Visit 03/22/2015 6:20p [facility] Office Enrique Bloom M.D. 96278 I10 I25.2 E78.2 R60.0 B37.2 Z23 L82.1 G30.1 Z12.31 Office Visit 09/11/2014 1:10p [facility] Enrique Bloom M.D. 94576 112.1 788.30 493.10 372.05 455.3 715.09 986 401.1 Office Visit 07/24/2014 1:00p [facility] Enrique Bloom M.D. 55031 112.1 788.30 389.9 294.10 455.3 278.00 Plan of Care 12/29/2017 - Yuniel Newell-PER30.0 DysuriaNew Labs:Ua - Micro (Fma) Urine Culture SensitivityFollow up:Followup:. (Follow up)R23.8 Other skin changesAllNew Medication:Gel-Foam CushionComments:~B_~U_Medication Management~b_ ~u_ Patient Understands medications she's taking? Yes No Are there Barriers to Adherence? Yes No Has the patient been asked about herbal supplements and therapies, and OTC meds? Yes No ~B_~U_Care Plan~b_ ~u_1. Patient has been queried about patient's goals/preferences and functional /lifestyle goals at relevant visits. If relevant, describe: na2. Treatment goals as explained to the patient: aboveprevent skin breakdown, further eval of urinary frequency 3. Are there barriers to meeting treatment goals? Yes No If Yes, please describe:4. Self-Management goals as described to the patient: Yes No since a urine was unobtainable at this visit , cup and instructions given for ua to bring in in am ensure adequate fluid intake you can try a gel foam cushion for her chair , but changing position frequently is t =your best prevention -- ok for skin protectants like desitan and /or a and d / gentle carmen care qd
--- OUTSIDE RECORDS SUMMARY | 2017-12-30 19:09 | XMS REPORT ---
:1930 External Reference #:[id number] Author Organization [facility] Address [address] [place] [id number] Phone [phone] Care Team Providers Name Role Phone Enrique Bloom M.D. Care Team Information Spot Cleaner Unavailable Enrique Bloom M.D. Primary Care Physician Unavailable Payers Type Date Identification Numbers Payment Provider Subscriber Medicare Primary Effective: Policy Number: Medicare [place] Claudia Vaca 1995 [id number] PayID: [id number] [place] [address] Commercial Effective: 1998 Policy Number: 4 [facility] [place] [id number] 2ND To FAIZAN Vaca PayID: [id number] 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 Metoprolol 07/24/ Active Tablets 25mg 30tab 1 by mouth Parvin Succinate ER 2015 ER 24HR s every day Esme Mendez Escitalopram 07/24/ Active Tablets 10mg 30tab 1 by mouth Parvin Oxalate 2014 s every day Esme Mendez Aspirin / Active Tablets 325mg 1 by mouth Unknown 0000 every day Synthroid / Active Tablets 100mcg 1 by mouth Unknown 0000 every day Potassium / Active Capsules 1 by mouth a Unknown Chloride ER 0000 ER day Namenda XR 09/04/ Hx Caps ER 28mg 30cap 1 po qd F02.80 Parvin 2017 - 24HR s Andrea, 02/24/ DianaC 2016 Levothyroxine 06/05/ Hx Tablets 200mcg 90tab 1 by mouth Enrique Sodium 2015 every day M.D. 2017 Levothyroxine 06/04/ Hx Tablets 150mcg 1 by mouth Enrique Sodium 2015 - every day M.D. 2015 Levothyroxine 02/14/ Hx Tablets 200mcg 30tab 1 by mouth Enrique Sodium 2015 every day M.DJeni 2016 Augmentin 04/18/ Hx Tablets 500-125mg 14tab 1 tab by H60.8x1 Enrique 2014 - s mouth twice [place], 07/03/ day x M.D. 2016 7days Oxybutynin 04/18/ Hx Tablets 15mg 90tab 1 tab by R39.81 Enrique Chloride ER 2014 - ER 24HR s mouth every [place], M.D. 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 Pataday 09/11/2014 - Hx Solution 0.2% 1units 2 drops 372.05 [facility] 12/09/2017 twice a [place], day as M.D. needed Isosorbide 07/26/2014 - Hx Tablets ER 30mg 30tabs 1 by mouth Parvin Mononitrate ER 12/09/2017 24HR every day Esme Mendez Levothyroxine 07/24/2014 - Hx Tablets 100mcg 30tabs 1 by mouth Enrique Sodium 09/25/2014 every day Stoney Bloom Nexium 24HR 07/24/2014 - Hx Capsules DR 20mg 60caps 2 a day by 530.81 Enrique 02/24/2017 mouth Stoney Bloom Iron Supplement 07/24/2014 - Hx Tablets 325(65F 30tabs 1 by mouth Enrique 02/24/2017 e) mg every day Stoney Bloom Amlodipine 07/24/2014 - Hx Tablets 5mg 30tabs 1 by mouth Parvin Besylate 12/09/2017 every day Esme Mendez Donepezil HCL 07/24/2014 - Hx Tablets 5mg 60tabs 2 by mouth Parvin 02/24/2017 every day Esme Mendez Melatonin 07/24/2014 - Hx Capsules 1mg 60caps 2 by mouth [facility] 11/27/2015 every [place], night at M.D. bedtime Albuterol Sulfate 07/24/2014 - Hx Tablets 4mg 60tabs take one Ravi F. 02/24/2017 tablet by [facility], mouth 2 M.D. times daily Fluconazole 07/24/2014 - Hx Tablets 150mg 2tabs one tab by [facility].1 [facility] 03/22/2015 mouth [place], once, october M.D. repeat in five days Nystatin 07/24/2014 - Hx Powder [id number] 1units apply to 112.1 [facility] 11/27/2015 nit/GM affected [facility] twice M.D. a day Aspirin Low Dose 07/24/2014 - Hx Tablets 81mg 30tabs 1 once a [facility] 03/22/2015 day Stoney Bloom Isosorbide 07/24/2014 - Hx Tablets 30mg 30tabs 1 by mouth [facility] Dinitrate 07/26/2014 daily Stoney Bloom Proair HFA 07/24/2014 - Hx Aerosol 108(90B 1units 2 puffs [facility] 11/27/2015 ase) every 4-6 Wolf mcg/Act hours as M.DJeni needed Simvastatin 07/24/2014 - Hx Tablets 20mg 30tabs 1 by mouth [facility] 12/09/2017 every day Esme Mendez Loratadine 07/24/2014 - Hx Tablets 10mg 30tabs 1 by mouth [facility] 02/24/2017 every day Stoney Bloom Clopidogrel 07/24/2014 - Hx Tablets 75mg 30tabs take 1 Enrique Bisulfate 12/09/2017 tablet by [facility] once M.D. daily Acetaminophen - Hx Tablets [...] 03/22/2015 affected Dipropionate area twice a day Benadryl - Hx Tablets 25mg 2-3 po qhs Unknown 02/24/2017 Levothyroxine - Hx Tablets 100mcg 1 by mouth Unknown Sodium 12/09/2017 every day Immunizations CPT Code Status Date Vaccine Lot # [id number] Given 02/24/2017 High-Dose, Influenza Virus Vacccine-fluzone 65 and [id number] older [id number] Given 02/14/2016 Pneumococcal Conjugate Vacc-13 [id number] Given 02/14/2016 High-Dose, Influenza Virus Vacccine-fluzone 65 and [id number] older 04339 Given 03/22/2015 Influenza Vac, Quadrivalent, Slit Virus, Im [id number] Vital Signs Date Vital Result Comment 12/09/2017 BP Systolic 150 mmHg BP Diastolic [...] Test Date Test Result H/L Range Note Laboratory test finding 12/09/2017 TSH <pending> 0.5-5.0 Urinalysis Profile 09/08/2017 Urine Color Yellow Urine Appearance Clear Urine Specific Artemas 1.013 1.010-1.030 Urine pH 5.0 5-9 Urine [...] 0.77-1.02 finding Laboratory test 03/19/2017 Stool Occult Blood, SEE RESULT BELOW 8 finding Screen Laboratory test 03/18/2017 B-Type Natriuretic 26 pg/mL 9 finding Peptide BNP Lactic Acid 2.5 mmol/L High 0.5-2.0 10 Inr/Protime 03/18/2017 Inr 5.83 High 0.89-1.11 11 Laboratory test finding 03/18/2017 Partial Thrombo 40.9 seconds High 26.0- 36.3 Time PTT Type & Screen 03/18/2017 Patient [...] Egfr Non- 55.2 >60 Egfr 71.0 >60 12 Laboratory test finding 03/18/2017 Magnesium 1.6 mg/dL Low 1.9-2.7 Lipase 16 U/L 11.0-82.0 Troponin I 0.02 ng/mL <0.04 TSH (Thyroid Stim Horm) 5.48 mcIU/mL 0.34-5.60 C Reactive Protein 25.24 mg/L High < 5.00 13 Type & Screen 03/18/2017 Patient Blood Type O Positive Antibody Screen NEGATIVE Laboratory test finding 03/18/2017 Packed Cells SEE RESULTS BELO <SEE NOTE> 14 Fresh Frozen Plasma SEE RESULTS BELO <SEE NOTE> 15 Laboratory test finding 03/10/2017 Erythrocyte Sed [...] Thrombo Time 29.6 seconds 26.0 -36.3 PTT Inr/Protime 03/10/2017 Inr 1.29 High 0.89-1.11 Laboratory test finding 03/10/2017 Creatine Kinase(CK) 12 U/L 10-223 Comp Metabolic Panel 03/10/2017 Sodium 136 mmol/L [...] Egfr Non- 65.3 >60 Egfr 84.0 >60 18 Laboratory test finding 03/10/2017 B-Type Natriuretic Peptide BNP 37 pg/mL 19 Lactic Acid 1.6 mmol/L 0.5-2.0 20 Troponin I 0.01 ng/mL <0.04 Urinalysis Profile 03/10/2017 Urine Color Straw Urine Appearance Clear Urine Specific Artemas 1.006 Low 1.010-1.030 Urine pH 5.0 5-9 Urine Urobilinogen Negative Negative Urine Ketones Trace Negative Urine Protein Negative Negative Urine Leukocytes Negative Negative Urine Blood Negative Negative Urine Nitrite Negative Negative Urine Bilirubin Negative Negative Urine Glucose Negative Negative Comprehensive Metabolic Prof 02/24/2017 Sodium 137 mEq/L 134-149 Potassium 4.0 mEq/L 3.6-5.5 Chloride 101 mEq/L [...] 4.7 x10^3/UL 1.5-7.2 Lymph# 2.5 x10^3/UL 0.7-4.9 Wilson# 0.4 x10^3/UL 0.1-0.9 Gran % 61.3 % 42.2-75.2 Lymph % 33.4 % 20.5-51.1 Wilson% 5.3 % 1.7-9.3 Laboratory test finding 11/03/2016 Troponin I 0.03 ng/mL <0.04 23 Laboratory test finding 06/27/2016 Lactic Acid 1.1 mmol/L 0.5-2.0 24 CBC Auto Diff 06/27/2016 White Blood Count [...] Cells % 0 Laboratory test finding 06/27/2016 Troponin I 0.01 ng/mL <0.04 25 Comp Metabolic Panel 06/27/2016 Sodium 136 mmol/L [...] Egfr Non- 53.4 >60 Egfr 68.7 >60 26 Laboratory test finding 06/27/2016 Troponin I 0.01 ng/mL <0.04 27 Laboratory test finding 05/26/2016 Potassium Redraw 3.0 mmol/L Low 3.5- 5.0 28 Ast Redraw 18 U/L 13-39 28 CKMB 1.0 ng/mL 0.6-6.3 28, 29 CBC Auto Diff 05/26/2016 White Blood Count [...] Nucleated Red Blood Cells % 0 Inr/Protime 05/26/2016 Inr 1.29 High 0.89-1.11 Laboratory test finding 05/26/2016 Partial Thrombo Time 26.6 seconds 26.0 -36.3 PTT Comp Metabolic Panel 05/26/2016 Potassium TNP mmol/L 3.5-5.0 30 Ast TNP U/L 13-39 31 Sodium 130 mmol/L Low 133-145 Chloride 100 [...] Egfr Non- 55.4 >60 Egfr 71.2 >60 32 Laboratory test finding 05/26/2016 Creatine Kinase(CK) 47 U/L 10-223 Troponin I 0.01 ng/mL <0.04 33 Myoglobin 33.3 ng/mL 14.3-65.8 Lactic Acid 1.5 mmol/L 0.5-2.0 34 B-Type Natriuretic Peptide BNP 30 pg/mL 35 MRSA/S. aureus Blood Cult PCR SEE RESULT BELOW 36 Blood Culture SEE RESULT BELOW 37 Laboratory test finding 02/14/2016 TSH 9.04 [...] 43, 46 Comment: See Comment: 43, 47 Laboratory test finding 11/27/2015 CK 26 U/L 26-140 Lupus Anticoagulant 11/27/2015 Dilute Prothrombin 49.3 sec [...] 5.9 x10^3/UL 1.5-7.2 Lymph# 0.9 x10^3/UL 0.7-4.9 Wilson# 0.4 x10^3/UL 0.1-0.9 Gran % 80.6 % High 42.2-75.2 Lymph % 13.1 % Low 20.5-51.1 Wilson% 6.3 % 1.7-9.3 Comprehensive Metabolic Prof 11/27/2015 [...] 0-50 HDL Risk Factor 3.5 CALC 0.0-4.4 CBC Auto Diff 07/07/2015 White Blood Count [...] Color Yellow Urine Appearance Cloudy Urine Specific Artemas 1.006 Low 1.010-1.030 Urine pH 6.0 5-9 [...] 09/28/2014 Troponin I 0.02 ng/mL <0.03 61 B Type Natriuretic Peptide 126 pg/mL 62 Comp Metabolic Panel 09/28/2014 Sodium 137 mmol/L [...] Egfr Non- 48.1 >60 Egfr 61.8 >60 63 CBC Auto Diff 09/28/2014 White Blood Count [...] 0-2 Nucleated Red Blood Cells % 0 Urinalysis Profile 09/28/2014 Urine Color Yellow Urine Appearance Turbid Urine Specific Artemas 1.015 1.010-1.030 Urine pH 5.0 5-9 Urine Urobilinogen Negative Negative Urine Ketones Negative Negative Urine Protein 2+(100 mg/dL) Negative Urine Leukocytes 3+ Negative Urine Blood 1+ Negative Urine Nitrite Positive Negative Urine Bilirubin Negative Negative Urine Glucose Negative Negative Urine White Blood Cell 3+(>20/hpf) Absent Urine Red Blood Cell 3+(>10/hpf) Absent Urine Bacteria Absent Absent Laboratory test finding 09/28/2014 Troponin I 0.02 ng/mL <0.03 64 Laboratory test finding 09/11/2014 Free T4 0.98 ng/mL 0.61-1.12 Carbon Monoxide 1.6 % High 0.5-1.5 Rheumatoid Factor <15 IU/mL <15 65 CBC Auto Diff 09/11/2014 White Blood Count [...] Blood Cells % 0 Comp Metabolic Panel 09/11/2014 Sodium 138 mmol/L [...] Egfr Non- 67.7 >60 Egfr 87.1 >60 66 Laboratory test 09/11/2014 TSH (Thyroid 11.13 IU/mL High 0.34-5.60 finding Stimulating Horm) Erythrocyte Sed Rate 48 mm/Hr High 0-40 1 SEE RESULT BELOW Name: CLAUDIA MARTINEZ : [address]: Lilia Correa DO Acct: [id number] Unit: [id number] AGE: 86 Location: [place] [address] Re09/09/17 SEX: F Status: ADM IN SPEC: [id number] KAYLEN: 09/08/17-[address] [facility] [address]: Jessee Quesada MD REQ: [id number] RECD: 09/08/17-124 STATUS: RADHA OCHOA DR: Enrique Bloom MD _ SOURCE: URINE SPDESC: ORDERED: Urine Culture Procedure Result Reported Site Urine Culture Final 09/10/17- 0730 ML Organism 1 ESCHERICHIA COLI [place] Count >100,000 (Many) CFU/ML 1. ESCHERICHIA COLI [...] any additional antibiotic reporting. * ML - Main Lab . END OF REPORT DEPARTMENT OF PATHOLOGY, [address] [place] [address] Avi Nicolas M.D. Director [facility] # [id number] 2 Tufter: [id number] 3 SEE RESULT BELOW Name: CLAUDIA MARTINEZ : [address]: Jessee Quesada MD Acct: [id number] Unit: [id number] AGE: 86 Location: ED Re09/08/17 SEX: F Status: REG ER SPEC: [id number] KAYLEN: 09/08/17-[address] [facility] [address]: Jessee Quesada MD REQ: [id number] RECD: 09/08/17 STATUS: RADHA OCHOA DR: Enrique Bloom MD _ SOURCE: NASAL SPDESC: ORDERED: Flu A B Request Procedure Result Reported Site Rapid Influenza A B Request Final 09/08/17- 1213 ML Specimen received for Influenza A/B Molecular testing * ML - Main Lab . END OF REPORT DEPARTMENT OF PATHOLOGY, [address] [place] [address] Avi Nicolas M.D. Director [facility] # [id number] 4 Consistent with Previous Results Reported on 08/03/17 5 Result TnIDx:0.05 Called to PJ at: 12:23:58 by:[id number] Read back by:PJ 6 Because ethnic data [...] 5 Kidney failure <15 (or dialysis) 7 [facility] Severe Sepsis and Septic Shock Management Bundle Measure requires all lactic acids initially measuring >2.0 mmol/L be repeated. 8 SEE RESULT BELOW Name: CLAUDIA MARTINEZ : [address]: Ld Olguin MD Acct: [id number] Unit: [id number] AGE: 86 Location: ED Re03/18/17 SEX: F Status: REG ER SPEC: [id number] KAYLEN: 03/19/[address] [facility] [address]: Ld Olguin MD REQ: [id number] RECD: 03/19/17 STATUS: RADHA OCHOA DR: Enrique Bloom MD [facility] _ SOURCE: STOOL SPDESC: ORDERED: Occult Bl, Scn Procedure Result Reported Site Stool Occult Blood (1) Final 03/19/17- 0028 ML Stool Occult Blood Positive * ML - MAIN LAB ([facility]) . END OF REPORT * ML=Testing performed at Main Lab DEPARTMENT OF PATHOLOGY, [address] [place] [address] Avi Nicolas M.D. Director [facility] # [id number] 9 >100 to <200 pg/mL: likely compensated congestive heart failure (CHF) 200 to 400 pg/mL: likely moderate CHF >400 pg/mL: likely moderate to severe CHF 10 Critical Result LACT:2.5 Called to [place] [address] at: 23:42:07 by:[id number] Read back by:[id number] [facility] Severe Sepsis and Septic Shock Management Bundle Measure requires all lactic acids initially measuring >2.0 mmol/L be repeated. 11 Verbal to [place] [address] by [id number] at 2344 on 03/18/17. Results read back accurately. 12 Because ethnic data is not always readily [...] 15-29 5 Kidney failure <15 (or dialysis) 13 Acute inflammation: >10.00 14 SEE RESULTS BELOW [id number] OP PC TRANSFUSED 03/19/17 1945 [id number] OP PC TRANSFUSED 03/19/17 1623 15 SEE RESULTS BELOW [id number] AP FFP TRANSFUSED 03/19/17 1238 [id number] AP FFP TRANSFUSED 03/19/17 0956 16 Acute inflammation: >.00 17 SEE RESULT BELOW Name: CLAUDIA MARTINEZ : [address]: Jimmie Cruz MD Acct: [id number] Unit: [id number] AGE: 86 Location: [place] [address] Re03/10/17 SEX: F Status: ADM IN SPEC: [id number] KAYLEN: 03/10/[address] [facility] [address]: Nabeel Lantigua MD REQ: [id number] RECD: 03/10/17 STATUS: RES MIKELHR DR: Enrique Bloom MD _ SOURCE: BLOOD,VENO SPDESC: ORDERED: Blood Cult Procedure Result Reported Site Aerobic Culture Bottle Preliminary 03/11/17- 1928 ML No Growth Day 1 Anaerobic Culture Bottle Preliminary 03/11/17- 1928 ML No Growth Day 1 * ML - [facility] ([facility]) . END OF REPORT * ML=Testing performed at Main Lab DEPARTMENT OF PATHOLOGY, [address] [place] [address] Avi Nicolas M.D. Director [facility] # [id number] 18 Because ethnic data is not always readily [...] 15-29 5 Kidney failure <15 (or dialysis) 19 >100 to <200 pg/mL: likely compensated congestive heart failure (CHF) 200 to 400 pg/mL: likely moderate CHF >400 pg/mL: likely moderate to severe CHF 20 [facility] Severe Sepsis and Septic Shock Management Bundle Measure requires all lactic acids initially measuring >2.0 mmol/L be repeated. 21 RESULTS VERIFIED BY REPEAT ANALYSIS 22 consistent w/ previous results 23 99th percentile=0.04 ng/mL Troponin results at [facility] and [facility] are not interchangeable. 24 [facility] Severe Sepsis and Septic Shock Management Bundle Measure requires all lactic acids initially measuring >2.0 mmol/L be repeated. 25 99th percentile=0.04 ng/mL Troponin results at [facility] and [facility] are not interchangeable. 26 Because ethnic data is not always readily [...] 15-29 5 Kidney failure <15 (or dialysis) 27 99th percentile=0.04 ng/mL Troponin results at [facility] and [facility] are not interchangeable. 28 Cancelled. Specimen hemolyzed. Unable to perform test requested. Reorder for specimen recollectio 29 Cancelled. Specimen hemolyzed. Unable to perform test requested. Reorder for specimen recollection. PETER/ED was called for recollect at 2040 on 05/26/16 by [id number] 30 Specimen hemolyzed, unable to obtain accurate results. 31 Specimen hemolyzed, unable to obtain accurate results. 32 Because ethnic data is not always readily [...] 15-29 5 Kidney failure <15 (or dialysis) 33 NOTE: Critical Troponin is now >0.03 ng/mL. 99th percentile=0.04 ng/mL Troponin results at [facility] and [facility] are not interchangeable. 34 [facility] Severe Sepsis and Septic Shock Management Bundle Measure requires all lactic acids initially measuring >2.0 mmol/L be repeated. 35 >100 to <200 pg/mL: likely compensated congestive heart failure (CHF) 200 to 400 pg/mL: likely moderate CHF >400 pg/mL: likely moderate to severe CHF 36 SEE RESULT BELOW Name: ARIANNA AKBARNCLAUDIA : [address]: Lilia Correa DO Acct: [id number] Unit: [id number] AGE: 85 Location: [place] [address] Re05/26/16 SEX: F Status: ADM Jailene SPEC: [id number] KAYLEN: 05/26/[address] [facility] [address]: Theo Mills MD REQ: [id number] RECD: 05/26/16 STATUS: RES OTHR DR: Enrique Bloom MD _ SOURCE: BLOOD,VENO SPDESC: ORDERED: Blood Cult, MRSA/SA BC PCR COMMENTS: Verbal to [id number] by [id number] at 1831 on 05/27/16. Results read back accurately. Procedure Result Reported Site Aerobic Culture Bottle PENDING Anaerobic Culture Bottle PENDING MRSA/S. aureus Blood Cult PCR Final 05/27/16- 183 ML Organism 1 MRSA NEGATIVE Organism 2 S.AUREUS NEGATIVE * ML - MAIN LAB ([facility]) . END OF REPORT * ML=Testing performed at Main Lab DEPARTMENT OF PATHOLOGY, [address] [place] [address] Avi Nicolas M.D. Director [facility] # [id number] 37 SEE RESULT BELOW Name: CLAUDIA MARTINEZ : [address]: Lilia Correa DO Acct: [id number] Unit: [id number] AGE: 85 Location: [place] [address] Re05/26/16 Dis: 05/28/16 SEX: F Status: DIS IN SPEC: [id number] KAYLEN: 05/26/[address]: Theo Mills MD REQ: [id number] RECD: 05/26/16 STATUS: RADHA OCHOA DR: Enrique Bloom MD _ SOURCE: BLOOD,VENO SPDESC: ORDERED: Blood Cult Procedure Result Reported Site Aerobic Culture Bottle Final 05/31/16- 7 ML No Growth Day 5 Anaerobic Culture Bottle Final 05/31/16- 2227 ML No Growth Day 5 * ML - MAIN LAB ([facility]) . END OF REPORT * ML=Testing performed at Main Lab DEPARTMENT OF PATHOLOGY, [address] [place] [address] Avi Nicolas M.D. Director [facility] # [id number] 38 RESULTS VERIFIED BY REPEAT ANALYSIS 39 [...] 0.03 ng/mL Not supportive of diagnosis of DE 0.03 - 0.50 ng/mL Indeterminate: suggest serial studies if clinically indicated. Greater than 0.5 ng/mL Consistent with diagnosis of DE 41 Critical Result LACT:2.4 Called to KADIE at: 23:46:01 by:[id number] Read back by:KADIE DIMAS Severe Sepsis and [...] the workup for venous thrombosis include the [id number] mutation in the factor II (prothrombin) gene, protein S and C deficiency, and antithrombin deficiencies. Anticardiolipin antibody and lupus anticoagulant analysis may be appropriate for certain patients, as well as homocysteine levels. Contact your local [facility] for information on how to order additional testing if desired. 47 Genetic counselors are available for health care providers to discuss results at [phone] ([phone]). Methodology: DNA analysis of the Factor V gene was performed by allele-specific PCR. The diagnostic sensitivity and specificity is >99% for both. Molecular-based testing is highly accurate, but as in any laboratory test, diagnostic errors may occur. All test results must be combined with clinical information for the most accurate interpretation. References: Dominique Davila (1996). Clin Lab Med 16:169-186. Tammie Leonard, PhD, [facility] Casi Robles, PhD, [facility] Dora Magana, PhD, FAC Laura Salas MJeniS., PhD, FAC Guerda Monroe, PhD, [facility] Saroj Emmanuel, PhD, [facility] Kermit Rubio PhD, [facility] 48 No lupus anticoagulant was detected. 49 RESULTS VERIFIED BY REPEAT ANALYSIS 50 NON-FASTING 51 [facility] Severe Sepsis and Septic Shock Management [...] 0.03 ng/mL Not supportive of diagnosis of DE 0.03 - 0.50 ng/mL Indeterminate: suggest serial studies if clinically indicated. Greater than 0.5 ng/mL Consistent with diagnosis of DE 54 >100 to <200 pg/mL: likely compensated congestive heart failure (CHF) 200 to 400 pg/mL: likely moderate CHF >400 pg/mL: likely moderate to severe CHF 55 SEE RESULT BELOW Name: CLAUDIA MARTINEZ : [address]: Valentín Lindsay DO Acct: [id number] Unit: [id number] AGE: 84 Location: ED Re06/18/15 SEX: F Status: DEP ER SPEC: [id number] KAYLEN: 06/18/[address]: Valentín Lindsay DO REQ: [id number] RECD: 06/18/15 STATUS: RADHA OCHOA DR: Wing Bloom MD _ SOURCE: URINE SPDESC: ORDERED: Urine Culture Procedure Result Reported Site Urine Culture Final 06/21/15- 0818 ML Organism 1 ESCHERICHIA COLI [place] Count >100,000 (Many) CFU/ML 1. ESCHERICHIA COLI [...] antibiotic reporting. * ML - MAIN LAB ([facility]) . END OF REPORT * ML=Testing performed at Main Lab DEPARTMENT OF PATHOLOGY, [address] [place] [address] Avi Nicolas M.D. Director [facility] # [id number] 56 06/21/15 (Thr Jun 21) 11:19 AM ENRIQUE BLOOM treated in ER with cephelaxin 57 [facility] Severe Sepsis and Septic Shock Management Bundle Measure requires all lactic acids initially measuring >2.0mmol/L be repeated. 58 >100 to <200 pg/mL: likely compensated congestive heart failure (CHF) 200 to 400 pg/mL: likely moderate CHF >400 pg/mL: likely moderate to severe CHF 59 Reference Range and Interpretation: TnI (ng/mL) Interpretation Less Than 0.03 ng/mL Not supportive of diagnosis of DE 0.03 - 0.50 ng/mL Indeterminate: suggest serial studies if clinically indicated. Greater than 0.5 ng/mL Consistent with diagnosis of DE 60 Because ethnic data is not always [...] 0.03 ng/mL Not supportive of diagnosis of DE 0.03 - 0.50 ng/mL Indeterminate: suggest serial studies if clinically indicated. Greater than 0.5 ng/mL Consistent with diagnosis of DE 62 >100 to <200 pg/mL: likely compensated congestive heart failure (CHF) 200 to 400 pg/mL: likely moderate CHF >400 pg/mL: likely moderate to severe CHF [facility] 63 Because ethnic data is not always readily [...] 15-29 5 Kidney failure <15 (or dialysis) 64 Reference Range and Interpretation: TnI (ng/mL) Interpretation Less Than 0.03 ng/mL Not supportive of diagnosis of DE 0.03 - 0.50 ng/mL Indeterminate: suggest serial studies if clinically indicated. Greater than 0.5 ng/mL Consistent with diagnosis of DE 65 Test Performed by: [facility] [address] [address] Exhibit Designer: Ld Perdomo II, M.D., Ph.D. 66 Because ethnic data is not always readily [...] 15-29 5 Kidney failure <15 (or dialysis) Procedures Description No Information Encounters Type Date Location Provider CPT E/M Dx Office Visit 02/24/2017 2:40p [facility] Enrique Bloom M.D. 75245 F02.80 I10 E03.9 R39.81 I25.10 R63.4 Z23 Office Visit 09/04/2016 7:00p Main Office Enrique Bloom M.D. 93752 F02.80 I10 E03.8 R60.0 Office Visit 06/05/2016 5:00p Main Office Enrique Bloom M.D. 54266 F02.80 I10 E03.8 I25.10 Office Visit 02/14/2016 4:00p Main Office Enrique Bloom M.D. 28785 F02.80 I25.10 I10 E03.8 R39.81 Z23 Office Visit 11/27/2015 11:00a Main Office Ravi Dan M.D. 93120 F02.80 I25.10 Office Visit 07/03/2015 3:30p Main Office Enrique Bloom M.D. 66092 I10 R60.0 R39.81 G30.1 Office Visit 04/18/2015 4:10p [facility] Enrique Bloom M.D. 50658 H60.8x1 I10 R60.0 R39.81 Office Visit 03/22/2015 6:20p Main Office Enrique Bloom M.D. [id number] I10 I25.2 E78.2 R60.0 B37.2 Z23 L82.1 G30.1 Z12.31 Office Visit 09/11/2014 1:10p [facility] Enrique Bloom M.D. 25110 112.1 [phone] [phone] Office Visit 07/24/2014 1:00p [facility] Enrique Bloom M.D. 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
--- NOTE | 2017-12-30 19:11 | ED ---
GI/ HPI - HPI Summary HPI Summary: This is ever Najerain documenting for attending Dr. Sandra Azar MD. A 87 y/o female LEXY presents to ED s/p black and tarry stool. Currently, the patient stated that she feels fine and is in no pain, however, does feel hungry. According to the patient's aid, the patient had a bowel movement around 1600 where another vocational education professional noticed a dark/black, tarry stool. Additionally, it was a large bowel movement. Her son called EMS around 1630 - 1700 because he was concerned. Pt denies any abdominal pain, dizziness and SOB, however again she noted that she was hungry. It was noted that the patient is not sure of her normal stool color, but the aid noted that she did exhibit green stool last week. Additionally, she noted that the patient's behavior has not changed at all , as she saw the patient doing her normal routine activities such as sitting at her chair and reading. She stated that the patient normally does not have a bowel movement everyday. It was noted that the patient has difficulty hearing and is able to ambulate with a walker. Additionally, the patient had a snack at 1500, however dinner was started but she did not get to eat. 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 In the ED room, the patient had a pulse of 61 BPM, O2 saturation of 97% and blood pressure of 159/63. - History of Current Complaint Chief Complaint: EDGIBleed Stated Complaint: BLOOD IN STOOL Hx Obtained From: Patient Onset/Duration: Started Hours Ago - Black tarry stool around 1600 Current Severity: None Pain Intensity: 0 Associated Signs and Symptoms: Positive: Black Tarry Stool Additional Signs & Symptoms: Positive: Other: - None. Patient feels fine. Aggravating Factor(s): Nothing Alleviating Factor(s): Nothing - Additional Pertinent History Primary Care Physician: [id number] - Allergy/Home Medications Allergies/Adverse Reactions: Allergies Allergy/AdvReac Type Severity Reaction Status Date / Time Sulfa (Sulfonamide Allergy Severe Hives Verified 09/08/17 12:13 Antibiotics) Home Medications: Home Medications Calcium Carbonate [Calcium] 500 mg PO DAILY 12/30/17 [History Confirmed 12/30/17 ] Melatonin (NF) 3 mg PO BEDTIME 12/30/17 [History Confirmed 12/30/17] Metoprolol Tartrate TAB* [Lopressor TAB*] 12.5 mg PO QAM 12/30/17 [History Confirmed 12/30/17] Potassium Chlor TAB* [Klor Con ER TAB*] 20 meq PO QAM 12/30/17 [History Confirmed 12/30/17] PMH/Surg Hx/FS Hx/Imm Hx Endocrine/Hematology History: Reports: Hx Anticoagulant Therapy - plavix, Hx Thyroid Disease Denies: Hx Diabetes Cardiovascular History: Reports: Hx Angina, Hx Congestive Heart Failure, Hx Coronary Artery Disease, Hx Deep Vein Thrombosis, Hx Hypercholesterolemia, Hx Hypertension, Hx Peripheral Vascular Disease, Other Cardiovascular Problems/ Disorders - HEART MURMUR, CAD, PVD, DVT. Denies: Hx Pacemaker/ICD Respiratory History: Reports: Hx Asthma GI History: Reports: Hx Gastroesophageal Reflux Disease History: Reports: Other Problems/Disorders - solitary congenital kidney Denies: Hx Renal Disease Musculoskeletal History: Reports: Hx Back Problems Denies: Hx Arthritis, Hx Osteoporosis Sensory History: Reports: Hx Contacts or Glasses, Hx Vision Problem, Hx Hearing Problem Denies: Hx Cataracts, Hx Glaucoma, Hx Hearing Aid Opthamlomology History: Reports: Hx Contacts or Glasses, Hx Vision Problem Denies: Hx Cataracts, Hx Glaucoma Neurological History: Reports: Hx Dementia Denies: Hx Seizures, Other Neuro Impairments/Disorders Psychiatric History: Reports: Hx Anxiety, Hx Depression Denies: Hx Substance Abuse - Surgical History Surgery Procedure, Year, and Place: appendectomy per pt. cholecystectomy per H& P Hx Anesthesia Reactions: No - Immunization History Date of Tetanus Vaccine: unable to obtain Date of Influenza Vaccine: unkown Immunizations Up to Date: Yes Infectious Disease History: No Infectious Disease History: Reports: Hx Clostridium Difficile, Hx of Known/ Suspected MRSA Denies: Hx Human Immunodeficiency Virus (HIV), Traveled Outside the [place] in Last 30 Days - Family History Known Family History: Positive: Cardiac Disease, Other - Dementia (mother) Family History: CAD - Social History Alcohol Use: Occasionally Alcohol Amount: One glass of gin Hx Substance Use: No Substance Use Type: Reports: None Hx Tobacco Use: No Smoking Status (MU): Never Smoked Tobacco Review of Systems Negative: Fever Negative: Shortness Of Breath Positive: Other - POSITIVE: Black tarry stool at 1600.. Negative: Abdominal Pain Neurological: Other - NEGATIVE: Dizziness All Other Systems Reviewed And Are Negative: Yes Physical Exam - Summary Physical Exam Summary: Appearance: Well-appearing, Well-nourished. Skin: Warm Eyes: Normal ENT: Normal Neck: Supple, nontender Respiratory: Clear to auscultation Cardiovascular: Regular rate, regular rhythm. Normal S1, S2. Abdomen: Soft, nontender Musculoskeletal: Normal, Strength/ROM Intact Neurological: Normal, A&Ox3 Psychiatric: Normal General: No acute distress. Patient is completely normal and has no complaints. Triage Information Reviewed: Yes Vital Signs On Initial Exam: Initial Vitals Temp Pulse Resp BP Pulse Ox 98.4 F 60 16 137/88 96 12/30/17 18:23 12/30/17 18:23 12/30/17 18:23 12/30/17 18:23 12/30/17 18:23 Vital Signs Reviewed: Yes Diagnostics - Vital Signs Vital Signs Temp Pulse Resp BP Pulse Ox 12/30/17 18:23 98.4 F 60 16 137/88 96 - Laboratory Result Diagrams: 12/30/17 19:45 12/30/17 19:45 Lab Statement: Any lab studies that have been ordered have been reviewed, and results considered in the medical decision making process. - CT CT A/P CT Interpretation Completed By: Radiologist - No acute findings. Minimal dependent atelectasis at bilateral lung bases. Small hiatel hernia. Re-Evaluation - Re-Evaluation Second Eval Re-Evaluation Time: 20:48 Change: Unchanged Comment: Patient still feels fine. GIGU Course/Dx - Course Course Of Treatment: H&H stable, Hgb is 11.9, previous Hgb was 8-9. Pt no longer has any more episodes of black tarry stools. CT of Abd& Pelvis Neg for any pelvic pathology. Advised f/u with GI if black tarry stools perisist - Diagnoses Provider Diagnoses: Black tarry stools Discharge - Sign-Out/Discharge Documenting (check all that apply): Patient Departure - DISCHARGE - Discharge Plan Condition: Stable Disposition: HOME Patient Education Materials: Melena (ED) Referrals: Hiral Bloom MD [Primary Care Provider] - 2 Days (FOLLOW UP WITH PRIMARY CARE PHYSICIAN IN 2-3 DAYS. ) Additional Instructions: RETURN TO ED FOR ANY NEW OR WORSENING SYMPTOMS. - Billing Disposition and Condition Condition: STABLE Disposition: Home
[2017-12-30 19:54] LABS: ABS Basophils 0 10^3/ul (0-0.2); ABS Eosinophils 0.5 10^3/ul (0-0.6); ABS Lymphocytes 1.1 10^3/ul (1.0-4.8); ABS Monocytes 0.5 10^3/ul (0-0.8); ABS Neutrophils 3.9 10^3/ul (1.5-7.7); ABS Nucleated RBC 0 10^3/ul; Eosinophil % 8.9 % (0-6); Hematocrit 36 % (35-47); Hemoglobin 11.9 g/dl (12.0-16.0); Lymphocyte % 18.6 % (25-47); Mean Corpuscular HGB Conc 33 g/dl (31-36); Mean Corpuscular Hemoglobin 28 pg (27-31); Mean Corpuscular Volume 86 fL (80-97); Nucleated Red Blood Cells % 0.1; Platelet Count 378 10^3/ul (150-450); Red Blood Count 4.22 10^6/ul (4.00-5.40); Red Cell Distribution Width 20 % (10.5-15); White Blood Count 6.1 10^3/ul (3.5-10.8)
[2017-12-30 20:02] LABS: INR 1.43 (0.77-1.02)
[2017-12-30 23:11] VITALS: BP 122/73
--- NOTE | 2017-12-31 09:03 | RAD ---
CLINICAL HISTORY: GIB, blood in stool COMPARISON: None TECHNIQUE: Multiple contiguous axial CT scans were obtained of the chest, abdomen, and pelvis, without intravenous contrast enhancement. Coronal and sagittal multiplanar reformations are submitted for review.. Oral contrast was not administered. FINDINGS: The study is limited by the lack of intravenous contrast. This limits evaluation of the solid organs and vasculature. Evaluation of the chest is limited by metallic jewelry. CHEST NECK AND THYROID: The lower neck and thyroid are unremarkable. CHEST WALL: There is no lower cervical, axillary, or supraclavicular lymphadenopathy by size criteria. HEART AND PERICARDIUM: Coronary and valvular cardiac calcifications are noted. AORTA AND PULMONARY VASCULATURE: There is calcification of the thoracic aorta. The pulmonary vasculature is unremarkable. MEDIASTINUM: There is no mediastinal lymphadenopathy by size criteria. ANALIA: There is no hilar lymphadenopathy by size criteria. AIRWAY AND ESOPHAGUS: The airway is unremarkable, without endobronchial filling defect. The esophagus is grossly normal. LUNG PARENCHYMA: There is minimal dependent atelectasis of the lung bases. PLEURA: No pleural abnormalities are noted. BONES AND SOFT TISSUES: There is diffuse osteopenia. Degenerative changes are noted. ABDOMEN/PELVIS: LIVER: The liver is normal in shape, size, contour, and attenuation. BILE DUCTS: There is no intrahepatic or extrahepatic biliary dilatation. GALLBLADDER: The gallbladder is not visualized. Surgical clips are noted in the gallbladder fossa. PANCREAS: The pancreas is normal, without mass or ductal dilatation. SPLEEN: Normal in size and appearance. UPPER GI TRACT: Evaluation of the gastrointestinal tract is limited by incomplete gastric distention. There is a small sliding hiatal hernia. SMALL BOWEL & MESENTERY: The small bowel is normal in contour, course, and caliber. There is no obstruction or dilatation. COLON: The colon is normal in contour, course, caliber. There is no pericolonic inflammatory change. ADRENALS: Normal bilaterally. KIDNEYS: The patient appears to be status post right nephrectomy. There is no appreciable hydronephrosis or nephrolithiasis on the left. BLADDER: The bladder is smooth in contour. PELVIC ORGANS: The uterus and adnexa are grossly normal for technique. AORTA: There is calcific atherosclerotic disease of the abdominal aorta and its branches, without aneurysmal dilatation IVC: Unremarkable LYMPH NODES: There is no lymphadenopathy by size criteria. ABDOMINAL WALL: There is no evidence for abdominal wall hernia. BONES AND SOFT TISSUES: There is diffuse osteopenia. Degenerative changes are noted of the spine and hips. OTHER: None IMPRESSION: 1. SMALL HIATAL HERNIA. 2. ATHEROSCLEROSIS. 3. NO ACUTE CT PATHOLOGY OF THE VISUALIZED CHEST, ABDOMEN, OR PELVIS. R0
== END 2017-12-30 23:11 | disposition home or self-care (01) ==
LOC: ED 18:11
DX: K92.1 Melena (principal); K44.9 Diaphragmatic hernia without obstruction or gangrene; I70.0 Atherosclerosis of aorta; I25.119 Atherosclerotic heart disease of native coronary artery with unspecified angina pectoris; I11.0 Hypertensive heart disease with heart failure; Z88.2 Allergy status to sulfonamides; Z82.49 Family history of ischemic heart disease and other diseases of the circulatory system; Z81.8 Family history of other mental and behavioral disorders
CPT/HCPCS: 36415; 74176; 80053; 85025; 85610; 85730; 99282

== ENCOUNTER → 2018-05-19 19:36 | Emergency (ER) | payer SELFPAY ==
--- NOTE | 2018-05-19 21:01 | ED ---
Neurological HPI - HPI Summary HPI Summary: A 87 y/o female brought in by ambulance accompanied by family and home care nurse presents to the ED s/p confusion and weakness. The patient has dementia. In the ED room, the patient has a pulse of 66 BPM, O2 saturation of 89 BPM, and blood pressure of 192/92. As per triage, "87 years old female with hx of dementia BIBA ALS for increased confuson, and weakness as reported by family. Negative [place] in the EMS, fs of 112. Pt is alert to place and person". According to the patient, she needed to go to the hospital and was brought here because she was sick and nauseated. She stated that she feels fine now. She denies any fever, abdominal pain, cough and chest pain. As per caregiver and son , for the past coupe days, the evening caregiver stated that she has increased her sleep quite a bit. She is consistently sleeping all the time. Around 1630 - 1700, she got the patient up out of bed and found that she was very weak. She also stated, "please help me" and was very confused. The caregiver noted that she has not been her normal self as she has been working with her since November 2017. As per son, hand pleater stated that she was fine and was not weak. The patient got up to go to the bathroom and was very active. The son noted that she has been confused a lot more lately but he thought it was just dementia. He did also hear her say "please help me, help me" when he got home. She also told her son that she felt nauseated and was in plan but did not locate the pain. When EMS arrived, she stated that she was okay. The son thinks she is okay but a little off. - History of Current Complaint Chief Complaint: EDGeneral Stated Complaint: GENERAL ILLNESS Time Seen by Provider: 05/19/18 20:02 Hx Obtained From: Patient, Family/Board Runner - Son and homecare. Hx From Patient Unobtainable Due To: Dementia Onset/Duration: Sudden Onset, Started hours ago, Resolved Timing: Constant Current Severity: None Number of Seizures: 0 Pain Intensity: 0 Pain Scale Used: 0-10 Numeric Syncope Timin Number of Episodes: 0 Aggravating: Nothing Alleviating: Nothing Associated Signs and Symptoms: Positive: Confusion, Weakness - Additional Pertinent History Primary Care Physician: OLLIE - Allergy/Home Medications Allergies/Adverse Reactions: Allergies Allergy/AdvReac Type Severity Reaction Status Date / Time Sulfa (Sulfonamide Allergy Severe Hives Verified 09/08/17 12:13 Antibiotics) PMH/Surg Hx/FS Hx/Imm Hx Endocrine/Hematology History: Reports: Hx Anticoagulant Therapy - plavix, Hx Thyroid Disease Denies: Hx Diabetes Cardiovascular History: Reports: Hx Angina, Hx Congestive Heart Failure, Hx Coronary Artery Disease, Hx Deep Vein Thrombosis, Hx Hypercholesterolemia, Hx Hypertension, Hx Peripheral Vascular Disease, Other Cardiovascular Problems/ Disorders - HEART MURMUR, CAD, PVD, DVT. Denies: Hx Pacemaker/ICD Respiratory History: Reports: Hx Asthma GI History: Reports: Hx Gastroesophageal Reflux Disease History: Reports: Other Problems/Disorders - solitary congenital kidney Denies: Hx Renal Disease Musculoskeletal History: Reports: Hx Back Problems Denies: Hx Arthritis, Hx Osteoporosis Sensory History: Reports: Hx Contacts or Glasses, Hx Vision Problem, Hx Hearing Problem Denies: Hx Cataracts, Hx Glaucoma, Hx Hearing Aid Opthamlomology History: Reports: Hx Contacts or Glasses, Hx Vision Problem Denies: Hx Cataracts, Hx Glaucoma Neurological History: Reports: Hx Dementia Denies: Hx Seizures, Other Neuro Impairments/Disorders Psychiatric History: Reports: Hx Anxiety, Hx Depression Denies: Hx Substance Abuse - Surgical History Surgery Procedure, Year, and Place: appendectomy per pt. cholecystectomy per H& P Hx Anesthesia Reactions: No - Immunization History Date of Tetanus Vaccine: unable to obtain Date of Influenza Vaccine: unkown Infectious Disease History: No Infectious Disease History: Reports: Hx Clostridium Difficile, Hx of Known/ Suspected MRSA Denies: Hx Human Immunodeficiency Virus (HIV), Traveled Outside the [place] in Last 30 Days - Family History Known Family History: Positive: Cardiac Disease, Other - Dementia (mother) Family History: CAD - Social History Alcohol Use: Occasionally Alcohol Amount: One glass of gin Hx Substance Use: No Substance Use Type: Reports: None Hx Tobacco Use: No Smoking Status (MU): Never Smoked Tobacco Review of Systems Negative: Fever Neurological: Other - POSITIVE: CONFUSION Positive: Weakness All Other Systems Reviewed And Are Negative: Yes Physical Exam - Summary Physical Exam Summary: Appearance: Well-appearing, Well-nourished, lying in bed comfortably Skin: Warm, dry, no obvious rash Eyes: sclera anicteric, no conjunctival pallor ENT: mucous membranes moist, pharynx appears normal Neck: Supple, nontender Respiratory: Clear to auscultation, no signs of respiratory distress Cardiovascular: Normal S1, S2. No murmurs. Normal distal pulses in tibial and radial bilaterally. Abdomen: Soft, nontender, normal active bowel sounds present Musculoskeletal: Normal, Strength/ROM Intact Neurological: A&Ox3, awake and alert, mentation is normal, speech is fluent and appropriate Psychiatric: affect is normal, does not appear anxious or depressed Triage Information Reviewed: Yes Vital Signs On Initial Exam: Initial Vitals Temp Pulse Resp BP Pulse Ox 98.6 F 88 18 192/92 98 05/19/18 19:41 05/19/18 19:41 05/19/18 19:41 05/19/18 19:41 05/19/18 19:41 Vital Signs Reviewed: Yes Diagnostics - Vital Signs Vital Signs Temp Pulse Resp BP Pulse Ox 05/19/18 20:42 65 33 95 05/19/18 20:40 61 18 181/88 96 05/19/18 19:41 98.6 F 88 18 192/92 98 - Laboratory Result Diagrams: 05/19/18 21:02 05/19/18 21:02 Lab Statement: Any lab studies that have been ordered have been reviewed, and results considered in the medical decision making process. - EKG 2025 Cardiac Rate: Bradycardia - 58 BPM EKG Rhythm: Sinus Bradycardia - 58 BPM Summary of EKG Findings: Sinus bradycardia at 58 BPM, P waves, QRS complex, and T waves are within normal limits, T waves and intervals are normal, no ischemic changes. Course/Dx - Course Course Of Treatment: A 87 y/o female brought in by ambulance accompanied by family and home care nurse presents to the ED s/p confusion and weakness. The patient has dementia. In the ED room, the patient has a pulse of 66 BPM, O2 saturation of 89 BPM, and blood pressure of 192/92. As per triage, "87 years old female with hx of dementia BIBA ALS for increased confuson, and weakness as reported by family. Negative [place] in the EMS, fs of 112. Pt is alert to place and person". According to the patient, she needed to go to the hospital and was brought here because she was sick and nauseated. She stated that she feels fine now. She denies any fever, abdominal pain, cough and chest pain. As per caregiver and son, for the past coupe days, the evening caregiver stated that she has increased her sleep quite a bit. She is consistently sleeping all the time. Around 1630 - 1700, she got the patient up out of bed and found that she was very weak. She also stated, "please help me" and was very confused. The caregiver noted that she has not been her normal self as she has been working with her since November 2017. As per son, hand pleater stated that she was fine and was not weak. The patient got up to go to the bathroom and was very active. The son noted that she has been confused a lot more lately but he thought it was just dementia. He did also hear her say "please help me, help me " when he got home. She also told her son that she felt nauseated and was in plan but did not locate the pain. When EMS arrived, she stated that she was okay. The son thinks she is okay but a little off. Physical examination was unremarkable. No laboratory scans were done. Sinus bradycardia at 58 BPM, P waves, QRS complex, and T waves are within normal limits, T waves and intervals are normal, no ischemic changes. Hematology was done. Labs were unsignificant. In the ED course, the patient recieved no medications. Patient will be signed out to Dr. Paras Vyas via Dr. Shahid Wang, pending labs and disposition, upon shift change on 05/19/2018 at 2200. Discharge - Sign-Out/Discharge Documenting (check all that apply): Sign-Out Patient - IDALIA Signing out patient TO: Paras Vyas Receiving patient FROM: Shahid Wang - Discharge Plan Condition: Stable Referrals: Hiral Bloom MD [Primary Care Provider] - - Attestation Statements Document Initiated by Baoe: Yes Documenting Scribe: Sander Ibarra Provider For Whom Vishnu is Documenting (Include Credential): Shahid Wang MD [place] Attestation: Sander Bansal, scribed for Shahid Wang MD on 05/19/18 at 2148. Status of Scribe Document: Ready
[2018-05-19 21:17] LABS: ABS Basophils 0.1 10^3/ul (0-0.2); ABS Eosinophils 0.2 10^3/ul (0-0.6); ABS Lymphocytes 1.1 10^3/ul (1.0-4.8); ABS Monocytes 0.6 10^3/ul (0-0.8); ABS Neutrophils 2.9 10^3/ul (1.5-7.7); ABS Nucleated RBC 0 10^3/ul; Hematocrit 40 % (35-47); Lymphocyte % 21.6 %; Mean Corpuscular HGB Conc 33 g/dl (31-36); Mean Corpuscular Hemoglobin 30 pg (27-31); Mean Corpuscular Volume 91 fL (80-97); Nucleated Red Blood Cells % 0; Platelet Count 352 10^3/ul (150-450); Red Blood Count 4.36 10^6/ul (4.00-5.40); Red Cell Distribution Width 15 % (10.5-15); White Blood Count 4.9 10^3/ul (3.5-10.8)
[2018-05-19 21:36] LABS: EGFR Non-African American 60.9 (>60)
[2018-05-20 00:02] LABS: Urine Appearance Cloudy; Urine Blood Negative (Negative); Urine Color Yellow; Urine Ketones Negative (Negative); Urine Protein Negative (Negative); Urine Red Blood Cell Trace(0-2/hpf) (Absent); Urine Specific Gravity 1.012 (1.010-1.030); Urine Urobilinogen Negative (Negative); Urine White Blood Cell Trace(0-5/hpf) (Absent)
--- NOTE | 2018-05-20 00:23 | ED ---
Progress - Progress Note Progress Note: Patient was signed out from Dr. Wang upon shift change pending UA and disposition. Course/Dx - Course Course Of Treatment: A 87 y/o female brought in by ambulance accompanied by family and home care nurse presents to the ED s/p confusion and weakness. Patient signed out from Dr. Wang upon shift change pending UA. Patient will be discharged home with follow up from PCP. Patient is agreeable with this plan. - Diagnoses Provider Diagnoses: Confusion, Dementia Discharge - Sign-Out/Discharge Documenting (check all that apply): Receiving Sign-Out Receiving patient FROM: Shahid Wang - Upon shift change pending UA - Discharge Plan Condition: Stable Patient Education Materials: Dementia (ED) Referrals: Hiral Bloom MD [Primary Care Provider] - 2 Days Additional Instructions: RETURN TO THE EMERGENCY DEPARTMENT FOR NEW OR WORSENING SYMPTOMS - Attestation Statements Document Initiated by Scribe: Yes Documenting Scribe: Indu Ruth Provider For Whom Scribe is Documenting (Include Credential): Dr. Paras Vyas MD Scribe Attestation: I, Indu Ruth, scribed for Dr. Paras Vyas MD on 05/20/18 at 0025. Status of Scribe Document: Ready
[2018-05-20 00:45] VITALS: BP 154/86
== END | disposition home or self-care (01) ==
LOC: ED 19:36
DX: R41.0 Disorientation, unspecified (principal); F03.90 Unspecified dementia, unspecified severity, without behavioral disturbance, psychotic disturbance, mood disturbance, and anxiety
CPT/HCPCS: 36415; 80053; 81003; 81015; 83605; 83735; 84443; 84484; 85025; 87077; 87086; 87186; 93005; 99283

== ENCOUNTER 2018-06-10 12:43 | Observation (INO) | payer MEDICARE, OTHER ==
--- OUTSIDE RECORDS SUMMARY | 2018-06-10 13:04 | XMS REPORT ---
:1930 External Reference #:[id number] Author Organization [facility] Address [address] [place] [address] Phone [phone] Care Team Providers Name Role Phone Enrique Bloom M.D. Care Team Information Voice Studies Director Unavailable Enrique Bloom M.D. Primary Care Physician Unavailable Payers Type Date Identification Numbers Payment Provider Subscriber Medicare Primary Effective: Policy Number: Medicare [place] Claudia Davila 1996 [id number] PayID: [id number] [address] [place] [address] Commercial Effective: 1998 Policy Number: 4 [facility] [place] [id number] 2ND To FAIZAN Davila PayID: [id number] [address] [place] [address] Problems Date Description Provider Status Onset: 07/19/2014 [...] non-contributory Social History Type Date Description Comments Lives With Son Cigarette Use Never Smoked Cigarettes ETOH Use Occasional Smoking Nonsmoker Allergies, Adverse Reactions, Alerts Date Description Reaction Status Severity Comments 07/24/2014 Sulfa active Medications Medication Date Status Form Strength Qnty SIG Indications Ordering Provider Ranitidine HCL 05/31 Active Tablets 150mg 180ta 1 tab by bs mouth twice , a day M.DJeni Fluconazole 05/31 Active Tablets 150mg 2tabs one tab by mouth once, October repeat M.DJeni in five days Cetirizine HCL 02/17 Active Tablets 10mg 90tab 1 by mouth J30.9 s every day Stoney Bloom Depend 12/15 Active Misc 1Box use as daily Indu Hamm Protection as needed Katherin Francisco 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 Metoprolol Active Tablets 12.5mg once daily Unknown Tartrate /0000 Potassium Active Tablets 20Meq 90tab 1 by mouth Ravi F. Chloride ER /0000 ER s twice a day Stoney Dan Melatonin Active Tablets 3mg 30tab 1 by mouth Ravi F. /0000 s every night Shallish, at bedtime M.DJnei Xarelto Active Tablets 15mg 90tab 1 by mouth Ravi F. /0000 s every day Stoney Dan Levothyroxine Active Tablets 100mcg 90tab 1 by mouth Ravi F. Sodium / s every day Stoney Dan Cephalexin Active Capsules 500mg 1 by mouth Unknown /0000 three times daily . Nitrofurantoin 12/31 Hx Capsules 100mg 14cap 1 by mouth Stuart A. Monohydrate/Mac s two times a idalmis Cotaystals - day M.D. 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 12/09 Levothyroxine 06/04 Hx Tablets 150mcg 1 by mouth Enrique Sodium /2015 every day [place], - M.D. 06/05 Levothyroxine 02/14 Hx Tablets 200mcg 30tab 1 by mouth Enrique Sodium /2015 s every day [place], - M.D. 06/04 Augmentin 04/18 Hx Tablets 500-125mg 14tab 1 tab by H60.8x1 Enrique /2014 s mouth twice [place], - a day x M.D. 07/03 7d Oxybutynin 04/18 Hx Tablets 15mg 90tab 1 tab by R39.81 Enrique Chloride ER /2014 ER 24HR s mouth every [place], - day M.D. 12/09 Wheelchair With 03/22 Hx wide wheel R60.0 Usha Leg Rest /2014 chair with [facility], - leg rest BRICK SIDING APPLICATOR 11/26 G30.1 Furosemide 03/22/2015 - Hx Tablets 20mg 60tabs take 2 R60.0 Enrique 12/09/2017 tablet by [place], mouth M.D. every day as needed Levothyroxine 09/25/2014 - Hx Tablets 150mcg 30tabs 1 by mouth Enrique Sodium 02/15/2016 every day Stoney Bloom Advair HFA 09/11/2014 - Hx Aerosol 230-21m 1units 1 puff 493.10 [facility] 11/27/2015 cg/Act twice a [place], day M.DJeni Pataday 09/11/2014 - Hx Solution 0.2% 1units 2 drops 372.05 [facility] 12/09/2017 twice a [place], day as M.DJeni needed Isosorbide 07/26/2014 - Hx Tablets ER [...] 20mg 60caps 2 a day by 530.81 [facility] 02/24/2017 nelson Bloom M.D. Iron Supplement 07/24/2014 - Hx Tablets 325(65F 30tabs 1 by mouth [facility] 02/24/2017 e) mg every day Stoney Bloom Amlodipine 07/24/2014 - Hx Tablets 5mg 30tabs 1 by mouth Parvin Besylate 12/09/2017 every day Esme Mendez Donepezil HCL 07/24/2014 - Hx Tablets 5mg 60tabs 2 by mouth Parvin 02/24/2017 every day Esme Mendez Melatonin 07/24/2014 - Hx Capsules 1mg 60caps 2 by mouth [facility] 11/27/2015 every [place], night at M.D. bedtime Albuterol Sulfate 07/24/2014 - Hx Tablets 4mg 60tabs take one Ravi F. 02/24/2017 tablet by [place] mouth 2 M.D. times daily Fluconazole 07/24/2014 - Hx Tablets 150mg 2tabs one tab by 112.1 [facility] 03/22/2015 nelson Bloom, once, october M.DJeni repeat in five days Nystatin 07/24/2014 - Hx Powder [id number] 1units apply to 112.1 [facility] 11/27/2015 nit/GM affected [place], area twice M.D. a day Aspirin Low Dose 07/24/2014 - Hx Tablets 81mg 30tabs 1 once a Enrique 03/22/2015 day Stoney Bloom Isosorbide 07/24/2014 - Hx Tablets 30mg 30tabs 1 by mouth Enrique Dinitrate 07/26/2014 daily Stoney Bloom Proair HFA 07/24/2014 - Hx Aerosol 108(90B 1units 2 puffs [facility] 11/27/2015 ase) every 4-6 Wolf mcg/Act hours as M.D. needed Simvastatin 07/24/2014 - Hx Tablets 20mg 30tabs 1 by mouth Parvin 12/09/2017 every day Esme Mendez Loratadine 07/24/2014 - Hx Tablets 10mg 30tabs 1 by mouth [facility] 02/24/2017 every day Stoney Bloom Escitalopram 07/24/2014 - Hx Tablets 10mg 30tabs 1 by mouth Parvin Oxalate 12/29/2017 every day Esme Mendez Clopidogrel 07/24/2014 - Hx Tablets 75mg 30tabs take 1 Enrique Bisulfate 12/09/2017 tablet by [place], mouth once M.D. daily Acetaminophen - Hx [...] CPT Code Status Date Vaccine Lot # [id number] Given 05/31/2018 High-Dose, Influenza Virus Vacccine-fluzone 65 and [id number] older 79439 Given 02/24/2017 High-Dose, Influenza Virus Vacccine-fluzone 65 and [id number] older 79650 Given 02/14/2016 Pneumococcal Conjugate Vacc-13 [id number] Given 02/14/2016 High-Dose, Influenza Virus Vacccine-fluzone 65 and [id number] older 94398 Given 03/22/2015 Influenza Vac, Quadrivalent, Slit Virus, Im [id number] Vital Signs Date Vital Result Comment 05/31/2018 BP Systolic 130 mmHg BP Diastolic 74 mmHg Heart Rate 68 /min Body Temperature 98.3 F Respiratory Rate 17 /min Weight 159.00 lb 02/17/2018 BP Systolic 102 mmHg BP Diastolic 60 mmHg Heart Rate 60 /min Body Temperature 98.1 F Respiratory Rate 18 /min O2 % BldC Oximetry 98 % 12/29/2017 BP Systolic 118 mmHg BP Diastolic [...] Test Date Test Result H/L Range Note Comp Metabolic Panel 05/19/2018 Sodium 137 mmol/L 135-145 Potassium 4.3 mmol/L 3.5-5.0 Chloride 105 mmol/L 101-111 Co2 Carbon Dioxide 28 mmol/L 22-32 Anion Gap 4 mmol/L 2-11 Calcium 9.3 mg/dL 8.6-10.3 Albumin 3.5 g/dL 3.2-5.2 Total Bilirubin 0.40 mg/dL 0.2-1.0 Glucose 87 mg/dL 70-100 Blood Urea Nitrogen 18 mg/dL 6-24 Creatinine 0.88 mg/dL 0.51-0.95 BUN/Creatinine Ratio 20.5 High 8-20 Total Protein 7.2 g/dL 6.4-8.9 Globulin 3.7 g/dL 2-4 Albumin/Globulin Ratio 0.9 Low 1-3 Alkaline Phosphatase 80 U/L 34-104 Alt 11 U/L 7-52 Ast 14 U/L 13-39 Egfr Non- 60.9 >60 Egfr 73.7 >60 1 Laboratory test finding 05/19/2018 Magnesium 2.0 mg/dL 1.9-2.7 Troponin I 0.00 ng/mL <0.04 2 TSH (Thyroid Stim Horm) 0.46 mcIU/mL 0.34-5.60 Lactic Acid 0.8 mmol/L 0.5-2.0 3 CBC Auto Diff 05/19/2018 White Blood Count 4.9 10^3/uL 3.5-10.8 Red Blood Count 4.36 10^6/uL 4.00-5.40 Hemoglobin 13.0 g/dL 12.0-16.0 Hematocrit 40 % 35-47 Mean Corpuscular Volume 91 fL 80-97 Mean Corpuscular Hemoglobin 30 pg 27-31 Mean Corpuscular HGB Conc 33 g/dL 31-36 Red Cell Distribution Width 15 % 10.5-15 Platelet Count 352 10^3/uL 150-450 Mean Platelet Volume 8.0 fL 7.4-10.4 Abs Neutrophils 2.9 10^3/uL 1.5-7.7 Abs Lymphocytes 1.1 10^3/uL 1.0-4.8 Abs Monocytes 0.6 10^3/uL 0-0.8 Abs Eosinophils 0.2 10^3/uL 0-0.6 Abs Basophils 0.1 10^3/uL 0-0.2 Abs Nucleated RBC 0 10^3/uL Granulocyte % 59.2 % Lymphocyte % 21.6 % Monocyte % 12.3 % Eosinophil % 5.0 % Basophil % 1.9 % Nucleated Red Blood Cells % 0 Urinalysis Profile 05/19/2018 Urine Color Yellow Urine Appearance Cloudy Urine Specific [place] 1.012 1.010-1.030 Urine pH 6.0 5-9 Urine Urobilinogen Negative Negative Urine Ketones Negative Negative Urine Protein Negative Negative Urine Leukocytes Trace Negative Urine Blood Negative Negative * * Negative 4 Urine Nitrite Positive Negative Urine Bilirubin Negative Negative Urine Glucose Negative Negative Urine White Blood Cell Trace(0-5/hpf) Absent Urine Red Blood Cell Trace(0-2/hpf) Absent Urine Bacteria 1+ Absent Urine Squamous Epithelial Cell Present Absent Urine Culture And Sensitivities 05/19/2018 Urine Culture SEE RESULT BELOW 5 Ua - Micro (Fma) 12/30/2017 Appearance slightly cloudy Color yellow Glucose, Urine (Fma/CMC/CTX) negative Bilirubin negative Ketones negative SP Grav 1.015 Blood negative PH 5.0 Protein negative Urobil 0.2 Nitrite positive Leukocytes (Fma/CMC/Centrex) negative Hyaline - /Lpf Granular - /Lpf WBC (Fma,Centrex) 2-3 RBC 0-2 Mucus - /Lpf Epith rare /Lpf Bacteria 4+ /Hpf Amorphous - /Lpf Crystals, Fluid (Fma/CMC/CTX) - Z#Comments - Urine Culture And 12/30/2017 Urine Culture SEE RESULT BELOW 6 Sensitivities Comp Metabolic Panel 12/30/2017 Albumin 3.4 g/dL 3.2-5.2 Total Bilirubin 0.30 mg/dL 0.2-1.0 Sodium 137 mmol/L 135-145 Potassium 4.3 mmol/L 3.5-5.0 Chloride 106 mmol/L 101-111 Co2 Carbon Dioxide 25 mmol/L 22-32 Anion Gap 6 mmol/L 2-11 Glucose 95 mg/dL 70-100 Blood Urea Nitrogen 24 mg/dL 6-24 Creatinine 0.78 mg/dL 0.51-0.95 BUN/Creatinine Ratio 30.8 High 8-20 Calcium 9.1 mg/dL 8.6-10.3 Total Protein 7.0 g/dL 6.4-8.9 Globulin 3.6 g/dL 2-4 Albumin/Globulin Ratio 0.9 Low 1-3 Alkaline Phosphatase 85 U/L 34-104 Alt 14 U/L 7-52 Ast 16 U/L 13-39 Egfr Non- 70.0 >60 Egfr 84.7 >60 7 CBC Auto Diff 12/30/2017 White Blood Count 6.1 10^3/uL 3.5-10.8 Red Blood Count 4.22 10^6/uL 4.00-5.40 Hemoglobin 11.9 g/dL Low 12.0-16.0 Hematocrit 36 % 35-47 Mean Corpuscular Volume 86 fL 80-97 Mean Corpuscular Hemoglobin 28 pg 27-31 Mean Corpuscular HGB Conc 33 g/dL 31-36 Red Cell Distribution Width 20 % High 10.5-15 Platelet Count 378 10^3/uL 150-450 Mean Platelet Volume 8.0 um3 7.4-10.4 Abs Neutrophils 3.9 10^3/uL 1.5-7.7 Abs Lymphocytes 1.1 10^3/uL 1.0-4.8 Abs Monocytes 0.5 10^3/uL 0-0.8 Abs Eosinophils 0.5 10^3/uL 0-0.6 Abs Basophils 0 10^3/uL 0-0.2 Abs Nucleated RBC 0 10^3/uL Granulocyte % 64.1 % 38-83 Lymphocyte % 18.6 % Low 25-47 Monocyte % 8.0 % High 0-7 Eosinophil % 8.9 % High 0-6 Basophil % 0.4 % 0-2 Nucleated Red Blood Cells % 0.1 Laboratory test finding 12/30/2017 Partial Thrombo Time 35.0 seconds 26.0 -36.3 PTT Inr/Protime 12/30/2017 Inr 1.43 High 0.77-1.02 CBC Electronic Fma 12/09/2017 WBC 5.7 x10^3/UL 4.0-10.0 RBC 4.22 x10^6/UL 3.93-6.00 HGB 11.4 g/dL Low 12.0-17.0 HCT 36 % 35-50 MCV 86.3 fL 80.0-95.0 MCH 27.0 pg 25.6-32.2 MCHC 32.2 g/dL 32.2-36.0 RDW-CV 20.0 % High 11.6-14.4 PLT 363 x10^3/UL 163-400 MPV 10.4 fL 9.4-12.4 B[place]# 3.37 x10^3/UL 1.56-6.13 Lymph# 1.32 x10^3/UL 1.18-3.74 [place]# 0.50 x10^3/UL 0.24-0.82 Eos # 0.4 x10^3/UL 0.0-0.5 Baso # 0.10 x10^3/UL High 0.01-0.08 [place]% 58.9 % 34.0-70.0 Lymph % 23.0 % 20.0-52.0 [place]% 8.7 % 5.0-12.0 Eos% 7.5 % High 0.7-7.0 Baso% 1.7 % High 0.1-1.2 Laboratory test finding 12/09/2017 TSH 0.94 mIU/L 0.50-6.00 Laboratory test finding 09/08/2017 Ferritin < 10.0 ng/mL Low 11-307 Iron & Iron Binding Capacity 09/08/2017 Iron 21 g/dL Low 50-212 Unsaturated Iron Binding 312 g/dL Total Iron Binding Capacity 333 g/dL 250-450 Transferrin 238 mg/dL 203-362 % Iron Saturation 6 % Low 15-55 Laboratory test finding 09/08/2017 Lactic Acid 1.9 mmol/L 0.5-2.0 8 TSH (Thyroid Stim Horm) 0.31 mcIU/mL Low 0.34-5.60 Comp Metabolic Panel 09/08/2017 Sodium 139 mmol/L [...] Egfr Non- 68.2 >60 Egfr 87.7 >60 9 Laboratory test finding 09/08/2017 Partial Thrombo Time 39.3 seconds High 26.0-36.3 PTT Troponin I 0.05 ng/mL High <0.04 10 Inr/Protime 09/08/2017 Inr 2.46 High 0.77-1.02 CBC Auto Diff 09/08/2017 White Blood Count 9.0 10^3/uL 3.5-10.8 Red Blood Count 4.72 10^6/uL 4.0-5.4 Hemoglobin 10.8 g/dL Low 12.0-16.0 Hematocrit 35 % 35-47 Mean Corpuscular Volume 74 fL Low 80-97 11 Mean Corpuscular Hemoglobin 23 pg Low 27-31 [...] Red Blood Cells % 0 Laboratory test 09/08/2017 Rapid Influenza A & SEE RESULT BELOW 12 finding B Antigen Rapid Influenza A & B 09/08/2017 Influenza A NEGATIVE Negative 13 Molecular Molecular Influenza B Molecular NEGATIVE Negative Laboratory test finding 09/08/2017 Urine Culture And SEE RESULT BELOW 14 Sensitivities Urinalysis Profile 09/08/2017 Urine Color Yellow Urine Appearance Clear Urine Specific [place] 1.013 1.010-1.030 Urine pH 5.0 5-9 Urine Urobilinogen Negative Negative Urine Ketones Negative Negative Urine Protein Negative Negative Urine Leukocytes Negative Negative Urine Blood Negative Negative Urine Nitrite Positive Negative Urine Bilirubin Negative Negative Urine Glucose Negative Negative Urine White Blood Cell Absent Absent Urine Red Blood Cell Absent Absent Urine Bacteria Absent Absent Laboratory test 07/22/2017 Inr/Protime 2.42 High 0.77-1.02 finding Laboratory test 03/19/2017 Stool Occult Blood, SEE RESULT BELOW 15 finding Screen Laboratory test 03/18/2017 Packed Cells SEE RESULTS BELO 16 finding <SEE NOTE> Fresh Frozen Plasma SEE RESULTS BELO <SEE NOTE> 17 Type & Screen 03/18/2017 Patient Blood Type O Positive Antibody Screen NEGATIVE Laboratory test finding 03/18/2017 Magnesium 1.6 mg/dL Low 1.9-2.7 Lipase 16 U/L 11.0-82.0 Troponin I 0.02 ng/mL <0.04 TSH (Thyroid Stim Horm) 5.48 mcIU/mL 0.34-5.60 C Reactive Protein 25.24 mg/L High < 5.00 18 Comp Metabolic Panel 03/18/2017 Sodium 135 mmol/L [...] Egfr Non- 55.2 >60 Egfr 71.0 >60 19 Type & Screen 03/18/2017 Patient Blood Type O Positive Antibody Screen NEGATIVE Laboratory test 03/18/2017 Partial Thrombo Time 40.9 seconds High 26.0- 36.3 finding PTT Inr/Protime 03/18/2017 Inr 5.83 High 0.89-1.11 20 Laboratory test 03/18/2017 B-Type Natriuretic 26 pg/mL 21 finding Peptide BNP Lactic Acid 2.5 mmol/L High 0.5-2.0 22 Laboratory test finding 03/10/2017 Erythrocyte Sed Rate 53 mm/Hr High 0- 40 C Reactive Protein 86.17 mg/L High < 5.00 23 TSH (Thyroid Stim Horm) 2.19 mcIU/mL 0.34-5.60 Blood Culture SEE RESULT BELOW 24 CBC Auto Diff 03/10/2017 White Blood Count [...] Egfr Non- 65.3 >60 Egfr 84.0 >60 25 Laboratory test finding 03/10/2017 B-Type Natriuretic Peptide BNP 37 pg/mL 26 Lactic Acid 1.6 mmol/L 0.5-2.0 27 Troponin I 0.01 ng/mL <0.04 Urinalysis Profile 03/10/2017 Urine Color Straw Urine Appearance Clear Urine Specific [place] 1.006 Low 1.010-1.030 Urine pH 5.0 5-9 [...] g/dL 6.4-8.3 Albumin 3.5 g/dL Low 3.8-5.5 28 Globulin 3.5 g/dL 2.0-4.8 A/G Ratio 1.0 CALC 0.6-2.3 Alk. Phosphatase 83 U/L 30-110 Alt (SGPT) 9 U/L 7-35 Ast (Sgot) 17 U/L 5-34 Total Bilirubin 0.5 mg/dL 0.2-1.3 GFR Non- >60 ml/min/1.73m^ >=60 GFR >60 ml/min/1.73m^ >=60 Laboratory test finding 02/24/2017 Free T4 1.25 ng/dL 0.75-1.54 TSH 9.22 mIU/L High 0.50-6.00 29 Complete Blood Count 02/24/2017 WBC 7.6 x10^3/UL 3.6-9.6 RBC 4.50 x10^6/UL 3.90-5.70 HGB 13.5 g/dL 12.1-17.2 HCT 40 % 36-50 MCV 89.0 fL 82.2-97.4 MCH 30.0 pg 27.6-33.3 MCHC 33.7 g/dL 33.0-35.5 RDW 14.8 % High 11.6-13.7 PLT 327 x10^3/UL 150-400 MPV 6.6 fL Low 7.4-10.4 Gran # 4.7 x10^3/UL 1.5-7.2 Lymph# 2.5 x10^3/UL 0.7-4.9 [place]# 0.4 x10^3/UL 0.1-0.9 Gran % 61.3 % 42.2-75.2 Lymph % 33.4 % 20.5-51.1 [place]% 5.3 % 1.7-9.3 Laboratory test finding 11/03/2016 Troponin I 0.03 ng/mL <0.04 30 Laboratory test finding 06/27/2016 Lactic Acid 1.1 mmol/L 0.5-2.0 31 CBC Auto Diff 06/27/2016 White Blood Count [...] finding 06/27/2016 Troponin I 0.01 ng/mL <0.04 32 Comp Metabolic Panel 06/27/2016 Sodium 136 mmol/L [...] Egfr Non- 53.4 >60 Egfr 68.7 >60 33 Laboratory test finding 06/27/2016 Troponin I 0.01 ng/mL <0.04 34 Laboratory test finding 05/26/2016 Potassium Redraw 3.0 mmol/L Low 3.5- 5.0 35 Ast Redraw 18 U/L 13-39 35 CKMB 1.0 ng/mL 0.6-6.3 35, 36 CBC Auto Diff 05/26/2016 White Blood Count [...] Metabolic Panel 05/26/2016 Potassium TNP mmol/L 3.5-5.0 37 Ast TNP U/L 13-39 38 Sodium 130 mmol/L Low 133-145 Chloride 100 [...] Egfr Non- 55.4 >60 Egfr 71.2 >60 39 Laboratory test finding 05/26/2016 Creatine Kinase(CK) 47 U/L 10-223 Troponin I 0.01 ng/mL <0.04 40 Myoglobin 33.3 ng/mL 14.3-65.8 Lactic Acid 1.5 mmol/L 0.5-2.0 41 B-Type Natriuretic Peptide BNP 30 pg/mL 42 MRSA/S. aureus Blood Cult PCR SEE RESULT BELOW 43 Blood Culture SEE RESULT BELOW 44 Laboratory test finding 02/14/2016 TSH 9.04 mIU/L High 0.50-6.00 45 Free T4 0.92 ng/dL 0.75-1.54 Comprehensive Metabolic [...] >=60 GFR >60 ml/min/1.73m^ >=60 CBC Electronic (Fma) 02/14/2016 WBC 5.6 3.6-9.6 RBC 4.53 3.90-5.70 [...] Egfr Non- 42.8 >60 Egfr 55.0 >60 46 Potassium 3.7 mmol/L 3.5-5.0 Anion Gap 10 mmol/L 2-11 Ast 17 U/L 13-39 Laboratory test finding 01/07/2016 Lipase 13 U/L 11.0-82.0 Troponin I 0.02 ng/mL <0.03 47 CKMB 01/07/2016 CKMB ng/mL 0.8 ng/mL 0.6-6.3 Laboratory test finding 01/07/2016 Lactic Acid 2.4 mmol/L High 0.5-2.0 48 B Type Natriuretic Peptide 28 pg/mL 49 Anticardiolipin AB, 11/27/2015 Anticardiolipin <9 GPLU/mL 0-14 50, 51 Igg/Igm Ab,IgG,Qn Anticardiolipin Ab,IgM,Qn 9 MPLU/mL 0-12 50, 52 Factor V Leiden Mutation 11/27/2015 Factor V Leiden See Comment: 50, 53 Comment: See Comment: 50, 54 Laboratory test finding 11/27/2015 CK 26 U/L 26-140 Lupus Anticoagulant 11/27/2015 Dilute Prothrombin 49.3 sec 0.0-55.0 50 Comprehensive Time(dPT) dPT Confirm Ratio 0.91 Ratio 0.00-1.40 50 Thrombin Time 18.1 sec 0.0-20.0 50 PTT-LA 35.0 sec 0.0-50.0 50 dRVVT 33.4 sec 0.0-55.1 50 Lupus Reflex Interpretation Comment: 50, 55 Protein C Ag & Protein S Ag 11/27/2015 Protein C Antigen 87 % 70-140 50 Protein S, Total 142 % 58-150 50 Protein S, Free 89 % 56-124 50 Antithrombin Deficiency Profile 11/27/2015 Antithrombin Activity 91 % 75- 135 50 (At3) Antithrombin Antigen 93 % 75-130 50 Laboratory test finding 11/27/2015 Vitamin B-12 319 pg/mL 230-1050 TSH 8.54 mIU/L High 0.50-6.00 56 Vitamin D25 12 Low 30-100 Complete Blood Count 11/27/2015 WBC 7.2 x10^3/UL 3.6-9.6 RBC 4.52 x10^6/UL 3.90-5.70 HGB 14.1 g/dL 12.1-17.2 HCT 43 % 36-50 MCV 94.0 fL 82.2-97.4 MCH 31.3 pg 27.6-33.3 MCHC 33.2 g/dL 33.0-35.5 RDW 15.1 % High 11.6-13.7 PLT 335 x10^3/UL 150-400 MPV 8.3 fL 7.4-10.4 Gran # 5.9 x10^3/UL 1.5-7.2 Lymph# 0.9 x10^3/UL 0.7-4.9 [place]# 0.4 x10^3/UL 0.1-0.9 Gran % 80.6 % High 42.2-75.2 Lymph % 13.1 % Low 20.5-51.1 [place]% 6.3 % 1.7-9.3 Comprehensive Metabolic Prof 11/27/2015 Sodium 138 mEq/L 134-149 Potassium 3.8 mEq/L 3.6-5.5 Chloride 97 mEq/L 94-112 Carbon Dioxide 28 mEq/L 21-32 Glucose 108 mg/dL High 70-105 57 BUN 22 mg/dL 6-26 Creatinine 1.1 mg/dL [...] finding 07/07/2015 Lactic Acid 0.7 mmol/L 0.5-2.0 58 Inr/Protime 07/07/2015 Inr 1.25 High 0.89-1.11 Laboratory [...] Egfr Non- 52.3 >60 Egfr 67.3 >60 59 Laboratory test finding 07/07/2015 Creatine Kinase 31 U/L 10-223 Troponin I 0.00 ng/mL <0.03 60 CKMB 07/07/2015 CKMB ng/mL 1.3 ng/mL 0.6-6.3 Laboratory test finding 07/07/2015 B Type Natriuretic Peptide 44 pg/mL 61 TSH (Thyroid Stim Horm) 26.76 ?IU/mL High 0.34-5.60 T3 Free 2.90 pg/mL 2.5-3.9 Free T4 (Free Thyroxine) 0.48 ng/mL Low 0.61-1.12 Urinalysis Profile 06/18/2015 Urine Color Yellow Urine Appearance Cloudy Urine Specific [place] 1.006 Low 1.010-1.030 Urine pH 6.0 5-9 [...] test 06/18/2015 Urine Culture And SEE RESULT 62, 63 finding Sensitivities BELOW CBC Auto Diff 06/18/2015 [...] finding 06/18/2015 Lactic Acid 1.1 mmol/L 0.5-2.0 64 B Type Natriuretic Peptide 45 pg/mL 65 Troponin I 0.01 ng/mL <0.03 66 Comp Metabolic Panel 06/18/2015 Sodium 139 mmol/L [...] Egfr Non- 62.2 >60 Egfr 80.0 >60 67 Laboratory test finding 06/18/2015 Magnesium 1.8 mg/dL Low 1.9-2.7 Creatine Kinase 36 U/L 10-223 Laboratory test finding 09/28/2014 Troponin I 0.02 ng/mL <0.03 68 B Type Natriuretic Peptide 126 pg/mL 69 Comp Metabolic Panel 09/28/2014 Sodium 137 mmol/L [...] Egfr Non- 48.1 >60 Egfr 61.8 >60 70 CBC Auto Diff 09/28/2014 White Blood Count [...] Color Yellow Urine Appearance Turbid Urine Specific [place] 1.015 1.010-1.030 Urine pH 5.0 5-9 Urine [...] finding 09/28/2014 Troponin I 0.02 ng/mL <0.03 71 Laboratory test finding 09/11/2014 Free T4 0.98 ng/mL 0.61-1.12 Carbon Monoxide 1.6 % High 0.5-1.5 Rheumatoid Factor <15 IU/mL <15 72 CBC Auto Diff 09/11/2014 White Blood Count [...] Egfr Non- 67.7 >60 Egfr 87.1 >60 73 Laboratory test 09/11/2014 TSH (Thyroid 11.13 IU/mL High 0.34-5.60 finding Stimulating Horm) Erythrocyte Sed Rate 48 mm/Hr High 0-40 1 Because ethnic data is not always readily [...] 15-29 5 Kidney failure <15 (or dialysis) 2 Troponin-I testing on Plasma Separator Tubes (PST) has a known false positive rate of 0.20-0.40%. All positive troponins reflex immediate secondary confirmatory testing. 3 [facility] Severe Sepsis and Septic Shock Management Bundle Measure requires all lactic acids initially measuring >2.0 mmol/L be repeated. 4 *Ascorbic acid is present which may interfere with detection of blood. 5 SEE RESULT BELOW Name: CLAUDIA MARTINEZ : [address]: Shahid Wang MD Acct: [id number] Unit: [id number] AGE: 87 Location: ED Re05/19/18 SEX: F Status: REG ER SPEC: [id number] KAYLEN: 05/19/18 [facility] DR: Shahid Wang MD REQ: [id number] RECD: 05/19/18 STATUS: RADHA OCHOA DR: Peter Bloom MD _ SOURCE: URINE SPDES: ORDERED: Urine Culture Procedure Result Reported Site Urine Culture Final 05/22/18- 0831 ML Organism 1 ESCHERICHIA COLI [place] Count >100,000 (Many) CFU/ML 1. ESCHERICHIA COLI [...] . END OF REPORT DEPARTMENT OF PATHOLOGY, [address] [place] [address] Avi Nicolas M.D. Director [facility] # [id number] 6 SEE RESULT BELOW Name: CLAUDIA MARTINEZ : [address]: Parvin Mendez SALES APPRENTICE Acct: [id number] Unit: [id number] AGE: 87 Location: [facility] Re12/30/17 SEX: F Status: REG REF SPEC: [id number] KAYLEN: 12/30/[address]: Parvin Mendez SALES APPRENTICE REQ: [id number] RECD: 12/30/17 STATUS: COMP _ SOURCE: URINE SPDESC: ORDERED: Urine Culture COMMENTS: [id number] 1 [facility] urine vacutainer Urine Source: Random Procedure Result Reported Site Urine Culture Final 01/01/18- 0859 ML Organism 1 ESCHERICHIA COLI [place] Count >100,000 (Many) CFU/ML 1. ESCHERICHIA COLI [...] . END OF REPORT DEPARTMENT OF PATHOLOGY, [address] [place] [address] Avi Nicolas M.D. Director [facility] # [id number] 7 Because ethnic data is not always readily [...] 15-29 5 Kidney failure <15 (or dialysis) 8 [facility] Severe Sepsis and Septic Shock Management Bundle Measure requires all lactic acids initially measuring >2.0 mmol/L be repeated. 9 Because ethnic data is not always readily [...] 15-29 5 Kidney failure <15 (or dialysis) 10 Result TnIDx:0.05 Called to PJ at: 12:23:58 by:[id number] Read back by: PJ 11 Consistent with Previous Results Reported on 08/03/17 12 SEE RESULT BELOW Name: CLAUDIA MARTINEZ : [address]: Jessee Quesada MD Acct: [id number] Unit: [id number] AGE: 86 Location: ED Re09/08/17 SEX: F Status: REG ER SPEC: [id number] KAYLEN: 09/08/17 [facility] DR: Jessee Quesada MD REQ: [id number] RECD: 09/08/17 STATUS: ARDHA OCHOA DR: Enrique Bloom MD _ SOURCE: NASAL SPDESC: ORDERED: Flu A B Request Procedure Result Reported Site Rapid Influenza A B Request Final 09/08/171212 ML Specimen received for Influenza A/B Molecular testing * ML - Main Lab . END OF REPORT DEPARTMENT OF PATHOLOGY, [address] [place] [id number] Avi Nicolas M.D. Director [facility] # [id number] Lead Nuclear Medicine Technologist: [id number] SEE RESULT BELOW Name: CLAUDIA MARTINEZ : [address]: Lilia Correa DO Acct: [id number] Unit: [id number] AGE: 86 Location: [place] [address] Re09/09/17 SEX: F Status: ADM IN SPEC: [id number] KAYLEN: 09/08/171 [facility] DR: Jessee Quesada MD REQ: [id number] RECD: 09/08/17 STATUS: RADHA OCHOA DR: Enrique Bloom MD _ SOURCE: URINE SPDESC: ORDERED: Urine Culture Procedure Result Reported Site Urine Culture Final 09/10/17- 729 ML Organism 1 ESCHERICHIA COLI [place] Count >100,000 (Many) CFU/ML 1. ESCHERICHIA COLI [...] . END OF REPORT DEPARTMENT OF PATHOLOGY, [address] [place] [address] Avi Nicolas M.D. Director [facility] # [id number] 15 SEE RESULT BELOW Name: CLAUDIA MARTINEZ : [address]: Ld Olguin MD Acct: [id number] Unit: [id number] AGE: 86 Location: ED Re03/18/17 SEX: F Status: REG ER SPEC: [id number] KAYLEN: 03/19/17 [facility] DR: Ld Olguin MD REQ: [id number] RECD: 03/19/17 STATUS: RADHA OCHOA DR: Enrique Bloom MD [facility] _ SOURCE: STOOL SPDESC: ORDERED: Occult Bl, Scn Procedure Result Reported Site Stool Occult Blood (1) Final 03/19/17- 27 ML Stool Occult Blood Positive * ML - MAIN LAB ([facility]) . END OF REPORT * ML=Testing performed at Main Lab DEPARTMENT OF PATHOLOGY, [address] [place] [address] Avi Nicolas M.D. Director [facility] # [id number] 16 SEE RESULTS BELOW [id number] OP PC TRANSFUSED 03/19/17 1945 [id number] OP PC TRANSFUSED 03/19/17 1623 17 SEE RESULTS BELOW [id number] AP FFP TRANSFUSED 03/19/17 1238 [id number] AP FFP TRANSFUSED 03/19/17 0956 18 Acute inflammation: >10.00 19 Because ethnic data is not always readily [...] 15-29 5 Kidney failure <15 (or dialysis) 20 Verbal to [id number] by [id number] at 2344 on 03/18/17. Results read back accurately. 21 >100 to <200 pg/mL: likely compensated congestive heart failure (CHF) 200 to 400 pg/mL: likely moderate CHF >400 pg/mL: likely moderate to severe CHF 22 Critical Result LACT:2.5 Called to [id number] at: 23:42:07 by:[id number] Read back by:[id number] [facility] Severe Sepsis and Septic Shock Management Bundle Measure requires all lactic acids initially measuring >2.0 mmol/L be repeated. 23 Acute inflammation: >10.00 24 SEE RESULT BELOW Name: CLAUDIA MARTINEZ : [address]: Jimmie Cruz MD Acct: [id number] Unit: [id number] AGE: 86 Location: [place] [address] Re03/10/17 SEX: F Status: ADM IN SPEC: [id number] KAYLEN: 03/10/[address]: Nabeel Lantigua MD REQ: [id number] RECD: 03/10/17 STATUS: RES OTHR DR: Enrique Bloom MD _ SOURCE: BLOOD,VENO SPDESC: ORDERED: Blood Cult Procedure Result Reported Site Aerobic Culture Bottle Preliminary 03/11/17- 1928 ML No Growth Day 1 Anaerobic Culture Bottle Preliminary 03/11/171928 ML No Growth Day 1 * ML - MAIN LAB ([facility]) . END OF REPORT * ML=Testing performed at Main Lab DEPARTMENT OF PATHOLOGY, [address] [place] [address] Avi Nicolas M.D. Director [facility] # [id number] 25 Because ethnic data is not always [...] 5 Kidney failure <15 (or dialysis) 26 >100 to <200 pg/mL: likely compensated congestive heart failure (CHF) 200 to 400 pg/mL: likely moderate CHF >400 pg/mL: likely moderate to severe CHF 27 [facility] Severe Sepsis and Septic Shock Management Bundle Measure requires all lactic acids initially measuring >2.0 mmol/L be repeated. 28 RESULTS VERIFIED BY REPEAT ANALYSIS 29 consistent w/ previous results 30 99th percentile=0.04 ng/mL Troponin results at [facility] and [facility] are not interchangeable. 31 [facility] Severe Sepsis and Septic Shock Management Bundle Measure requires all lactic acids initially measuring >2.0 mmol/L be repeated. 32 99th percentile=0.04 ng/mL Troponin results at [facility] and [facility] are not interchangeable. 33 Because ethnic data is not always readily [...] 15-29 5 Kidney failure <15 (or dialysis) 34 99th percentile=0.04 ng/mL Troponin results at [facility] and [facility] are not interchangeable. 35 Cancelled. Specimen hemolyzed. Unable to perform test requested. Reorder for specimen recollectio 36 Cancelled. Specimen hemolyzed. Unable to perform test requested. Reorder for specimen recollection. PETER/ED was called for recollect at 2040 on 05/26/16 by [id number] 37 Specimen hemolyzed, unable to obtain accurate results. 38 Specimen hemolyzed, unable to obtain accurate results. 39 Because ethnic data is not always [...] 5 Kidney failure <15 (or dialysis) 40 NOTE: Critical Troponin is now >0.03 ng/mL. 99th percentile=0.04 ng/mL Troponin results at [facility] and [facility] are not interchangeable. 41 [facility] Severe Sepsis and Septic Shock Management Bundle Measure requires all lactic acids initially measuring >2.0 mmol/L be repeated. 42 >100 to <200 pg/mL: likely compensated congestive heart failure (CHF) 200 to 400 pg/mL: likely moderate CHF >400 pg/mL: likely moderate to severe CHF 43 SEE RESULT BELOW Name: ARIANNA CLAUDIA DAVILA : [address]: Lilia Correa DO Acct: [id number] Unit: [id number] AGE: 85 Location: [place] [address] Re05/26/16 SEX: F Status: ADM Jailene SPEC: [id number] KAYLEN: 05/26/16 [facility] DR: Theo Mills MD REQ: [id number] RECD: 05/26/16 STATUS: RES OTHR DR: Enrique Bloom MD _ SOURCE: BLOOD,VENO SPDESC: ORDERED: Blood Cult, MRSA/SA BC PCR COMMENTS: Verbal to [id number] by [id number] at 1831 on 05/27/16. Results read back accurately. Procedure Result Reported Site Aerobic Culture Bottle PENDING Anaerobic Culture Bottle PENDING MRSA/S. aureus Blood Cult PCR Final 05/27/16- 1830 ML Organism 1 MRSA NEGATIVE Organism 2 S.AUREUS NEGATIVE * ML - MAIN LAB ([facility]) . END OF REPORT * ML=Testing performed at Main Lab DEPARTMENT OF PATHOLOGY, [address] [place] [address] Avi Nicolas M.D. Director [facility] # [id number] 44 SEE RESULT BELOW Name: CLAUDIA MARTINEZ : [address]: Lilia Correa DO Acct: [id number] Unit: [id number] AGE: 85 Location: [facility] 440-01 Re05/26/16 Dis: 05/28/16 SEX: F Status: DIS IN SPEC: [id number] KAYLEN: 05/26/16 [facility] DR: Theo Mills MD REQ: [id number] RECD: 05/26/16 STATUS: RADHA OCHOA DR: Enrique Bloom MD _ SOURCE: BLOOD,VENO SPDESC: ORDERED: Blood Cult Procedure Result Reported Site Aerobic Culture Bottle Final 05/31/16- 2226 ML No Growth Day 5 Anaerobic Culture Bottle Final 05/31/16- 2226 ML No Growth Day 5 * ML - MAIN LAB ([facility]) . END OF REPORT * ML=Testing performed at Main Lab DEPARTMENT OF PATHOLOGY, [address] [place] [address] Avi Nicolas M.D. Director [facility] # [id number] 45 RESULTS VERIFIED BY REPEAT ANALYSIS 46 Because ethnic data is not always readily [...] 15-29 5 Kidney failure <15 (or dialysis) 47 Reference Range and Interpretation: TnI (ng/mL) Interpretation Less Than 0.03 ng/mL Not supportive of diagnosis of [place] 0.03 - 0.50 ng/mL Indeterminate: suggest serial studies if clinically indicated. Greater than 0.5 ng/mL Consistent with diagnosis of [place] 48 Critical Result LACT:2.4 Called to [id number] at: 23:46:01 by:[email or web address] Read back by:[id number] [facility] Severe Sepsis and Septic Shock Management Bundle Measure requires all lactic acids initially measuring >2.0 mmol/L be repeated. 49 >100 to <200 pg/mL: likely compensated congestive heart failure (CHF) 200 to 400 pg/mL: likely moderate CHF >400 pg/mL: likely moderate to severe CHF 50 SPLIT SPECIMEN 51 Negative: <15 Indeterminate: 15 - 20 Low-Med Positive: >20 - 80 High Positive: >80 52 Negative: <13 Indeterminate: 13 - 20 Low-Med Positive: >20 - 80 High Positive: >80 53 Result: Negative (no mutation found) Factor V [...] the workup for venous thrombosis include the [id number] mutation in the factor II (prothrombin) gene, protein S and C deficiency, and antithrombin deficiencies. Anticardiolipin antibody and lupus anticoagulant analysis may be appropriate for certain patients, as well as homocysteine levels. Contact your local [facility] for information on how to order additional testing if desired. 54 Genetic counselors are available for health care providers to discuss results at [phone]). Methodology: DNA analysis of the Factor V gene was performed by allele-specific PCR. The diagnostic sensitivity and specificity is >99% for both. Molecular-based testing is highly accurate, but as in any laboratory test, diagnostic errors may occur. All test results must be combined with clinical information for the most accurate interpretation. References: Dominique Davila (1996). Clin Lab Med 16:169-186. aTmmie Leonard, PhD, FAC Casi Robles, PhD, FAC Dora Magana, PhD, FAC Laura Saals MJeniSJeni, PhD, FAC Guerda Monroe, PhD, FAC Saroj Emmanuel, PhD, FAC Kermit Rubio PhD, FACMG 55 No lupus anticoagulant was detected. 56 RESULTS VERIFIED BY REPEAT ANALYSIS 57 NON-FASTING 58 [facility] Severe Sepsis and Septic Shock Management Bundle Measure requires all lactic acids initially measuring >2.0mmol/L be repeated. 59 Because ethnic data is not always readily [...] 15-29 5 Kidney failure <15 (or dialysis) 60 Reference Range and Interpretation: TnI (ng/mL) Interpretation Less Than 0.03 ng/mL Not supportive of diagnosis of [place] 0.03 - 0.50 ng/mL Indeterminate: suggest serial studies if clinically indicated. Greater than 0.5 ng/mL Consistent with diagnosis of [place] 61 >100 to <200 pg/mL: likely compensated congestive heart failure (CHF) 200 to 400 pg/mL: likely moderate CHF >400 pg/mL: likely moderate to severe CHF 62 SEE RESULT BELOW Name: CLAUDIA MARTINEZ : [address]: Valentín Lindsay DO Acct: [id number] Unit: [id number] AGE: 84 Location: ED Re06/18/15 SEX: F Status: DEP ER SPEC: [id number] KAYLEN: 06/18/1515[address]: Valentín Lindsay DO REQ: [id number] RECD: 06/18/15 STATUS: COMP OTHR DR: Wing Bloom MD _ SOURCE: URINE [facility]: ORDERED: Urine Culture Procedure Result Reported Site Urine Culture Final 06/21/15- 817 ML Organism 1 ESCHERICHIA COLI [place] Count >100,000 (Many) CFU/ML 1. ESCHERICHIA COLI [...] antibiotic reporting. * ML - MAIN LAB ([facility]) . END OF REPORT * ML=Testing performed at Main Lab DEPARTMENT OF PATHOLOGY, [address] [place] [address] Avi Nicolas M.D. Director [facility] # [id number] 63 06/21/15 (Thr Jun 21) 11:19 AM ENRIQUE BLOOM treated in ER with cephelaxin 64 [facility] Severe Sepsis and Septic Shock Management Bundle Measure requires all lactic acids initially measuring >2.0mmol/L be repeated. 65 >100 to <200 pg/mL: likely compensated congestive heart failure (CHF) 200 to 400 pg/mL: likely moderate CHF >400 pg/mL: likely moderate to severe CHF 66 Reference Range and Interpretation: TnI (ng/mL) Interpretation Less Than 0.03 ng/mL Not supportive of diagnosis of [place] 0.03 - 0.50 ng/mL Indeterminate: suggest serial studies if clinically indicated. Greater than 0.5 ng/mL Consistent with diagnosis of [place] 67 Because ethnic data is not always readily [...] 15-29 5 Kidney failure <15 (or dialysis) 68 Reference Range and Interpretation: TnI (ng/mL) Interpretation Less Than 0.03 ng/mL Not supportive of diagnosis of [place] 0.03 - 0.50 ng/mL Indeterminate: suggest serial studies if clinically indicated. Greater than 0.5 ng/mL Consistent with diagnosis of [place] 69 >100 to <200 pg/mL: likely compensated congestive heart failure (CHF) 200 to 400 pg/mL: likely moderate CHF >400 pg/mL: likely moderate to severe CHF [facility] 70 Because ethnic data is not always readily [...] 15-29 5 Kidney failure <15 (or dialysis) 71 Reference Range and Interpretation: TnI (ng/mL) Interpretation Less Than 0.03 ng/mL Not supportive of diagnosis of [place] 0.03 - 0.50 ng/mL Indeterminate: suggest serial studies if clinically indicated. Greater than 0.5 ng/mL Consistent with diagnosis of [place] 72 Test Performed by: [place] [address] Piping Blocker: Ld Perdomo II, M.D., Ph.D. 73 Because ethnic data is not always readily [...] 5 Kidney failure <15 (or dialysis) Procedures Date CPT Code Description Status 02/17/2018 97534 Pulse Oximetry Completed Encounters Type Date Location Provider CPT E/M Dx Office Visit 02/17/2018 2:30p [facility] Indu RobleroJeni Francisco, FREYA 76089 J30.9 R05 Office Visit 12/29/2017 4:15p Main Office Parvin MendezYuniel-C 21495 R30.0 R23.8 Office Visit 12/09/2017 1:30p [facility] Indu RobleroJeni Francisco, FREYA 60104 I10 I25.10 E03.9 F02.80 D50.9 R39.81 Office Visit 02/24/2017 2:40p [facility] Enrique Bloom M.D. 14852 F02.80 I10 E03.9 R39.81 I25.10 R63.4 Z23 Office Visit 09/04/2016 7:00p Main Office Enrique Bloom M.D. 62536 F02.80 I10 E03.8 R60.0 Office Visit 06/05/2016 5:00p Main Office Enrique Bloom M.D. 81206 F02.80 I10 E03.8 I25.10 Office Visit 02/14/2016 4:00p Main Office Enrique Bloom M.D. 69301 F02.80 I25.10 I10 E03.8 R39.81 Z23 Office Visit 11/27/2015 11:00a Main Office Rvai Dan M.D. 21479 F02.80 I25.10 Office Visit 07/03/2015 3:30p Main Office Enrique Bloom M.D. 11159 I10 R60.0 R39.81 G30.1 Office Visit 04/18/2015 4:10p [facility] Enrique Bloom M.D. 11375 H60.8x1 I10 R60.0 R39.81 Office Visit 03/22/2015 6:20p Main Office Enrique Bloom M.D. 81034 I10 I25.2 E78.2 R60.0 B37.2 Z23 L82.1 G30.1 Z12.31 Office Visit 09/11/2014 1:10p [facility] Enrique Bloom M.D. 00128 112.1 788.30 493.10 372.05 455.3 715.09 986 401.1 Office Visit 07/24/2014 1:00p [facility] Enrique Bloom M.D. 68002 112.1 788.30 389.9 294.10 455.3 278.00 Plan of Care 05/31/2018 - Enrique Bloom M.D.E03.9 Hypothyroidism, unspecifiedComments:stable on medication Recommend annual influenza wkseuvslahdQ13.10 Athscl heart disease of [place] coronary artery w/o ang pctrsComments:continue present medication, will call if there is any increase in the frequency or severity of angina advise to follow up with Dr MahtisF02.80 Dementia in oth diseases classd elswhr w/o behavrl disturbComments:lives at homeFollow up:cmnwzvagM85.0 Urinary tract infection, site not specifiedComments:finish medication, drink plenty of fluids, call if symptoms don't improve, you develop fever >100.4, vomiting or symptoms worsenReviewed adverse side effects of medication. Advised to call the office if experiencing symptoms. Patient verbalized understanding.Z86.711 Personal history of pulmonary embolismComments:on rtsvshmC90.2 Candidiasis of skin and nailComments:trial of fluconazole for buttocks itching call if not tjjupfZ78 Encounter for immunizationAllNew Medication:Ranitidine HCL 150 mgFluconazole 150 mgComments:~B_~U_Medication Management~b_~u_ Patient Understands medications she's taking? Yes No Are there Barriers to Adherence? Yes No Has the patient been asked about herbal supplements and therapies, and OTC meds? Yes No
[2018-06-10] MEDS ORDERED: NS 0.9% 1000 ML* 1,000 ML IV ONE (13:08)
--- NOTE | 2018-06-10 13:36 | ED ---
Neurological HPI - HPI Summary HPI Summary: A 87 y/o female brought in by ambulance presents to the ED s/p stroke-like symptoms. In the ED room, the patient has a pulse of 58 BPM, O2 saturation of 96 %, and blood pressure of 159/74. As per nurse speaking on behalf of EMS, the patient had no family upon EMS arrival. Additionally, patient has several health home aids. Patient was up until 0100 today (06/10/2018). She was last known normal at this time. Patient exhibited slurred speech and chest pain earlier this morning (stroke-like symptoms). When EMS arrived as they were called by family, the patient's speech was clear and seemed fine. According to the patient, she is in no pain whatsoever. During NIH stroke-scale exam the patient stated that her age is "81 something", thinks she has come by a car, and the month is September". The patient does know her birthday which is 1930. Patient denies any headache. The patient stated that she lives with her son (Sung) who will be coming to [facility] ED soon. Patient is on X[place]al[place]. As per home director of sales (Marisol), the patient has several problems. She stated that she has been taking care of the patient for the past five months and she was with her since 0800 this morning. She woke up earlier this morning and stated that her chest was hurting. She stated that the patient said to her, "my heart hurts and chest is hurting". Additionally, the patient has been experiencing vaginal burning for weeks now. The chest pain started when she woke up around 1120 today, however, she has been saying she has chest pain every day for quite some time. She said that once she was given this information from the patient, she called and woke up the patient's son who recommend Marisol to call EMS. Marisol noted that the patient could barely talk and could not get words out (she noticed). Additionally, she had a right sided facial droop. This was all happening between 1120 and 1145. Currently, in the ED room, the patient seems a lot better and the slurred speech seems resolved, but she has a little bit of right-sided facial droop but not by much according to her. She emphasized that the timing of the facial droop and speech deficit was from 1120 to 1145. She stated that the patient sometimes depends on the walker, but sometimes it is not needed for her. During examination, the director of sales stated that the patient can normally lift up her legs up very well and it is not normal for her for not to lift them during examination with ED MD. She noted that the patient seems weaker to her. Patient has history of dementia. CODE AI CALLED AT 1313 ] - History of Current Complaint Chief Complaint: EDNeurologicalDeficit Stated Complaint: CHEST PAIN SLURRED SPEECH Time Seen by Provider: 06/10/18 13:00 Hx Obtained From: Patient, Family/Experimental Technician - SHOES HAND SEWER - [facility] - EMS REPORT GIVEN BY ED NURSE Hx From Patient Unobtainable Due To: Dementia Onset/Duration: Sudden Onset, Started hours ago Timing: Sudden Onset Current Severity: None Number of Seizures: 0 Pain Intensity: 0 Pain Scale Used: 0-10 Numeric Character: Weak Aggravating: Nothing Alleviating: Nothing Associated Signs and Symptoms: Positive: Chest Pain - PER SHOES HAND SEWER - Additional Pertinent History Primary Care Physician: OLLIE - Allergy/Home Medications Allergies/Adverse Reactions: Allergies Allergy/AdvReac Type Severity Reaction Status Date / Time Sulfa (Sulfonamide Allergy Severe Hives Verified 06/10/18 14:42 Antibiotics) PMH/Surg Hx/FS Hx/Imm Hx Endocrine/Hematology History: Reports: Hx Anticoagulant Therapy - plavix, Hx Thyroid Disease Denies: Hx Diabetes Cardiovascular History: Reports: Hx Angina, Hx Congestive Heart Failure, Hx Coronary Artery Disease, Hx Deep Vein Thrombosis, Hx Hypercholesterolemia, Hx Hypertension, Hx Peripheral Vascular Disease, Other Cardiovascular Problems/ Disorders - HEART MURMUR, CAD, PVD, DVT. Denies: Hx Pacemaker/ICD Respiratory History: Reports: Hx Asthma GI History: Reports: Hx Gastroesophageal Reflux Disease History: Reports: Other Problems/Disorders - solitary congenital kidney Denies: Hx Renal Disease Musculoskeletal History: Reports: Hx Back Problems Denies: Hx Arthritis, Hx Osteoporosis Sensory History: Reports: Hx Contacts or Glasses, Hx Vision Problem, Hx Hearing Problem Denies: Hx Cataracts, Hx Glaucoma, Hx Hearing Aid Opthamlomology History: Reports: Hx Contacts or Glasses, Hx Vision Problem Denies: Hx Cataracts, Hx Glaucoma Neurological History: Reports: Hx Dementia Denies: Hx Seizures, Other Neuro Impairments/Disorders Psychiatric History: Reports: Hx Anxiety, Hx Depression Denies: Hx Substance Abuse - Surgical History Surgery Procedure, Year, and Place: appendectomy per pt. cholecystectomy per H& P Hx Anesthesia Reactions: No - Immunization History Date of Tetanus Vaccine: unable to obtain Date of Influenza Vaccine: unkown Infectious Disease History: No Infectious Disease History: Reports: Hx Clostridium Difficile, Hx of Known/ Suspected MRSA Denies: Hx Human Immunodeficiency Virus (HIV), Traveled Outside the [place] in Last 30 Days - Family History Known Family History: Positive: Cardiac Disease, Other - Dementia (mother) Family History: CAD - Social History Alcohol Use: Occasionally Alcohol Amount: One glass of gin Hx Substance Use: No Substance Use Type: Reports: None Hx Tobacco Use: No Smoking Status (MU): Former Smoker Review of Systems Negative: Fever Positive: Chest Pain - POSITIVE: PER CAREGIVER Positive: burning - POSITIVE: VAGINAL BURNING Neurological: Other - POSITIVE: RIGHT SIDED FACIAL DROOP PER CAREGIVER Positive: Weakness - POSITIVE: PER CAREGIVER, Slurred Speech - PER CAREGIVER All Other Systems Reviewed And Are Negative: Yes Physical Exam - Summary Physical Exam Summary: Appearance: ill-appearing, moderate pain distress, well-nourished Skin: Warm, color reflects adequate perfusion, dry Head: Normal Head/Face inspection, atraumatic Eyes: Conjunctiva clear ENT: Normal inspection Neck: Supple, no nodes, no JVD Respiratory: Lungs clear, normal breath sounds, no respiratory distress Cardio: RRR, No murmur, pulses normal, brisk capillary refill Abdomen: Soft, nontender Bowel sounds: Present Musculoskeletal: Strength Intact/ROM intact, no calf tenderness, no edema. Psychological: Dementia. Name only. Neuro: A&O x3, CN II-XII intact, motor function 5/5, sensation intact, cerebellar normal GCS: 14 Triage Information Reviewed: Yes Vital Signs On Initial Exam: Initial Vitals Temp Pulse Resp BP Pulse Ox 98.6 F 62 17 159/74 96 06/10/18 12:50 06/10/18 12:50 06/10/18 12:50 06/10/18 12:50 06/10/18 12:50 Vital Signs Reviewed: Yes - [place] Coma Scale Best Eye Response: 4 - Spontaneous Best Motor Response: 6 - Obeys Commands Best Verbal Response: 4 - Confused Coma Scale Total: 14 Diagnostics - Vital Signs Vital Signs Temp Pulse Resp BP Pulse Ox 06/10/18 12:50 98.6 F 62 17 159/74 96 - Laboratory Result Diagrams: 06/10/18 13:35 06/10/18 13:35 Lab Statement: Any lab studies that have been ordered have been reviewed, and results considered in the medical decision making process. - Radiology CXR Radiology Interpretation Completed By: Radiologist Summary of Radiographic Findings: NO ACTIVE CARDIOPULMONARY DISEASE. ED PHYSICIAN REVIEWED THIS RADIOLOGY REPORT. - CT BRAIN CT CT Interpretation Completed By: Radiologist Summary of CT Findings: NO ACUTE INTRACRANIAL PATHOLOGY. PRELIMINARY FINDINGS WERE DISCUSSED WITH DR. AMBRIZ IN THE EMERGENCY DEPARTMENT AT APPROXIMATELY 1: 23 PM ON JUNE 10, 2018 . ED PHYSICIAN REVIEWED THIS RADIOLOGY REPORT. - Ultrasound No standard instances Ultrasound Interpretation Completed By: Radiologist Summary of Ultrasound Findings: CAROTID DOPPLER STUDY: 1. NO HEMODYNAMICALLY SIGNIFICANT STENOSIS OF THE RIGHT INTERNAL CAROTID ARTERY BY FLOW VELOCITY MEASUREMENTS. THIS CORRESPONDS TO A LUMINAL DIAMETER OF LESS THAN 50% STENOSIS BY NASCET CRITERIA. 2. NO HEMODYNAMICALLY SIGNIFICANT STENOSIS OF THE LEFT INTERNAL CAROTID ARTERY BY FLOW VELOCITY MEASUREMENTS. THIS CORRESPONDS TO A LUMINAL DIAMETER OF LESS THAN 50% STENOSIS BY NASCET CRITERIA. ED PHYSICIAN REVIEWED THIS RADIOLOGY REPORT. - EKG 1333 Cardiac Rate: Bradycardia - 57 BPM EKG Rhythm: Sinus Bradycardia - 57 BPM EKG Comparison: No Significant Change - NO SIGNIFICANT CHANGE COMPARED WITH 10/2017 Summary of EKG Findings: nl JE CT, nl QTc, no acute changes. NIH Scale - NIH Scale Level of Consciousness: Alert/Keenly Responsive Ask Patient the Month and His/Her Age: Neither Correct/Aphasic Ask Pt to Open/Close Eyes and Possum Trapper/Release Non-Paretic Hand: Both Correctly Best Gaze (Only Horizontal Eye Movement): Normal Visual Field Testing: No Visual Loss Facial Paresis-Pt to Smile & Close Eyes or Grimace Symmetry: Normal/Symmetrical Motor Function - Right Arm: No Drift-Holds 10 Seconds Motor Function - Left Arm: No Drift-Holds 10 Seconds Motor Function - Right Leg: No Drift-Holds 10 Seconds Motor Function - Left Leg: No Drift-Holds 10 Seconds Limb Ataxia-Must be out of Proportion to Weakness Present: Absent Sensory (Use Pinprick to Test Arms/Legs/Trunk/Face): Normal Best Language (Describe Picture, Name Items): No Aphasia Dysarthria (Read Several Words): Normal Extinction and Inattention: No Abnormality Total Score: 2 Course/Dx - Course Course Of Treatment: A 87 y/o female brought in by ambulance presents to the ED s/p stroke-like symptoms. In the ED room, the patient has a pulse of 58 BPM, O2 saturation of 96%, and blood pressure of 159/74. As per home director of sales (Marisol), the patient has several problems. She woke up earlier this morning and stated that her chest was hurting. She stated that the patient said to her, "my heart hurts and chest is hurting". Additionally, the patient has been experiencing vaginal burning for weeks now. The chest pain started when she woke up around 1120 today, however, she has been saying she has chest pain every day for quite some time. Marisol noted that the patient could barely talk and could not get words out (she noticed). Additionally, she had a right sided facial droop. This was all happening between 1120 and 1145. Currently, in the ED room, the patient seems a lot better and the slurred speech seems resolved, but she has a little bit of right-sided facial droop but not by much according to her. She emphasized that the timing of the facial droop and speech deficit was from 1120 to 1145. Pt medications reviewed this visit. Jesus AI called at 1313. Physical examination findings significant for patient is ill-appearing and has dementia ( name only). A CXR revealed no active cardiopulmonary disease. A Brain CT revealed no acute intracranial pathology. Preliminary findings were discussed with Dr. Ambriz in the emergency department at approximately 1:23 PM on June 10, 2018. GCS: 14 (patient is confused). A Carotid Doppler study revealed 1. No hemodynamically significant stenosis of the right internal carotid artery by flow velocity measurements. This corresponds to a luminal diameter of less than 50% stenosis by nascet criteria. 2. No hemodynamically significant stenosis of the left internal carotid artery by flow velocity measurements. This corresponds to a luminal diameter of less than 50% stenosis by nascet criteria. An EKG revealed sinus bradycardia at 57 BPM, nl JE CT, nl QTc, no acute changes. No significant change compared to an EKG done on 2017. Hematology, Chemistry, urinalysis and coagulation screens were done. No significant laboratory abnormalities were found. Troponin was 0.00. Patient care was discussed with radiology, Dr. Leighton Araujo, who stated that no bleeding was noted and there are chronic changes in the CT. Patient care was also discussed with hospitalist, Dr. Jesus Treviño, who accepts patient for admission. Patient will be admitted with a diagnosis of TIA, dementia, UTI, and chest pain. Patient Is agreeable with this plan. - Diagnoses Provider Diagnoses: TIA (transient ischemic attack), Chest pain, Dementia, UTI (urinary tract infection) - Physician Notifications Discussed Care Of Patient With: Leighton Arajuo Time Discussed With Above Provider: 13:23 Instructed by Provider To: Other - DISCUSSED CT REPORT WITH DR. ARAUJO. NO BLEEDING NOTED, CHRONIC CHANGES. DR. TREVIÑO AT 1608 WHO ACCEPTS PATIENT FOR ADMISSION. Discharge - Sign-Out/Discharge Documenting (check all that apply): Patient Departure - ADMIT, Sign-Out Patient - TREVIÑO Signing out patient TO: Jesus Treviño Receiving patient FROM: Analia Ambriz - Discharge Plan Condition: Stable Disposition: ADMITTED TO [facility] Referrals: Hiral Bloom MD [Primary Care Provider] - - Attestation Statements Document Initiated by Scribe: Yes Documenting Scribe: Sander Ibarra Provider For Whom Scribe is Documenting (Include Credential): Analia Ambriz MD Scribe Attestation: Sander Bansal, scribed for Analia Ambriz MD on 06/10/18 at 1658.
[2018-06-10 13:52] LABS: ABS Basophils 0.1 10^3/ul (0-0.2); ABS Eosinophils 0.4 10^3/ul (0-0.6); ABS Monocytes 0.5 10^3/ul (0-0.8); ABS Neutrophils 3.5 10^3/ul (1.5-7.7); ABS Nucleated RBC 0 10^3/ul; Eosinophil % 7.3 %; Hematocrit 40 % (35-47); Lymphocyte % 17.4 %; Mean Corpuscular HGB Conc 32 g/dl (31-36); Mean Corpuscular Hemoglobin 29 pg (27-31); Mean Corpuscular Volume 90 fL (80-97); Mean Platelet Volume 8.5 fL (7.4-10.4); Nucleated Red Blood Cells % 0.1; Platelet Count 333 10^3/ul (150-450); Red Blood Count 4.46 10^6/ul (4.00-5.40); Red Cell Distribution Width 14 % (10.5-15); White Blood Count 5.5 10^3/ul (3.5-10.8)
[2018-06-10 13:54] LABS: Activated Partial Thrombo Time 30.2 seconds (26.0-36.3); INR 1.3 (0.77-1.02)
[2018-06-10 14:03] LABS: Albumin 3.4 g/dL (3.2-5.2); Albumin/Globulin Ratio 0.9 (1-3); BUN/Creatinine Ratio 17.9 (8-20); Calcium 9.8 mg/dL (8.6-10.3); Globulin 3.6 g/dL (2-4); HDL Cholesterol 39.3 mg/dL; Potassium 4.1 mmol/L (3.5-5.0); Total Bilirubin 0.3 mg/dL (0.2-1.0)
[2018-06-10 14:24] LABS: Urine Appearance Cloudy; Urine Bacteria 1+ (Absent); Urine Bilirubin Negative (Negative); Urine Blood Negative (Negative); Urine Color Yellow; Urine Glucose Negative (Negative); Urine Ketones Negative (Negative); Urine Nitrite Negative (Negative); Urine Protein Negative (Negative); Urine Red Blood Cell Trace(0-2/hpf) (Absent); Urine Specific Gravity 1.019 (1.010-1.030); Urine Urobilinogen Negative (Negative); Urine White Blood Cell 2+(11-20/hpf) (Absent)
--- NOTE | 2018-06-10 14:45 | CONSULT ---
Consult Consult: NEUROLOGY CONSULTATION Patient seen and examined 06/10/2018 at 1.15pm CC: right facial and slurred speech HPI:This is an 87 yr old woman with history of moderate to severe dementia, who was last seen normal at 1am prior to going to bed, who was noted to have slurred speech and a facial droop upon awakening at 11.30 am. Patient is unable to provide a reliable history. History obtain from aid who saw her last night and this morning. The patient is on Xarelto. At baseline the patient has poor leg strength and coordination and is not ambulatory. She occasionally recognizes what month it is. No prior history of stroke. She was diagnosed with a UTI ~2 weeks ago. She has a recent admission for a syncopal event. Review of Systems: unreliable due to patient condition. PAST MEDICAL HISTORY: 1. Coronary artery disease, status post a drug-eluting stent to the second diagonal in November of 2011. Cardiac catheterization in 2012 showed LAD with 30% and 50% occlusions, diagonal branches were 35% to 40% occlusion, circumflex 30% occlusion, right coronary artery up to 60% occlusion. 2. Hypertension. 3. Dyslipidemia. 4. Hypothyroid. 5. Reflux. 6. History of DVT. 7. History of GI bleed, erosive esophagitis. Allergies Sulfa (Sulfonamide Antibiotics) Allergy (Severe, Verified 09/08/17 12:13) Hives Meds Ferrous Gluconate TAB* [Fergon TAB*] 324 mg PO 1500 tab 09/12/17 [Rx Confirmed 05/19/18] Levothyroxine TAB* [Synthroid 100 MCG TAB*] 100 mcg PO DAILY@0600 tab 09/12/17 [Rx Confirmed 05/19/18] Rivaroxaban TAB(*) [Xarelto 15 mg(*)] 15 mg PO DAILY@1700 tab 09/12/17 [Rx Confirmed 05/19/18] Calcium Carbonate [Calcium] 500 mg PO DAILY 12/30/17 [History Confirmed 05/19/18 ] Melatonin (NF) 3 mg PO BEDTIME 12/30/17 [History Confirmed 05/19/18] Metoprolol Tartrate TAB* [Lopressor TAB*] 12.5 mg PO QAM 12/30/17 [History Confirmed 05/19/18] Potassium Chlor TAB* [Klor Con ER TAB*] 20 meq PO QAM 12/30/17 [History Confirmed 05/19/18] Cephalexin CAP* [Keflex CAP*] 500 mg PO BID #20 cap 05/22/18 [Rx] Vital Signs Temp 98.6 F 06/10/18 12:50 Pulse 62 06/10/18 12:50 Resp 17 06/10/18 12:50 BP 159/74 06/10/18 12:50 Pulse Ox 96 06/10/18 12:50 Intake & Output 06/09/18 06/10/18 06/10/18 18:59 06:59 18:59 Weight 150 lb Exam: General: NAD, NCAT CVS/Resp: regular rate, breathing comfortably Mental Status: alert, oriented to self only, able to name and repeat CN: PERRLA, EOMI, V1=V2=V3, face symmetrical, hearing grossly intact, palate midline, SCM/trapezius strength intact bilaterally, tongue midline Motor: bilateral arms 5/5, patient is able to hold legs up antigravity for a count of 10 Sensory: grossly intact LT in arms, legs, and trunk Coord/ Gait: intact FFM/ FTN/CRIS in UE/LEs Reflexes: intact symmetrically in UE/LEs NIH Stroke Score 0 Laboratory: Laboratory Results WBC 5.5 10^3/ul (3.5-10.8) 06/10/18 13:35 RBC 4.46 10^6/ul (4.00-5.40) 06/10/18 13:35 Hgb 13.0 g/dl (12.0-16.0) 06/10/18 13:35 Hct 40 % (35-47) 06/10/18 13:35 MCV 90 fL (80-97) 06/10/18 13:35 MCH 29 pg (27-31) 06/10/18 13:35 MCHC 32 g/dl (31-36) 06/10/18 13:35 RDW 14 % (10.5-15) 06/10/18 13:35 Plt Count 333 10^3/ul (150-450) 06/10/18 13:35 MPV 8.5 fL (7.4-10.4) 06/10/18 13:35 Neut % (Auto) 64.2 % 06/10/18 13:35 Lymph % (Auto) 17.4 % 06/10/18 13:35 [place] % (Auto) 9.7 % 06/10/18 13:35 Eos % (Auto) 7.3 % 06/10/18 13:35 Baso % (Auto) 1.4 % 06/10/18 13:35 Absolute Neuts (auto) 3.5 10^3/ul (1.5-7.7) 06/10/18 13:35 Absolute Lymphs (auto) 1.0 10^3/ul (1.0-4.8) 06/10/18 13:35 Absolute Monos (auto) 0.5 10^3/ul (0-0.8) 06/10/18 13:35 Absolute Eos (auto) 0.4 10^3/ul (0-0.6) 06/10/18 13:35 Absolute Basos (auto) 0.1 10^3/ul (0-0.2) 06/10/18 13:35 Absolute Nucleated RBC 0 10^3/ul 06/10/18 13:35 Nucleated RBC % 0.1 06/10/18 13:35 INR (Anticoag Therapy) 1.30 (0.77-1.02) H 06/10/18 13:35 APTT 30.2 seconds (26.0-36.3) 06/10/18 13:35 Sodium 139 mmol/L (135-145) 06/10/18 13:35 Potassium 4.1 mmol/L (3.5-5.0) 06/10/18 13:35 Chloride 107 mmol/L (101-111) 06/10/18 13:35 Carbon Dioxide 28 mmol/L (22-32) 06/10/18 13:35 Anion Gap 4 mmol/L (2-11) 06/10/18 13:35 BUN 14 mg/dL (6-24) 06/10/18 13:35 Creatinine 0.78 mg/dL (0.51-0.95) 06/10/18 13:35 Est GFR ( Amer) 84.7 (>60) 06/10/18 13:35 Est GFR (Non-Af Amer) 70.0 (>60) 06/10/18 13:35 BUN/Creatinine Ratio 17.9 (8-20) 06/10/18 13:35 Glucose 94 mg/dL (70-100) 06/10/18 13:35 POC Glucose (mg/dL) 92 mg/dL (70-100) 06/10/18 13:45 Lactic Acid 1.0 mmol/L (0.5-2.0) 06/10/18 13:35 Calcium 9.8 mg/dL (8.6-10.3) 06/10/18 13:35 Total Bilirubin 0.30 mg/dL (0.2-1.0) 06/10/18 13:35 AST 15 U/L (13-39) 06/10/18 13:35 ALT 10 U/L (7-52) 06/10/18 13:35 Alkaline Phosphatase 90 U/L (34-104) 06/10/18 13:35 Troponin I 0.00 ng/mL (<0.04) 06/10/18 13:35 Total Protein 7.0 g/dL (6.4-8.9) 06/10/18 13:35 Albumin 3.4 g/dL (3.2-5.2) 06/10/18 13:35 Globulin 3.6 g/dL (2-4) 06/10/18 13:35 Albumin/Globulin Ratio 0.9 (1-3) L 06/10/18 13:35 Triglycerides 67 mg/dL 06/10/18 13:35 Cholesterol 143 mg/dL 06/10/18 13:35 LDL Cholesterol 90 mg/dL 06/10/18 13:35 HDL Cholesterol 39.3 mg/dL 06/10/18 13:35 Urine Color Yellow 06/10/18 14:05 Urine Appearance Cloudy 06/10/18 14:05 Urine pH 5.0 (5-9) 06/10/18 14:05 Ur Specific [place] 1.019 (1.010-1.030) 06/10/18 14:05 Urine Protein Negative (Negative) 06/10/18 14:05 Urine Ketones Negative (Negative) 06/10/18 14:05 Urine Blood Negative (Negative) 06/10/18 14:05 Urine Nitrate Negative (Negative) 06/10/18 14:05 Urine Bilirubin Negative (Negative) 06/10/18 14:05 Urine Urobilinogen Negative (Negative) 06/10/18 14:05 Ur Leukocyte Esterase 1+ (Negative) A 06/10/18 14:05 Urine WBC (Auto) 2+(11-20/hpf) (Absent) A 06/10/18 14:05 Urine RBC (Auto) Trace(0-2/hpf) (Absent) 06/10/18 14:05 Ur Squamous Epith Cells Present (Absent) A 06/10/18 14:05 Urine Bacteria 1+ (Absent) A 06/10/18 14:05 Urine Glucose Negative (Negative) 06/10/18 14:05 Urine Ascorbic Acid * (Negative) A 06/10/18 14:05 Blood Type O Positive 06/10/18 13:35 Antibody Screen Negative 06/10/18 13:35 Imaging: All Neuroimaging reviewed personally by me as well as Neuroradiology CT head IMPRESSION: NO ACUTE INTRACRANIAL PATHOLOGY. A/P 87 yr old woman on xarelto presenting after a transient event of facial droop and slurred speech. TPA was not given due to NIHSS of 0, being on xarelto and last normal > 3.5 hrs. Possible manifestation of an infectious/ toxic metabolic state or TIA/ stroke Permissive HTN for now SBP 140-160 Neurochecks Obtain carotid dopplers Continue Xarelto If no obvious infectious or toxic metabolic cause found consider MRI of the brain stroke protocol
[2018-06-10] MEDS ORDERED: Ondansetron INJ* 2 MG/ML VIAL IV PRN (17:21)
[2018-06-10] MEDS ORDERED: Acetaminophen TAB* 325 MG PO PRN (17:21)
[2018-06-10] MEDS ORDERED: Metoprolol Tartrate IV* 1 MG/ML 5 ML VIAL IV PRN (17:48)
[2018-06-10] MEDS ORDERED: cefTRIAXone(*) 1 GM in NS 0.9% 50 ML* 50 ML IVPB SCH ×3 (18:30→21:30)
[2018-06-10] MEDS ORDERED: Melatonin 3 MG TAB PO SCH (21:00)
--- NOTE | 2018-06-10 23:23 | HP ---
CC: Dr. Hiral Bloom; Dr. Jesus Treviño* ADMISSION HISTORY AND PHYSICAL: DATE OF ADMISSION: 06/10/18 PRIMARY CARE PROVIDER: Dr. Hiral Bloom. MY ATTENDING WHILE IN THE HOSPITAL: Dr. Jesus Treviño* (dictated by DAVEY Hernández). CHIEF COMPLAINT: Confusion, reports of slurred speech and facial droop. HISTORY OF PRESENT ILLNESS: Ms. Arjun Vaca is an 87-year-old female with past medical history significant for coronary artery disease, hypertension, hyperlipidemia, dementia, history of DVT, and history of GI bleeding associated with erosive esophagitis, who presents to the emergency department after being in her usual state of health at 1 a.m. when she went to sleep and then waking up at 11 a.m. this morning with significantly increased confusion and reports of facial droop and slurred speech. The patient's son, who lives with her, saw the patient approximately 20 minutes after her home health aide reported these symptoms and by the time he came down to see her, she was in her normal state of health. The patient was confused at baseline. The patient had no slurred or garbled speech to her son. The patient had no facial droop observed by him. The patient was brought in to the emergency department for a concern for CVA. The patient was recently started on Zantac and an antihistamine, likely Claritin, but had no other recent sick contacts. The patient was recently seen in the emergency department on 05/20/18 and was prescribed Keflex 500 mg p.o. b.i.d. for 10 days, which the patient completed. The patient's confusion resolved on the antibiotic, but then she began to have dysuria and foul- smelling urine again the day after her antibiotics completed. The patient's son states that she has had episodes of confusion like this before, which can come on quite suddenly and be quite profound, usually in association with urinary tract infection. The patient complained of chest pain this morning, but now complains only of GERD. She has been complaining of GERD when she has not taken her Zantac before. The patient denies fevers, chills, nausea, vomiting, abdominal pain, diarrhea, hematochezia, melena, dysuria, or abdominal pain, though the patient had previously complained of dysuria to her son. Due to concern for possible TIA as well as confusion, we were asked to evaluate the patient for admission. PAST MEDICAL HISTORY: 1. Coronary artery disease, status post stenting in 2011. 2. Hypertension. 3. Hyperlipidemia. 4. Hypothyroidism. 5. History of DVT. 6. GERD. 7. History of GI bleeding associated with erosive esophagitis. 8. Asthma. 9. Anemia. 10. Chronic back pain. PAST SURGICAL HISTORY: 1. Gallbladder removal in 1970s. 2. Foot surgery in . 3. Stents as above. MEDICATIONS: 1. Potassium chloride 20 mEq p.o. daily. 2. Metoprolol tartrate 12.5 mg p.o. daily. 3. Levothyroxine 100 mcg p.o. daily. 4. Melatonin 2 mg p.o. daily. 5. Xarelto 15 mg p.o. daily. 6. Ferrous gluconate 324 mg p.o. daily. 7. Calcium carbonate 500 mg p.o. daily. ALLERGIES: SULFA. FAMILY HISTORY: The patient's mother of complications of dementia. The patient's father in World War II. The patient has a sister who is alive and well. The patient has no other significant family history. SOCIAL HISTORY: The patient smoked occasionally in her 20s. The patient still drinks regular alcohol approximately a shot a day. The patient denies illicit drug use. 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 The patient is retired. The patient was and has 3 children. The patient's surrogate decision maker will be her son, Sung Díaz. REVIEW OF SYSTEMS: A 14-point review of systems was reviewed. It is limited by the patient's dementia, but is noncontributory except as above. PHYSICAL EXAMINATION GENERAL: The patient is an 87-year-old female who appears stated age and sitting comfortably in the bed, in no acute distress. VITAL SIGNS: Temperature 98.6, pulse rate 52, respiratory rate 17, oxygen saturation 96% on room air, blood pressure 159/74. HEENT: Head: Normocephalic, atraumatic. Sclerae anicteric. No conjunctival injection. Nasal mucosa moist. Oral mucosa moist. No pharyngeal erythema, discharge, or exudate. NECK: Supple, nontender. No lymphadenopathy. No carotid bruits auscultated. No JVD. RESPIRATORY: Clear to auscultation bilaterally. No wheezes, rales, or rhonchi. Good air exchange bilaterally. CARDIAC: Regular rate and rhythm. No clicks, murmurs, gallops, or rubs. Pulses 2+ in the bilateral dorsalis pedis, posterior tibialis, and radial areas. ABDOMEN: Soft, nontender, nondistended. Bowel sounds present. Normoactive in all 4 quadrants. No hepatosplenomegaly. No abdominal bruits auscultated. No hepatojugular reflux. GENITOURINARY: No suprapubic or CVA tenderness. NEURO: Cranial nerves II through XII intact. Strength preserved in the bilateral upper and lower extremities distally and proximally. Normal sensation to light touch in bilateral upper and lower extremities distally and proximally. PSYCHIATRIC: Pleasant and cooperative. SKIN: Clean, dry, intact. No rash. LABORATORY DATA: White blood cell count 5.5, hemoglobin 13.0, platelet count 333. INR 1.3. APTT 30.2. Sodium 139, potassium 4.9, chloride 107, carbon dioxide 28, anion gap 4, BUN 14, creatinine 0.7, glucose 94. Lactic acid 1.0. Calcium 9.8. Bilirubin 0.3, AST 15, ALT 10, alkaline phosphatase 90. Troponin I 0.00. Protein 7.0. Albumin 3.4. Triglycerides 67, cholesterol 143, LDL cholesterol 90, HDL cholesterol 39.3. Urine shows 1+ leukocyte esterase, 2+ white blood cells, bacteria present. DIAGNOSTIC STUDIES: Brain CT from 05/11/18 read as no acute intracranial pathology. Chest x-ray being read as no acute cardiopulmonary disease. EKG shows normal sinus rhythm, no ST segment abnormalities, no hypertrophy or enlargement, QTc of 458, rate of 57. Compared to previous EKG from 05/19/18, there are no significant changes except for absence of PACs in the latter study. Carotid Doppler study read as no hemodynamically significant stenosis of the right internal carotid artery by flow velocity measurements. No hemodynamically significant stenosis of the left internal carotid artery by flow velocity measurements. ASSESSMENT AND PLAN: Impression: Ms. Arjun Vaca is an 87-year-old female with past medical history significant for coronary artery disease, advanced dementia, recurrent urinary tract infection, hypertension, hyperlipidemia, history of gastrointestinal bleeding, and deep vein thrombosis, who presents to the emergency department with confusion and possible facial droop and slurred speech that are currently resolved. The patient has preliminarily positive urinalysis and will be admitted to the hospital for evaluation of transient ischemic attack as well as a treatment of her urinary tract infection. 1. Confusion, possible transient ischemic attack. The patient is currently neurologically at her baseline. The patient has baseline dementia, which is exacerbated significantly by urinary tract infections per her son. The patient has a possibility of a urinary tract infection. The patient recently had E. coli, which grew from a urine culture, which was susceptible to the Keflex with which she was treated; however, it appears that her symptoms are returning promptly with the cessation of her antibiotic treatment. It is possible the patient may benefit from chronic suppressive therapy. The patient will have an MRI and echocardiogram tomorrow. The patient will have neuro checks. The patient has a slightly elevated LDL cholesterol and will be started on a statin for possible secondary prevention of transient ischemic attack. The patient will be continued on Xarelto at this point and will not be given aspirin or Plavix due to history of gastrointestinal bleeding. If the patient's MRI shows CVA, a switch from the patient's Xarelto to an antiplatelet agent might be warranted; however, would avoid their combination due to history of gastrointestinal bleeding and erosive esophagitis particularly with recent discontinuation of her PPI therapy. 2. Urinary tract infection. The patient was started on ceftriaxone. 3. History of deep vein thrombosis. Continue the patient's Xarelto. 4. Gastroesophageal reflux disease. The patient will be started on Pepcid while in the hospital b.i.d. The patient may need to be restarted on PPI therapy if she continues to have breakthrough reflux on H2 antagonist. 5. Hypothyroidism. Continue Synthroid at current dose. 6. Hypertension. The patient will have permissive hypertension with a start goal between 140 and 160. The patient is currently slightly above that range; however, we will continue to hold the patient's metoprolol and monitor. 7. DVT prophylaxis: The patient will be continued on Xarelto. 8. FEN: The patient will have heart healthy diet without caffeine. Fluids are not indicated in the patient's situation. The patient will receive 1 L while in the emergency department. 9. Disposition: The patient will be admitted to observation. 10. Code status: The patient is a full code. TIME SPENT: Approximately 60 minutes was spent on this admission of this patient, 30 of which was spent [id number] with the patient obtaining history and physical and discussing treatment plan. Plan was discussed with my attending, Dr. Jesus Treviño, and he is in agreement. DAVEY HERNÁNDEZ [id number]/[facility] #: [id number] MAURICE
[2018-06-11 05:39] LABS: ABS Basophils 0.1 10^3/ul (0-0.2); ABS Eosinophils 0.3 10^3/ul (0-0.6); ABS Monocytes 0.6 10^3/ul (0-0.8); ABS Nucleated RBC 0 10^3/ul; Eosinophil % 5.5 %; Hematocrit 38 % (35-47); Hemoglobin 12.5 g/dl (12.0-16.0); Lymphocyte % 16.9 %; Mean Corpuscular HGB Conc 33 g/dl (31-36); Mean Corpuscular Hemoglobin 30 pg (27-31); Mean Corpuscular Volume 90 fL (80-97); Nucleated Red Blood Cells % 0; Platelet Count 320 10^3/ul (150-450); Red Blood Count 4.23 10^6/ul (4.00-5.40); Red Cell Distribution Width 14 % (10.5-15)
[2018-06-11 05:56] LABS: BUN/Creatinine Ratio 15.7 (8-20); Calcium 9.2 mg/dL (8.6-10.3); EGFR Non-African American 79.3 (>60); Magnesium 1.9 mg/dL (1.9-2.7); Potassium 3.8 mmol/L (3.5-5.0)
[2018-06-11] MEDS ORDERED: Levothyroxine TAB* 100 MCG TAB PO SCH (06:00)
[2018-06-11] MEDS ORDERED: Famotidine TAB* 20 MG PO SCH (09:00)
[2018-06-11] MEDS ORDERED: Calcium Carbonate TAB* 1250 MG (CALCIUM 500 MG) PO SCH (09:00)
[2018-06-11] MEDS ORDERED: Potassium Chlor TAB* 20 MEQ TAB.ER PO SCH (09:00)
[2018-06-11] MEDS ORDERED: Metoprolol Tartrate TAB* 25 MG PO SCH (11:00)
--- NOTE | 2018-06-11 12:46 | PN ---
Subjective Length of Stay: 1 Days Neurology is following for the evaluation and management of transient dysarthria and facial droop Interval History: The patient has no acute complaints. She would like to go home. Review of Systems: Denied CP, SOB, or palpitations. Objective Active Medications: Acetaminophen (Tylenol Tab*) 650 mg PO Q6H PRN PRN Reason: FEVER/PAIN Calcium Carbonate (Calcium Carbonate Tab*) 1,250 mg PO DAILY [facility] Last Admin: 06/11/18 08:30 Dose: 1,250 mg Famotidine (Pepcid Tab*) 20 mg PO DAILY@0900 [facility] Last Admin: 06/11/18 08:30 Dose: 20 mg Ferrous Gluconate (Fergon Tab*) 324 mg PO 1500 [facility] Ceftriaxone Sodium 1 gm/ (Sodium Chloride) 50 mls @ 200 mls/hr IVPB 2130 [facility] Last Admin: 06/10/18 21:18 Dose: 200 mls/hr Levothyroxine Sodium (Synthroid Tab*) 100 mcg PO DAILY@0600 [facility] Last Admin: 06/11/18 05:10 Dose: 100 mcg Melatonin (Melatonin) 3 mg PO BEDTIME [facility] Last Admin: 06/10/18 20:18 Dose: 3 mg Metoprolol Tartrate (Lopressor Tab*) 12.5 mg PO QAM [facility] Last Admin: 06/11/18 10:58 Dose: Not Given Ondansetron HCl (Zofran Inj*) 4 mg IV Q6H PRN PRN Reason: NAUSEA Potassium Chloride (Klor Con Er Tab*) 20 meq PO QAM [facility] Last Admin: 06/11/18 08:31 Dose: 20 meq Rivaroxaban (Xarelto(*)) 15 mg PO DAILY@1700 [facility] Vital Signs 06/10/18 06/10/18 06/10/18 12:49 12:50 12:51 Temperature 98.6 F Pulse Rate 62 Respiratory 11 17 16 Rate Blood Pressure 159/74 159/74 (mmHg) O2 Sat by Pulse 96 Oximetry 06/10/18 06/10/18 06/10/18 13:00 14:09 14:38 Temperature Pulse Rate 60 63 Respiratory 23 22 Rate Blood Pressure (mmHg) O2 Sat by Pulse 96 98 96 Oximetry 06/10/18 06/10/18 06/10/18 14:39 15:00 15:10 Temperature Pulse Rate 62 63 Respiratory 16 16 15 Rate Blood Pressure 123/94 188/98 (mmHg) O2 Sat by Pulse 99 98 Oximetry 06/10/18 06/10/18 06/10/18 15:40 16:00 16:10 Temperature Pulse Rate 65 64 63 Respiratory 19 20 14 Rate Blood Pressure 186/90 140/86 (mmHg) O2 Sat by Pulse 97 97 98 Oximetry 06/10/18 06/10/18 06/10/18 16:41 17:00 17:10 Temperature Pulse Rate 64 72 77 Respiratory 19 19 19 Rate Blood Pressure 168/92 182/108 (mmHg) O2 Sat by Pulse 96 96 97 Oximetry 06/10/18 06/10/18 06/10/18 17:40 17:48 18:00 Temperature 98.1 F Pulse Rate 67 64 Respiratory 21 19 18 Rate Blood Pressure 184/90 168/92 (mmHg) O2 Sat by Pulse 97 96 Oximetry 06/10/18 06/10/18 06/10/18 18:10 18:47 19:29 Temperature 97.4 F 98.8 F Pulse Rate 92 62 Respiratory 20 18 16 Rate Blood Pressure 183/104 169/98 170/76 (mmHg) O2 Sat by Pulse 100 100 Oximetry 06/10/18 06/10/18 06/11/18 20:00 23:51 01:11 Temperature 97.2 F Pulse Rate 64 Respiratory 16 20 Rate Blood Pressure 154/67 (mmHg) O2 Sat by Pulse 100 98 Oximetry 06/11/18 06/11/18 03:46 07:46 Temperature 97.7 F 96.9 F Pulse Rate 59 72 Respiratory 24 18 Rate Blood Pressure 146/51 133/69 (mmHg) O2 Sat by Pulse 96 97 Oximetry Intake and Output Last 24 Hours 06/09/18 06/10/18 06/11/18 06/12/18 06:59 06:59 06:59 06:59 Intake Total 1000 240 Balance 1000 240 Weight 150 lb Intake: IV Fluids 1000 Oral 0 240 Other: Estimated Void Small # Voids 1 Oxygen Devices in Use Now: None Neurology Exam: Neurological Findings: Mental Status: Awake, Alert, Oriented to self, place, month but not year Speech: fluent without dysrhythmia, repetition intact Cranial Nerve: PEERL, EOM intact, face symmetric bilaterally, facial sensation intact, tongue midline Motor: s/s throughout, proximal and distal extremities x4 tone/bulk normal Sensation: intact to LT/PP bilaterally upper and lower extremities Deep Tendon Reflex: 2+ symmetric in the upper/lower extremities, Babinski - down going Finger to nose, rapid alternating movements intact without tremor, no dysdiadochokinesia Result Diagrams: 06/11/18 05:25 06/11/18 05:25 Microbiology and Other Data: Microbiology 06/10/18 14:05 Urine Culture - Final Urine 06/11/18 02:10 Nasal Screen MRSA (PCR) - Final Nasal Mrsa Not Detected Diagnostic Imaging: MRI brain IMPRESSION: 1. No evidence of acute or subacute ischemia involving the brain parenchyma. 2. No evidence of hemorrhage or mass effect. No obstructive hydrocephalus. Assessment/Plan A/P 87 yr old woman on who presented after a transient event of dysarthia and facial droop. Transient event likely secondary UTI. Exam and imaging normal. Patient anticoagulated with xarelto. No further neurological workup Will sign off, please re consult as needed
[2018-06-11 13:13] VITALS: BP 159/74
[2018-06-11] MEDS ORDERED: Ferrous Gluconate TAB* 324 MG TAB PO SCH (15:00)
[2018-06-11] MEDS ORDERED: Atorvastatin* 40 MG TAB PO SCH (17:00)
[2018-06-11] MEDS ORDERED: Rivaroxaban TAB(*) 15 MG PO SCH (17:00)
--- NOTE | 2018-06-12 04:25 | DS ---
CC: Dr. Hiral Bloom; Dr. Jesus Treviño* DISCHARGE SUMMARY: DATE OF ADMISSION: 06/10/18 DATE OF DISCHARGE: 06/11/18 PRIMARY CARE PROVIDER: Dr. Hiral Bloom. MY ATTENDING WHILE IN THE HOSPITAL: Dr. Jesus Treviño* (dictated by DAVEY Hernández). PRIMARY DISCHARGE DIAGNOSES: 1. Confusion. 2. Possible urinary tract infection. SECONDARY DISCHARGE DIAGNOSES: 1. Dementia. 2. Possible urinary tract infection with toxic metabolic encephalopathy, resolved. 3. Hypertension. 4. Hyperlipidemia. 5. Hypothyroidism. 6. History of deep venous thrombosis. 7. History of erosive esophagitis with gastrointestinal bleeding. 8. Gastroesophageal reflux disease. 9. Asthma. 10. Anemia. 11. Chronic pain. STUDIES DONE WHILE IN THE HOSPITAL: Brain CT from 06/10/18 read as no acute intracranial pathology. Chest x-ray from 06/10/18 read as no acute cardiopulmonary disease. Electrocardiogram from 06/10/18 is noncontributory. Carotid Doppler study from 06/10/18 shows no stenosis in the left or right carotid artery. Brain MRI from 06/10/18 read as no evidence of acute or subacute ischemia involving the brain parenchyma and no evidence of hemorrhage or mass effect, no obstructive hydrocephalus. MEDICATIONS AT DISCHARGE: 1. Ferrous gluconate 325 mg p.o. daily. 2. Levothyroxine 100 mcg p.o. daily. 3. Rivaroxaban 15 mg p.o. daily. 4. Calcium carbonate 500 mg p.o. daily. 5. Melatonin 3 mg p.o. at bedtime. 6. Potassium chloride 20 mEq p.o. q.a.m. 7. Metoprolol tartrate 12.5 mg p.o. q.a.m. 8. Tylenol 650 mg p.o. q.6 hours as needed. 9. Ranitidine 150 mg p.o. b.i.d. 10. Cefotaxime 200 mg p.o. q.12 hours x12 doses. HOSPITAL COURSE: This is a brief summary of the patient's presentation. For more details, please see history and physical from this author on 06/10/18. In brief, the patient is an 87-year-old female with past medical history significant for the above, who woke up on the morning of 06/10/18 at approximately 11:30 and was witnessed by her aide to have confusion, possible word-finding difficulty and possible slurred speech and facial droop. These resolved after several minutes, but the patient remained confused beyond her baseline at this point. This was witnessed by the patient's son, but none of other neurological deficits were. The patient was taken to the emergency department with concern for a stroke and had the workup above, which was negative. The patient had a lipid profile which was within normal limits with an LDL of 90. The patient's brain MRI showed no CVA. The patient returned to her baseline and was very anxious to go home. The patient had had dysuria and foul-smelling urine for several days prior to admission. The patient was recently diagnosed and treated for a urinary tract infection and had on numerous occasions in the past become encephalopathic with urinary tract infections with a similar presentation per her son. The patient was started on ceftriaxone with transition to cefotaxime. The patient had no signs of sepsis or other systemic infection. The patient was stable. The patient was seen in consultation by neurology, who recommended no further neurologic treatment or workup except continuing the patient's Xarelto which she is on for DVT. The patient was stable and amenable for discharge on 06/11/18. PHYSICAL EXAM ON DAY OF DISCHARGE: General: The patient is an 87-year-old female who appears stated age and sitting comfortably in bed, in no acute distress. HEENT: Head normocephalic, atraumatic. Sclerae are anicteric. No conjunctival injection. Nasal mucosa moist. Oral mucosa moist. No pharyngeal erythema, discharge, or exudate. Neck: Supple, nontender. No lymphadenopathy. No carotid bruits auscultated. No JVD. Cardiac: Regular rate and rhythm. No clicks, murmurs, gallops, or rubs. Pulses 2+ in bilateral dorsalis pedis, posterior tibialis, and radial areas. Respiratory: Clear to auscultation bilaterally. No wheezes, rales, or rhonchi. Good air exchange bilaterally. Abdomen: Soft, nontender, and nondistended. Bowel sounds present and normoactive in all 4 quadrants. No hepatosplenomegaly. No abdominal bruits auscultated. No hepatojugular reflux. Genitourinary: No suprapubic or CVA tenderness. Skin: Clean, dry, and intact. No rash. Neuro: Cranial nerves II through XII intact. No focal deficits. Alert and oriented to self and place, but not time. DISCHARGE PLAN: The patient will be discharged to home. The patient will have a total of 7 days of cephalosporin antibiotics. The patient was also treated with Keflex. Consideration should be made for chronic suppressive therapy for patient's UTIs as they are a large imposition on her quality of life and given her encephalopathy during these episodes, she is a danger to herself. Pros and cons of this decision should be made with her primary care provider within one week of discharge. The patient will be continued on Xarelto. Given history of GI bleed, the patient will not be started on any antiplatelet agents. The patient will not be started on a statin due to not having a verifiable stroke and having an LDL of only 90. The patient's hemoglobin A1c was excellent, had no other laboratory abnormalities while in the hospital. The patient will return to the hospital for alarming symptoms such as chest pain, shortness of breath, new weakness, severely increased confusion, falls with injury or other alarming symptoms. The patient should have a heart healthy diet without caffeine and engage in activities as tolerated. The patient will be discharged with a 24 hour aide care as well as the care of her son. TIME SPENT: Approximately 60 minutes were spent on discharge of this patient, 30 of which was spent [id number] with the patient, obtaining history and physical, and discussing treatment plan. DAVEY HERNÁNDEZ [id number]/[facility] #: [id number] MAURICE
== END 2018-06-11 15:46 | disposition home or self-care (01) ==
LOC: ED 12:43 → MEDTELE 17:22
PROVIDERS: ADMIT Internal Medicine; ATTEND Student in an Organized Health Care Education/Training Program
DX: R41.0 Disorientation, unspecified (principal); F03.90 Unspecified dementia, unspecified severity, without behavioral disturbance, psychotic disturbance, mood disturbance, and anxiety; I10 Essential (primary) hypertension; E78.5 Hyperlipidemia, unspecified; E03.9 Hypothyroidism, unspecified; Z86.718 Personal history of other venous thrombosis and embolism; K21.9 Gastro-esophageal reflux disease without esophagitis; J45.909 Unspecified asthma, uncomplicated; D64.9 Anemia, unspecified; G89.29 Other chronic pain; Z88.2 Allergy status to sulfonamides; I25.10 Atherosclerotic heart disease of native coronary artery without angina pectoris; Z95.5 Presence of coronary angioplasty implant and graft
CPT/HCPCS: 36415; 70450; 70551; 71045; 80048; 80053; 80061; 81003; 81015; 83036; 83605; 83735; 84484; 85025; 85610; 85730; 86850; 86900; 86901; 87086; 87641; 93005; 93306; 93880; 96365; 96375; 99285; A9270-GY; G0378; J0696; J3490

== ENCOUNTER 2018-08-09 16:51 | Emergency (ER) | payer MEDICARE, OTHER ==
[2018-08-09] MEDS ORDERED: Albuterol 2.5 MG/3 ML NEB.SOL* (0.083%) INH ONE (17:04)
--- NOTE | 2018-08-09 17:08 | ED ---
Lower Extremity - HPI Summary HPI Summary: Pt is an 87 y/o F presenting to the ED brought in by EMS with a chief complaint of LLE pain onset yesterday rated at 7/10. Per pts aide, she receives 24 hour care and was given aleve at 0430 and 1230, was initially complaining of RLE pain , and has been walking on it fine. - History of Current Complaint Chief Complaint: EDExtremityLower Stated Complaint: LT LEG PAIN Time Seen by Provider: 08/09/18 16:56 Hx Obtained From: Patient, Family/Bleach Supervisor - aide Mechanism Of Injury: Unknown Onset of Pain: Days Onset/Duration: Still Present Severity Initially: Moderate Severity Currently: Moderate Pain Intensity: 7 Pain Scale Used: 0-10 Numeric Timing: Constant, Lasting Hours Location: Is Discrete @ - L leg Character Of Pain: Sharp Associated Signs And Symptoms: Positive: Knee Pain Aggravating Factor(s): Movement Alleviating Factor(s): Rest Able to Bear Weight: Yes - Allergies/Home Medications Allergies/Adverse Reactions: Allergies Allergy/AdvReac Type Severity Reaction Status Date / Time Sulfa (Sulfonamide Allergy Severe Hives Verified 06/10/18 14:42 Antibiotics) PMH/Surg Hx/FS Hx/Imm Hx Previously Healthy: No Endocrine/Hematology History: Reports: Hx Anticoagulant Therapy - xarelto for DVT , Hx Thyroid Disease Denies: Hx Diabetes Cardiovascular History: Reports: Hx Angina, Hx Congestive Heart Failure, Hx Coronary Artery Disease, Hx Deep Vein Thrombosis, Hx Hypercholesterolemia, Hx Hypertension, Hx Peripheral Vascular Disease, Other Cardiovascular Problems/ Disorders - HEART MURMUR, CAD, PVD, DVT. Denies: Hx Pacemaker/ICD Respiratory History: Reports: Hx Asthma GI History: Reports: Hx Gastroesophageal Reflux Disease, Hx Gastrointestinal Bleed - with erosive esophagitis History: Reports: Other Problems/Disorders - solitary congenital kidney, frequent UTI's Denies: Hx Renal Disease Musculoskeletal History: Reports: Hx Back Problems Denies: Hx Arthritis, Hx Osteoporosis Sensory History: Reports: Hx Contacts or Glasses, Hx Vision Problem, Hx Hearing Problem Denies: Hx Cataracts, Hx Glaucoma, Hx Hearing Aid Opthamlomology History: Reports: Hx Contacts or Glasses, Hx Vision Problem Denies: Hx Cataracts, Hx Glaucoma Neurological History: Reports: Hx Dementia Denies: Hx Seizures, Other Neuro Impairments/Disorders Psychiatric History: Reports: Hx Anxiety, Hx Depression Denies: Hx Panic Disorder, Hx Substance Abuse - Surgical History Surgery Procedure, Year, and Place: appendectomy per pt. cholecystectomy per H& P Hx Anesthesia Reactions: No - Immunization History Date of Tetanus Vaccine: unable to obtain Date of Influenza Vaccine: unkown Infectious Disease History: No Infectious Disease History: Reports: Hx Clostridium Difficile, Hx of Known/ Suspected MRSA Denies: Hx Human Immunodeficiency Virus (HIV), Traveled Outside the [place] in Last 30 Days - Family History Known Family History: Positive: Cardiac Disease, Other - Dementia (mother) Family History: CAD - Social History Alcohol Use: None Alcohol Amount: One glass of gin Hx Substance Use: No Substance Use Type: Reports: None Hx Tobacco Use: No Smoking Status (MU): Former Smoker Review of Systems Negative: Fever Positive: Myalgia All Other Systems Reviewed And Are Negative: Yes Physical Exam - Summary Physical Exam Summary: Appearance: Well appearing, no pain distress Skin: warm, dry, reflects adequate perfusion Head/face: normal Eyes: EOMI, THEE ENT: normal Neck: supple, non-tender Respiratory: CTA, breath sounds present Cardiovascular: RRR, pulses symmetrical Abdomen: non-tender, soft Musculoskeletal: tenderness over L calf and L thigh, strength/ROM intact Neuro: normal, sensory motor intact, alert and confused Triage Information Reviewed: Yes Vital Signs On Initial Exam: Initial Vitals Temp Pulse Resp BP Pulse Ox 97.8 F 55 20 142/80 97 08/09/18 16:53 08/09/18 16:53 08/09/18 16:53 08/09/18 16:53 08/09/18 16:53 Vital Signs Reviewed: Yes Diagnostics - Vital Signs Vital Signs Temp Pulse Resp BP Pulse Ox 08/09/18 16:53 97.8 F 55 20 142/80 97 - Laboratory Lab Statement: Any lab studies that have been ordered have been reviewed, and results considered in the medical decision making process. - Ultrasound No standard instances Ultrasound Interpretation Completed By: Radiologist Summary of Ultrasound Findings: Bilateral LE Venous Doppler Study. 1. Somewhat limited visualization due to difficulty with patient tolerating the examination. 2. Occlusive DVT in the right popliteal vein. There is limited visualization of the calf veins. Limited nonocclusive thrombus in the right femoral vein. 3. DVT left femoral vein and popliteal vein. At some levels this appears nonocclusive and at other levels cannot exclude occlusive clot. Incomplete visualization of the left calf veins. ED physician has reviewed this report. Lower Extremity Course/Dx - Course Course Of Treatment: Pt is an 87 y/o F presenting to the ED with a chief complaint of LLE pain onset yesterday rated at 7/10. Per pts aide, she receives 24hr care, was initially complaining of RLE pain, was given aleve at 0430 and 1230, and has been walking fine. Venous doppler study shows bilateral DVT. The pt will be discharged home. - Diagnoses Differential Diagnosis/HQI/PQRI: Positive: DVT, Sprain Provider Diagnoses: DVT, bilateral lower limbs Discharge - Sign-Out/Discharge Documenting (check all that apply): Patient Departure Patient Received Moderate/Deep Sedation with Procedure: No - Discharge Plan Condition: Stable Disposition: HOME Prescriptions: Albuterol HFA INHALER* [Ventolin HFA Inhaler*] 2 puff INH Q6H PRN #1 mdi MDD 4 PRN Reason: Sob/Wheezing Referrals: Hiral Bloom MD [Primary Care Provider] - Additional Instructions: Please follow up with your primary care provider in the next three days. Return to the emergency department with any new or worsening symptoms. - Billing Disposition and Condition Condition: STABLE Disposition: Home - Attestation Statements Document Initiated by Brittonibearle: Yes Documenting Scribe: Ita Naidu Provider For Whom Vishnu is Documenting (Include Credential): Jessee Quesada MD. Scribe Attestation: Ita Bansal scribed for Jessee Quesada MD. on 08/10/18 at 1032. Scribe Documentation Reviewed: Yes Provider Attestation: The documentation as recorded by the brittonibIta og accurately reflects the service I personally performed and the decisions made by Jessee leone MD. Status of Scribe Document: Viewed
[2018-08-09 20:59] VITALS: BP 127/74
== END 2018-08-09 20:59 | disposition home or self-care (01) ==
LOC: ED 16:51
DX: I82.413 Acute embolism and thrombosis of femoral vein, bilateral (principal); I82.433 Acute embolism and thrombosis of popliteal vein, bilateral; Z79.01 Long term (current) use of anticoagulants; Z88.2 Allergy status to sulfonamides; Z87.891 Personal history of nicotine dependence
CPT/HCPCS: 93970; 99283

== ENCOUNTER 2018-11-08 21:32 | Emergency (ER) | payer MEDICARE, MEDICAID ==
--- OUTSIDE RECORDS SUMMARY | 2018-11-08 22:08 | XMS REPORT | Continuity of Care Document ---
:1930 External Reference #:[id number] Author Name Enrique Bloom M.D. Address [address] [facility] [place] [address] Care Team Providers Name Role Phone Enrique Bloom M.D. Care Team Information [employer] Unavailable Enrique Bloom M.D. Primary Care Physician Unavailable Payers Date Identification Numbers Payment Provider Subscriber Effective: 1996 Policy Number: [id number] [employer] [place] Claudia Vaca PayID: [id number] [address] [place] [address] Effective: 1998 Policy Number: 4 Life 2ND Phan Ronak Vaca [id number] To [facility] PayID: [id number] [address] [place] [address] Advance Directives Description No Information Available Problems Active Problems Provider Date Gastroesophageal reflux disease Enrique Bloom M.D. Onset: 07/19/2014 H/O: Deep vein thrombosis Enrique Bloom M.D. Onset: 07/19/2014 Old myocardial infarction Enrique Bloom M.D. Onset: 07/19/2014 Hypothyroidism Enrique Bloom M.D. Onset: 07/19/2014 Dementia Enrique Bloom M.D. Onset: 07/19/2014 Kidney disease Enrique Bloom M.D. Onset: 07/19/2014 Note: single kidney Hyperlipidemia Enrique Bloom M.D. Onset: 07/19/2014 H/O: alcoholism Enrique Bloom M.D. Onset: 07/19/2014 Stented coronary artery Enrique Bloom M.D. Onset: 07/19/2014 Coronary arteriosclerosis Enrique Bloom M.D. Onset: 07/19/2014 External hemorrhoids without complication Enrique Bloom M.D. Onset: 2014 Urinary incontinence Enrique Bloom M.D. Onset: 09/11/2014 Intrinsic asthma without status asthmaticus Enrique Bloom M.D. Onset: 2014 Degenerative joint disease involving multiple Enrique Bloom M.D. Onset: 09/11 joints Benign essential hypertension Enrique Bloom M.D. Onset: 09/11/2014 Essential hypertension Enrique Bloom M.D. Onset: 03/22/2015 Mixed hyperlipidemia Enrique Bloom M.D. Onset: 03/22/2015 H/O: pulmonary embolus Enrique Bloom M.D. Onset: 10/18/2018 Resolved Problems Benign hypertension Enrique Bloom M.D. Onset: 07/19/2014 Resolved: 03/22/2015 Candidal vulvovaginitis Enrique Bloom M.D. Onset: 09/11/2014 Resolved: 03/22/2015 Family History Date Family Member(s) Observation Comments Father non-contributory Father due to Unknown Causes () Social History Type Date Description Comments Sex Unknown Lives With Son Tobacco Use Start: Unknown Never Smoked Cigarettes ETOH Use Occasional Tobacco Use Start: Unknown Nonsmoker Allergies, Adverse Reactions, Alerts Active Allergies Reaction Severity Comments Date Sulfa 07/24/2014 Medications Active Medications SIG Qnty Indications Ordering Date Provider Xarelto 1 tab by mouth 90tabs [facility], 10/18/2018 10mg Tablets every day M.D. Escitalopram Oxalate 1 by mouth 90tabs F03.90 [facility], 10/18/2018 10mg every day M.D. Tablets Depend Underwear For change as 60units [facility], 09/01/2018 Wom Men X-Large needed dx R32 M.D. Maximum Absorbency waist 36 Misc Assurance use as needed 100units [facility]09/01/2018 Underpads/30"-36"/Maxi M.D. mum Absorbency 30"-36" Misc BD Sensicare Synthetic use as needed 200units [facility]09/01/2018 Medical Gloves Large M.D. Misc Doxycycline Hyclate 1 by mouth 90tabs Enrique Hosston, 06/30/2018 100mg every evening M.D. Tablets Ranitidine HCL 1 tab by mouth 180tabs [facility], 05/31/2018 150mg twice a day M.D. Tablets Cetirizine HCL 1 by mouth 90tabs J30.9 [facility], 02/17/2018 10mg every day M.D. Tablets Metoprolol Tartrate 1/2 tab once 90tabs [facility], 25mg daily M.D. Tablets Potassium Chloride ER 1 by mouth 180tabs [facility], twice a day M.D. 20Meq Tablets ER Melatonin 1 by mouth 30tabs Ravi F. 3mg Tablets every night at [facility], M.D. bedtime Levothyroxine Sodium 1 by mouth 90tabs [facility], every day M.D. 100mcg Tablets History Medications Xarelto 1 tab by mouth twice 42tabs I82.403 [facility], 08/11/2018 - 15mg Tablets a day x 3 weeks M.D. 10/18/2018 Azithromycin 2 tabs today, then 1 6tabs R05 [facility], 08/11/2018 - 250mg tab daily for next 4 M.D. 10/18/2018 Tablets days Fluconazole one tab by mouth 2tabs B37.3 [facility], 07/05/2018 - 150mg once, may repeat in M.D. 10/18/2018 Tablets five days Doxycycline Hyclate 1 by mouth twice a 14caps N39.0 [facility], 2018 - day x 7 days M.D. 08/04/2018 100mg Capsules Terconazole Insert 1 90gm Stuart Genao 06/17/2018 - 0.4% applicatorful Stoney Cota 10/18/2018 Cream intravaginally at bedtime for 7 consecutive days. Fluconazole one tab by mouth 2tabs [facility], 05/31/2018 - 150mg once, may repeat in M.D. 06/17/2018 Tablets five days Nitrofurantoin 1 by mouth two times 14caps Stuart Genao 12/31/2017 - Monohydrate/Macrocry a day Stoney Cota 01/07/2018 stals 100mg Capsules Gel-Foam Cushion for wheelchair seat Parvin 12/29/2017 - dx g81.91 last seen [facility], 12/29/2017 [facility] 10/12/17 Afnp-C Depend Protection use as daily as 1Box [facility], 12/15/2017 - Briefs Maximum needed dx: r39.81 M.D. 09/01/2018 Absorbency/Large waist- 36 inches [facility] Handicapped Parking Needs handicapped Indu Hamm 12/09/2017 - parking premit for FREYA Francisco 10/18/2018 riding in multiple vehicles. Namenda XR 1 po qd 30caps F03.90 Parvin 09/04/2016 - 28mg Caps [facility], 02/24/2017 ER 24HR Afnp-C Levothyroxine Sodium 1 by mouth every day 90tabs [facility], 2015 - M.D. 12/09/2017 200mcg Tablets Levothyroxine Sodium 1 by mouth every day [facility], 06/04/2016 - M.D. 06/05/2016 150mcg Tablets Levothyroxine Sodium 1 by mouth every day 30tabs [facility], 2015 - M.D. 06/04/2016 200mcg Tablets Augmentin 1 tab by mouth twice 14tabs H60.8x1 [facility], 04/18/2015 - 500-125mg a day x 7days M.D. 07/03/2015 Tablets Oxybutynin Chloride 1 tab by mouth every 90tabs R39.81 [facility], 04/18 - ER day M.D. 12/09/2017 15mg Tablets ER 24HR Wheelchair With Leg wide wheel chair R60.0 Usha 03/22/2015 - Rest with leg rest Vadim [facility] 11/27/2015 G30.1 Furosemide take 2 tablet by 60tabs R60.0 [facility], 03/22/2015 - 20mg Tablets mouth every day M.D. 12/09/2017 as needed Levothyroxine Sodium 1 by mouth every 30tabs [facility], 09/25/2014 - 150mcg day M.D. 02/15/2016 Tablets Pataday 2 drops twice a 1units 372.05 [facility], 09/11/2014 - 0.2% Solution day as needed M.D. 12/09/2017 Advair HFA 1 puff twice a 1units 493.10 [facility], 09/11/2014 - 230-21mcg/Act day M.D. 11/27/2015 Aerosol Isosorbide Mononitrate 1 by mouth every 30tabs Parvin 07/26/2014 - ER day [facility], 12/09/2017 30mg Tablets ER 24HR Afnp-C Clopidogrel Bisulfate take 1 tablet by 30tabs [facility], 07/24/2014 - 75mg mouth once daily M.D. 12/09/2017 Tablets Escitalopram Oxalate 1 by mouth every 30tabs Parvin 07/24/2014 - 10mg day [facility]12/29/2017 Tablets Afnp-C Loratadine 1 by mouth every 30tabs [facility] 07/24/2014 - 10mg Tablets day M.D. 02/24/2017 Simvastatin 1 by mouth every 30tabs Parvin 07/24/2014 - 20mg Tablets day [facility]12/09/2017 Afnp-C Proair HFA 2 puffs every 1units [facility], 07/24/2014 - 108(90Base) 4-6 hours as M.D. 11/27/2015 mcg/Act Aerosol needed Isosorbide Dinitrate 1 by mouth daily 30tabs [facility], 07/24/2014 - 30mg M.D. 07/26/2014 Tablets Aspirin Low Dose 1 once a day 30tabs [facility] 07/24/2014 - 81mg M.D. 03/22/2015 Tablets Nystatin apply to 1units 112.1 [facility], 07/24/2014 - 431816Mqzk/GM affected area M.D. 11/27/2015 Powder twice a day Fluconazole one tab by mouth 2tabs 112.1 [facility], 07/24/2014 - 150mg Tablets once, may repeat M.D. 03/22/2015 in five days Albuterol Sulfate take one tablet 60tabs Ravi F. 07/24/2014 - 4mg by mouth 2 times Shallish, M.D. 02/24/2017 Tablets daily Melatonin 2 by mouth every 60caps [facility]07/24/2014 - 1mg Capsules night at bedtime M.D. 11/27/2015 Donepezil HCL 2 by mouth every 60tabs Parvin 07/24/2014 - 5mg Tablets day [facility]02/24/2017 Afnp-C Amlodipine Besylate 1 by mouth every 30tabs Parvin 07/24/2014 - 5mg day [facility]12/09/2017 Tablets Afnp-C Iron Supplement 1 by mouth every 30tabs [facility] 07/24/2014 - 325(65Fe) day M.D. 02/24/2017 mg Tablets Nexium 24HR 2 a day by mouth 60caps 530.81 Enrique Hosston, 07/24/2014 - 20mg Capsules M.D. 02/24/2017 Metoprolol Succinate ER 1 by mouth every 30tabs Parvin 07/24/2014 - day [facility], 12/11/2017 25mg Tablets ER 24HR Afnp-C Levothyroxine Sodium 1 by mouth every 30tabs [facility], 07/24/2014 - 100mcg day M.D. 09/25/2014 Tablets Cephalexin 1 by mouth three Unknown - 500mg Capsules times daily . 07/05/2018 Xarelto 1 by mouth every 30tabs [facility], - 15mg Tablets day M.D. 10/18/2018 Potassium Chloride ER 1 by mouth a day Unknown - 12/11/2017 Capsules ER Synthroid 1 by mouth every Unknown - 100mcg Tablets day 12/11/2017 Levothyroxine Sodium 1 by mouth every Unknown - 100mcg day 12/09/2017 Tablets Benadryl 2-3 po qhs Unknown - 25mg Tablets 02/24/2017 Aspirin 1 by mouth every Unknown - 325mg Tablets day 12/29/2017 Clotrimazole/Betamethas apply to Unknown - one Dipropionate affected area 03/22/2015 1-0.05% twice a day Cream Vancomycin HCL 1 by mouth 4 Unknown - 250mg times a day 04/18/2015 Capsules Naproxen 1 by mouth twice Unknown - 500mg Tablets a day as needed 03/22/2015 pain take with food Cyclobenzaprine HCL 1 by mouth three Unknown - 10mg times a day as 03/22/2015 Tablets needed Acetaminophen 1-2 by mouth Unknown - 325mg Tablets every 6 hours as 07/24/2014 needed Immunizations CPT Code Status Date Vaccine Lot # [id number] Given 05/31/2018 High-Dose, Influenza Virus Vacccine-fluzone 65 and [id number] older [id number] Given 02/24/2017 High-Dose, Influenza Virus Vacccine-fluzone 65 and [id number] older 24604 Given 02/14/2016 Pneumococcal Conjugate Vacc-13 [id number] Given 02/14/2016 High-Dose, Influenza Virus Vacccine-fluzone 65 and [id number] older 65604 Given 03/22/2015 Influenza Vac, Quadrivalent, Slit Virus, Im [id number] Vital Signs Date Vital Result Comment 10/18/2018 5:01pm BP Systolic 120 mmHg BP Diastolic 70 mmHg Heart Rate 66 /min Body Temperature 98.1 F Respiratory Rate 18 /min 08/11/2018 1:56pm BP Systolic 118 mmHg BP Diastolic 60 mmHg Heart Rate 68 /min Body Temperature 98.4 F Respiratory Rate 16 /min 07/05/2018 5:23pm BP Systolic 120 mmHg BP Diastolic 60 mmHg Heart Rate 60 /min Body Temperature 99.3 F Respiratory Rate 16 /min 06/30/2018 4:11pm BP Systolic 116 mmHg BP Diastolic 68 mmHg Heart Rate 70 /min Body Temperature 98.1 F Respiratory Rate 16 /min 05/31/2018 3:24pm BP Systolic 130 mmHg BP Diastolic 74 mmHg Heart Rate 68 /min Body Temperature 98.3 F Respiratory Rate 17 /min Weight 159.00 lb 02/17/2018 2:35pm BP Systolic 102 mmHg BP Diastolic 60 mmHg Heart Rate 60 /min Body Temperature 98.1 F Respiratory Rate 18 /min O2 % BldC Oximetry 98 % 12/29/2017 4:37pm BP Systolic 118 mmHg BP Diastolic 66 mmHg Heart Rate 64 /min Body Temperature 98.7 F Respiratory Rate 15 /min 12/09/2017 1:41pm BP Systolic 150 mmHg BP Diastolic 82 mmHg Heart Rate 60 /min Body Temperature 97.9 F Weight 137.00 lb 02/24/2017 2:56pm BP Systolic 110 mmHg BP Diastolic 60 mmHg Heart Rate 72 /min Body Temperature 98.8 F Respiratory Rate 16 /min Weight 156.00 lb 09/04/2016 6:36pm BP Systolic 110 mmHg BP Diastolic 68 mmHg Heart Rate 68 /min Body Temperature 97.5 F Respiratory Rate 16 /min 06/05/2016 4:59pm BP Systolic 134 mmHg BP Diastolic 80 mmHg Heart Rate 68 /min Body Temperature 97.4 F Respiratory Rate 18 /min Height 59 inches 4'11" 02/14/2016 3:52pm BP Systolic 112 mmHg BP Diastolic 64 mmHg Heart Rate 76 /min Body Temperature 97.5 F Respiratory Rate 16 /min Height 59 inches 4'11" 11/27/2015 11:41am Heart Rate 60 /min Body Temperature 97.6 F Height 59 inches 4'11" 07/03/2015 3:27pm BP Systolic 130 mmHg BP Diastolic 80 mmHg Heart Rate 64 /min Body Temperature 98.3 F Respiratory Rate 20 /min Height 59 inches 4'11" Weight 205.00 lb BMI (Body Mass Index) 41.4 kg/m2 04/18/2015 3:54pm BP Systolic 144 mmHg BP Diastolic 88 mmHg Heart Rate 80 /min Body Temperature 98.1 F Respiratory Rate 18 /min 03/22/2015 6:16pm BP Systolic 130 mmHg BP Diastolic 64 mmHg Heart Rate 72 /min Body Temperature 98.1 F Respiratory Rate 16 /min Weight 206.00 lb 09/11/2014 12:30pm BP Systolic 142 mmHg BP Diastolic 100 mmHg Heart Rate 88 /min Body Temperature 97.6 F O2 % BldC Oximetry 97 % Height 59 inches 4'11" 07/24/2014 1:02pm BP Systolic 140 mmHg BP Diastolic 80 mmHg Heart Rate 60 /min Body Temperature 97.4 F Respiratory Rate 16 /min Height 59 inches 4'11" Weight 197.12 lb BMI (Body Mass Index) 39.8 kg/m2 Results Test Date Facility Test Result H/L Range Note Influenza A&B-[facility] 08/11/2018 [facility] Influenza A neg (607)- - Influenza B neg Urine Culture And 07/06/2018 [facility] Urine Culture SEE RESULT BELOW 1 Sensitivities Ua - Micro (a) 07/06/2018 [facility] Appearance Slightly Cloudy (607)- - Color Yellow Glucose, Urine (a/[facility]/CTX) Negative Bilirubin Negative Ketones Negative SP Grav 1.025 Blood Negative PH 5.5 Protein Negative Urobil 0.2 Nitrite Negative Leukocytes (a/[facility]) Negative Hyaline - /Lpf Granular 2-3 /Lpf # WBC (a,[facility]) 0-1 # RBC 0-2 # Mucus - /Lpf Epith occ /Lpf # Bacteria rare /Hpf # Amorphous - /Lpf Crystals, Fluid (a/[facility]/CTX) - Urine Culture And 06/10/2018 [facility] Urine Culture SEE RESULT BELOW 2, 3 Sensitivities Urinalysis Profile 06/10/2018 [facility] Urine Color Yellow Urine Appearance Cloudy Urine Specific [place] 1.019 N 1.010-1.030 Urine pH 5.0 N 5-9 Urine Urobilinogen Negative Negative Urine Ketones Negative Negative Urine Protein Negative Negative Urine Leukocytes 1+ Abnormal Negative Urine Blood Negative Negative * * Abnormal Negative 4 Urine Nitrite Negative Negative Urine Bilirubin Negative Negative Urine Glucose Negative Negative Urine White Blood Cell 2+(11-20/hpf) Abnormal Absent Urine Red Blood Cell Trace(0-2/hpf) Absent Urine Bacteria 1+ Abnormal Absent Urine Squamous Epithelial Cell Present Abnormal Absent CBC Auto Diff 06/10/2018 [facility] White Blood Count 5.5 10^3/uL N 3.5-10.8 Red Blood Count 4.46 10^6/uL N 4.00-5.40 Hemoglobin 13.0 g/dL N 12.0-16.0 Hematocrit 40 % N 35-47 Mean Corpuscular Volume 90 fL N 80-97 Mean Corpuscular Hemoglobin 29 pg N 27-31 Mean Corpuscular HGB Conc 32 g/dL N 31-36 Red Cell Distribution Width 14 % N 10.5-15 Platelet Count 333 10^3/uL N 150-450 Mean Platelet Volume 8.5 fL N 7.4-10.4 Abs Neutrophils 3.5 10^3/uL N 1.5-7.7 Abs Lymphocytes 1.0 10^3/uL N 1.0-4.8 Abs Monocytes 0.5 10^3/uL N 0-0.8 Abs Eosinophils 0.4 10^3/uL N 0-0.6 Abs Basophils 0.1 10^3/uL N 0-0.2 Abs Nucleated RBC 0 10^3/uL Granulocyte % 64.2 % Lymphocyte % 17.4 % Monocyte % 9.7 % Eosinophil % 7.3 % Basophil % 1.4 % Nucleated Red Blood Cells % 0.1 Type & Screen 06/10/2018 [facility] Patient Blood Type O Positive Antibody Screen NEGATIVE Laboratory test 06/10/2018 [facility] Partial Thrombo Time 30.2 seconds N 26.0- 36.3 finding PTT Inr/Protime 06/10/2018 [facility] Inr 1.30 High 0.77-1.02 Laboratory test 06/10/2018 [facility] Troponin I 0.00 ng/mL <0.04 5 finding Lipid Profile 06/10/2018 [facility] Triglycerides 67 mg/dL 6 (Trig/Chol/HDL) Cholesterol 143 mg/dL 7 HDL Cholesterol 39.3 mg/dL 8 LDL Cholesterol 90 mg/dL 9 Comp Metabolic Panel 06/10/2018 [facility] Sodium 139 mmol/L N 135-145 Potassium 4.1 mmol/L N 3.5-5.0 Chloride 107 mmol/L N 101-111 Co2 Carbon Dioxide 28 mmol/L N 22-32 Anion Gap 4 mmol/L N 2-11 Glucose 94 mg/dL N 70-100 Blood Urea Nitrogen 14 mg/dL N 6-24 Creatinine 0.78 mg/dL N 0.51-0.95 BUN/Creatinine Ratio 17.9 N 8-20 Calcium 9.8 mg/dL N 8.6-10.3 Total Protein 7.0 g/dL N 6.4-8.9 Albumin 3.4 g/dL N 3.2-5.2 Globulin 3.6 g/dL N 2-4 Albumin/Globulin Ratio 0.9 Low 1-3 Total Bilirubin 0.30 mg/dL N 0.2-1.0 Alkaline Phosphatase 90 U/L N 34-104 Alt 10 U/L N 7-52 Ast 15 U/L N 13-39 Egfr Non- 70.0 >60 Egfr 84.7 >60 10 Laboratory test finding 06/10/2018 [facility] Lactic Acid 1.0 mmol/L N 0.5-2.0 11 Laboratory test finding 06/10/2018 [facility] Point of Care 92 mg/dL N 70-100 12 Glucose Urine Culture And 05/19/2018 [facility] Urine Culture SEE RESULT BELOW 13 Sensitivities Urinalysis Profile 05/19/2018 [facility] Urine Color Yellow Urine Appearance Cloudy Urine Specific [place] 1.012 N 1.010-1.030 Urine pH 6.0 N 5-9 Urine Urobilinogen Negative Negative Urine Ketones Negative Negative Urine Protein Negative Negative Urine Leukocytes Trace Abnormal Negative Urine Blood Negative Negative * * Abnormal Negative 14 Urine Nitrite Positive Abnormal Negative Urine Bilirubin Negative Negative Urine Glucose Negative Negative Urine White Blood Cell Trace(0-5/hpf) Absent Urine Red Blood Cell Trace(0-2/hpf) Absent Urine Bacteria 1+ Abnormal Absent Urine Squamous Epithelial Cell Present Abnormal Absent CBC Auto Diff 05/19/2018 [facility] White Blood Count 4.9 10^3/uL N 3.5-10.8 Red Blood Count 4.36 10^6/uL N 4.00-5.40 Hemoglobin 13.0 g/dL N 12.0-16.0 Hematocrit 40 % N 35-47 Mean Corpuscular Volume 91 fL N 80-97 Mean Corpuscular Hemoglobin 30 pg N 27-31 Mean Corpuscular HGB Conc 33 g/dL N 31-36 Red Cell Distribution Width 15 % N 10.5-15 Platelet Count 352 10^3/uL N 150-450 Mean Platelet Volume 8.0 fL N 7.4-10.4 Abs Neutrophils 2.9 10^3/uL N 1.5-7.7 Abs Lymphocytes 1.1 10^3/uL N 1.0-4.8 Abs Monocytes 0.6 10^3/uL N 0-0.8 Abs Eosinophils 0.2 10^3/uL N 0-0.6 Abs Basophils 0.1 10^3/uL N 0-0.2 Abs Nucleated RBC 0 10^3/uL Granulocyte % 59.2 % Lymphocyte % 21.6 % Monocyte % 12.3 % Eosinophil % 5.0 % Basophil % 1.9 % Nucleated Red Blood Cells % 0 Laboratory test finding 05/19/2018 [facility] Magnesium 2.0 mg/dL N 1.9-2.7 Troponin I 0.00 ng/mL <0.04 15 TSH (Thyroid Stim Horm) 0.46 mcIU/mL N 0.34-5.60 Lactic Acid 0.8 mmol/L N 0.5-2.0 16 Comp Metabolic Panel 05/19/2018 [facility] Sodium 137 mmol/L N 135-145 Potassium 4.3 mmol/L N 3.5-5.0 Chloride 105 mmol/L N 101-111 Co2 Carbon Dioxide 28 mmol/L N 22-32 Anion Gap 4 mmol/L N 2-11 Calcium 9.3 mg/dL N 8.6-10.3 Albumin 3.5 g/dL N 3.2-5.2 Total Bilirubin 0.40 mg/dL N 0.2-1.0 Glucose 87 mg/dL N 70-100 Blood Urea Nitrogen 18 mg/dL N 6-24 Creatinine 0.88 mg/dL N 0.51-0.95 BUN/Creatinine Ratio 20.5 High 8-20 Total Protein 7.2 g/dL N 6.4-8.9 Globulin 3.7 g/dL N 2-4 Albumin/Globulin Ratio 0.9 Low 1-3 Alkaline Phosphatase 80 U/L N 34-104 Alt 11 U/L N 7-52 Ast 14 U/L N 13-39 Egfr Non- 60.9 >60 Egfr 73.7 >60 17 Inr/Protime 12/30/2017 [facility] Inr 1.43 High 0.77-1.02 Laboratory test 12/30/2017 [facility] Partial Thrombo 35.0 seconds N 26.0-36.3 finding Time PTT CBC Auto Diff 12/30/2017 [facility] White Blood Count 6.1 10^3/uL N 3.5-10.8 Red Blood Count 4.22 10^6/uL N 4.00-5.40 Hemoglobin 11.9 g/dL Low 12.0-16.0 Hematocrit 36 % N 35-47 Mean Corpuscular Volume 86 fL N 80-97 Mean Corpuscular Hemoglobin 28 pg N 27-31 Mean Corpuscular HGB Conc 33 g/dL N 31-36 Red Cell Distribution Width 20 % High 10.5-15 Platelet Count 378 10^3/uL N 150-450 Mean Platelet Volume 8.0 um3 N 7.4-10.4 Abs Neutrophils 3.9 10^3/uL N 1.5-7.7 Abs Lymphocytes 1.1 10^3/uL N 1.0-4.8 Abs Monocytes 0.5 10^3/uL N 0-0.8 Abs Eosinophils 0.5 10^3/uL N 0-0.6 Abs Basophils 0 10^3/uL N 0-0.2 Abs Nucleated RBC 0 10^3/uL Granulocyte % 64.1 % N 38-83 Lymphocyte % 18.6 % Low 25-47 Monocyte % 8.0 % High 0-7 Eosinophil % 8.9 % High 0-6 Basophil % 0.4 % N 0-2 Nucleated Red Blood Cells % 0.1 Comp Metabolic Panel 12/30/2017 [facility] Albumin 3.4 g/dL N 3.2-5.2 Total Bilirubin 0.30 mg/dL N 0.2-1.0 Sodium 137 mmol/L N 135-145 Potassium 4.3 mmol/L N 3.5-5.0 Chloride 106 mmol/L N 101-111 Co2 Carbon Dioxide 25 mmol/L N 22-32 Anion Gap 6 mmol/L N 2-11 Glucose 95 mg/dL N 70-100 Blood Urea Nitrogen 24 mg/dL N 6-24 Creatinine 0.78 mg/dL N 0.51-0.95 BUN/Creatinine Ratio 30.8 High 8-20 Calcium 9.1 mg/dL N 8.6-10.3 Total Protein 7.0 g/dL N 6.4-8.9 Globulin 3.6 g/dL N 2-4 Albumin/Globulin Ratio 0.9 Low 1-3 Alkaline Phosphatase 85 U/L N 34-104 Alt 14 U/L N 7-52 Ast 16 U/L N 13-39 Egfr Non- 70.0 >60 Egfr 84.7 >60 18 Urine Culture And 12/30/2017 [facility] Urine Culture SEE RESULT BELOW 19 Sensitivities Ua - Micro (Fma) 12/30/2017 [facility] Appearance slightly cloudy # (607)- - Color yellow Glucose, Urine (Fma/CMC/CTX) negative Bilirubin negative Ketones negative SP Grav 1.015 Blood negative PH 5.0 Protein negative Urobil 0.2 Nitrite positive # Leukocytes (Fma/[facility]) negative Hyaline - /Lpf Granular - /Lpf WBC (Fma,[facility]) 2-3 # RBC 0-2 # Mucus - /Lpf Epith rare /Lpf # Bacteria 4+ /Hpf # Amorphous - /Lpf Crystals, Fluid (Fma/CMC/CTX) - Z#Comments - CBC Electronic a 12/09/2017 [facility]) WBC 5.7 x10^3/UL 4.0- 10.0 RBC 4.22 x10^6/UL 3.93-6.00 HGB 11.4 g/dL Low 12.0-17.0 HCT 36 % 35-50 MCV 86.3 fL 80.0-95.0 MCH 27.0 pg 25.6-32.2 MCHC 32.2 g/dL 32.2-36.0 RDW-CV 20.0 % High 11.6-14.4 PLT 363 x10^3/UL 163-400 MPV 10.4 fL 9.4-12.4 Bimal# 3.37 x10^3/UL 1.56-6.13 Lymph# 1.32 x10^3/UL 1.18-3.74 Forrest# 0.50 x10^3/UL 0.24-0.82 Eos # 0.4 x10^3/UL 0.0-0.5 Baso # 0.10 x10^3/UL High 0.01-0.08 Bimal% 58.9 % 34.0-70.0 Lymph % 23.0 % 20.0-52.0 Forrest% 8.7 % 5.0-12.0 Eos% 7.5 % High 0.7-7.0 Baso% 1.7 % High 0.1-1.2 Laboratory test 12/09/2017 [facility]) TSH 0.94 mIU/L 0.50-6.00 finding Laboratory test 09/08/2017 [facility] Ferritin < 10.0 ng/mL Low 11-307 finding Iron & Iron 09/08/2017 [facility] Iron 21 g/dL Low 50-212 Binding Capacity Unsaturated Iron Binding 312 g/dL Total Iron Binding Capacity 333 g/dL N 250-450 Transferrin 238 mg/dL N 203-362 % Iron Saturation 6 % Low 15-55 Laboratory test finding 09/08/2017 [facility] Lactic Acid 1.9 mmol/L N 0.5-2.0 20 TSH (Thyroid Stim Horm) 0.31 mcIU/mL Low 0.34-5.60 Comp Metabolic Panel 09/08/2017 [facility] Sodium 139 mmol/L N 139-145 Potassium 4.3 mmol/L N 3.5-5.0 Chloride 109 mmol/L N 101-111 Co2 Carbon Dioxide 23 mmol/L N 22-32 Anion Gap 7 mmol/L N 2-11 Glucose 102 mg/dL High 70-100 Blood Urea Nitrogen 17 mg/dL N 6-24 Creatinine 0.80 mg/dL N 0.51-0.95 BUN/Creatinine Ratio 21.3 High 8-20 Calcium 9.5 mg/dL N 8.6-10.3 Total Protein 7.3 g/dL N 6.4-8.9 Albumin 3.4 g/dL N 3.2-5.2 Globulin 3.9 g/dL N 2-4 Albumin/Globulin Ratio 0.9 Low 1-3 Total Bilirubin 0.30 mg/dL N 0.2-1.0 Alkaline Phosphatase 89 U/L N 34-104 Alt 9 U/L N 7-52 Ast 14 U/L N 13-39 Egfr Non- 68.2 >60 Egfr 87.7 >60 21 Laboratory test 09/08/2017 [facility] Partial Thrombo 39.3 seconds High 26.0- 36.3 finding Time PTT Troponin I 0.05 ng/mL High <0.04 22 Inr/Protime 09/08/2017 [facility] Inr 2.46 High 0.77-1.02 CBC Auto Diff 09/08/2017 [facility] White Blood Count 9.0 10^3/uL N 3.5-10.8 Red Blood Count 4.72 10^6/uL N 4.0-5.4 Hemoglobin 10.8 g/dL Low 12.0-16.0 Hematocrit 35 % N 35-47 Mean Corpuscular Volume 74 fL Low 80-97 23 Mean Corpuscular Hemoglobin 23 pg Low 27-31 Mean Corpuscular HGB Conc 31 g/dL N 31-36 Red Cell Distribution Width 21 % High 10.5-15 Platelet Count 475 10^3/uL High 150-450 Mean Platelet Volume 8.2 um3 N 7.4-10.4 Abs Neutrophils 8.1 10^3/uL High 1.5-7.7 Abs Lymphocytes 0.5 10^3/uL Low 1.0-4.8 Abs Monocytes 0.3 10^3/uL N 0-0.8 Abs Eosinophils 0 10^3/uL N 0-0.6 Abs Basophils 0.1 10^3/uL N 0-0.2 Abs Nucleated RBC 0 10^3/uL Granulocyte % 89.8 % High 38-83 Lymphocyte % 5.2 % Low 25-47 Monocyte % 3.4 % N 0-7 Eosinophil % 0.4 % N 0-6 Basophil % 1.2 % N 0-2 Nucleated Red Blood Cells % 0 Laboratory test 09/08/2017 [facility] Rapid Influenza A & SEE RESULT BELOW 24 finding B Antigen Rapid Influenza A & 09/08/2017 [facility] Influenza A NEGATIVE Negative 25 B Molecular Molecular Influenza B Molecular NEGATIVE Negative Laboratory test 09/08/2017 [facility] Urine Culture And SEE RESULT BELOW 26 finding Sensitivities Urinalysis Profile 09/08/2017 [facility] Urine Color Yellow Urine Appearance Clear Urine Specific [place] 1.013 N 1.010-1.030 Urine pH 5.0 N 5-9 Urine Urobilinogen Negative Negative Urine Ketones Negative Negative Urine Protein Negative Negative Urine Leukocytes Negative Negative Urine Blood Negative Negative Urine Nitrite Positive Abnormal Negative Urine Bilirubin Negative Negative Urine Glucose Negative Negative Urine White Blood Cell Absent Absent Urine Red Blood Cell Absent Absent Urine Bacteria Absent Absent Laboratory test 07/22/2017 [facility] Inr/Protime 2.42 High 0.77-1.02 finding Laboratory test 03/19/2017 [facility] Stool Occult Blood, SEE RESULT 27 finding Screen BELOW Laboratory test 03/18/2017 [facility] Packed Cells SEE RESULTS 28 finding BELO <SEE NOTE> Fresh Frozen Plasma SEE RESULTS BELO <SEE NOTE> 29 Type & Screen 03/18/2017 [facility] Patient Blood Type O Positive N Antibody Screen NEGATIVE N Laboratory test finding 03/18/2017 [facility] Magnesium 1.6 mg/dL Low 1.9-2.7 Lipase 16 U/L N 11.0-82.0 Troponin I 0.02 ng/mL N <0.04 TSH (Thyroid Stim Horm) 5.48 mcIU/mL N 0.34-5.60 C Reactive Protein 25.24 mg/L High < 5.00 30 Comp Metabolic Panel 03/18/2017 [facility] Sodium 135 mmol/L N 133-145 Potassium 3.0 mmol/L Low 3.5-5.0 Chloride 95 mmol/L Low 101-111 Co2 Carbon Dioxide 28 mmol/L N 22-32 Anion Gap 12 mmol/L High 2-11 Glucose 149 mg/dL High 70-100 Blood Urea Nitrogen 48 mg/dL High 6-24 Creatinine 0.96 mg/dL High 0.51-0.95 BUN/Creatinine Ratio 50.0 High 8-20 Calcium 8.7 mg/dL N 8.6-10.3 Total Protein 6.5 g/dL N 6.4-8.9 Albumin 3.1 g/dL Low 3.2-5.2 Globulin 3.4 g/dL N 2-4 Albumin/Globulin Ratio 0.9 Low 1-3 Total Bilirubin 0.40 mg/dL N 0.2-1.0 Alkaline Phosphatase 66 U/L N 34-104 Alt 12 U/L N 7-52 Ast 11 U/L Low 13-39 Egfr Non- 55.2 N >60 Egfr 71.0 N >60 31 Type & Screen 03/18/2017 [facility] Patient Blood Type O Positive N Antibody Screen NEGATIVE N Laboratory test 03/18/2017 [facility] Partial Thrombo Time 40.9 seconds High 26.0-36.3 finding PTT Inr/Protime 03/18/2017 [facility] Inr 5.83 High 0.89-1.11 32 Laboratory test 03/18/2017 [facility] B-Type Natriuretic 26 pg/mL N 33 finding Peptide BNP Lactic Acid 2.5 mmol/L High 0.5-2.0 34 Laboratory test finding 03/10/2017 [facility] Erythrocyte Sed Rate 53 mm/Hr High 0-40 C Reactive Protein 86.17 mg/L High < 5.00 35 TSH (Thyroid Stim Horm) 2.19 mcIU/mL N 0.34-5.60 Blood Culture SEE RESULT BELOW 36 CBC Auto Diff 03/10/2017 [facility] White Blood Count 9.7 10^3/uL N 3.5-10.8 Red Blood Count 4.87 10^6/uL N 4.0-5.4 Hemoglobin 14.3 g/dL N 12.0-16.0 Hematocrit 44 % N 35-47 Mean Corpuscular Volume 90 fL N 80-97 Mean Corpuscular Hemoglobin 29 pg N 27-31 Mean Corpuscular HGB Conc 33 g/dL N 31-36 Red Cell Distribution Width 16 % High 10.5-15 Platelet Count 430 10^3/uL N 150-450 Mean Platelet Volume 9 um3 N 7.4-10.4 Abs Neutrophils 8.6 10^3/uL High 1.5-7.7 Abs Lymphocytes 0.5 10^3/uL Low 1.0-4.8 Abs Monocytes 0.6 10^3/uL N 0-0.8 Abs Eosinophils 0 10^3/uL N 0-0.6 Abs Basophils 0.1 10^3/uL N 0-0.2 Abs Nucleated RBC 0 10^3/uL N Granulocyte % 88.0 % High 38-83 Lymphocyte % 5.5 % Low 25-47 Monocyte % 5.8 % N 1-9 Eosinophil % 0.1 % N 0-6 Basophil % 0.6 % N 0-2 Nucleated Red Blood Cells % 0 N Laboratory test 03/10/2017 [facility] Partial Thrombo 29.6 seconds N 26.0-36.3 finding Time PTT Inr/Protime 03/10/2017 [facility] Inr 1.29 High 0.89-1.11 Laboratory test 03/10/2017 [facility] Creatine Kinase(CK) 12 U/L N 10-223 finding Urinalysis Profile 03/10/2017 [facility] Urine Color Straw N Urine Appearance Clear N Urine Specific [place] 1.006 Low 1.010-1.030 Urine pH 5.0 N 5-9 Urine Urobilinogen Negative N Negative Urine Ketones Trace Abnormal Negative Urine Protein Negative N Negative Urine Leukocytes Negative N Negative Urine Blood Negative N Negative Urine Nitrite Negative N Negative Urine Bilirubin Negative N Negative Urine Glucose Negative N Negative Laboratory test finding 03/10/2017 [facility] B-Type Natriuretic Peptide BNP 37 pg /mL N 37 Lactic Acid 1.6 mmol/L N 0.5-2.0 38 Troponin I 0.01 ng/mL N <0.04 Comp Metabolic Panel 03/10/2017 [facility] Sodium 136 mmol/L N 133-145 Potassium 3.6 mmol/L N 3.5-5.0 Chloride 100 mmol/L Low 101-111 Co2 Carbon Dioxide 26 mmol/L N 22-32 Anion Gap 10 mmol/L N 2-11 Glucose 99 mg/dL N 70-100 Blood Urea Nitrogen 16 mg/dL N 6-24 Creatinine 0.83 mg/dL N 0.51-0.95 BUN/Creatinine Ratio 19.3 N 8-20 Calcium 9.3 mg/dL N 8.6-10.3 Total Protein 7.5 g/dL N 6.4-8.9 Albumin 3.2 g/dL N 3.2-5.2 Globulin 4.3 g/dL High 2-4 Albumin/Globulin Ratio 0.7 Low 1-3 Total Bilirubin 0.60 mg/dL N 0.2-1.0 Alkaline Phosphatase 84 U/L N 34-104 Alt 11 U/L N 7-52 Ast 19 U/L N 13-39 Egfr Non- 65.3 N >60 Egfr 84.0 N >60 39 Comprehensive Metabolic 02/24/2017 [facility]) Sodium 137 mEq/L 134-149 Prof Potassium 4.0 mEq/L 3.6-5.5 Chloride 101 mEq/L 94-112 Carbon Dioxide 23 mEq/L 21-32 Glucose 89 mg/dL 70-105 BUN 9 mg/dL 6-26 Creatinine 0.8 mg/dL 0.6-1.4 BUN/Creat Ratio 11.3 CALC 8.0-36.0 Calcium 8.9 mg/dL 8.6-10.2 Total Protein 7.0 g/dL 6.4-8.3 Albumin 3.5 g/dL Low 3.8-5.5 40 Globulin 3.5 g/dL 2.0-4.8 A/G Ratio 1.0 CALC 0.6-2.3 Alk. Phosphatase 83 U/L 30-110 Alt (SGPT) 9 U/L 7-35 Ast (Sgot) 17 U/L 5-34 Total Bilirubin 0.5 mg/dL 0.2-1.3 GFR Non- >60 ml/min/1.73m^ >=60 GFR >60 ml/min/1.73m^ >=60 Laboratory test 02/24/2017 Girish Schroeder([facility]) Free T4 1.25 ng/dL 0.75- 1.54 finding TSH 9.22 mIU/L High 0.50-6.00 41 Complete Blood Count 02/24/2017 Girish Schroeder([facility]) WBC 7.6 x10^3/UL 3.6 -9.6 RBC 4.50 x10^6/UL 3.90-5.70 HGB 13.5 g/dL 12.1-17.2 HCT 40 % 36-50 MCV 89.0 fL 82.2-97.4 MCH 30.0 pg 27.6-33.3 MCHC 33.7 g/dL 33.0-35.5 RDW 14.8 % High 11.6-13.7 PLT 327 x10^3/UL 150-400 MPV 6.6 fL Low 7.4-10.4 Gran # 4.7 x10^3/UL 1.5-7.2 Lymph# 2.5 x10^3/UL 0.7-4.9 Forrest# 0.4 x10^3/UL 0.1-0.9 Gran % 61.3 % 42.2-75.2 Lymph % 33.4 % 20.5-51.1 Forrest% 5.3 % 1.7-9.3 Laboratory test finding 11/03/2016 [facility] Troponin I 0.03 ng/mL N <0.04 42 Laboratory test finding 06/27/2016 [facility] Lactic Acid 1.1 mmol/L N 0.5-2.0 43 CBC Auto Diff 06/27/2016 [facility] White Blood Count 6.4 10^3/uL N 3.5-10.8 Red Blood Count 4.39 10^6/uL N 4.0-5.4 Hemoglobin 13.0 g/dL N 12.0-16.0 Hematocrit 40 % N 35-47 Mean Corpuscular Volume 91 fL N 80-97 Mean Corpuscular Hemoglobin 30 pg N 27-31 Mean Corpuscular HGB Conc 33 g/dL N 31-36 Red Cell Distribution Width 14 % N 10.5-15 Platelet Count 307 10^3/uL N 150-450 Mean Platelet Volume 9 um3 N 7.4-10.4 Abs Neutrophils 4.8 10^3/uL N 1.5-7.7 Abs Lymphocytes 0.7 10^3/uL Low 1.0-4.8 Abs Monocytes 0.5 10^3/uL N 0-0.8 Abs Eosinophils 0.2 10^3/uL N 0-0.6 Abs Basophils 0.3 10^3/uL High 0-0.2 Abs Nucleated RBC 0 10^3/uL N Granulocyte % 74.9 % N 38-83 Lymphocyte % 10.3 % Low 25-47 Monocyte % 7.1 % N 1-9 Eosinophil % 3.5 % N 0-6 Basophil % 4.2 % High 0-2 Nucleated Red Blood Cells % 0 N Laboratory test finding 06/27/2016 [facility] Troponin I 0.01 ng/mL N <0.04 44 Comp Metabolic Panel 06/27/2016 [facility] Sodium 136 mmol/L N 133-145 Potassium 3.4 mmol/L Low 3.5-5.0 Chloride 102 mmol/L N 101-111 Co2 Carbon Dioxide 28 mmol/L N 22-32 Anion Gap 6 mmol/L N 2-11 Glucose 102 mg/dL High 70-100 Blood Urea Nitrogen 13 mg/dL N 6-24 Creatinine 0.99 mg/dL High 0.51-0.95 BUN/Creatinine Ratio 13.1 N 8-20 Calcium 8.9 mg/dL N 8.6-10.3 Total Protein 7.0 g/dL N 6.4-8.9 Albumin 3.3 g/dL N 3.2-5.2 Globulin 3.7 g/dL N 2-4 Albumin/Globulin Ratio 0.9 Low 1-3 Total Bilirubin 0.30 mg/dL N 0.2-1.0 Alkaline Phosphatase 73 U/L N 34-104 Alt 8 U/L N 7-52 Ast 11 U/L Low 13-39 Egfr Non- 53.4 N >60 Egfr 68.7 N >60 45 Laboratory test finding 06/27/2016 [facility] Troponin I 0.01 ng/mL N <0.04 46 Laboratory test finding 05/26/2016 [facility] Potassium Redraw 3.0 mmol/L Low 3.5-5.0 47 Ast Redraw 18 U/L N 13-39 CKMB 1.0 ng/mL N 0.6-6.3 48 CBC Auto Diff 05/26/2016 [facility] White Blood Count 8.6 10^3/uL N 3.5-10.8 Red Blood Count 4.43 10^6/uL N 4.0-5.4 Hemoglobin 13.1 g/dL N 12.0-16.0 Hematocrit 40 % N 35-47 Mean Corpuscular Volume 91 fL N 80-97 Mean Corpuscular Hemoglobin 30 pg N 27-31 Mean Corpuscular HGB Conc 33 g/dL N 31-36 Red Cell Distribution Width 13 % N 10.5-15 Platelet Count 383 10^3/uL N 150-450 Mean Platelet Volume 10 um3 N 7.4-10.4 Abs Neutrophils 7.1 10^3/uL N 1.5-7.7 Abs Lymphocytes 0.9 10^3/uL Low 1.0-4.8 Abs Monocytes 0.4 10^3/uL N 0-0.8 Abs Eosinophils 0.1 10^3/uL N 0-0.6 Abs Basophils 0.1 10^3/uL N 0-0.2 Abs Nucleated RBC 0 10^3/uL N Granulocyte % 81.6 % N 38-83 Lymphocyte % 10.9 % Low 25-47 Monocyte % 4.9 % N 1-9 Eosinophil % 1.4 % N 0-6 Basophil % 1.2 % N 0-2 Nucleated Red Blood Cells % 0 N Inr/Protime 05/26/2016 [facility] Inr 1.29 High 0.89-1.11 Laboratory test 05/26/2016 [facility] Partial Thrombo 26.6 seconds N 26.0-36.3 finding Time PTT Comp Metabolic Panel 05/26/2016 [facility] Potassium TNP mmol/L N 3.5-5.0 49 Ast TNP U/L N 13-39 50 Sodium 130 mmol/L Low 133-145 Chloride 100 mmol/L Low 101-111 Co2 Carbon Dioxide 23 mmol/L N 22-32 Anion Gap TNP mmol/L N 2-11 Glucose 122 mg/dL High 70-100 Blood Urea Nitrogen 16 mg/dL N 6-24 Creatinine 0.96 mg/dL High 0.51-0.95 BUN/Creatinine Ratio 16.7 N 8-20 Calcium 8.8 mg/dL N 8.6-10.3 Total Protein 7.7 g/dL N 6.4-8.9 Albumin 3.4 g/dL N 3.2-5.2 Globulin 4.3 g/dL High 2-4 Albumin/Globulin Ratio 0.8 Low 1-3 Total Bilirubin 0.40 mg/dL N 0.2-1.0 Alkaline Phosphatase 66 U/L N 34-104 Alt 13 U/L N 7-52 Egfr Non- 55.4 N >60 Egfr 71.2 N >60 51 Laboratory test finding 05/26/2016 [facility] Creatine Kinase(CK) 47 U/L N 10- 223 Troponin I 0.01 ng/mL N <0.04 52 Myoglobin 33.3 ng/mL N 14.3-65.8 Lactic Acid 1.5 mmol/L N 0.5-2.0 53 B-Type Natriuretic Peptide BNP 30 pg/mL N 54 MRSA/S. aureus Blood Cult PCR SEE RESULT BELOW 55 Blood Culture SEE RESULT BELOW 56 Laboratory test 02/14/2016 [facility]) TSH 9.04 mIU/L High 0.50- 6.00 57 finding Free T4 0.92 ng/dL 0.75-1.54 Comprehensive Metabolic 02/14/2016 [facility]) Sodium 135 mEq/L 134-149 Prof Potassium 3.6 mEq/L 3.6-5.5 Chloride 98 mEq/L [...] >60 ml/min/1.73m^ >=60 CBC Electronic (Fma) 02/14/2016 [facility] WBC 5.6 3.6-9.6 (607)- - RBC 4.53 3.90-5.70 Hemoglobin (Fma/CMC/CTX) 14.1 g/dL 12.1 - 17.2 Hematocrit (Fma/CMC/CTX) 43.1 % 36.1 - 50.3 Platelets 310 10^3/ul 150-400 Lymph% 16.3 % Low 17.0-48.0 Mixed% 6.2 Neutrophils % 77.5 Mean Corpuscular Vol 95 82.2-97.4 Mean Corpuscular Hemoglobin 31.2 27.6-33.3 Mean Corpuscular Hemo Concen 32.8 32.0-36.0 RDW 14.5 High 11.6-13.7 Mean Platelet Volume 7.9 5.5-11.0 CBC Auto Diff 01/07/2016 [facility] White Blood Count 8.3 10^3/uL N 3.5-10.8 Red Blood Count 4.58 10^6/uL N 4.0-5.4 Hemoglobin 13.9 g/dL N 12.0-16.0 Hematocrit 43 % N 35-47 Mean Corpuscular Volume 93 fL N 80-97 Mean Corpuscular Hemoglobin 30 pg N 27-31 Mean Corpuscular HGB Conc 33 g/dL N 31-36 Red Cell Distribution Width 14 % N 10.5-15 Platelet Count 333 10^3/uL N 150-450 Mean Platelet Volume 9 um3 N 7.4-10.4 Abs Neutrophils 6.6 10^3/uL N 1.5-7.7 Abs Lymphocytes 0.9 10^3/uL Low 1.0-4.8 Abs Monocytes 0.4 10^3/uL N 0-0.8 Abs Eosinophils 0.2 10^3/uL N 0-0.6 Abs Basophils 0.1 10^3/uL N 0-0.2 Abs Nucleated RBC 0 10^3/uL N Granulocyte % 79.6 % N 38-83 Lymphocyte % 11.2 % Low 25-47 Monocyte % 5.2 % N 1-9 Eosinophil % 2.9 % N 0-6 Basophil % 1.1 % N 0-2 Nucleated Red Blood Cells % 0 N Laboratory test finding 01/07/2016 [facility] Partial Thrombo Time 29.9 seconds N 26.0-36.3 PTT Comp Metabolic Panel 01/07/2016 [facility] Sodium 137 mmol/L N 133-145 Chloride 98 mmol/L Low 101-111 Co2 Carbon Dioxide 29 mmol/L N 22-32 Glucose 166 mg/dL High 70-100 Blood Urea Nitrogen 15 mg/dL N 6-24 Creatinine 1.20 mg/dL High 0.51-0.95 BUN/Creatinine Ratio 12.5 N 8-20 Calcium 9.1 mg/dL N 8.6-10.3 Total Protein 8.1 g/dL N 6.4-8.9 Albumin 3.5 g/dL N 3.2-5.2 Globulin 4.6 g/dL High 2-4 Albumin/Globulin Ratio 0.8 Low 1-3 Total Bilirubin 0.40 mg/dL N 0.2-1.0 Alkaline Phosphatase 91 U/L N 34-104 Alt 8 U/L N 7-52 Egfr Non- 42.8 N >60 Egfr 55.0 N >60 58 Potassium 3.7 mmol/L N 3.5-5.0 Anion Gap 10 mmol/L N 2-11 Ast 17 U/L N 13-39 Laboratory test finding 01/07/2016 [facility] Lipase 13 U/L N 11.0-82.0 Troponin I 0.02 ng/mL N <0.03 59 CKMB 01/07/2016 [facility] CKMB ng/mL 0.8 ng/mL N 0.6-6.3 Laboratory test finding 01/07/2016 [facility] Lactic Acid 2.4 mmol/L High 0.5- 2.0 60 B Type Natriuretic Peptide 28 pg/mL N 61 Anticardiolipin AB, 11/27/2015 [facility] Anticardiolipin <9 GPLU/mL 0-14 62, 63 Igg/Igm [address] [facility] Ab,IgG,[place] [address] (757)- - Anticardiolipin Ab,IgM,Qn 9 MPLU/mL 0-12 64 Factor V Leiden 11/27/2015 [facility] Factor V Leiden See Comment: 65 Mutation [address] [place] [address] (607)- - Comment: See Comment: 66 Lupus Anticoagulant 11/27/2015 [facility] Dilute 49.3 sec 0.0-55.[address] [place] [address] [place] [address] Time(dPT) (607)- - dPT Confirm Ratio 0.91 Ratio 0.00-1.40 Thrombin Time 18.1 sec 0.0-20.0 PTT-LA 35.0 sec 0.0-50.0 dRVVT 33.4 sec 0.0-55.1 Lupus Reflex Interpretation Comment: 67 Protein C Ag & 11/27/2015 [facility] Protein C Antigen 87 % 70-140 Protein S Ag [address] [place] [address] (602)- - Protein S, Total 142 % 58-150 Protein S, Free 89 % 56-124 Antithrombin 11/27/2015 [facility] Antithrombin 91 % 75-135 Deficiency Profile [address] [facility] Activity (At3) [place] [address] (601)- - Antithrombin Antigen 93 % 75-130 Laboratory test 11/27/2015 Girish Schroeder([facility] [place]) Vitamin B-12 319 pg/mL 230-1050 finding TSH 8.54 mIU/L High 0.50-6.00 68 Vitamin D25 12 Low 30-100 Complete Blood Count 11/27/2015 Girish Schroeder([facility] [place]) WBC 7.2 x10^3/UL 3.6 -9.6 RBC 4.52 x10^6/UL 3.90-5.70 HGB 14.1 g/dL 12.1-17.2 HCT 43 % 36-50 MCV 94.0 fL 82.2-97.4 MCH 31.3 pg 27.6-33.3 MCHC 33.2 g/dL 33.0-35.5 RDW 15.1 % High 11.6-13.7 PLT 335 x10^3/UL 150-400 MPV 8.3 fL 7.4-10.4 Gran # 5.9 x10^3/UL 1.5-7.2 Lymph# 0.9 x10^3/UL 0.7-4.9 Forrest# 0.4 x10^3/UL 0.1-0.9 Gran % 80.6 % High 42.2-75.2 Lymph % 13.1 % Low 20.5-51.1 Forrest% 6.3 % 1.7-9.3 Comprehensive Metabolic 11/27/2015 Girish Schroeder([facility] [place]) Sodium 138 mEq/L 134-149 Prof Potassium 3.8 mEq/L 3.6-5.5 Chloride 97 mEq/L 94-112 Carbon Dioxide 28 mEq/L 21-32 Glucose 108 mg/dL High 70-105 69 BUN 22 mg/dL 6-26 Creatinine 1.1 mg/dL [...] GFR >60 ml/min/1.73m^ >=60 Lipid Profile 11/27/2015 Girish Schroedre([facility] [place]) Cholesterol 169 mg/dL 120- 200 Triglycerides 102 mg/dL 30-200 HDL Cholesterol 48 mg/dL 30-85 LDL (Calculated) 101 CALC 0-129 VLDL Cholesterol 20 mg/dL 0-50 HDL Risk Factor 3.5 CALC 0.0-4.4 Laboratory test 11/27/2015 Girish Schroeder([facility] [place]) CK 26 U/L 26-140 finding CBC Auto Diff 07/07/2015 [facility] White Blood 6.6 10^3/uL N 3.5-10.8 Count Red Blood Count 3.94 10^6/uL Low 4.0-5.4 Hemoglobin 12.1 g/dL N 12.0-16.0 Hematocrit 38 % N 35-47 Mean Corpuscular Volume 97 fL N 80-97 Mean Corpuscular Hemoglobin 31 pg N 27-31 Mean Corpuscular HGB Conc 32 g/dL N 31-36 Red Cell Distribution Width 16 % High 10.5-15 Platelet Count 355 10^3/uL N 150-450 Mean Platelet Volume 9 um3 N 7.4-10.4 Abs Neutrophils 4.7 10^3/uL N 1.5-7.7 Abs Lymphocytes 0.8 10^3/uL Low 1.0-4.8 Abs Monocytes 0.5 10^3/uL N 0-0.8 Abs Eosinophils 0.5 10^3/uL N 0-0.6 Abs Basophils 0.2 10^3/uL N 0-0.2 Abs Nucleated RBC 0 10^3/uL N Granulocyte % 71.9 % N 38-83 Lymphocyte % 11.6 % Low 25-47 Monocyte % 7.1 % N 1-9 Eosinophil % 6.9 % High 0-6 Basophil % 2.5 % High 0-2 Nucleated Red Blood Cells % 0 N Laboratory test 07/07/2015 [facility] Lactic Acid 0.7 mmol/L N 0.5-2.0 70 finding Inr/Protime 07/07/2015 [facility] Inr 1.25 High 0.89-1.11 Laboratory test 07/07/2015 [facility] Partial Thrombo 29.5 seconds N 26.0-36.3 finding Time PTT Comp Metabolic Panel 07/07/2015 [facility] Sodium 136 mmol/L N 133-145 Potassium 4.2 mmol/L N 3.5-5.0 Chloride 104 mmol/L N 101-111 Co2 Carbon Dioxide 27 mmol/L N 22-32 Anion Gap 5 mmol/L N 2-11 Glucose 94 mg/dL N 70-100 Blood Urea Nitrogen 20 mg/dL N 6-24 Creatinine 1.01 mg/dL High 0.51-0.95 BUN/Creatinine Ratio 19.8 N 8-20 Calcium 9.0 mg/dL N 8.6-10.3 Total Protein 7.5 g/dL N 6.4-8.9 Albumin 3.8 g/dL N 3.2-5.2 Globulin 3.7 g/dL N 2-4 Albumin/Globulin Ratio 1.0 N 1-3 Total Bilirubin 0.50 mg/dL N 0.2-1.0 Alkaline Phosphatase 79 U/L N 34-104 Alt 8 U/L N 7-52 Ast 13 U/L N 13-39 Egfr Non- 52.3 N >60 Egfr 67.3 N >60 71 Laboratory test finding 07/07/2015 [facility] Creatine Kinase 31 U/L N 10-223 Troponin I 0.00 ng/mL N <0.03 72 CKMB 07/07/2015 [facility] CKMB ng/mL 1.3 ng/mL N 0.6-6.3 Laboratory test finding 07/07/2015 [facility] B Type Natriuretic 44 pg/mL N 73 Peptide TSH (Thyroid Stim Horm) 26.76 ?IU/mL High 0.34-5.60 T3 Free 2.90 pg/mL N 2.5-3.9 Free T4 (Free Thyroxine) 0.48 ng/mL Low 0.61-1.12 Urinalysis Profile 06/18/2015 [facility] Urine Color Yellow N Urine Appearance Cloudy N Urine Specific [place] 1.006 Low 1.010-1.030 Urine pH 6.0 N 5-9 Urine Urobilinogen Negative N Negative Urine Ketones Negative N Negative Urine Protein Negative N Negative Urine Leukocytes 3+ Abnormal Negative Urine Blood 1+ Abnormal Negative Urine Nitrite Positive Abnormal Negative Urine Bilirubin Negative N Negative Urine Glucose Negative N Negative Urine White Blood Cell 3+(>20/hpf) Abnormal Absent Urine Red Blood Cell 2+(6-10/hpf) Abnormal Absent Urine Bacteria 1+ Abnormal Absent Urine Squamous Epithelial Cell Present Abnormal Absent Laboratory test 06/18/2015 [facility] Urine Culture And SEE RESULT 74, 75 finding Sensitivities BELOW CBC Auto Diff 06/18/2015 [facility] White Blood Count 7.8 10^3/uL N 3.5-10.8 Red Blood Count 4.18 10^6/uL N 4.0-5.4 Hemoglobin 12.9 g/dL N 12.0-16.0 Hematocrit 40 % N 35-47 Mean Corpuscular Volume 96 fL N 80-97 Mean Corpuscular Hemoglobin 31 pg N 27-31 Mean Corpuscular HGB Conc 32 g/dL N 31-36 Red Cell Distribution Width 17 % High 10.5-15 Platelet Count 396 10^3/uL N 150-450 Mean Platelet Volume 9 um3 N 7.4-10.4 Abs Neutrophils 6.4 10^3/uL N 1.5-7.7 Abs Lymphocytes 0.8 10^3/uL Low 1.0-4.8 Abs Monocytes 0.4 10^3/uL N 0-0.8 Abs Eosinophils 0.1 10^3/uL N 0-0.6 Abs Basophils 0.1 10^3/uL N 0-0.2 Abs Nucleated RBC 0 10^3/uL N Granulocyte % 81.7 % N 38-83 Lymphocyte % 10.1 % Low 25-47 Monocyte % 5.6 % N 1-9 Eosinophil % 1.7 % N 0-6 Basophil % 0.9 % N 0-2 Nucleated Red Blood Cells % 0 N Inr/Protime 06/18/2015 [facility] Inr 1.28 High 0.89-1.11 Laboratory test finding 06/18/2015 [facility] Lactic Acid 1.1 mmol/L N 0.5-2.0 76 B Type Natriuretic Peptide 45 pg/mL N 77 Troponin I 0.01 ng/mL N <0.03 78 Comp Metabolic Panel 06/18/2015 [facility] Sodium 139 mmol/L N 133-145 Potassium 3.5 mmol/L N 3.5-5.0 Chloride 103 mmol/L N 101-111 Co2 Carbon Dioxide 29 mmol/L N 22-32 Anion Gap 7 mmol/L N 2-11 Glucose 96 mg/dL N 70-100 Blood Urea Nitrogen 12 mg/dL N 6-24 Creatinine 0.87 mg/dL N 0.51-0.95 BUN/Creatinine Ratio 13.8 N 8-20 Calcium 9.4 mg/dL N 8.6-10.3 Total Protein 7.6 g/dL N 6.4-8.9 Albumin 3.6 g/dL N 3.2-5.2 Globulin 4.0 g/dL N 2-4 Albumin/Globulin Ratio 0.9 Low 1-3 Total Bilirubin 0.50 mg/dL N 0.2-1.0 Alkaline Phosphatase 82 U/L N 34-104 Alt 6 U/L Low 7-52 Ast 12 U/L Low 13-39 Egfr Non- 62.2 N >60 Egfr 80.0 N >60 79 Laboratory test finding 06/18/2015 [facility] [place] Magnesium 1.8 mg/dL Low 1.9-2.7 Creatine Kinase 36 U/L N 10-223 Comp Metabolic Panel 09/28/2014 [facility] [place] Sodium 137 mmol/L N 133-145 Potassium 4.2 mmol/L N 3.5-5.0 Chloride 106 mmol/L N 101-111 Co2 Carbon Dioxide 27 mmol/L N 22-32 Anion Gap 4 mmol/L N 2-11 Glucose 130 mg/dL High 70-100 Blood Urea Nitrogen 17 mg/dL N 6-24 Creatinine 1.09 mg/dL High 0.51-0.95 BUN/Creatinine Ratio 15.6 N 8-20 Calcium 9.0 mg/dL N 8.6-10.3 Total Protein 6.9 g/dL N 6.4-8.9 Albumin 3.4 g/dL N 3.2-5.2 Globulin 3.5 g/dL N 2-4 Albumin/Globulin Ratio 1.0 N 1-3 Total Bilirubin 0.50 mg/dL N 0.2-1.0 Alkaline Phosphatase 62 U/L N 34-104 Alt 8 U/L N 7-52 Ast 12 U/L Low 13-39 Egfr Non- 48.1 N >60 Egfr 61.8 N >60 80 CBC Auto Diff 09/28/2014 [facility] [place] White Blood Count 14.2 10^3/uL High 4.8- 10.8 Red Blood Count 3.69 10^6/uL Low 4.0-5.4 Hemoglobin 10.6 g/dL Low 12.0-16.0 Hematocrit 34 % Low 35-47 Mean Corpuscular Volume 91 fL N 80-97 Mean Corpuscular Hemoglobin 29 pg N 27-31 Mean Corpuscular HGB Conc 32 g/dL N 31-36 Red Cell Distribution Width 17 % High 10.5-15 Platelet Count 342 10^3/uL N 150-450 Mean Platelet Volume 9 um3 N 7.4-10.4 Abs Neutrophils 13.2 10^3/uL High 1.5-7.7 Abs Lymphocytes 0.5 10^3/uL Low 1.0-4.8 Abs Monocytes 0.4 10^3/uL N 0-0.8 Abs Eosinophils 0 10^3/uL N 0-0.6 Abs Basophils 0.1 10^3/uL N 0-0.2 Abs Nucleated RBC 0 10^3/uL N Granulocyte % 93.0 % High 38-83 Lymphocyte % 3.7 % Low 25-47 Monocyte % 2.6 % N 1-9 Eosinophil % 0.3 % N 0-6 Basophil % 0.4 % N 0-2 Nucleated Red Blood Cells % 0 N Urinalysis Profile 09/28/2014 [facility] [place] Urine Color Yellow N Urine Appearance Turbid N Urine Specific [place] 1.015 N 1.010-1.030 Urine pH 5.0 N 5-9 Urine Urobilinogen Negative N Negative Urine Ketones Negative N Negative Urine Protein 2+(100 mg/dL) Abnormal Negative Urine Leukocytes 3+ Abnormal Negative Urine Blood 1+ Abnormal Negative Urine Nitrite Positive Abnormal Negative Urine Bilirubin Negative N Negative Urine Glucose Negative N Negative Urine White Blood Cell 3+(>20/hpf) Abnormal Absent Urine Red Blood Cell 3+(>10/hpf) Abnormal Absent Urine Bacteria Absent N Absent Laboratory test finding 09/28/2014 [facility] Troponin I 0.02 ng/mL N <0.03 81 Laboratory test finding 09/28/2014 [facility] Troponin I 0.02 ng/mL N <0.03 82 B Type Natriuretic Peptide 126 pg/mL N 83 Laboratory test finding 09/11/2014 [facility] Free T4 0.98 ng/mL N 0.61-1.12 Carbon Monoxide 1.6 % High 0.5-1.5 Rheumatoid Factor <15 IU/mL N <15 84 Comp Metabolic Panel 09/11/2014 [facility] Sodium 138 mmol/L N 133-145 Potassium 4.1 mmol/L N 3.5-5.0 Chloride 103 mmol/L N 101-111 Co2 Carbon Dioxide 29 mmol/L N 22-32 Anion Gap 6 mmol/L N 2-11 Glucose 87 mg/dL N 70-100 Blood Urea Nitrogen 25 mg/dL High 6-24 Creatinine 0.81 mg/dL N 0.51-0.95 BUN/Creatinine Ratio 30.9 High 8-20 Calcium 9.3 mg/dL N 8.6-10.3 Total Protein 7.3 g/dL N 6.4-8.9 Albumin 3.9 g/dL N 3.2-5.2 Globulin 3.4 g/dL N 2-4 Albumin/Globulin Ratio 1.1 N 1-3 Total Bilirubin 0.40 mg/dL N 0.2-1.0 Alkaline Phosphatase 74 U/L N 34-104 Alt 10 U/L N 7-52 Ast 13 U/L N 13-39 Egfr Non- 67.7 N >60 Egfr 87.1 N >60 85 Laboratory test 09/11/2014 [facility] TSH (Thyroid 11.13 IU/mL High 0.34-5.60 finding Stimulating Horm) Erythrocyte Sed Rate 48 mm/Hr High 0-40 CBC Auto Diff 09/11/2014 [facility] [place] White Blood Count 8.5 10^3/uL N 4.8-10.8 Red Blood Count 3.84 10^6/uL Low 4.0-5.4 Hemoglobin 11.5 g/dL Low 12.0-16.0 Hematocrit 35 % N 35-47 Mean Corpuscular Volume 90 fL N 80-97 Mean Corpuscular Hemoglobin 30 pg N 27-31 Mean Corpuscular HGB Conc 33 g/dL N 31-36 Red Cell Distribution Width 17 % High 10.5-15 Platelet Count 305 10^3/uL N 150-450 Mean Platelet Volume 9 um3 N 7.4-10.4 Abs Neutrophils 6.9 10^3/uL N 1.5-7.7 Abs Lymphocytes 0.8 10^3/uL Low 1.0-4.8 Abs Monocytes 0.5 10^3/uL N 0-0.8 Abs Eosinophils 0.2 10^3/uL N 0-0.6 Abs Basophils 0.1 10^3/uL N 0-0.2 Abs Nucleated RBC 0 10^3/uL N Granulocyte % 80.9 % N 38-83 Lymphocyte % 10.0 % Low 25-47 Monocyte % 5.7 % N 1-9 Eosinophil % 2.2 % N 0-6 Basophil % 1.2 % N 0-2 Nucleated Red Blood Cells % 0 N 1 SEE RESULT BELOW Name: CLAUDIA MARTINEZ : [address]: Enrique Bloom MD Acct: [id number] Unit: [id number] AGE: 87 Location: [facility] Re07/07/18 SEX: F Status: REG REF SPEC: [id number] KAYLEN: 07/06/18-1899 [facility] DR: Enrique Bloom MD REQ: [id number] RECD: 07/07/18 STATUS: COMP _ SOURCE: URINE [facility]: ORDERED: Urine Culture COMMENTS: [id number] boss top urine cx tube Urine Source: Random Procedure Result Reported Site Urine Culture Final 07/09/18- 1104 ML Mixed elda; possible contamination. Suggest resubmission. * ML - Main Lab . END OF REPORT DEPARTMENT OF PATHOLOGY, [address] [place] [address] Avi Nicolas M.D. Director [facility] # [id number] 2 CHEST PAIN SLURRED SPEECH 3 SEE RESULT BELOW Name: CLAUDIA MARTINEZ : [address]: Dominic Simms MD Acct: [id number] Unit: [id number] AGE: 87 Location: [place] [address] Re06/10/18 SEX: F Status: ADM Jailene SPEC: [id number] KAYLEN: 06/10/[address]: Analia Ayala MD REQ: [id number] RECD: 06/10/18 STATUS: RADHA OCHOA DR: Enrique Bloom MD _ SOURCE: URINE SPDESC: ORDERED: Urine Culture Procedure Result Reported Site Urine Culture Final 06/11/18- 1233 ML Mixed elda; possible contamination. Suggest resubmission. * ML - Main Lab . END OF REPORT DEPARTMENT OF PATHOLOGY, [address] [place] [address] Avi Nicolas M.D. Director [facility] # [id number] 4 *Ascorbic acid is present which may interfere with detection of blood. 5 Troponin-I testing on Plasma Separator Tubes (PST) has a known false positive rate of 0.20-0.40%. All positive troponins reflex immediate secondary confirmatory testing. 6 Desirable: <150 Borderline High: 150-199 High: 200-499 Very High: >500 7 Desirable: <200 Borderline High: 200-239 High: >239 8 Low: <40 Desirable: 40-60 High: >60 9 Desirable: <100 Near Optimal: 100-129 Borderline High: 130-159 High: 160-189 Very High: >189 10 Because ethnic data is not always [...] 5 Kidney failure <15 (or dialysis) 11 [facility] Severe Sepsis and Septic Shock Management Bundle Measure requires all lactic acids initially measuring >2.0 mmol/L be repeated. 12 Mangle Roller: [id number] 13 SEE RESULT BELOW Name: CLAUDIA MARTINEZ : [address]: Shahid Wang MD Acct: [id number] Unit: [id number] AGE: 87 Location: ED Re05/19/18 SEX: F Status: REG ER SPEC: [id number] KAYLEN: 05/19/18 [facility] DR: Shahid Wang MD REQ: [id number] RECD: 05/19/18 STATUS: RADHA OCHOA DR: Peter Bloom MD _ SOURCE: URINE SPDESC: ORDERED: Urine Culture Procedure Result Reported Site Urine Culture Final 05/22/18- 830 ML Organism 1 ESCHERICHIA COLI [place] Count >100,000 (Many) CFU/ML 1. ESCHERICHIA COLI [...] . END OF REPORT DEPARTMENT OF PATHOLOGY, [address] [place] [address] Avi Nicolas M.D. Director [facility] # [id number] 14 *Ascorbic acid is present which may interfere with detection of blood. 15 Troponin-I testing on Plasma Separator Tubes (PST) has a known false positive rate of 0.20-0.40%. All positive troponins reflex immediate secondary confirmatory testing. 16 [facility] Severe Sepsis and Septic Shock Management Bundle Measure requires all lactic acids initially measuring >2.0 mmol/L be repeated. 17 Because ethnic data is not always readily [...] 15-29 5 Kidney failure <15 (or dialysis) 18 Because ethnic data is not always [...] 5 Kidney failure <15 (or dialysis) 19 SEE RESULT BELOW Name: CLAUDIA MARTINEZ : [address]: Parvin Mendez NP Acct: [id number] Unit: [id number] AGE: 87 Location: [facility] Re12/30/17 SEX: F Status: REG REF SPEC: [id number] KAYLEN: 12/30/171433 [facility] DR: Parvin Mendez NP REQ: [id number] RECD: 12/30/17 STATUS: COMP _ SOURCE: URINE SPDESC: ORDERED: Urine Culture COMMENTS: [id number] [facility] urine vacutainer Urine Source: Random Procedure Result Reported Site Urine Culture Final 01/01/18- 0859 ML Organism 1 ESCHERICHIA COLI [place] Count >100,000 (Many) CFU/ML 1. ESCHERICHIA COLI [...] . END OF REPORT DEPARTMENT OF PATHOLOGY, [address] [place] [address] Avi Nicolas M.D. Director [facility] # [id number] 20 [facility] Severe Sepsis and Septic Shock Management Bundle Measure requires all lactic acids initially measuring >2.0 mmol/L be repeated. 21 Because ethnic data is not always readily [...] 15-29 5 Kidney failure <15 (or dialysis) 22 Result TnIDx:0.05 Called to PJ at: 12:23:58 by:[id number] Read back by: PJ 23 Consistent with Previous Results Reported on 08/03/17 24 SEE RESULT BELOW Name: CLAUDIA MARTINEZ : [address]: Jessee Quesada MD Acct: [id number] Unit: [id number] AGE: 86 Location: ED Re09/08/17 SEX: F Status: REG ER SPEC: [id number] KAYLEN: 09/08/17-[address]: Jessee Quesada MD REQ: [id number] RECD: 09/08/17 STATUS: RADHA OCHOA DR: Enrique Bloom MD _ SOURCE: NASAL SPDESC: ORDERED: Flu A B Request Procedure Result Reported Site Rapid Influenza A B Request Final 09/08/17- 1212 ML Specimen received for Influenza A/B Molecular testing * - [facility] Lab . END OF REPORT DEPARTMENT OF PATHOLOGY, [address] [place] [address] Avi Nicolas M.D. Director [facility] # [id number] 25 [place]ler: [id number] 26 SEE RESULT BELOW Name: CLAUDIA MARTINEZ : [address]: Lilia Correa DO Acct: [id number] Unit: [id number] AGE: 86 Location: [place] [address] Re09/09/17 SEX: F Status: ADM IN SPEC: [id number] KAYLEN: 09/08/17-[address]: Jessee Quesada MD REQ: [id number] RECD: 09/08/17 STATUS: RADHA OCHOA DR: Enrique Bloom MD _ SOURCE: URINE SPDESC: ORDERED: Urine Culture Procedure Result Reported Site Urine Culture Final 09/10/17- 729 ML Organism 1 ESCHERICHIA COLI [place] Count >100,000 (Many) CFU/ML 1. ESCHERICHIA COLI [...] . END OF REPORT DEPARTMENT OF PATHOLOGY, [address] [place] [address] Avi Nicolas M.D. Director [facility] # [id number] 27 SEE RESULT BELOW Name: CLAUDIA MARTINEZ : [address]: Ld Olguin MD Acct: [id number] Unit: [id number] AGE: 86 Location: ED Re03/18/17 SEX: F Status: REG ER SPEC: [id number] KAYLEN: 03/19/17 [facility] DR: Ld Olguin MD REQ: [id number] RECD: 03/19/17 STATUS: RADHA OCHOA DR: Enrique Bloom MD [facility] _ SOURCE: STOOL SPDESC: ORDERED: Occult Bl, Scn Procedure Result Reported Site Stool Occult Blood (1) Final 03/19/1727 ML Stool Occult Blood Positive * ML - MAIN LAB ([facility]) . END OF REPORT * ML=Testing performed at Main Lab DEPARTMENT OF PATHOLOGY, [address] [place] [address] Avi Nicolas M.D. Director [facility] # [id number] 28 SEE RESULTS BELOW [id number] OP PC TRANSFUSED 03/19/17 1945 [id number] OP PC TRANSFUSED 03/19/17 1623 29 SEE RESULTS BELOW [id number] AP FFP TRANSFUSED 03/19/17 1238 [id number] AP FFP TRANSFUSED 03/19/17 0956 30 Acute inflammation: >10.00 31 Because ethnic data is not always readily [...] 15-29 5 Kidney failure <15 (or dialysis) 32 Verbal to [id number] by [id number] at 2344 on 03/18/17. Results read back accurately. 33 >100 to <200 pg/mL: likely compensated congestive heart failure (CHF) 200 to 400 pg/mL: likely moderate CHF >400 pg/mL: likely moderate to severe CHF 34 Critical Result LACT:2.5 Called to [id number] at: 23:42:07 by:[id number] Read back by:[id number] [place] Severe Sepsis and Septic Shock Management Bundle Measure requires all lactic acids initially measuring >2.0 mmol/L be repeated. 35 Acute inflammation: >10.00 36 SEE RESULT BELOW Name: CLAUDIA MARTINEZ : [address]: Jimmie Cruz MD Acct: [id number] Unit: [id number] AGE: 86 Location: [place] [address] Re03/10/17 SEX: F Status: ADM IN SPEC: [id number] KAYLEN: 03/10/[address]: Nabeel Lantigua MD REQ: [id number] RECD: 03/10/17 STATUS: RES MIKELHR DR: Enrique Bloom MD _ SOURCE: BLOOD,VENO SPDESC: ORDERED: Blood Cult Procedure Result Reported Site Aerobic Culture Bottle Preliminary 03/11/17- 1928 ML No Growth Day 1 Anaerobic Culture Bottle Preliminary 03/11/17- 1928 ML No Growth Day 1 * ML - MAIN LAB ([facility]) . END OF REPORT * ML=Testing performed at Main Lab DEPARTMENT OF PATHOLOGY, [address] [place] [address] Avi Nicolas M.D. Director [facility] # [id number] 37 >100 to <200 pg/mL: likely compensated congestive heart failure (CHF) 200 to 400 pg/mL: likely moderate CHF >400 pg/mL: likely moderate to severe CHF 38 [facility] Severe Sepsis and Septic Shock Management Bundle Measure requires all lactic acids initially measuring >2.0 mmol/L be repeated. 39 Because ethnic data is not always [...] 5 Kidney failure <15 (or dialysis) 40 RESULTS VERIFIED BY REPEAT ANALYSIS 41 consistent w/ previous results 42 99th percentile=0.04 ng/mL Troponin results at [facility] and [facility] are not interchangeable. 43 [facility] Severe Sepsis and Septic Shock Management Bundle Measure requires all lactic acids initially measuring >2.0 mmol/L be repeated. 44 99th percentile=0.04 ng/mL Troponin results at [facility] and [facility] are not interchangeable. 45 Because ethnic data is not always readily [...] 15-29 5 Kidney failure <15 (or dialysis) 46 99th percentile=0.04 ng/mL Troponin results at [facility] and [facility] are not interchangeable. 47 Cancelled. Specimen hemolyzed. Unable to perform test requested. Reorder for specimen recollectio 48 Cancelled. Specimen hemolyzed. Unable to perform test requested. Reorder for specimen recollection. PETER/ED was called for recollect at 2040 on 05/26/16 by [id number] 49 Specimen hemolyzed, unable to obtain accurate results. 50 Specimen hemolyzed, unable to obtain accurate results. 51 Because ethnic data is not always readily [...] 15-29 5 Kidney failure <15 (or dialysis) 52 NOTE: Critical Troponin is now >0.03 ng/mL. 99th percentile=0.04 ng/mL Troponin results at [facility] and [facility] are not interchangeable. 53 [facility] Severe Sepsis and Septic Shock Management Bundle Measure requires all lactic acids initially measuring >2.0 mmol/L be repeated. 54 >100 to <200 pg/mL: likely compensated congestive heart failure (CHF) 200 to 400 pg/mL: likely moderate CHF >400 pg/mL: likely moderate to severe CHF 55 SEE RESULT BELOW Name: CLAUDIA MARTINEZ : [address]: Lilia Correa DO Acct: [id number] Unit: [id number] AGE: 85 Location: [place] [address] Re05/26/16 SEX: F Status: ADM Jailene SPEC: [id number] KAYLEN: 05/26/[address]: Theo Mills MD REQ: [id number] RECD: 05/26/16 STATUS: RES OTHR DR: Enrique Bloom MD _ SOURCE: BLOOD,VENO SPDESC: ORDERED: Blood Cult, MRSA/SA BC PCR COMMENTS: Verbal to [id number] by [id number] at 1831 on 05/27/16. Results read back accurately. Procedure Result Reported Site Aerobic Culture Bottle PENDING Anaerobic Culture Bottle PENDING MRSA/S. aureus Blood Cult PCR Final 05/27/16- 1830 ML Organism 1 MRSA NEGATIVE Organism 2 S.AUREUS NEGATIVE * ML - MAIN LAB ([facility]) . END OF REPORT * ML=Testing performed at Main Lab DEPARTMENT OF PATHOLOGY, [address] [place] [address] Avi Nicolas M.D. Director [facility] # [id number] 56 SEE RESULT BELOW Name: CLAUDIA MARTINEZ : [address]: Lilia Correa DO Acct: [id number] Unit: [id number] AGE: 85 Location: [place] [address] Re05/26/16 Dis: 05/28/16 SEX: F Status: DIS IN SPEC: [id number] KAYLEN: 05/26/16 [facility] DR: Theo Mills MD REQ: [id number] RECD: 05/26/16 STATUS: RADHA OCHOA DR: Enrique Bloom MD _ SOURCE: BLOOD,VENO SPDESC: ORDERED: Blood Cult Procedure Result Reported Site Aerobic Culture Bottle Final 05/31/16- 2226 ML No Growth Day 5 Anaerobic Culture Bottle Final 05/31/16- 2227 ML No Growth Day 5 * ML - MAIN LAB ([facility]) . END OF REPORT * ML=Testing performed at Main Lab DEPARTMENT OF PATHOLOGY, [address] [place] [address] Avi Nicolas M.D. Director [facility] # [id number] 57 RESULTS VERIFIED BY REPEAT ANALYSIS 58 Because ethnic data is not always readily [...] 15-29 5 Kidney failure <15 (or dialysis) 59 Reference Range and Interpretation: TnI (ng/mL) Interpretation Less Than 0.03 ng/mL Not supportive of diagnosis of [place] 0.03 - 0.50 ng/mL Indeterminate: suggest serial studies if clinically indicated. Greater than 0.5 ng/mL Consistent with diagnosis of IL 60 Critical Result LACT:2.4 Called to KADIE at: 23:46:01 by:[id number] Read back by:KADIE [facility] Severe Sepsis and Septic Shock Management Bundle Measure requires all lactic acids initially measuring >2.0 mmol/L be repeated. 61 >100 to <200 pg/mL: likely compensated congestive heart failure (CHF) 200 to 400 pg/mL: likely moderate CHF >400 pg/mL: likely moderate to severe CHF 62 SPLIT SPECIMEN 63 Negative: <15 Indeterminate: 15 - 20 Low-Med Positive: >20 - 80 High Positive: >80 64 Negative: <13 Indeterminate: 13 - 20 Low-Med Positive: >20 - 80 High Positive: >80 65 Result: Negative (no mutation found) Factor V [...] the workup for venous thrombosis include the [id number] mutation in the factor II (prothrombin) gene, protein S and C deficiency, and antithrombin deficiencies. Anticardiolipin antibody and lupus anticoagulant analysis may be appropriate for certain patients, as well as homocysteine levels. Contact your local [facility] for information on how to order additional testing if desired. 66 Genetic counselors are available for health care providers to discuss results at [phone] Methodology: DNA analysis of the Factor V gene was performed by allele-specific PCR. The diagnostic sensitivity and specificity is >99% for both. Molecular-based testing is highly accurate, but as in any laboratory test, diagnostic errors may occur. All test results must be combined with clinical information for the most accurate interpretation. References: Dominique Davila (1996). Clin Lab Med 16:169-186. Tammie Leonard, PhD, FACMG Casi Robles, PhD, FAC Dora Magana, PhD, FAC Laura Salas M.S., PhD, FACMG Guerda Monroe, PhD, FAC Saroj Emmanuel, PhD, FAC Kermit Rubio PhD, FACMG 67 No lupus anticoagulant was detected. 68 RESULTS VERIFIED BY REPEAT ANALYSIS 69 NON-FASTING 70 [facility] Severe Sepsis and Septic Shock Management Bundle Measure requires all lactic acids initially measuring >2.0mmol/L be repeated. 71 Because ethnic data is not always readily [...] 15-29 5 Kidney failure <15 (or dialysis) 72 Reference Range and Interpretation: TnI (ng/mL) Interpretation Less Than 0.03 ng/mL Not supportive of diagnosis of [place] 0.03 - 0.50 ng/mL Indeterminate: suggest serial studies if clinically indicated. Greater than 0.5 ng/mL Consistent with diagnosis of IL 73 >100 to <200 pg/mL: likely compensated congestive heart failure (CHF) 200 to 400 pg/mL: likely moderate CHF >400 pg/mL: likely moderate to severe CHF 74 SEE RESULT BELOW Name: ARIANNA AKBARNCLAUDIA : [address]: Valentín Lindsay DO Acct: [id number] Unit: [id number] AGE: 84 Location: ED Re06/18/15 SEX: F Status: DEP ER SPEC: [id number] KAYLEN: 06/18/15 [facility] DR: Valentín Lindsay DO REQ: [id number] RECD: 06/18/15 STATUS: RADHA OCHOA DR: Wing Bloom MD _ [facility]: Urine Culture Procedure Result Reported Site Urine Culture Final 06/21/15- 817 ML Organism 1 ESCHERICHIA COLI [place] Count >100,000 (Many) CFU/ML 1. ESCHERICHIA COLI [...] antibiotic reporting. * ML - MAIN LAB ([facility]) . END OF REPORT * ML=Testing performed at Main Lab DEPARTMENT OF PATHOLOGY, [address] [place] [address] Avi Nicolas M.D. Director [facility] # [id number] 75 06/21/15 (Thr Jun 21) 11:19 AM ENRIQUE BLOOM treated in ER with cephelaxin 76 [facility] Severe Sepsis and Septic Shock Management Bundle Measure requires all lactic acids initially measuring >2.0mmol/L be repeated. 77 >100 to <200 pg/mL: likely compensated congestive heart failure (CHF) 200 to 400 pg/mL: likely moderate CHF >400 pg/mL: likely moderate to severe CHF 78 Reference Range and Interpretation: TnI (ng/mL) Interpretation Less Than 0.03 ng/mL Not supportive of diagnosis of IL 0.03 - 0.50 ng/mL Indeterminate: suggest serial studies if clinically indicated. Greater than 0.5 ng/mL Consistent with diagnosis of IL 79 Because ethnic data is not always readily [...] 15-29 5 Kidney failure <15 (or dialysis) 80 Because ethnic data is not always readily [...] 15-29 5 Kidney failure <15 (or dialysis) 81 Reference Range and Interpretation: TnI (ng/mL) Interpretation Less Than 0.03 ng/mL Not supportive of diagnosis of IL 0.03 - 0.50 ng/mL Indeterminate: suggest serial studies if clinically indicated. Greater than 0.5 ng/mL Consistent with diagnosis of IL 82 Reference Range and Interpretation: TnI (ng/mL) Interpretation Less Than 0.03 ng/mL Not supportive of diagnosis of IL 0.03 - 0.50 ng/mL Indeterminate: suggest serial studies if clinically indicated. Greater than 0.5 ng/mL Consistent with diagnosis of IL 83 >100 to <200 pg/mL: likely compensated congestive heart failure (CHF) 200 to 400 pg/mL: likely moderate CHF >400 pg/mL: likely moderate to severe CHF [facility] 84 Test Performed by: [place] [address] Senior Sales Operations Analyst: Ld Perdomo II, M.D., Ph.D. 85 Because ethnic data is not always readily [...] Kidney failure <15 (or dialysis) Procedures Date Code Description Status 02/17/2018 14885 Pulse Oximetry Completed Encounters Type Date Location Provider Dx Diagnosis Office Visit 08/11/2018 [facility] Enrique Wolf, I82.403 Acute embolism 2:10p M.D. and thombos unsp deep veins of low extrm, bi F03.90 Unspecified dementia without behavioral disturbance R05 Cough G45.9 Transient cerebral ischemic attack, unspecified I25.10 Athscl heart disease of [place] coronary artery w/o ang pctrs Office Visit 07/05/2018 5:00p [facility] Office Enrique Bloom, N39.0 Urinary tract M.D. 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 unspecified I25.10 Athscl heart disease of [place] coronary artery w/o ang pctrs F02.80 Dementia in oth diseases classd elswhr w/o behavrl disturb N39.0 Urinary tract infection, site not specified Z86.711 Personal history of pulmonary embolism B37.2 Candidiasis of skin and nail Z23 Encounter for immunization Office Visit 02/17/2018 2:30p [facility] Indu Hamm J30.9 Allergic FREYA [place] rhinitis, unspecified R05 Cough Office Visit 12/29/2017 4:15p Main Office Esme Newell R30.0 Dysuria R23.8 Other skin changes Office Visit 12/09/2017 1:30p [facility] Indu Hamm I10 Essential ( primary) FREYA [place] hypertension I25.10 Athscl heart disease of [place] coronary artery w/o ang pctrs E03.9 Hypothyroidism, unspecified F02.80 Dementia in oth diseases classd elswhr w/o behavrl disturb D50.9 Iron deficiency anemia, unspecified 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 diseases classd elswhr w/o behavrl disturb I10 Essential (primary) hypertension E03.8 Other specified hypothyroidism R60.0 Localized edema Office Visit 06/05/2016 5:00p Main Office Enrique Wolf, F02.80 Dementia in [facility].D. diseases classd elswhr w/o behavrl disturb I10 Essential (primary) hypertension E03.8 Other specified hypothyroidism I25.10 Athscl heart disease of [place] coronary artery w/o ang pctrs Office Visit 02/14/2016 4:00p Main Office Enrique Wolf, F02.80 Dementia in [facility].D. 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 diseases classd elswhr w/o behavrl disturb I25.10 Athscl heart disease of [place] coronary artery w/o ang pctrs Office Visit 07/03/2015 3:30p Main Office Enrique Bloom, I10 Essential ( primary) M.D. 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 Vulva & Vagina 788.30 Incontinence Urinary Unspec 493.10 Asthma Intrinsic Unspecified 372.05 Conjunctivitis Atopic Acute 455.3 Hemorrhoids External W/O Complication 715.09 Osteoarthrosis Generalized Multiple Sites 986 Toxic Effect Of Carbon Monoxide 401.1 Hypertension Benign Office Visit 07/24/2014 1:00p [facility] Office Enrique Bloom, 112.1 Candidiasis The M.D. Vulva & Vagina 788.30 Incontinence Urinary Unspec 389.9 Hearing Loss Unspec 294.10 Dementia In Conditions Classified Elsewhere Without Behavior 455.3 Hemorrhoids External W/O Complication 278.00 Obesity Unspec Plan of Treatment Future Appointment(s):03/21/2019 3:00 pm - Enrique Bloom M.D. at Main Ufvgwh3511/2018 - Enrique Bloom M.D.Z00.01 Encounter for general adult medical examination with abnormal findingsComments:Encourage an active and healthy lifestyle with proper eating habits including fruits, vegetables, 6-8 glasses of water a day and monitoring portion size. Recommend 30 minutes of daily physical activityincluding walking, aerobic exercise, sports, yoga or dance. Any activity is better than no activity.Recommend routine eye and dental exams. Next physical is due in 1-2 years. Recommend annual influenza bvwrvryxjdeJ00.90 Unspecified dementia without behavioral disturbanceNew Medication:Escitalopram Oxalate 10 mg - 1 by mouth every dayComments:discussed restarting lexapro and sexual stimulation, Reviewed adverse side effects of medication. Advised to call the office if experiencing symptoms. . Take medication for at least one week as it can take 1 week to build tolerance to side effects of medication. 4-6 weeks for full medication effect. Take medication daily, consider therapy if not already started. Call office right away if symptoms worsen including worsening mood/anxiety or suicidal ideation. Suicide prevention hot line/Crisis line: or [phone]- [phone] 24 hours a day, 7 days a week . It is free and confidential. https ://suicidepreventionlifeline.org/Follow up:4-5 mo sooner if symptoms [id number] Transient cerebral ischemic attack, [id number] Atherosclerotic heart disease of [place] coronary artery withNew Labs:Lipid Panel -[facility], Ordered: 10/18/18CBC Electronic-[facility], Ordered: Comp Metabolic-[facility], Ordered: 10/18/18Comments:continue present medication,will call if there is any increase in the frequency or severity of [id number] Personal history of pulmonary embolismComments: xarelto 10mg [id number] Unsteadiness on feetComments:refer to physical therapy ; using at least 1 person assist, home PT, has difficulty leaving the house without [id number] Unspecified urinary incontinenceComments:using pads, briefs ok for rxAllComments:Medication Management Patient Understands medications she's taking? Yes No Are there Barriers to Adherence? Yes No Has the patient been asked about herbal supplements and therapies, and OTC meds? Yes No
[2018-11-08 22:37] LABS: ABS Basophils 0.1 10^3/ul (0-0.2); ABS Eosinophils 0.5 10^3/ul (0-0.6); ABS Lymphocytes 1.8 10^3/ul (1.0-4.8); ABS Monocytes 0.8 10^3/ul (0-0.8); Eosinophil % 8.4 %; Hematocrit 39 % (35-47); Hemoglobin 12.8 g/dL (12.0-16.0); Lymphocyte % 28.5 %; Mean Corpuscular HGB Conc 33 g/dL (31-36); Mean Corpuscular Hemoglobin 30 pg (27-31); Mean Corpuscular Volume 92 fL (80-97); Mean Platelet Volume 8.7 fL (7.4-10.4); Platelet Count 302 10^3/uL (150-450); Red Blood Count 4.29 10^6 /uL (3.70-4.87); Red Cell Distribution Width 15 % (10.5-15); White Blood Count 6.2 10^3/uL (3.5-10.8)
[2018-11-08 22:41] LABS: INR 1.99 (0.82-1.09)
[2018-11-08 22:58] LABS: Albumin 3.6 g/dL (3.2-5.2); Albumin/Globulin Ratio 0.9 (1-3); BUN/Creatinine Ratio 28.8 (8-20); C Reactive Protein 3.89 mg/L (<8.01); Calcium 9.6 mg/dL (8.6-10.3); EGFR African American 82.1 (>60); EGFR Non-African American 67.8 (>60); Globulin 3.8 g/dL (2-4); Potassium 4.7 mmol/L (3.5-5.0); Total Bilirubin 0.3 mg/dL (0.2-1.0); Total Protein 7.4 g/dL (6.4-8.9)
[2018-11-08 23:01] LABS: Troponin I 0.01 ng/mL (<0.04)
[2018-11-08 23:04] LABS: Urine Appearance Clear; Urine Bilirubin Negative (Negative); Urine Blood Negative (Negative); Urine Color Yellow; Urine Glucose Negative (Negative); Urine Ketones Negative (Negative); Urine Nitrite Negative (Negative); Urine Protein Negative (Negative); Urine Urobilinogen Negative (Negative)
[2018-11-08 23:28] LABS: TSH (Thyroid Stimulating Horm) 0.26 mcIU/mL (0.34-5.60)
--- NOTE | 2018-11-09 01:15 | ED ---
Altered Mental Status - HPI Summary HPI Summary: Patient with history of dementia complains of increasing confusion starting today, strong odor to urine and fever up to 101.3 with some mild nausea. Denies cough, sore throat, BAZAN, neck stiffness, CP, SOB, V/D, abdominal pain, change in BM. Medical history is dementia, CHF, CHD. Recent history of DVT, currently taking anticoagulation. Blood clots have been cleared per caregiver. - History Of Current Complaint Chief Complaint: EDAltMentalStatus Stated Complaint: AMS POSSIBLE UTI PER EMS Time Seen by Provider: 11/08/18 21:52 Hx Obtained From: Patient, Family/Wire Stitcher Timing: Constant Severity Initially: Moderate Severity Currently: Mild Character: Confusion Aggravating Factor(s): Unknown Alleviating Factor(s): Unknown Associated Signs And Symptoms: Positive: Nausea, Fever - Allergies/Home Medications Allergies/Adverse Reactions: Allergies Allergy/AdvReac Type Severity Reaction Status Date / Time Sulfa (Sulfonamide Allergy Severe Hives Verified 06/10/18 14:42 Antibiotics) PMH/Surg Hx/FS Hx/Imm Hx Endocrine/Hematology History: Reports: Hx Anticoagulant Therapy - xarelto for DVT , Hx Thyroid Disease Denies: Hx Diabetes Cardiovascular History: Reports: Hx Angina, Hx Congestive Heart Failure, Hx Coronary Artery Disease, Hx Deep Vein Thrombosis, Hx Hypercholesterolemia, Hx Hypertension, Hx Peripheral Vascular Disease, Other Cardiovascular Problems/ Disorders - HEART MURMUR, CAD, PVD, DVT. Denies: Hx Pacemaker/ICD Respiratory History: Reports: Hx Asthma GI History: Reports: Hx Gastroesophageal Reflux Disease, Hx Gastrointestinal Bleed - with erosive esophagitis History: Reports: Other Problems/Disorders - solitary congenital kidney, frequent UTI's Denies: Hx Renal Disease Musculoskeletal History: Reports: Hx Back Problems Denies: Hx Arthritis, Hx Osteoporosis Sensory History: Reports: Hx Contacts or Glasses, Hx Vision Problem, Hx Hearing Problem Denies: Hx Cataracts, Hx Glaucoma, Hx Hearing Aid Opthamlomology History: Reports: Hx Contacts or Glasses, Hx Vision Problem Denies: Hx Cataracts, Hx Glaucoma Neurological History: Reports: Hx Dementia Denies: Hx Seizures, Other Neuro Impairments/Disorders Psychiatric History: Reports: Hx Anxiety, Hx Depression Denies: Hx Panic Disorder, Hx Substance Abuse - Surgical History Surgery Procedure, Year, and Place: appendectomy per pt. cholecystectomy per H& P Hx Anesthesia Reactions: No - Immunization History Date of Tetanus Vaccine: unable to obtain Date of Influenza Vaccine: unkown Immunizations Up to Date: Yes Infectious Disease History: Yes Infectious Disease History: Reports: Hx Clostridium Difficile, Hx of Known/ Suspected MRSA Denies: Hx Human Immunodeficiency Virus (HIV), Traveled Outside the [place] in Last 30 Days - Family History Known Family History: Positive: Cardiac Disease, Other - Dementia (mother) Family History: CAD - Social History Alcohol Use: None Alcohol Amount: One glass of gin Hx Substance Use: No Substance Use Type: Reports: None Hx Tobacco Use: No Smoking Status (MU): Former Smoker Review of Systems Positive: Fever Eyes: Negative ENT: Negative Cardiovascular: Negative Respiratory: Negative Positive: Nausea Genitourinary: Negative Musculoskeletal: Negative Skin: Negative Neurological: Negative Positive: Other - confusion All Other Systems Reviewed And Are Negative: Yes Physical Exam - Summary Physical Exam Summary: Abdomen soft nontender. Lung sounds clear to auscultation bilaterally. RRR. Patient alert and oriented to self. Intermittently responds to history of present illness questions clearly and specifically. Follows commands. Neuro exam normal. No peripheral edema. Triage Information Reviewed: Yes Vital Signs On Initial Exam: Initial Vitals Temp Pulse Resp BP Pulse Ox 98.9 F 66 18 158/91 95 11/08/18 21:47 11/08/18 21:47 11/08/18 21:47 11/08/18 21:47 11/08/18 21:47 Vital Signs Reviewed: Yes Appearance: Positive: Well-Appearing Skin: Positive: Warm Head/Face: Positive: Normal Head/Face Inspection Eyes: Positive: Normal ENT: Positive: Normal ENT inspection Neck: Positive: Supple Respiratory/Lung Sounds: Positive: Clear to Auscultation Cardiovascular: Positive: Normal Abdomen Description: Positive: Nontender Musculoskeletal: Positive: Normal Neurological: Positive: Normal Psychiatric: Positive: Normal AVPU Assessment: Alert - Davey Coma Scale Best Eye Response: 4 - Spontaneous Best Motor Response: 6 - Obeys Commands Best Verbal Response: 5 - Oriented Coma Scale Total: 15 Diagnostics - Vital Signs Vital Signs Temp Pulse Resp BP Pulse Ox 11/08/18 23:24 60 175/83 88 11/08/18 23:03 86 84 11/08/18 22:00 61 93 11/08/18 21:54 61 158/91 94 11/08/18 21:50 62 94 11/08/18 21:47 98.9 F 66 18 158/91 95 - Laboratory Lab Results: Lab Results 11/08/18 11/08/18 11/08/18 Range/Units 22:26 22:26 22:26 WBC 6.2 (3.5-10.8) 10^3/uL RBC 4.29 (3.70-4.87) 10^6 /uL Hgb 12.8 (12.0-16.0) g/dL Hct 39 (35-47) % MCV 92 (80-97) fL MCH 30 (27-31) pg MCHC 33 (31-36) g/dL RDW 15 (10.5-15) % Plt Count 302 (150-450) 10^3/uL MPV 8.7 (7.4-10.4) fL Neut % (Auto) 48.9 % Lymph % (Auto) 28.5 % [place] % (Auto) 12.7 % Eos % (Auto) 8.4 % Baso % (Auto) 1.5 % Absolute Neuts (auto) 3.0 (1.5-7.7) 10^3/ul Absolute Lymphs (auto) 1.8 (1.0-4.8) 10^3/ul Absolute Monos (auto) 0.8 (0-0.8) 10^3/ul Absolute Eos (auto) 0.5 (0-0.6) 10^3/ul Absolute Basos (auto) 0.1 (0-0.2) 10^3/ul Absolute Nucleated RBC 0.0 10^3/ul Nucleated RBC % 0.0 INR (Anticoag Therapy) 1.99 H (0.82-1.09) Sodium 138 (135-145) mmol/L Potassium 4.7 (3.5-5.0) mmol/L Chloride 110 (101-111) mmol/L Carbon Dioxide 23 (22-32) mmol/L Anion Gap 5 (2-11) mmol/L BUN 23 (6-24) mg/dL Creatinine 0.80 (0.51-0.95) mg/dL Est GFR ( Amer) 82.1 (>60) Est GFR (Non-Af Amer) 67.8 (>60) BUN/Creatinine Ratio 28.8 H (8-20) Glucose 105 H (70-100) mg/dL Lactic Acid (0.5-2.0) mmol/L Calcium 9.6 (8.6-10.3) mg/dL Total Bilirubin 0.30 (0.2-1.0) mg/dL AST 16 (13-39) U/L ALT 12 (7-52) U/L Alkaline Phosphatase 88 (34-104) U/L Troponin I 0.01 (<0.04) ng/mL C-Reactive Protein 3.89 (<8.01) mg/L Total Protein 7.4 (6.4-8.9) g/dL Albumin 3.6 (3.2-5.2) g/dL Globulin 3.8 (2-4) g/dL Albumin/Globulin Ratio 0.9 L (1-3) TSH 0.26 L (0.34-5.60) mcIU/mL Urine Color Urine Appearance Urine pH (5-9) Ur Specific [place] (1.010-1.030) Urine Protein (Negative) Urine Ketones (Negative) Urine Blood (Negative) Urine Nitrate (Negative) Urine Bilirubin (Negative) Urine Urobilinogen (Negative) Ur Leukocyte Esterase (Negative) Urine Glucose (Negative) Urine Ascorbic Acid (Negative) 11/08/18 11/08/18 Range/Units 22:26 22:54 WBC (3.5-10.8) 10^3/uL RBC (3.70-4.87) 10^6 /uL Hgb (12.0-16.0) g/dL Hct (35-47) % MCV (80-97) fL MCH (27-31) pg MCHC (31-36) g/dL RDW (10.5-15) % Plt Count (150-450) 10^3/uL MPV (7.4-10.4) fL Neut % (Auto) % Lymph % (Auto) % [place] % (Auto) % Eos % (Auto) % Baso % (Auto) % Absolute Neuts (auto) (1.5-7.7) 10^3/ul Absolute Lymphs (auto) (1.0-4.8) 10^3/ul Absolute Monos (auto) (0-0.8) 10^3/ul Absolute Eos (auto) (0-0.6) 10^3/ul Absolute Basos (auto) (0-0.2) 10^3/ul Absolute Nucleated RBC 10^3/ul Nucleated RBC % INR (Anticoag Therapy) (0.82-1.09) Sodium (135-145) mmol/L Potassium (3.5-5.0) mmol/L Chloride (101-111) mmol/L Carbon Dioxide (22-32) mmol/L Anion Gap (2-11) mmol/L BUN (6-24) mg/dL Creatinine (0.51-0.95) mg/dL Est GFR ( Amer) (>60) Est GFR (Non-Af Amer) (>60) BUN/Creatinine Ratio (8-20) Glucose (70-100) mg/dL Lactic Acid 1.1 (0.5-2.0) mmol/L Calcium (8.6-10.3) mg/dL Total Bilirubin (0.2-1.0) mg/dL AST (13-39) U/L ALT (7-52) U/L Alkaline Phosphatase (34-104) U/L Troponin I (<0.04) ng/mL C-Reactive Protein (<8.01) mg/L Total Protein (6.4-8.9) g/dL Albumin (3.2-5.2) g/dL Globulin (2-4) g/dL Albumin/Globulin Ratio (1-3) TSH (0.34-5.60) mcIU/mL Urine Color Yellow Urine Appearance Clear Urine pH 5.0 (5-9) Ur Specific [place] 1.020 (1.010-1.030) Urine Protein Negative (Negative) Urine Ketones Negative (Negative) Urine Blood Negative (Negative) Urine Nitrate Negative (Negative) Urine Bilirubin Negative (Negative) Urine Urobilinogen Negative (Negative) Ur Leukocyte Esterase Negative (Negative) Urine Glucose Negative (Negative) Urine Ascorbic Acid * A (Negative) Result Diagrams: 11/08/18 22:26 11/08/18 22:26 Lab Statement: Any lab studies that have been ordered have been reviewed, and results considered in the medical decision making process. Altered Mental Statu Course/Dx - Course Course Of Treatment: Patient with history of dementia complains of increasing confusion starting today, strong odor to urine and fever up to 101.3 with some mild nausea. Denies cough, sore throat, BAZAN, neck stiffness, CP, SOB, V/D, abdominal pain, change in BM. Medical history is dementia, CHF, CHD. Recent history of DVT, currently taking anticoagulation. Blood clots have been cleared per caregiver. Physical exam:Abdomen soft nontender. Lung sounds clear to auscultation bilaterally. RRR. Patient alert and oriented to self. Intermittently responds to history of present illness questions clearly and specifically. Follows commands. Neuro exam normal. No peripheral edema. Vital signs within normal limits. Labs unremarkable. EKG sinus bradycardia consistent with prior. CT brain unremarkable for acute process. UA negative for UTI. Possible sundowning syndrome. Conversation with caregiving staff indicates they are unaware of this syndrome. Advise caregiver staff to continue to observe patient in follow-up with primary care. - Diagnoses Provider Diagnoses: Confusion Discharge - Sign-Out/Discharge Documenting (check all that apply): Patient Departure Patient Received Moderate/Deep Sedation with Procedure: No - Discharge Plan Condition: Stable Disposition: HOME Patient Education Materials: Acute Delirium (ED) Referrals: Hiral Bloom MD [Primary Care Provider] - Additional Instructions: Follow-up with primary care. Continue to observe patient. Return to the ED for any new or worsening symptoms. - Billing Disposition and Condition Condition: STABLE Disposition: Home
[2018-11-09 01:23] VITALS: BP 163/87
== END 2018-11-09 01:24 | disposition home or self-care (01) ==
LOC: ED 21:32
DX: R41.0 Disorientation, unspecified (principal); F03.90 Unspecified dementia, unspecified severity, without behavioral disturbance, psychotic disturbance, mood disturbance, and anxiety; I50.9 Heart failure, unspecified; Z86.718 Personal history of other venous thrombosis and embolism; Z79.01 Long term (current) use of anticoagulants; Z88.2 Allergy status to sulfonamides; I25.10 Atherosclerotic heart disease of native coronary artery without angina pectoris; E78.00 Pure hypercholesterolemia, unspecified; K21.9 Gastro-esophageal reflux disease without esophagitis; Z87.891 Personal history of nicotine dependence; R00.1 Bradycardia, unspecified
CPT/HCPCS: 36415; 70450; 80053; 81003; 83605; 84443; 84484; 85025; 85610; 86140; 93005; 99283

== ENCOUNTER 2019-05-17 20:09 | Emergency (ER) | payer MEDICARE, OTHER, MEDICAID ==
--- NOTE | 2019-05-17 20:49 | ED ---
GI/ HPI - HPI Summary HPI Summary: Patient is an 88 y/o F presenting to the ED via EMS for a chief complaint of hematuria. Patient is present with her home health aide. The patient's home health aide reports the patient uses pads, and on the night of 05/17/19, the aide noticed blood on the pad. Patient was recently diagnosed with a UTI last week and has been receiving treatment for it. The home health aide reports a PMHx of recurrent UTI, but states this last recurrence is worse than previous ones. Patient denies fever, abdominal pain, myalgia, or dysuria. She denies any aggravating or alleviating factors. PMHx is also significant for dementia. Patient lives with her son. - History of Current Complaint Chief Complaint: EDUrogenitalProblems Time Seen by Provider: 05/17/19 20:29 Stated Complaint: BLOOD IN URINE PER EMS Hx Obtained From: Patient, Family/Ux Visual Designer - Home health aide, Other: Hx From Patient Unobtainable Due To: Dementia Onset/Duration: Atraumatic, Still Present Timing: Constant Severity: Moderate Current Severity: Moderate Pain Intensity: 0 Associated Signs and Symptoms: Positive: Hematuria, Other: - Negative myalgia. Negative: Fever, Dysuria, Abdominal Pain Aggravating Factor(s): Nothing Alleviating Factor(s): Nothing - Additional Pertinent History Primary Care Physician: OLLIE - Allergy/Home Medications Allergies/Adverse Reactions: Allergies Allergy/AdvReac Type Severity Reaction Status Date / Time Sulfa (Sulfonamide Allergy Severe Hives Verified 06/10/18 14:42 Antibiotics) PMH/Surg Hx/FS Hx/Imm Hx Previously Healthy: Yes Endocrine/Hematology History: Reports: Hx Anticoagulant Therapy - xarelto for DVT , Hx Thyroid Disease Denies: Hx Diabetes Cardiovascular History: Reports: Hx Angina, Hx Congestive Heart Failure, Hx Coronary Artery Disease, Hx Deep Vein Thrombosis, Hx Hypercholesterolemia, Hx Hypertension, Hx Peripheral Vascular Disease, Other Cardiovascular Problems/ Disorders - HEART MURMUR, CAD, PVD, DVT. Denies: Hx Pacemaker/ICD Respiratory History: Reports: Hx Asthma GI History: Reports: Hx Gastroesophageal Reflux Disease, Hx Gastrointestinal Bleed - with erosive esophagitis History: Reports: Other Problems/Disorders - solitary congenital kidney, frequent UTI's Denies: Hx Renal Disease Musculoskeletal History: Reports: Hx Back Problems Denies: Hx Arthritis, Hx Osteoporosis Sensory History: Reports: Hx Contacts or Glasses, Hx Vision Problem, Hx Hearing Problem Denies: Hx Cataracts, Hx Glaucoma, Hx Legally Blind, Hx Deafness, Hx Hearing Aid Opthamlomology History: Reports: Hx Contacts or Glasses, Hx Vision Problem Denies: Hx Cataracts, Hx Glaucoma, Hx Legally Blind EENT History: Denies: Hx Deafness Neurological History: Reports: Hx Dementia Denies: Hx Seizures, Other Neuro Impairments/Disorders Psychiatric History: Reports: Hx Anxiety, Hx Depression Denies: Hx Panic Disorder, Hx Substance Abuse - Surgical History Surgical History: Yes Surgery Procedure, Year, and Place: appendectomy per pt. cholecystectomy per H& P Hx Anesthesia Reactions: No - Immunization History Date of Tetanus Vaccine: unable to obtain Date of Influenza Vaccine: unkown Infectious Disease History: No Infectious Disease History: Reports: Hx Clostridium Difficile, Hx of Known/ Suspected MRSA Denies: Hx Human Immunodeficiency Virus (HIV), Traveled Outside the [place] in Last 30 Days - Family History Known Family History: Positive: Cardiac Disease, Other - Dementia (mother) Family History: CAD - Social History Occupation: Retired Lives: With Family Alcohol Use: None Alcohol Amount: One glass of gin Hx Substance Use: No Substance Use Type: Reports: None Hx Tobacco Use: Yes Smoking Status (MU): Former Smoker Review of Systems Negative: Fever Negative: Abdominal Pain Positive: hematuria. Negative: dysuria Negative: Myalgia All Other Systems Reviewed And Are Negative: Yes Physical Exam - Summary Physical Exam Summary: Constitutional: Well-developed, Well-nourished, Alert. (-) Distressed Skin: Warm, Dry HENT: Normocephalic; Atraumatic Eyes: Conjunctiva normal Neck: Musculoskeletal ROM normal neck. (-) JVD, (-) Stridor, (-) Nuchal rigidity Cardio: Rhythm regular, rate normal, Heart sounds normal; Intact distal pulses; Radial pulses are 2+ and symmetric. (-) Murmur Pulmonary/Chest wall: Effort normal. (-) Respiratory distress, (-) Wheezes, (-) Rales Abd: Soft, (-) tenderness, (-) Distension, (-) Guarding, (-) Rebound Musculoskeletal: (-) Edema Lymph: (-) Cervical adenopathy Neuro: Alert, Oriented x2 Psych: Mood and affect Normal Triage Information Reviewed: Yes Vital Signs On Initial Exam: Initial Vitals Temp Pulse Resp BP Pulse Ox 98.7 F 56 16 186/93 97 05/17/19 20:11 05/17/19 20:11 05/17/19 20:11 05/17/19 20:11 05/17/19 20:11 Vital Signs Reviewed: Yes Procedures - Sedation Patient Received Moderate/Deep Sedation with Procedure: No Diagnostics - Vital Signs Vital Signs Temp Pulse Resp BP Pulse Ox 05/17/19 20:11 98.7 F 56 16 186/93 97 - Laboratory Result Diagrams: 05/17/19 21:07 05/17/19 21:07 Lab Statement: Any lab studies that have been ordered have been reviewed, and results considered in the medical decision making process. Re-Evaluation - Re-Evaluation First Eval Re-Evaluation Time: 21:30 Comment: labs notable for UA w RBC no e/o infection, CT A/P ordered. GIGU Course/Dx - Course Assessment/Plan: 88 y/o F w hx recent UTI on Xarelto p/w hematuria. - VSS NAD. PE well appearing, no abd tenderness. DDx includes: situs, calculi, renal cell carcinoma, secondary to xarelto use. - Check labs, UA. Suspect infectious source. If negative for infection will consider additional w/u w CT - Diagnoses Provider Diagnoses: Hematuria Discharge ED - Sign-Out/Discharge Documenting (check all that apply): Sign-Out Patient Signing out patient TO: Shahid Wang - Patient is a sign-out at 22:00 on 05/[address] Gracy Wilson MD to Dr. Shahid Wang MD at shift change, pending imaging, further workup, and disposition. - Discharge Plan Condition: Stable Patient Education Materials: Hematuria (ED) Referrals: Hiral Bloom MD [Primary Care Provider] - - Billing Disposition and Condition Condition: STABLE - Attestation Statements Document Initiated by Scribe: Yes Documenting Scribe: Stephy Duckworth Provider For Whom Scribe is Documenting (Include Credential): Gracy Wilson MD Scribe Attestation: IStephy, scribed for Gracy Wilson MD on 05/17/19 at 2202. Scribe Documentation Reviewed: Yes Provider Attestation: The documentation as recorded by the scribe, Stephy Duckworth accurately reflects the service I personally performed and the decisions made by me, Gracy Wilson MD Status of Scribe Document: Viewed
[2019-05-17 21:02] LABS: Urine Appearance Turbid; Urine Bacteria Absent (Absent); Urine Bilirubin Negative (Negative); Urine Blood 3+ (Negative); Urine Glucose Negative (Negative); Urine Ketones Negative (Negative); Urine Nitrite Negative (Negative); Urine Protein 2+(100 mg/dL) (Negative); Urine Red Blood Cell 3+(>10/hpf) (Absent); Urine Specific Gravity 1.017 (1.010-1.030); Urine Urobilinogen Negative (Negative); Urine White Blood Cell Absent (Absent)
[2019-05-17 21:16] LABS: Urine Color Red
[2019-05-17 21:20] LABS: ABS Basophils 0.1 10^3/ul (0-0.2); ABS Eosinophils 0.3 10^3/ul (0-0.6); ABS Lymphocytes 1.2 10^3/ul (1.0-4.8); ABS Monocytes 0.6 10^3/ul (0-0.8); ABS Neutrophils 3.8 10^3/ul (1.5-7.7); Eosinophil % 5.4 %; Hematocrit 40 % (35-47); Hemoglobin 13.4 g/dL (12.0-16.0); Lymphocyte % 20.5 %; Mean Corpuscular HGB Conc 34 g/dL (31-36); Mean Corpuscular Hemoglobin 30 pg (27-31); Mean Corpuscular Volume 90 fL (80-97); Mean Platelet Volume 8.8 fL (7.4-10.4); Platelet Count 333 10^3/uL (150-450); Red Cell Distribution Width 15 % (10-15)
--- OUTSIDE RECORDS SUMMARY | 2019-05-17 21:26 | XMS REPORT | Continuity of Care Document ---
:1930 External Reference #:[id number] Author Name Hiral Bloom M.D. Address [address] [facility] [place] [address] Care Team Providers Name Role Phone Hiral Bloom M.D. - Family Medicine Care Team Information Webbing Inspector Unavailable Paulette Marshall MD - Neurology Care Team Information Webbing Inspector Ed Reeder MD - Cardiovascular Care Team Information Webbing Inspector Disease [facility] - Care Team Information Webbing Inspector [phone] Public Health Policy Analyst-[employer] And Molding Supervisor Sabino Stone - Ophthalmology Care Team Information Webbing Inspector Problems Active Problems Provider Date Gastroesophageal reflux disease Hiral Bloom M.D. Onset: 07/19/2014 H/O: Deep vein thrombosis Hiral Bloom M.D. Onset: 07/19/2014 Old myocardial infarction Hiral Bloom M.D. Onset: 07/19/2014 Hypothyroidism Hiral Bloom M.D. Onset: 07/19/2014 Dementia Hiral Bloom M.D. Onset: 07/19/2014 Kidney disease Hiral Bloom M.D. Onset: 07/19/2014 Note: single kidney Hyperlipidemia Hiral Bloom M.D. Onset: 07/19/2014 H/O: alcoholism Hiral Bloom M.D. Onset: 07/19/2014 Stented coronary artery Hiral Bloom M.D. Onset: 07/19/2014 Coronary arteriosclerosis Hiral Bloom M.D. Onset: 07/19/2014 External hemorrhoids without complication Hiral Bloom M.D. Onset: 2014 Urinary incontinence Hiral Bloom M.D. Onset: 09/11/2014 Intrinsic asthma without status asthmaticus Hiral Bloom M.D. Onset: 2014 Degenerative joint disease involving multiple Hiral Bloom M.D. Onset: 09/11 joints Benign essential hypertension Hiral Bloom M.D. Onset: 09/11/2014 Essential hypertension Hiral Bloom M.D. Onset: 03/22/2015 Mixed hyperlipidemia Hiral Bloom M.D. Onset: 03/22/2015 H/O: pulmonary embolus Hiral Bloom M.D. Onset: 10/18/2018 Social History Type Date Description Comments Sex Unknown Tobacco Use Start: Unknown Never Smoked Cigarettes ETOH Use Occasional Tobacco Use Start: Unknown Nonsmoker Allergies, Adverse Reactions, Alerts Active Allergies Reaction Severity Comments Date Sulfa 07/24/2014 Medications Active Medications SIG Qnty Indications Ordering Date Provider Escitalopram Oxalate 1 by mouth 90tabs F03.90 Hiral Bloom, 03/21/2019 20mg every day M.D. Tablets Potassium Chloride Take 1 Tablet 180tabs Hiral [place], 02/23/2019 Yasmine ER Twice A Day M.D. 20Meq Tablets ER Xarelto 1 tab by mouth 90tabs Hiral [place], 10/18/2018 10mg Tablets every day M.D. Depend Underwear For change as 60units [facility], 09/01/2018 Wom Men X-Large needed dx r32 M.D. Maximum Absorbency waist 36 Misc Assurance use as needed 100units Hiral [place]09/01/2018 Underpads/30"-36"/Maxi dx: r32 M.D. mum Absorbency 30"-36" Misc BD Sens[employer]are Synthetic use as needed 200units Hiral [place], 09/01/2018 Medical Gloves Large M.D. Misc Doxycycline Hyclate 1 by mouth 90tabs Hiral [place], 06/30/2018 100mg every evening M.D. Tablets Ranitidine HCL Take 1 Tablet 180tabs Hiral [place], 05/31/2018 150mg Twice A Day M.D. Tablets Cetirizine HCL 1 by mouth 90tabs J30.9 Hiral [place], 02/17/2018 10mg every day M.D. Tablets Metoprolol Tartrate 1/2 tab once 90tabs Hiral [place], 25mg daily M.D. Tablets Melatonin 1 by mouth 30tabs Ravi F. 3[facility] bed[facility] Levothyroxine Sodium 1 by mouth 90tabs Hiral Bloom, every day M.D. 100mcg Tablets History Medications Escitalopram Oxalate 1 by mouth 90tabs F03.90 Hiral [place], 10/18/2018 - 10mg every day M.D. 03/21/2019 Tablets Immunizations CPT Code Status Date Vaccine Lot # [id number] Given 05/31/2018 High-Dose, Influenza Virus Vacccine-fluzone 65 and [id number] older 86035 Given 02/24/2017 High-Dose, Influenza Virus Vacccine-fluzone 65 and [id number] older 59521 Given 02/14/2016 Pneumococcal Conjugate Vacc-13 [id number] Given 02/14/2016 High-Dose, Influenza Virus Vacccine-fluzone 65 and [id number] older 38238 Given 03/22/2015 Influenza Vac, Quadrivalent, Slit Virus, Im [id number] Vital Signs Date Vital Result Comment 03/21/2019 2:57pm BP Systolic 118 mmHg BP Diastolic 60 mmHg Heart Rate 60 /min Body Temperature 98.0 F Respiratory Rate 16 /min 10/18/2018 5:01pm BP Systolic 120 mmHg BP Diastolic 70 mmHg Heart Rate 66 /min Body Temperature 98.1 F Respiratory Rate 18 /min Results Test Date Facility Test Result H/L Range Note CBC Auto Diff 11/08/2018 [facility] White Blood Count 6.2 10^3/uL Normal 3.5- 10.8 Red Blood Count 4.29 10^6/uL Normal 3.70-4.87 Hemoglobin 12.8 g/dL Normal 12.0-16.0 Hematocrit 39 % Normal 35-47 Mean Corpuscular Volume 92 fL Normal 80-97 Mean Corpuscular Hemoglobin 30 pg Normal 27-31 Mean Corpuscular HGB Conc 33 g/dL Normal 31-36 Red Cell Distribution Width 15 % Normal 10.5-15 Platelet Count 302 10^3/uL Normal 150-450 Mean Platelet Volume 8.7 fL Normal 7.4-10.4 Abs Neutrophils 3.0 10^3/uL Normal 1.5-7.7 Abs Lymphocytes 1.8 10^3/uL Normal 1.0-4.8 Abs Monocytes 0.8 10^3/uL Normal 0-0.8 Abs Eosinophils 0.5 10^3/uL Normal 0-0.6 Abs Basophils 0.1 10^3/uL Normal 0-0.2 Abs Nucleated RBC 0.0 10^3/uL Granulocyte % 48.9 % Lymphocyte % 28.5 % Monocyte % 12.7 % Eosinophil % 8.4 % Basophil % 1.5 % Nucleated Red Blood Cells % 0.0 Inr/Protime 11/08/2018 [facility] Inr 1.99 High 0.82-1.09 1 Urinalysis Profile 11/08/2018 [facility] Urine Color Yellow Urine Appearance Clear Urine Specific Duarte 1.020 Normal 1.010-1.030 Urine pH 5.0 Normal 5-9 Urine Urobilinogen Negative Negative Urine Ketones Negative Negative Urine Protein Negative Negative Urine Leukocytes Negative Negative Urine Blood Negative Negative * * Abnormal Negative 2 Urine Nitrite Negative Negative Urine Bilirubin Negative Negative Urine Glucose Negative Negative Laboratory test finding 11/08/2018 [facility] Lactic Acid 1.1 mmol/L Normal 0.5- 2.0 3 1 Standard intensity warfarin therapeutic range: 2.0-3.0 High intensity warfarin therapeutic range: 2.5-3.5 2 *Ascorbic acid is present which may interfere with detection of blood. 3 [place] Severe Sepsis and Septic Shock Management Bundle Measure requires all lactic acids initially measuring >2.0 mmol/L be repeated. Procedures Description No Information Available Medical Devices Description No Information Available Encounters Type Date Location Provider Dx Diagnosis Office Visit 10/18/2018 Main Office Hiral Bloom M.D. Z00.01 Encounter for 5:00p general adult medical exam w abnormal findings F03.90 Unspecified dementia without behavioral disturbance G45.9 Transient cerebral ischemic attack, unspecified I25.10 Athscl heart disease of [place] coronary artery w/o ang pctrs Z86.711 Personal history of pulmonary embolism R26.81 Unsteadiness on feet R32 Unspecified urinary incontinence Assessments Date Code Description Provider 03/21/2019 F03.90 Unspecified dementia without behavioral Hiral Bloom M.D. disturbance 03/21/2019 I25.10 Atherosclerotic heart disease of [place] Hiral Bloom M.D. coronary artery with 03/21/2019 B37.2 Candidiasis of skin and nail Hiral Bloom M.D. 03/21/2019 Z86.711 Personal history of pulmonary embolism Hiral Bloom M.D. 03/21/2019 R32 Unspecified urinary incontinence Hiral Bloom M.D. 10/18/2018 Z00.01 Encounter for general adult medical examination Hiral Bloom M.D. with abnorma 10/18/2018 F03.90 Unspecified dementia without behavioral Hiral Bloom M.D. disturbance 10/18/2018 G45.9 Transient cerebral ischemic attack, unspecified Hiral Bloom M.D. 10/18/2018 I25.10 Atherosclerotic heart disease of [place] Hiral Bloom M.D. coronary artery with 10/18/2018 Z86.711 Personal history of pulmonary embolism Hiral Bloom M.D. 10/18/2018 R26.81 Unsteadiness on feet Hiral Bloom M.D. 10/18/2018 R32 Unspecified urinary incontinence Hiral Bloom M.D. Plan of Treatment Future Appointment(s):07/05/2019 2:20 pm - Hiral Bloom M.D. at [facility] Mfqozk2003/21/2019 - Hiral Bloom M.D.F03.90 Unspecified dementia without behavioral disturbanceNew Medication:Escitalopram Oxalate 20 mg - 1 by mouth every dayComments:try increase to 20mg to see if it helps with night anxiety; Recommend annual influenza vaccinationFollow up:6 moI25.10 Atherosclerotic heart disease of [place] coronary artery withComments:continue present medication ,will call if there is any increase in the frequency or severity of axbsphC27.2 Candidiasis of skin and nailComments:keep area dry, has cream at home call if not better in a few weeks or symptoms vyksgtP31.711 Personal history of pulmonary [id number] Unspecified urinary incontinenceComments:using pads, briefs benefits from continued usageAllComments:Medication Management Patient Understands medications she's taking? Yes No Are there Barriers to Adherence? Yes No Has the patient been asked about herbal supplements and therapies, and OTC meds? Yes No Functional Status Description No Information Available Mental Status Description No Information Available Referrals Refer to Reason for Referral Status Appt Date Aguilar Ware O.D for possible cataracts and or glaucoma Scheduled [address] [place] [address] [phone] [facility] hearing evaluation Scheduled [address] [place] [address] [phone]
[2019-05-17 21:33] LABS: Albumin 3.5 g/dL (3.2-5.2); BUN/Creatinine Ratio 27.7 (8-20); EGFR African American 78.7 (>60); Globulin 3.6 g/dL (2-4); Potassium 4.3 mmol/L (3.5-5.0); Total Bilirubin 0.3 mg/dL (0.2-1.0); Total Protein 7.1 g/dL (6.4-8.9)
[2019-05-17] MEDS ORDERED: Iodixanol* (CONTRAST) 320 MG/ML 100 ML SDV IV ONE (21:47)
--- NOTE | 2019-05-17 22:35 | ED ---
Progress - Progress Note Progress Note: Patient is received as a sign out from Dr. Wilson to Dr. Wang at [address] ABD/PEL. CT ABD/PEL IMPRESSION 1. A 5 x 7 mm calculus is now present in the left renal pelvis which is mildly dilated, but there is no significant hydronephrosis. No ureteral calculi or hydroureter. 2. 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 3. Mild wall thickening of urinary bladder may represent artifact from under distention or cystitis. Suggest correlation with UA. 4. Post cholecystectomy. 5. Hiatal hernia. 6. Mild cardiomegaly. Coronary artery disease. THIS REPORT WAS REVIEWED BY DR. WANG. Patient was discharged to home and will follow up with PCP and Urology. Re-Evaluation - Re-Evaluation First Eval Re-Evaluation Time: 21:30 Comment: labs notable for UA w RBC no e/o infection, CT A/P ordered. Course/Dx - Course Course Of Treatment: Patient is received as a sign out from Dr. Wilson to Dr. Wang at 2200 05/17/[address] ABD/PEL. CT ABD/PEL IMPRESSION. 1. A 5 x 7 mm calculus is now present in the left renal pelvis which is mildly. dilated, but there is no significant hydronephrosis. No ureteral calculi or. hydroureter. 2. 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 3. Mild wall thickening of urinary bladder may represent artifact from under. distention or cystitis. Suggest correlation with UA. 4. Post cholecystectomy. 5. Hiatal hernia. 6. Mild cardiomegaly. Coronary artery disease. THIS REPORT WAS REVIEWED BY DR. WANG. Patient was discharged to home and will follow up with PCP and Urology. - Diagnoses Provider Diagnoses: Hematuria Discharge ED - Sign-Out/Discharge Documenting (check all that apply): Patient Departure - discharge , Receiving Sign-Out Receiving patient FROM: Gracy Wilson - Discharge Plan Condition: Stable Disposition: HOME Patient Education Materials: Hematuria (ED) Referrals: Hiral Bloom MD [Primary Care Provider] - As Soon As Possible Elías Jones MD [Medical Doctor] - Additional Instructions: Your evaluation here did not show the cause of the blood in the urine, but you are stable and the rest of the workup for this can be completed on an outpatient basis. I have given you contact information for our urology office next to the hospital, please call and schedule and appt. - Billing Disposition and Condition Condition: STABLE Disposition: Home - Attestation Statements Document Initiated by Vishnu: Yes Documenting Scribe: DAVID TREJO Provider For Whom Vishnu is Documenting (Include Credential): VENKATA WANG MD Scribe Attestation: I, DAVID TREJO, scribed for VENKATA WANG MD on 05/19/19 at 0501. Scribe Documentation Reviewed: Yes Provider Attestation: The documentation as recorded by the DAVID curtis accurately reflects the service I personally performed and the decisions made by me, VENKATA WANG MD Status of Scribe Document: Viewed
[2019-05-17 23:59] VITALS: BP 0/0
== END 2019-05-17 23:57 | disposition home or self-care (01) ==
LOC: ED 20:09
DX: R31.9 Hematuria, unspecified (principal)
CPT/HCPCS: 36415; 74177; 80053; 81003; 81015; 85025; 87086; 99283; Q9967

== ENCOUNTER 2019-06-20 10:37 | Observation (INO) | payer MEDICARE, OTHER ==
--- NOTE | 2019-06-20 10:50 | ED ---
Altered Mental Status - HPI Summary HPI Summary: 88 year old female with a history of coronary artery disease status post stenting in 2012, hypertension, hyperlipidemia, hypothyroidism, history of DVT, asthma, anemia, dementia presents to emergency department today because her home aids felt she was weaker than usual today And "not acting herself." Patient has a history of dementia at baseline and EMS states the patient is able to ambulate. Patient currently has no complaints and denies fever, chest pain, abdominal pain, pain with urination, rash however an adequate history is difficult to obtain due to patient's baseline dementia. Patient is mildly combative and uncooperative with staff. Family history and surgical history noncontributory. - History Of Current Complaint Stated Complaint: GENERAL ILLNESS PER EMS Time Seen by Provider: 06/20/19 10:42 Hx Obtained From: Patient Hx From Patient Unobtainable Due To: Dementia Onset/Duration: Unknown Timing: Constant Character: Confusion, Agitation Associated Signs And Symptoms: Positive: Weakness - Allergies/Home Medications Allergies/Adverse Reactions: Allergies Allergy/AdvReac Type Severity Reaction Status Date / Time Sulfa (Sulfonamide Allergy Severe Hives Verified 06/10/18 14:42 Antibiotics) Home Medications: Home Medications Ascorbic Acid TAB* [Vitamin C TAB*] 500 mg PO DAILY 06/20/19 [History Confirmed 06/20/19] Cetirizine* [ZyrTEC 10 MG TAB*] 10 mg PO DAILY 06/20/19 [History Confirmed 06/20] Doxycycline Hyclate [Morgidox [id number]] 100 mg PO DAILY 06/20/19 [History Confirmed 06/20/19] Escitalopram * [Lexapro 10 mg (NF)] 20 mg PO DAILY 06/20/19 [History Confirmed 06/20/19] Ferrous Gluconate TAB* [Fergon TAB*] 324 mg PO DAILY 06/20/19 [History Confirmed 06/20/19] Levothyroxine TAB* [Synthroid 100 MCG TAB*] 100 mcg PO DAILY 06/20/19 [History Confirmed 06/20/19] Ranitidine TAB (NF) [Zantac TAB (NF)] 150 mg PO BID 06/20/19 [History Confirmed 06/20/19] Rivaroxaban TAB(*) [Xarelto 15 mg(*)] 15 mg PO DAILY 06/20/19 [History Confirmed 06/20/19] PMH/Surg Hx/FS Hx/Imm Hx Endocrine/Hematology History: Reports: Hx Anticoagulant Therapy - xarelto for DVT , Hx Thyroid Disease Denies: Hx Diabetes Cardiovascular History: Reports: Hx Angina, Hx Congestive Heart Failure, Hx Coronary Artery Disease, Hx Deep Vein Thrombosis, Hx Hypercholesterolemia, Hx Hypertension, Hx Peripheral Vascular Disease, Other Cardiovascular Problems/ Disorders - HEART MURMUR, CAD, PVD, DVT. Denies: Hx Pacemaker/ICD Respiratory History: Reports: Hx Asthma GI History: Reports: Hx Gastroesophageal Reflux Disease, Hx Gastrointestinal Bleed - with erosive esophagitis History: Reports: Other Problems/Disorders - solitary congenital kidney, frequent UTI's Denies: Hx Renal Disease Musculoskeletal History: Reports: Hx Back Problems Denies: Hx Arthritis, Hx Osteoporosis Sensory History: Reports: Hx Contacts or Glasses, Hx Vision Problem, Hx Hearing Problem Denies: Hx Cataracts, Hx Glaucoma, Hx Legally Blind, Hx Deafness, Hx Hearing Aid Opthamlomology History: Reports: Hx Contacts or Glasses, Hx Vision Problem Denies: Hx Cataracts, Hx Glaucoma, Hx Legally Blind Neurological History: Reports: Hx Dementia Denies: Hx Seizures, Other Neuro Impairments/Disorders Psychiatric History: Reports: Hx Anxiety, Hx Depression Denies: Hx Panic Disorder, Hx Substance Abuse - Surgical History Surgery Procedure, Year, and Place: appendectomy per pt. 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 Denies: Hx Human Immunodeficiency Virus (HIV) - Family History Known Family History: Positive: Cardiac Disease, Other - Dementia (mother) Family History: CAD - Social History Alcohol Use: None Alcohol Amount: One glass of gin Hx Substance Use: No Substance Use Type: Reports: None Hx Tobacco Use: Yes Smoking Status (MU): Former Smoker Review of Systems Constitutional: Negative Negative: Chest Pain Negative: Shortness Of Breath Positive: Weakness All Other Systems Reviewed And Are Negative: Yes - Comments Additional Review of Systems Comments: ROS is difficult to obtain due to patient's dementia. Physical Exam Triage Information Reviewed: Yes Vital Signs Reviewed: Yes Completion Of Physical Exam Limited Due To: Dementia Appearance: Positive: Well-Appearing, No Pain Distress, Well-Nourished Skin: Positive: Warm, Skin Color Reflects Adequate Perfusion Eyes: Positive: EOMI, THEE ENT: Positive: Hearing grossly normal Respiratory/Lung Sounds: Positive: Clear to Auscultation, Breath Sounds Present Cardiovascular: Positive: RRR, S1, S2 Abdomen Description: Positive: Soft. Negative: Distended, Guarding Bowel Sounds: Positive: Present Musculoskeletal: Positive: Strength/ROM Intact Neurological: Positive: Sensory/Motor Intact, Facial Symmetry, Speech Normal. Negative: Alert, Oriented to Person Place, Time Psychiatric: Positive: Normal, Patient Uncooperative for Exam AVPU Assessment: Alert Procedures - Sedation Patient Received Moderate/Deep Sedation with Procedure: No Diagnostics - Laboratory Result Diagrams: 06/20/19 11:00 06/20/19 10:59 Lab Statement: Any lab studies that have been ordered have been reviewed, and results considered in the medical decision making process. Altered Mental Statu Course/Dx - Course Course Of Treatment: Patient was evaluated in the emergency department today for weakness and confusion. Vitals are noted and stable. EKG was done which showed normal sinus rhythm at 69 bpm. Normal intervals and no evidence of STEMI. Normal axis. EKG findings are unchanged when compared to prior done on 11/08/2018. Laboratory studies show No evidence of leukocytosis with white blood count of 9.2. Mild Anemia noted at H&H of 11.9/36 which is slightly lower than her average. No significant electrolyte abnormalities. Lactic acid is elevated at 2.2 with a troponin of 0.10. Patient has a history of elevated troponins at a baseline however this is higher than her normal. Urinalysis appears contaminated however it is positive for blood, white blood cells, protein. Patients urine was frankly red and a CT of the abdomen pelvis with contrast was ordered to evaluate the possibility of bladder carcinoma. CT of the abdomen and pelvis shows bladder wall thickening and evidence of cystitis given the patients clinical picture. Patient was given 2 g of IV cefepime for complicated cystitis. Repeat lactic acid 3 hours later corrected to 1.7. Serial troponin shows 0.33 indicating NSTEMI. Pt given 324mg of chewable ASA. Hospitalist Dr. Decker was consulted for admission at 1608 for further evaluation and managment. - Diagnoses Provider Diagnoses: Cystitis, NSTEMI (non-ST elevated myocardial infarction) - Provider Notifications Discussed Care Of Patient With: Ana M Decker - Will admit the patient for NSTEMI and cystitis. Time Discussed With Above Provider: 16:08 Instructed by Provider To: Admit As Inpatient Discharge ED - Sign-Out/Discharge Documenting (check all that apply): Patient Departure - Discharge Plan Condition: Stable Disposition: ADMITTED TO [facility] - Billing Disposition and Condition Condition: STABLE Disposition: Admitted to [facility] - Attestation Statements Provider Attestation: I was available for consult. This patient was seen by the MAGDI. The patient was not presented to, seen by, or examined by me. John Chaney MD
[2019-06-20 11:09] LABS: ABS Basophils 0.1 10^3/ul (0-0.2); ABS Eosinophils 0.1 10^3/ul (0-0.6); ABS Lymphocytes 0.5 10^3/ul (1.0-4.8); ABS Monocytes 0.4 10^3/ul (0-0.8); ABS Neutrophils 8.1 10^3/ul (1.5-7.7); Eosinophil % 0.6 %; Hematocrit 36 % (35-47); Hemoglobin 11.9 g/dL (12.0-16.0); Lymphocyte % 5.9 %; Mean Corpuscular HGB Conc 33 g/dL (31-36); Mean Corpuscular Hemoglobin 29 pg (27-31); Mean Corpuscular Volume 89 fL (80-97); Mean Platelet Volume 8.4 fL (7.4-10.4); Nucleated Red Blood Cells % 0.1; Platelet Count 336 10^3/uL (150-450); Red Blood Count 4.08 10^6 /uL (3.70-4.87); Red Cell Distribution Width 16 % (10-15); White Blood Count 9.2 10^3/uL (3.5-10.8)
[2019-06-20 11:23] LABS: ALT 10 U/L (7-52); AST 14 U/L (13-39); Albumin 3.5 g/dL (3.2-5.2); Alkaline Phosphatase 83 U/L (34-104); Anion Gap 5 mmol/L (2-11); BUN/Creatinine Ratio 15.4 (8-20); Blood Urea Nitrogen 14 mg/dL (6-24); CO2 Carbon Dioxide 25 mmol/L (22-32); Calcium 9.4 mg/dL (8.6-10.3); Chloride 108 mmol/L (101-111); EGFR African American 70.8 (>60); EGFR Non-African American 58.5 (>60); Globulin 3.5 g/dL (2-4); Glucose 122 mg/dL (70-100); Magnesium 1.7 mg/dL (1.9-2.7); Potassium 4.9 mmol/L (3.5-5.0); Sodium 138 mmol/L (135-145)
[2019-06-20 12:02] LABS: Urine Appearance Cloudy; Urine Bacteria 1+ (Absent); Urine Bilirubin Negative (Negative); Urine Blood 3+ (Negative); Urine Glucose Negative (Negative); Urine Ketones Negative (Negative); Urine Nitrite Negative (Negative); Urine Protein 2+(100 mg/dL) (Negative); Urine Red Blood Cell 3+(>10/hpf) (Absent); Urine Specific Gravity 1.013 (1.010-1.030); Urine Urobilinogen Negative (Negative); Urine White Blood Cell 3+(>20/hpf) (Absent)
[2019-06-20 12:07] LABS: TSH (Thyroid Stimulating Horm) 0.91 mcIU/mL (0.34-5.60)
[2019-06-20 13:12] LABS: Urine Color Red
[2019-06-20] MEDS ORDERED: Iodixanol* (CONTRAST) 320 MG/ML 100 ML SDV IV ONE (13:32)
[2019-06-20] MEDS ORDERED: Cefepime 2 GM in Dextrose(*) 2 GM/50 ML BAG IV ONE ×2 (15:34→16:44)
[2019-06-20 16:04] LABS: Troponin I 0.33 ng/mL (<0.03)
[2019-06-20] MEDS ORDERED: Aspirin 81 mg CHEW TAB* 81 MG TAB.CHEW PO ONE (16:06)
[2019-06-20] MEDS ORDERED: Acetaminophen TAB* 325 MG PO PRN (17:32)
[2019-06-20] MEDS: NS 0.9% 1000 ML** 1,000 ML IV SCH (19:55)
[2019-06-20 20:03] LABS: Troponin I 0.38 ng/mL (<0.03)
--- NOTE | 2019-06-20 21:18 | HP ---
CC: Dr. Bloom * HOSPITAL MEDICINE HISTORY AND PHYSICAL: DATE OF ADMISSION: 06/20/19 PROVIDER: Casi Rahman NP PRIMARY CARE PROVIDER: Dr. Bloom. ATTENDING PHYSICIAN WHILE IN THE HOSPITAL: Dr. Ana M Decker * (dictated by Casi Rahman NP). CHIEF COMPLAINT: Hematuria, confusion. HISTORY OF PRESENT ILLNESS: Ms. Díza is an 88-year-old female with a past medical history significant for coronary artery disease, hypertension, hyperlipidemia, dementia, history of DVT, history of GI bleeding with erosive esophagitis, history of hematuria, who presented to the emergency room due to increased confusion and hematuria. History of present illness was obtained from her care associate and her son due to the patient's level of altered mental status and underlying dementia. Per the care associate, the patient has had hematuria for approximately 1 week with strong odor that has progressively worsened over the past week. Per the son, the son reports that she was seen in the emergency room the beginning of May. At that time, she had hematuria, she was diagnosed with a urinary tract infection. At that time, they stopped her Xarelto for 1 week and teated her UTI. Upon stopping and treating her UTI, the patient's hematuria did resolve. Her Xarelto then was restarted approximately after 1 week. The son reports that approximately 2 days after starting Xarelto, her hematuria returned and she has had the hematuria since. Today, the patient presents to the emergency room with gross hematuria and increased confusion, found to have a UTI. She had a CT of the abdomen and pelvis, which was concerning for cystitis with bladder wall thickening. Due to the patient's confusion and hematuria as well as an elevated troponin, Hospital Medicine was asked to see and evaluate the patient for admission. While in the emergency room, the patient had routine lab work drawn. She was found to have a hemoglobin of 11.9, hematocrit of 36, platelet count was normal at 336. She did have an elevated lactic acid of 2.2, repeat was 1.7. Her initial troponin was 0.10. Repeat troponin was 0.33. Her urine was red with 2 + protein, 3+ blood, leukocyte esterase, wbc's were 3+, rbc's were 3+, bacteria was 1+. Due to her symptoms consistent with cystitis and elevated troponin, again, Hospital Medicine was asked to see and evaluate her for admission. PAST MEDICAL HISTORY: Obtained from her prior medical records. 1. The patient has a history of coronary artery disease, status post stenting in 2012. 2. Hypertension. 3. Hyperlipidemia. 4. Hypothyroid. 5. History of DVT with failed Coumadin, now on Xarelto. 6. GERD. 7. History of GI bleeding associated with erosive gastritis. 8. Asthma. 9. Anemia. 10. Chronic back pain. PAST SURGICAL HISTORY: 1. History of cholecystectomy in 1969. 2. Foot surgery in . 3. Stent placement in 2011. MEDICATIONS: Home medications include: 1. Potassium 20 mEq p.o. daily. 2. Metoprolol 12.5 mg p.o. daily. 3. Levothyroxine 100 mcg p.o. daily. 4. Melatonin 2 mg at bedtime. 5. Xarelto 15 mg p.o. daily. 6. Lexapro 20 mg p.o. daily. 7. Sertraline 10 mg p.o. daily. 8. Doxycycline 100 mg p.o. daily. 9. Zantac 150 mg p.o. b.i.d. ALLERGIES: She has an allergy to SULFA. FAMILY HISTORY: Again, was obtained from her old records. The patient's mother from complications of dementia. Father in World War II. The patient has a sister who is alive and well. No other significant family history was noted. SOCIAL HISTORY: The patient smoked occasionally in her 20s. She denies any illicit drug use. The patient is retired. She has 3 children. Her surrogate decision maker in the event she is unable to make her own decisions is her son, Sung Díaz. She is a full code. REVIEW OF SYSTEMS: The patient denies any chest pain. She does complain of suprapubic abdominal pain with palpation. She denies any cough or congestion, fever or chills. The aides do report increased confusion. The patient does say no when asked questions, but is inconsistent with her response. Her review of systems is limited to physical exam. PHYSICAL EXAMINATION GENERAL: At this time, Ms. Vaca is an 88-year-old female; she is confused, oriented to self only, resting on the stretcher in the emergency room. VITAL SIGNS: Blood pressure 129/72, heart rate 71, respirations are 25, O2 saturation 97%, temperature was 97.4. HEENT: Head is atraumatic, normocephalic. Eyes: EOMs are intact. Sclerae anicteric and not pale. Oral mucosa is moist. NECK: Supple. LUNGS: Clear to auscultation bilaterally. No wheezes, rales or rhonchi. CARDIAC: S1, S2. Regular rate and rhythm. No rubs or gallops. ABDOMEN: Soft, nondistended. Bowel sounds are active x4. She has mild suprapubic tenderness with palpation. No CVA tenderness. NEUROLOGIC: She is awake and alert. She is oriented to person only. She is unable to actively participate in conversation. SKIN: Clean, dry and intact. DIAGNOSTIC STUDIES/LAB DATA: WBCs are 9.2, RBCs 4.08, hemoglobin 11.9, hematocrit of 36, platelet count 336. Sodium 138, potassium 4.9, chloride 108, carbon dioxide is 25, anion gap is 5, BUN 14, creatinine 0.91, glucose 122, initial lactic acid was 2.2, repeat 1.7, calcium 9.4, magnesium 1.7. Troponin 0.10, repeat was 0.33. BNP was 138. TSH was 0.91. Urine color was red, cloudy , pH was 6.0, specific gravity 1.013, urine protein was 2+, ketones were negative, blood was 3+, nitrites were negative, bilirubin and urobilinogen were all negative, leukocyte esterase was trace, wbc's were 3+, rbc's 3+, and bacteria was 1+. The patient had a CT of the abdomen and pelvis which showed diffuse bladder wall thickening with mild perivesicular inflammatory changes suggestive of cystitis in the correct clinical setting. She had an electrocardiogram which showed sinus rhythm at a rate of 69. No ST or T wave changes. IMPRESSION AND PLAN: Ms. Vaca is an 88-year-old female with past medical history significant for advanced dementia, coronary artery disease, recurrent urinary tract infections, hypertension, hyperlipidemia, history of gastrointestinal bleeding, history of hematuria, history of deep vein thrombosis , now on Xarelto, who will be admitted under observation for: 1. Confusion. I suspect her underlying confusion is related to urinary tract infection as the patient does have clinical signs of urinary tract infection with hematuria. The patient does have baseline dementia. The patient was recently treated for urinary traction infection beginning of May that was positive for Proteus mirabilis, which was susceptible to cefepime at that time. The patient did receive cefepime 2 g in the emergency room. I will continue her on 2 g q.12 hours,. The patient also did have a CT of the abdomen and pelvis that showed bladder wall thickening consistent with cystitis. Given the patient's increased confusion and foul odor urine as well as hematuria, her confusion is likely related to underlying urinary tract infection. 2. Hematuria. The patient does have hematuria on admission. Likely, this is related to cystitis from underlying urinary tract infection. The patient is also on Xarelto. I will hold her Xarelto. 3. History of deep vein thrombosis. The patient does have a history of extensive deep vein thrombosis, for which she currently takes Xarelto. Given her hematuria, I am going to hold her Xarelto at this time. 4. Gastroesophageal reflux disease. The patient will be placed on Pepcid b.i.d. during this hospitalization. 5. Hypothyroid. I will continue levothyroxine as previously prescribed. 6. Hypertension. She will continue on metoprolol 12.5 mg p.o. daily. 7. Elevated troponin. The patient does have an elevated troponin. I suspect this is related to demand ischemia. The patient has no ST or T wave changes on her EKG. We will continue to trend her troponin. The patient did receive aspirin 324 mg in the emergency room. Should her troponin continue to trend upwards, we will consider consultation to Cardiology. At this time, I would use caution with starting a heparin drip, as the patient does have gross hematuria with significant amount of bleeding. We will continue the patient's beta-artis of metoprolol 12.5 mg p.o. daily. I will get a lipid profile as well. I suspect the elevation of troponin could be related to demand ischemia from her underlying urinary tract infection. 8. DVT prophylaxis. I am going to hold chemical DVT prophylaxis at this time as the patient is currently on Xarelto with gross hematuria. I will hold off on SCDs until a venous Doppler is completed to rule out any underlying DVT. 9. FEN. The patient can have a heart healthy, caffeine okay diet. 10. Code status. She is a full code - per the son, would like everything done , no limitation to intervention. 11. Disposition. The patient will be placed inpatient under observation on [address] [place] [address]. TIME SPENT: Time spent on this dictation was 60 minutes, greater than half of that time was spent at the bedside reviewing events leading thus far to her hospitalization, performing physical exam and reviewing my plan of care. I have discussed with my attending, Dr. Ana M Decker, she is in agreement with my plan. CASI RAHMAN, FREYA [id number]/[facility] #: [id number] MAURICE
[2019-06-20] MEDS ORDERED: Magnesium Sulfate 2 GM IV* 2 GM/50 ML BAG IVPB ONE (22:20)
[2019-06-20 22:53] LABS: Troponin I 0.36 ng/mL (<0.03)
[2019-06-20] MEDS ORDERED: Haloperidol INJ IV/IM* 5 MG/ML AMP IV SLOW PU PRN (23:15)
[2019-06-21] MEDS: Cefepime 2 GM in Dextrose(*) 2 GM/50 ML BAG IV SCH ×2 (03:19→17:37)
[2019-06-21] MEDS: Levothyroxine TAB* 100 MCG TAB PO SCH ×2 (06:12→06:25)
[2019-06-21 07:01] LABS: ABS Eosinophils 0.1 10^3/ul (0-0.6); ABS Lymphocytes 0.7 10^3/ul (1.0-4.8); ABS Monocytes 0.6 10^3/ul (0-0.8); ABS Neutrophils 6.3 10^3/ul (1.5-7.7); Hematocrit 35 % (35-47); Hemoglobin 11.8 g/dL (12.0-16.0); Lymphocyte % 9.1 %; Mean Corpuscular HGB Conc 34 g/dL (31-36); Mean Corpuscular Hemoglobin 30 pg (27-31); Mean Corpuscular Volume 88 fL (80-97); Mean Platelet Volume 8.5 fL (7.4-10.4); Platelet Count 323 10^3/uL (150-450); Red Blood Count 3.95 10^6 /uL (3.70-4.87); Red Cell Distribution Width 15 % (10-15); White Blood Count 7.8 10^3/uL (3.5-10.8)
[2019-06-21 07:19] LABS: BUN/Creatinine Ratio 16.7 (8-20); Calcium 8.5 mg/dL (8.6-10.3); EGFR African American 77.6 (>60); EGFR Non-African American 64.1 (>60); HDL Cholesterol 31.4 mg/dL; Potassium 3.8 mmol/L (3.5-5.0)
--- NOTE | 2019-06-21 09:49 | ECHO ---
*[facility]* [place] [address] Fax #: [phone] Limited Transthoracic Echocardiogram Patient: Claudia Long : 1930 Study Date: 06/21/2019 Age: 88 Gender: F HR: 74 bpm Height: 60 in /152.4 cm BSA: 1.75 m^2 Weight: 155 lb /70.5 kg BMI: 30.3 kg/m^2 *Children'S Entertainer: * Stephy Hernandez [facility] *Referring Physician: * Casi Rahman *Reading Physician: * Ed Reeder MD Indications: Abnormal EKG. History: Coronary artery disease. PMH: Myocardial infarction. Risk factors: Hypertension. Dyslipidemia. Labs, prior tests, procedures, and surgery: Catheterization. There was a stenosis which was treated with a stent. Conclusions Summary: - Limited study Patient uncooperative - Left ventricle: Systolic function is probably normal. The estimated ejection fraction is 55-60%. Although no diagnostic regional wall motion abnormality is identified, this possibility cannot be completely excluded on the basis of this study. - Mitral valve: There is no significant regurgitation. - Aortic valve: There is no evidence of stenosis. - Tricuspid valve: Not well visualized. There is no significant regurgitation. - Pericardium, extracardiac: There is no significant pericardial effusion. - No signficant change from 06/11/18. Study data: Transthoracic echocardiogram, limited study. Procedure: Transthoracic echocardiography was performed. Image quality was suboptimal. The study was technically limited due to poor acoustic window availability and poor patient compliance. Location: Bedside. Patient status: Inpatient. Patient room number: 448. Rhythm: Normal sinus rhythm. Findings Left ventricle: Not well visualized. The cavity size is normal. Wall thickness is mildly increased. Systolic function is probably normal. The estimated ejection fraction is 55-60%. Although no diagnostic regional wall motion abnormality is identified, this possibility cannot be completely excluded on the basis of this study. Left ventricular diastolic function parameters are indeterminate. Right ventricle: Not well visualized. The cavity size is normal. Systolic function is probably normal. Left atrium: Not well visualized. Right atrium: Not well visualized. Mitral valve: Not well visualized. The leaflets are normal thickness. There is no evidence of stenosis. There is no significant regurgitation. Aortic valve: Not well visualized. The leaflets are mildly thickened. There is no evidence of stenosis. There is no significant regurgitation. Tricuspid valve: Not well visualized. There is no significant regurgitation. Pulmonic valve: Not well visualized. There is no significant regurgitation. Aorta: The aorta is poorly visualized. Pericardium: There is no significant pericardial effusion. Pulmonary arteries: Not well visualized. Systemic veins: Inferior vena cava: Not well visualized. Measurements Left ventricle Value Ref Right ventricle Value Ref NEREYDA, LAX 4.1 cm 3.8 - 5.2 NEREYDA, LAX 2.7 cm ---- ESD, LAX 2.9 cm 2.2 - 3.5 FS, LAX 29 % 27 - 45 Left atrium Value Ref PW, ED (H) 1.2 cm 0.6 - 0.9 LA ID 4.1 cm ---- Ventricular septum Value Ref Aortic valve Value Ref IVS, ED (H) 1.3 cm 0.6 - 0.9 Theresa diam, ED 2.0 cm ---- Legend: (L) and (H) nolberto values outside specified reference range. Prepared and electronically signed by Ed Reeder MD 06/21/2019 09:49
[2019-06-21] MEDS: NS 0.9% 1000 ML** 1,000 ML IV SCH (10:05)
[2019-06-21] MEDS: Ascorbic Acid TAB* 500 MG PO SCH (10:08)
[2019-06-21] MEDS: Metoprolol Tartrate TAB* 25 MG PO SCH (10:08)
[2019-06-21] MEDS: Famotidine TAB* 20 MG PO SCH (10:08)
[2019-06-21] MEDS: Escitalopram * 10 MG TAB PO SCH (10:08)
--- NOTE | 2019-06-21 14:45 | PN ---
Subjective Date of Service: 06/21/19 Interval History: Ms. Arjun Vaca is feeling fine today. She offers no complaints. She is seen sitting on the edge of the bed and has been conversing with an aide in Pakistani. The aide reports that her speech is mostly nonsensical. She denies CP. No concerns from nursing. Family History: Unchanged from Admission Social History: Unchanged from Admission Past Medical History: Unchanged from Admission Objective Active Medications: Acetaminophen (Tylenol Tab*) 650 mg PO Q4H PRN MILD PAIN or TEMP > 100.4 Ascorbic Acid (Vitamin C Tab*) 500 mg PO DAILY [facility]RICE Escitalopram Oxalate (Lexapro *) 20 mg PO DAILY [facility] Famotidine (Pepcid Tab*) 20 mg PO DAILY [facility] Haloperidol Lactate (Haldol Inj Iv/Im*) 2 mg IV SLOW PU Q6H PRN AGITATION Cefepime HCl (Maxipime 2 Gm In Dextrose Duplex (*)) 2 gm in 50 mls @ 100 mls/ hr IV Q12H [facility] Sodium Chloride (Ns 0.9% 1000 Ml) 1,000 mls @ 100 mls/hr IV PER RATE [facility] Levothyroxine Sodium (Synthroid Tab*) 100 mcg PO DAILY@0600 [facility] Metoprolol Tartrate (Lopressor Tab*) 12.5 mg PO QAM [facility] Vital Signs - 8 hr 06/21/19 06/21/19 08:00 12:00 Temperature 98.4 F 97.6 F Pulse Rate 81 56 Respiratory 20 18 Rate Blood Pressure 142/72 138/58 (mmHg) O2 Sat by Pulse 98 98 Oximetry Oxygen Devices in Use Now: None Appearance: Elderly female sitting in bed in NAD Neck: NL Appearance and Movements; NL JVP, Trachea Midline Respiratory: Symmetrical Chest Expansion and Respiratory Effort, Clear to Auscultation Cardiovascular: NL Sounds; No Murmurs; No JVD Abdominal: NL Sounds; No Tenderness; No Distention Extremities: No Edema Neurological: - - Oriented to self Lines/Tubes/Other Access: Clean, Dry and Intact Peripheral IV Nutrition: Taking PO's Result Diagrams: 06/21/19 06:52 06/21/19 06:52 Assess/Plan/Problems-Billing Assessment: Ms. Arjun Vaca is an 88 yo F with PMH of CAD with stent, HTN, HLD, hypothyroidism, DVT (homozygous prothrombin mutation), GERD, asthma, anemia, chronic back pain; who presented to the ED with AMS and hematuria and was found to have a UTI. 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 Code(s): D68.52 - PROTHROMBIN GENE MUTATION Comment: - Extensive history of DVTs - US today showing questionable R femoral thrombus of unknown acuity and chronic L femoral thrombus - Appreciate Heme consult; recommends resuming AC tomorrow if hematuria is resolved - Resume Xarelto tomorrow (should be 20 mg daily per Heme) (5) Dementia Code(s): F03.90 - UNSPECIFIED DEMENTIA WITHOUT BEHAVIORAL DISTURBANCE Comment : - Advanced - Supportive care (6) Coronary heart disease Code(s): I25.10 - ATHSCL HEART DISEASE OF [place] CORONARY ARTERY W/O ANG PCTRS Comment: - Trop elevated without EKG changes or CP; suspect demand ischemia - Normal echo - Continue metoprolol (7) Hypothyroid Code(s): E03.9 - HYPOTHYROIDISM, UNSPECIFIED Comment: - Continue levothyroxine (8) DVT prophylaxis Comment: - Resume Xarelto tomorrow (9) Full code status Code(s): Z78.9 - OTHER SPECIFIED HEALTH STATUS Comment: Status and Disposition: Observation. Anticipate d/c home when medically stable. Attending: Jesus Treviño
[2019-06-22] MEDS: Cefepime 2 GM in Dextrose(*) 2 GM/50 ML BAG IV SCH ×2 (03:24→15:38)
[2019-06-22] MEDS: Levothyroxine TAB* 100 MCG TAB PO SCH (05:31)
[2019-06-22 06:50] LABS: ABS Basophils 0.1 10^3/ul (0-0.2); ABS Eosinophils 0.1 10^3/ul (0-0.6); ABS Lymphocytes 0.8 10^3/ul (1.0-4.8); ABS Monocytes 0.7 10^3/ul (0-0.8); ABS Neutrophils 5.5 10^3/ul (1.5-7.7); Hematocrit 37 % (35-47); Hemoglobin 11.8 g/dL (12.0-16.0); Lymphocyte % 11.4 %; Mean Corpuscular HGB Conc 32 g/dL (31-36); Mean Corpuscular Hemoglobin 29 pg (27-31); Mean Corpuscular Volume 91 fL (80-97); Mean Platelet Volume 8.6 fL (7.4-10.4); Platelet Count 271 10^3/uL (150-450); Red Blood Count 4.03 10^6 /uL (3.70-4.87); Red Cell Distribution Width 16 % (10-15); White Blood Count 7.2 10^3/uL (3.5-10.8)
[2019-06-22] MEDS ORDERED: Rivaroxaban TAB(*) 20 MG TAB PO SCH (09:00)
[2019-06-22] MEDS: Metoprolol Tartrate TAB* 25 MG PO SCH (09:11)
[2019-06-22] MEDS: Ascorbic Acid TAB* 500 MG PO SCH (09:12)
[2019-06-22] MEDS: Famotidine TAB* 20 MG PO SCH (09:12)
[2019-06-22] MEDS: Escitalopram * 10 MG TAB PO SCH (09:12)
[2019-06-22 15:50] VITALS: BP 113/92
--- NOTE | 2019-06-22 23:01 | DS ---
CC: Dr. Hiral Bloom * DISCHARGE SUMMARY: DATE OF ADMISSION: 06/20/19 DATE OF DISCHARGE: 06/22/19 PRIMARY CARE PROVIDER: Dr. Hiral Bloom. ATTENDING PHYSICIAN: Dr. Lilia Correa.* (DICTATED BY INGRID LANDEROS NP) PRIMARY DIAGNOSES: 1. Urinary tract infection with hematuria. 2. Metabolic encephalopathy. SECONDARY DIAGNOSES: 1. 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 2. Dementia. 3. Coronary artery disease. 4. Hypothyroidism. STUDIES WHILE IN THE HOSPITAL: 1. EKG on 06/20/19 shows normal sinus rhythm with a rate of 69, QTc 466. 2. Abdomen and pelvis CT on 06/20/19 reads as limited study. Diffuse bladder wall thickening with mild perivesicular inflammatory change suggestive of cystitis in the current clinical setting. 3. Transthoracic echocardiogram on 06/21/19 reads as limited study, patient uncooperative. Left ventricular systolic function was probably normal. The estimated ejection fraction is 55% to 60%. Although no diagnostic regional wall motion abnormality is identified, this possibility cannot be completely excluded based on this study. There is no significant MR. There is no evidence of . Tricuspid valve is not well visualized. There is no significant TR. There is no significant pericardial effusion. No significant change from 06/11/18. 4. EKG on 06/21/19 shows normal sinus rhythm with a rate of 74, QTc 502, flattened T wave in aVL. 5. Bilateral lower extremity venous Doppler study on 06/21/19 reads as technically limited study of limited diagnostic quality. There is questionable occlusive thrombus of the right femoral vein of uncertain acuity. There is chronic appearing nonocclusive thrombus of the left femoral vein. HISTORY OF PRESENT ILLNESS AND HOSPITAL COURSE: Ms. Arjun Vaca is an 88-year- old female with past medical history of advanced dementia, coronary artery disease, hypertension, hyperlipidemia, hypothyroidism, prothrombin G mutation, who presented to the emergency room on 06/20/18 with hematuria. Please see the history and physical by Casi Rahman NP for complete summary of the events leading up to this hospitalization. In short, the patient has advanced dementia and is unable to provide a good history. Per the patient's caregivers and son, she was noted to be more confused than usual and was noted to have some hematuria and so was brought to the emergency room. In the emergency room , she was noted to have a stable H and H, troponin was noted to be minimally elevated at 0.10 and lactic acid was noted to be elevated at 2.2. The patient did not meet any other sepsis criteria, so it is likely that the elevated lactic acid was due to hypovolemia as it was corrected with IV fluids. She did have a urinalysis concerning for urinary tract infection and so she was admitted by the hospitalist service. She was started on cefepime. She did have a UTI requiring hospitalization back in May which grew proteus sensitive to cefepime. The patient did show gradual improvement in mental status. Yesterday, 06/21/19, she was mostly speaking Kuwaiti, which is not her baseline, though as of today the patient is quite talkative, speaking Urdu excessively and offers no complaints. Of note , her troponin did peak at 0.38 and then trended down. There were no significant EKG changes and the patient did not experience any chest pain, shortness of breath, arm pain, jaw pain, diaphoresis, nausea, or anginal equivalent, and so this was suspected to be due to demand ischemia. Urine culture ultimately grew greater than 100,000 colonies of Proteus mirabilis, again sensitive to cefepime. I did speak with the patient's son this morning and he indicates that based on her conversation, she seems to be at her baseline. The patient's Xarelto was held on admission due to concerns for hematuria, though it was started again this morning and there has not been any significant bleeding since that time. Dr. Velarde from Hematology did consult. He does know the patient quite well and advised that Xarelto should not be held for a significant period of time as the patient has homozygous prothrombin G mutation, so is at extremely high risk of DVT. She has never experienced any PE. He also indicated that the patient should be on 20 mg daily of Xarelto and not the 15 mg daily which she was on prior to admission. Again Xarelto was restarted this morning. PHYSICAL EXAMINATION: On exam, the patient is oriented to self only. She has no focal neurological deficits. Heart has a regular rate and rhythm without murmurs, rubs, or gallops. Lungs are clear to auscultation without rhonchi, wheezes, or rubs. Abdomen is soft and nontender to palpation. Noted some edema. Physical exam is otherwise benign. Ms. Arjun Vaca is stable for discharge. Most recent vitals are as follows: Temp 97.1, heart rate 61, respiratory rate 18, oxygen saturation 98% on room air, blood pressure 152/75. DISCHARGE MEDICATIONS: New: Cefdinir 300 mg p.o. b.i.d. x5 days. Changed: 1. Xarelto 20 mg p.o. daily (was 15 mg daily). 2. Potassium chloride 10 mEq p.o. daily (previously was 20 mEq daily). Continued: 1. Ascorbic acid 500 mg p.o. daily. 2. Escitalopram 20 mg p.o. daily. 3. Levothyroxine 100 mcg p.o. daily. 4. Metoprolol tartrate 12.5 mg p.o. daily. 5. Calcium carbonate 500 mg p.o. daily. 6. Cetirizine 10 mg p.o. daily. 7. Ferrous gluconate 324 mg p.o. daily. 8. Melatonin 3 mg p.o. at bedtime. 9. Ranitidine 150 mg p.o. b.i.d. Discontinued Medication: Doxycycline. DISCHARGE PLAN: Ms. Arjun Vaca will be discharged home in the care of her son. Activity will be as tolerated. Diet will be heart healthy. Medications are noted above. The patient will need to complete an additional 5 days of cefdinir to complete a total of 70 days of antibiotic therapy for her urinary tract infection. Additionally, she does need to be on 20 mg daily of Xarelto per instructions from Hematology and I have sent in a new prescription for 20 mg pills. Potassium dosing has been decreased as the patient's potassium on admission was 4.9, so I do not think she particularly needs 20 mEq daily. She can continue her other usual medications as noted above. I did speak with the patient's son about the patient's hospital course and discharge instructions and he verbalized understanding and was in agreement with the plan. The patient will need to follow up with her primary care provider in the next 4 to 7 days. Although I do not think she suffered any acute coronary syndrome during this admission, she does have a known history of coronary artery disease , and so would likely benefit from followup with her senior java programmer. She is of advanced age, though at this point her son would like to pursue any and all medical treatment, so she may benefit from a stress test in the future if he chooses to pursue this. The patient should return to the emergency room or the nearest hospital for any worsening of symptoms, shortness of breath, lightheadedness, dizziness, chest discomfort, high fevers, chills, night sweats, loss of consciousness, or any other worrisome signs or symptoms. DISCHARGE CONDITION: Stable. DISCHARGE DISPOSITION: Home. This is a summarized report of a complex medical history and hospital stay. For further details please see the entire medical record. TIME SPENT: Approximately 50 minutes was spent on this discharge. INGRID LANDEROS, ROTARY SOIL STABILIZER OPERATOR [id number]/[facility] #: [id number] MAURICE
== END 2019-06-22 17:12 | disposition home or self-care (01) ==
LOC: ED 10:37 → MEDTELE 17:32
PROVIDERS: ADMIT Internal Medicine; ATTEND Hospitalist
DX: N39.0 Urinary tract infection, site not specified (principal); R31.9 Hematuria, unspecified; G93.41 Metabolic encephalopathy; D68.52 Prothrombin gene mutation; F03.90 Unspecified dementia, unspecified severity, without behavioral disturbance, psychotic disturbance, mood disturbance, and anxiety; I25.10 Atherosclerotic heart disease of native coronary artery without angina pectoris; E03.9 Hypothyroidism, unspecified; D64.9 Anemia, unspecified; M54.9 Dorsalgia, unspecified; Z86.718 Personal history of other venous thrombosis and embolism; Z79.01 Long term (current) use of anticoagulants; K21.9 Gastro-esophageal reflux disease without esophagitis; J45.909 Unspecified asthma, uncomplicated; Z79.899 Other long term (current) drug therapy; Z87.891 Personal history of nicotine dependence; R53.1 Weakness
CPT/HCPCS: 36415; 74177; 80048; 80053; 80061; 81003; 81015; 83605; 83735; 83880; 84443; 84484; 85025; 87077; 87086; 87186; 93005; 93308; 93970; 96365; 96367; 96375; 99285; A9270-GY; G0378; J0692; J1630; J3475; Q9967

== ENCOUNTER 2019-09-02 17:44 | Emergency (ER) | payer MEDICARE, OTHER ==
--- NOTE | 2019-09-02 18:06 | ED ---
GI/ HPI - HPI Summary HPI Summary: 88 year old F with hx dementia arriving via ambulance to [facility] for concern for altered mental status and hematuria starting today. Per son, patient has been acting out. He thinks he may have seen blood in her urine. He called EMS. Also notes her home nurse noted she was having trouble eating her dinner (confused about using her fork) which is abnormal for her. He is concerned she has a UTI. Medications reviewed. Allergies noted. LEVEL 5 CAVEAT secondary to altered mental status. UA has been proteus and E. coli in the past, both sensitive to cefazolin. - History of Current Complaint Chief Complaint: EDUrogenitalProblems Time Seen by Provider: 09/02/19 17:50 Stated Complaint: POS UTI PER EMS Hx Obtained From: Family/Supervisor Inspection And Testing - son Onset/Duration: Started Hours Ago, Still Present Timing: Constant - Additional Pertinent History Primary Care Physician: OLLIE - Allergy/Home Medications Allergies/Adverse Reactions: Allergies Allergy/AdvReac Type Severity Reaction Status Date / Time Sulfa (Sulfonamide Allergy Severe Hives Verified 06/10/18 14:42 Antibiotics) Home Medications: Home Medications Calcium Carbonate [Calcium] 500 mg PO DAILY 12/30/17 [History Confirmed 09/02/19 ] Melatonin (NF) 3 mg PO BEDTIME 12/30/17 [History Confirmed 09/02/19] Metoprolol Tartrate TAB* [Lopressor TAB*] 12.5 mg PO QAM 12/30/17 [History Confirmed 09/02/19] Ascorbic Acid TAB* [Vitamin C TAB*] 500 mg PO DAILY 06/20/19 [History Confirmed 09/02/19] Cetirizine* [ZyrTEC 10 MG TAB*] 10 mg PO DAILY 06/20/19 [History Confirmed 09/01] Escitalopram * [Lexapro 10 mg (NF)] 20 mg PO DAILY 06/20/19 [History Confirmed 09/02/19] Ferrous Gluconate TAB* [Fergon TAB*] 324 mg PO DAILY 06/20/19 [History Confirmed 09/02/19] Levothyroxine TAB* [Synthroid 100 MCG TAB*] 100 mcg PO DAILY 06/20/19 [History Confirmed 09/02/19] Ranitidine TAB (NF) [Zantac TAB (NF)] 150 mg PO BID 06/20/19 [History Confirmed 09/02/19] Potassium Chlor TAB* [Potassium Chlor TAB 20 MEQ*] 10 meq PO QAM #0 06/22/19 [ Rx Confirmed 09/02/19] Rivaroxaban TAB(*) [Xarelto 20 mg] 20 mg PO DAILY #30 tab 06/22/19 [Rx Confirmed 09/02/19] Cephalexin CAP* [Keflex CAP*] 500 mg PO BID 5 Days #10 cap 09/02/19 [Rx] PMH/Surg Hx/FS Hx/Imm Hx Endocrine/Hematology History: Reports: Hx Anticoagulant Therapy - xarelto for DVT , Hx Thyroid Disease Denies: Hx Diabetes Cardiovascular History: Reports: Hx Angina, Hx Congestive Heart Failure, Hx Coronary Artery Disease, Hx Deep Vein Thrombosis, Hx Hypercholesterolemia, Hx Hypertension, Hx Peripheral Vascular Disease, Other Cardiovascular Problems/ Disorders - HEART MURMUR, CAD, PVD, DVT. Respiratory History: Reports: Hx Asthma GI History: Reports: Hx Gastroesophageal Reflux Disease, Hx Gastrointestinal Bleed - with erosive esophagitis History: Reports: Other Problems/Disorders - solitary congenital kidney, frequent UTI's Musculoskeletal History: Reports: Hx Back Problems Denies: Hx Arthritis, Hx Osteoporosis Sensory History: Reports: Hx Contacts or Glasses, Hx Vision Problem, Hx Hearing Problem Denies: Hx Cataracts, Hx Glaucoma, Hx Legally Blind, Hx Deafness, Hx Hearing Aid Opthamlomology History: Reports: Hx Contacts or Glasses, Hx Vision Problem Denies: Hx Cataracts, Hx Glaucoma, Hx Legally Blind EENT History: Denies: Hx Deafness, Hx Hearing Aid Neurological History: Reports: Hx Dementia Denies: Hx Seizures, Other Neuro Impairments/Disorders Psychiatric History: Reports: Hx Anxiety, Hx Depression Denies: Hx Substance Abuse - Surgical History Surgery Procedure, Year, and Place: appendectomy per pt. cholecystectomy per H& P Hx Anesthesia Reactions: No - Immunization History Date of Tetanus Vaccine: unable to obtain Date of Influenza Vaccine: unkown Infectious Disease History: No Infectious Disease History: Reports: Hx Clostridium Difficile, Hx of Known/ Suspected MRSA Denies: Hx Human Immunodeficiency Virus (HIV), Traveled Outside the [place] in Last 30 Days - Family History Known Family History: Positive: Cardiac Disease, Other - Dementia (mother) Family History: CAD - Social History Alcohol Use: None Alcohol Amount: One glass of gin Hx Substance Use: No Substance Use Type: Reports: None Hx Tobacco Use: Yes Smoking Status (MU): Former Smoker Review of Systems Positive: hematuria Neurological/Mental Status: Other - altered mental status Positive: Other - bizarre behavior All Other Systems Reviewed And Are Negative: Yes Physical Exam - Summary Physical Exam Summary: Constitutional: Well-developed, Well-nourished, Alert. (-) Distressed Skin: Warm, Dry HENT: Normocephalic; Atraumatic Eyes: Conjunctiva normal Neck: Musculoskeletal ROM normal neck. (-) JVD, (-) Stridor, (-) Nuchal rigidity Cardio: Rhythm regular, rate normal, Heart sounds normal; Intact distal pulses; Radial pulses are 2+ and symmetric. (-) Murmur Pulmonary/Chest wall: Effort normal. (-) Respiratory distress, (-) Wheezes, (-) Rales Abd: Soft, (-) tenderness, (-) Distension, (-) Guarding, (-) Rebound Musculoskeletal: (-) Edema Lymph: (-) Cervical adenopathy Neuro: Alert, Oriented x2. GCS 14. No focal neuro deficits, moves all extremities. Psych: Intermittently agitated Triage Information Reviewed: Yes Vital Signs On Initial Exam: Initial Vitals Temp Pulse Resp BP Pulse Ox 98.9 F 63 17 143/76 96 09/02/19 17:50 09/02/19 17:50 09/02/19 17:50 09/02/19 17:50 09/02/19 17:50 Vital Signs Reviewed: Yes Procedures - Sedation Patient Received Moderate/Deep Sedation with Procedure: No Diagnostics - Vital Signs Vital Signs Temp Pulse Resp BP Pulse Ox 09/02/19 17:50 98.9 F 63 17 143/76 96 - Laboratory Result Diagrams: 09/02/19 18:18 09/02/19 18:18 Lab Statement: Any lab studies that have been ordered have been reviewed, and results considered in the medical decision making process. - CT BRAIN CT Interpretation Completed By: Radiologist - IMPRESSION: 1. No acute intracranial findings. Examination limited by motion artifact. 2. Other chronic findings, as above. ED physician has reviewed this imaging report. Re-Evaluation - Re-Evaluation First Eval Re-Evaluation Time: 18:12 - Patient has been acting bizarrely today, hitting family members, having difficulty getting into the shower per son. Per home health aide, patient had difficulty eating with a fork which is abnormal for her. Hx UTI. She was normal yesterday. GIGU Course/Dx - Course Course Of Treatment: 88 y/o F w hx dementia and UTI p/w AMS/aggression at home. - PE well appearing, non focal neuro exam. CT head unremarkable. Labs w UTI. DC home on keflex. - Diagnoses Provider Diagnoses: Urinary tract infection Discharge ED - Sign-Out/Discharge Documenting (check all that apply): Patient Departure - Discharge Plan Condition: Stable Disposition: HOME Prescriptions: Cephalexin CAP* [Keflex CAP*] 500 mg PO BID 5 Days #10 cap Patient Education Materials: Urinary Tract Infection in Older Adults (ED) Referrals: Hiral Bloom MD [Primary Care Provider] - Additional Instructions: You were seen in the emergency department for confusion. You have a urinary tract infection. Please take Keflex. Please follow up with your primary care doctor in next 2-3 days and return to emergency department for worsening pain, fevers, or concerning symptoms. It was a pleasure taking care of you today. - Billing Disposition and Condition Condition: STABLE Disposition: Home - Attestation Statements Document Initiated by Brittonibe: Yes Documenting Scribe: Krys Mariee Provider For Whom Vishnu is Documenting (Include Credential): Gracy Wilson MD Scribe Attestation: IKrys, scribed for Gracy Wilson MD on 09/02/19 at 2046. Scribe Documentation Reviewed: Yes Provider Attestation: The documentation as recorded by the Krys curtis accurately reflects the service I personally performed and the decisions made by me, Gracy Wilson MD Status of Scribearle Document: Viewed
[2019-09-02 18:27] LABS: ABS Basophils 0.1 10^3/ul (0-0.2); ABS Eosinophils 0.3 10^3/ul (0-0.6); ABS Lymphocytes 1.5 10^3/ul (1.0-4.8); ABS Monocytes 0.8 10^3/ul (0-0.8); ABS Neutrophils 4.6 10^3/ul (1.5-7.7); Eosinophil % 4.2 %; Hematocrit 30 % (35-47); Hemoglobin 9.5 g/dL (12.0-16.0); Lymphocyte % 20.6 %; Mean Corpuscular HGB Conc 32 g/dL (31-36); Mean Corpuscular Hemoglobin 27 pg (27-31); Mean Corpuscular Volume 83 fL (80-97); Mean Platelet Volume 8.2 fL (7.4-10.4); Platelet Count 407 10^3/uL (150-450); Red Blood Count 3.54 10^6 /uL (3.70-4.87); Red Cell Distribution Width 16 % (10-15); White Blood Count 7.4 10^3/uL (3.5-10.8)
[2019-09-02 18:44] LABS: ALT 8 U/L (7-52); AST 14 U/L (13-39); Albumin 3.3 g/dL (3.2-5.2); Albumin/Globulin Ratio 0.9 (1-3); Alkaline Phosphatase 72 U/L (34-104); Anion Gap 5 mmol/L (2-11); BUN/Creatinine Ratio 24.2 (8-20); Blood Urea Nitrogen 22 mg/dL (6-24); CO2 Carbon Dioxide 26 mmol/L (22-32); Calcium 9.2 mg/dL (8.6-10.3); Chloride 107 mmol/L (101-111); EGFR African American 70.8 (>60); EGFR Non-African American 58.5 (>60); Globulin 3.6 g/dL (2-4); Glucose 79 mg/dL (70-100); Potassium 4.5 mmol/L (3.5-5.0); Sodium 138 mmol/L (135-145); Total Protein 6.9 g/dL (6.4-8.9)
[2019-09-02 18:59] LABS: Acetaminophen < 15 mcg/mL; Salicylate < 2.50 mg/dL (<30)
[2019-09-02 20:25] LABS: Urine Appearance Cloudy; Urine Bilirubin Negative (Negative); Urine Blood 3+ (Negative); Urine Color Yellow; Urine Glucose Negative (Negative); Urine Ketones Negative (Negative); Urine Nitrite Negative (Negative); Urine Protein 1+(30 mg/dL) (Negative); Urine Specific Gravity 1.015 (1.010-1.030); Urine Urobilinogen Negative (Negative)
[2019-09-02 20:28] LABS: Urine Bacteria 1+ (Absent); Urine Red Blood Cell 3+(>10/hpf) (Absent); Urine White Blood Cell 3+(>20/hpf) (Absent)
[2019-09-02] MEDS ORDERED: Cephalexin CAP* 500 MG PO ONE (20:30)
[2019-09-02 22:06] VITALS: BP 172/99
--- NOTE | 2019-09-06 06:04 | ED ---
Imaging and Labs Follow Up Follow Up Type: Labs/Cultures Labs/Culture Result: placed on keflex Patient Communication/Plan: appropriate tx Patient Communication/Plan: pt placed on keflex prior to DC Other Patient Communication/Plan: this sensitive for organism nothing further required Provider Diagnoses: Urinary tract infection
== END 2019-09-02 22:05 | disposition home or self-care (01) ==
LOC: ED 17:44
DX: N39.0 Urinary tract infection, site not specified (principal); R31.9 Hematuria, unspecified; E03.9 Hypothyroidism, unspecified; I11.0 Hypertensive heart disease with heart failure; I50.9 Heart failure, unspecified; E78.00 Pure hypercholesterolemia, unspecified; I25.10 Atherosclerotic heart disease of native coronary artery without angina pectoris; Z86.718 Personal history of other venous thrombosis and embolism; K21.9 Gastro-esophageal reflux disease without esophagitis; Z79.01 Long term (current) use of anticoagulants; Z87.891 Personal history of nicotine dependence; Z79.890 Hormone replacement therapy; Z79.899 Other long term (current) drug therapy
CPT/HCPCS: 36415; 70450; 80053; 80329; 81003; 81015; 85025; 87077; 87086; 87186; 99282; A9270-GY; G0480

== ENCOUNTER 2019-09-07 19:06 | Inpatient (IN) | payer MEDICARE, OTHER ==
--- NOTE | 2019-09-07 19:17 | ED ---
Altered Mental Status - HPI Summary HPI Summary: 88 y/o F brought in by EMS for concern for worsening altered mental status and confusion. Current dx UTI. Was seen here last week. D/c home on antibiotics. Per son Sung, patient improved after d/c. Yesterday she became confused again. She was talking "gibberish" and speaking in a mix of Slovenian German Frisian. Today she was refusing to walk and falling asleep. ophthalmic aide was worried so she called EMS. PCP worried she may need IV antibiotics for her UTI. No fever. Symptoms aggravated by nothing. Symptoms alleviated by nothing. Medications reviewed. Allergies noted. - History Of Current Complaint Stated Complaint: AMS PER EMS Time Seen by Provider: 09/07/19 19:13 Hx Obtained From: Patient, EMS Onset/Duration: Still Present Timing: Constant Character: Confusion Aggravating Factor(s): Nothing Alleviating Factor(s): Nothing - Allergies/Home Medications Allergies/Adverse Reactions: Allergies Allergy/AdvReac Type Severity Reaction Status Date / Time Sulfa (Sulfonamide Allergy Severe Hives Verified 06/10/18 14:42 Antibiotics) Home Medications: Home Medications Calcium Carbonate [Calcium] 500 mg PO DAILY 12/30/17 [History Confirmed 09/07/19 ] Melatonin (NF) 3 mg PO BEDTIME 12/30/17 [History Confirmed 09/07/19] Metoprolol Tartrate TAB* [Lopressor TAB*] 12.5 mg PO QAM 12/30/17 [History Confirmed 09/07/19] Ascorbic Acid TAB* [Vitamin C TAB*] 500 mg PO DAILY 06/20/19 [History Confirmed 09/07/19] Cetirizine* [ZyrTEC 10 MG TAB*] 10 mg PO DAILY 06/20/19 [History Confirmed 09/06] Escitalopram * [Lexapro 10 mg (NF)] 20 mg PO DAILY 06/20/19 [History Confirmed 09/07/19] Ferrous Gluconate TAB* [Fergon TAB*] 324 mg PO DAILY 06/20/19 [History Confirmed 09/07/19] Levothyroxine TAB* [Synthroid 100 MCG TAB*] 100 mcg PO DAILY 06/20/19 [History Confirmed 09/07/19] Ranitidine TAB (NF) [Zantac TAB (NF)] 150 mg PO BID 06/20/19 [History Confirmed 09/07/19] Potassium Chlor TAB* [Potassium Chlor TAB 20 MEQ*] 10 meq PO QAM #0 06/22/19 [ Rx Confirmed 09/07/19] Rivaroxaban TAB(*) [Xarelto 20 mg] 20 mg PO DAILY #30 tab 06/22/19 [Rx Confirmed 09/07/19] Cephalexin CAP* [Keflex CAP*] 500 mg PO BID 5 Days #10 cap 09/02/19 [Rx Confirmed 09/07/19] PMH/Surg Hx/FS Hx/Imm Hx Endocrine/Hematology History: Reports: Hx Anticoagulant Therapy - xarelto for DVT , Hx Thyroid Disease Denies: Hx Diabetes Cardiovascular History: Reports: Hx Angina, Hx Congestive Heart Failure, Hx Coronary Artery Disease, Hx Deep Vein Thrombosis, Hx Hypercholesterolemia, Hx Hypertension, Hx Peripheral Vascular Disease, Other Cardiovascular Problems/ Disorders - HEART MURMUR, CAD, PVD, DVT. Respiratory History: Reports: Hx Asthma GI History: Reports: Hx Gastroesophageal Reflux Disease, Hx Gastrointestinal Bleed - with erosive esophagitis History: Reports: Other Problems/Disorders - solitary congenital kidney, frequent UTI's Musculoskeletal History: Reports: Hx Back Problems Denies: Hx Arthritis, Hx Osteoporosis Sensory History: Reports: Hx Contacts or Glasses, Hx Vision Problem, Hx Hearing Problem Denies: Hx Cataracts, Hx Glaucoma, Hx Legally Blind, Hx Deafness, Hx Hearing Aid Opthamlomology History: Reports: Hx Contacts or Glasses, Hx Vision Problem Denies: Hx Cataracts, Hx Glaucoma, Hx Legally Blind Neurological History: Reports: Hx Dementia Denies: Hx Seizures, Other Neuro Impairments/Disorders Psychiatric History: Reports: Hx Anxiety, Hx Depression Denies: Hx Substance Abuse - Surgical History Surgery Procedure, Year, and Place: appendectomy per pt. 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 Denies: Hx Human Immunodeficiency Virus (HIV) - Family History Known Family History: Positive: Cardiac Disease - CAD, Other - Dementia (mother) - Social History Alcohol Use: None Alcohol Amount: One glass of gin Hx Substance Use: No Substance Use Type: Reports: None Hx Tobacco Use: Yes Smoking Status (MU): Former Smoker Review of Systems Negative: Fever Neurological/Mental Status: Other - altered mental status, confusion All Other Systems Reviewed And Are Negative: Yes Physical Exam - Summary Physical Exam Summary: Constitutional: Well-developed, Well-nourished, Alert. (-) Distressed Skin: Warm, Dry HENT: Normocephalic; Atraumatic Eyes: Conjunctiva normal Neck: Musculoskeletal ROM normal neck. (-) JVD, (-) Stridor, (-) Nuchal rigidity Cardio: Rhythm regular, rate normal, Heart sounds normal; Intact distal pulses; Radial pulses are 2+ and symmetric. (-) Murmur Pulmonary/Chest wall: Effort normal. (-) Respiratory distress, (-) Wheezes, (-) Rales Abd: Soft, (-) tenderness, (-) Distension, (-) Guarding, (-) Rebound Musculoskeletal: (-) Edema Lymph: (-) Cervical adenopathy Neuro: Alert, Oriented x2. GCS 14. No focal neuro deficits, moves all extremities. Psych: Intermittently agitated Triage Information Reviewed: Yes Vital Signs Reviewed: Yes Procedures - Sedation Patient Received Moderate/Deep Sedation with Procedure: No Diagnostics - Laboratory Result Diagrams: 09/09/19 07:05 09/08/19 06:44 Lab Statement: Any lab studies that have been ordered have been reviewed, and results considered in the medical decision making process. - Radiology CXR Radiology Interpretation Completed By: ED Physician - Cardiomegaly. Pending official report. - EKG 2020 Cardiac Rate: NL - 61 BPM EKG Rhythm: Sinus Rhythm Summary of EKG Findings: Borderline prolonged QTc. ED physician has reviewed and interpreted this EKG. Altered Mental Statu Course/Dx - Course Course Of Treatment: 88 y/o F w recently diagnosed proteus UTI on keflex p/w continued agitation/AMS. - PE well appearing, AAOx2. D/w son again who reports she is not back to baseline yet. No falls. Recent normal head CT. Given dose of ceftriaxone per prior sensitivities. Pending UA here. Admit to medicine for IV abx for UTI and possible PT/OT - Diagnoses Provider Diagnoses: Altered mental status, Urinary tract infection - Provider Notifications Discussed Care Of Patient With: Neri Pereira - Agrees to admit Time Discussed With Above Provider: 21:45 Discharge ED - Sign-Out/Discharge Documenting (check all that apply): Patient Departure - Discharge Plan Condition: Fair Disposition: ADMITTED TO [facility] - Billing Disposition and Condition Condition: FAIR Disposition: Admitted to [facility] - Attestation Statements Document Initiated by Vishnu: Yes Documenting Scribe: Krys Mariee Provider For Whom Vishnu is Documenting (Include Credential): Gracy Wilson MD Scribe Attestation: IKrys, scribed for Gracy Wilson MD on 09/10/19 at 0729. Scribe Documentation Reviewed: Yes Provider Attestation: The documentation as recorded by the Krys curtis accurately reflects the service I personally performed and the decisions made by , Gracy Wilson MD Status of Scribe Document: Viewed
[2019-09-07 19:44] LABS: ABS Basophils 0.1 10^3/ul (0-0.2); ABS Eosinophils 0.2 10^3/ul (0-0.6); ABS Lymphocytes 1.3 10^3/ul (1.0-4.8); ABS Monocytes 0.7 10^3/ul (0-0.8); ABS Neutrophils 3.9 10^3/ul (1.5-7.7); Eosinophil % 3.3 %; Hematocrit 31 % (35-47); Hemoglobin 10.1 g/dL (12.0-16.0); Lymphocyte % 21.3 %; Mean Corpuscular HGB Conc 32 g/dL (31-36); Mean Corpuscular Hemoglobin 27 pg (27-31); Mean Corpuscular Volume 82 fL (80-97); Mean Platelet Volume 8.1 fL (7.4-10.4); Platelet Count 442 10^3/uL (150-450); Red Cell Distribution Width 16 % (10-15); White Blood Count 6.3 10^3/uL (3.5-10.8)
[2019-09-07 20:00] LABS: ALT 8 U/L (7-52); AST 13 U/L (13-39); Albumin 3.4 g/dL (3.2-5.2); Albumin/Globulin Ratio 0.9 (1-3); Alkaline Phosphatase 80 U/L (34-104); Anion Gap 7 mmol/L (2-11); BUN/Creatinine Ratio 16.8 (8-20); Blood Urea Nitrogen 17 mg/dL (6-24); CO2 Carbon Dioxide 26 mmol/L (22-32); Calcium 9.4 mg/dL (8.6-10.3); Chloride 107 mmol/L (101-111); EGFR African American 62.7 (>60); EGFR Non-African American 51.8 (>60); Globulin 3.9 g/dL (2-4); Glucose 86 mg/dL (70-100); Potassium 4.1 mmol/L (3.5-5.0); Sodium 140 mmol/L (135-145); Total Protein 7.3 g/dL (6.4-8.9)
[2019-09-07 20:04] LABS: Troponin I 0.01 ng/mL (<0.03)
[2019-09-07 20:28] LABS: Alcohol < 10 mg/dL (<10); Salicylate < 2.50 mg/dL (<30)
[2019-09-07 20:44] LABS: TSH (Thyroid Stimulating Horm) 1.92 mcIU/mL (0.34-5.60)
[2019-09-07 20:47] LABS: Acetaminophen < 15 mcg/mL
[2019-09-07] MEDS ORDERED: cefTRIAXone(*) 1 GM in NS 0.9% 50 ML* 50 ML IVPB ONE (21:47)
[2019-09-07] MEDS ORDERED: Acetaminophen TAB* 325 MG PO PRN (22:08)
[2019-09-07] MEDS ORDERED: Al Hydrox/Mg Hydrox/Simet LIQ* 30 ML UDC PO PRN (22:08)
[2019-09-07] MEDS ORDERED: cefTRIAXone(*) 1 GM in NS 0.9% 50 ML* 50 ML IVPB SCH (23:00)
[2019-09-08] MEDS ORDERED: NS 0.9% 1000 ML** 1,000 ML IV SCH (04:15)
[2019-09-08] MEDS: Levothyroxine TAB* 100 MCG TAB PO SCH (05:06)
[2019-09-08 06:57] LABS: Hematocrit 29 % (35-47); Hemoglobin 9.2 g/dL (12.0-16.0); Mean Corpuscular HGB Conc 32 g/dL (31-36); Mean Corpuscular Hemoglobin 26 pg (27-31); Mean Corpuscular Volume 83 fL (80-97); Mean Platelet Volume 7.6 fL (7.4-10.4); Platelet Count 391 10^3/uL (150-450); Red Blood Count 3.48 10^6 /uL (3.70-4.87); Red Cell Distribution Width 16 % (10-15); White Blood Count 4.8 10^3/uL (3.5-10.8)
--- NOTE | 2019-09-08 07:11 | HP ---
HISTORY AND PHYSICAL: DATE OF ADMISSION: 09/07/19. HISTORY OF PRESENT ILLNESS: This is an 88-year-old female with a past medical history significant for coronary artery disease; hypertension; hyperlipidemia; dementia; history of DVT that has failed Coumadin therapy, now on Xarelto; history of GI bleeding with erosive esophagitis; history of hematuria, who presented to the emergency room due to increased confusion or altered mental state, which is worsening for the past couple of days. The patient was currently treated for UTI with p.o. antibiotics and sent to home. Per medical record from the son, the patient improved, but yesterday she became more confused, was talking gibberish and speaking in a mixture of Romanian, Italian and Yakut. Today, when the patient was met, she was lying down in bed , drowsy, but responds to verbal cues, said she want to be left alone to sleep. teachers aide saw the patient today and was worried due to the patient's mental confusion and called EMS. Also the PCP was also concerned that might have failed p.o. antibiotics therapy for her UTI and preferred that the patient to be admitted and receive IV antibiotics. Denial of fever, nausea and vomiting. Symptoms aggravated by nothing and alleviated by nothing. PAST MEDICAL HISTORY: 1. The patient has a history of coronary artery disease, status post stenting in 2011. 2. Hypertension. 3. Hyperlipidemia. 4 Hypothyroidism. 5. History of DVT, which failed Coumadin, now on Xarelto. 6. GERD. 7. History of GI bleed associated with erosive esophagitis. 8. Asthma. 9. Anemia. 10. Chronic back pain syndrome. PAST SURGICAL HISTORY: 1. Cholecystectomy in 1969. 2. Foot surgery in 1979. 3. Stent placement 2011. MEDICATIONS: 1. Calcium carbonate 500 mg p.o. daily. 2. Melatonin 3 mg p.o. at bedtime. 3. Metoprolol 12.5 mg p.o. daily. 4. Ascorbic acid 500 mg p.o. daily. 5. Zyrtec 10 mg p.o. daily. 6. Lexapro 20 mg p.o. daily. 7. Ferrous gluconate 324 mg p.o. daily. 8. Levothyroxine 100 mcg p.o. daily. 9. Zantac 150 mg p.o. b.i.d. 10. Potassium chloride 10 mEq p.o. daily. 11. Xarelto 20 mg p.o. daily. 12. The patient was placed on Keflex 500 mg p.o. b.i.d. for 5 days for the UTI , which failed. ALLERGIES: SULFONAMIDE, all SULFA ANTIBIOTICS, reaction hives, severity severe. FAMILY HISTORY: The patient's mother from complications of dementia. Father in World War II. The patient has a sister, who is alert and well. No other significant family history was noted. SOCIAL HISTORY: The patient smoked occasionally in her 20s. She denied illicit drug use. The patient is retired. She has 3 children. Her surrogate decision maker in the event she is unable to make her own decision is her son, Sung Díaz. She is full code. REVIEW OF SYSTEMS: The patient denies any chest pain. Denies abdominal pain. Denies cough or congestion. Denies fever or chills. There is a report of increased confusion or worsening altered mental state. Her review of systems is limited due to her medical condition. All other systems negative except as stated in the HPI. PHYSICAL EXAMINATION GENERAL: At this time, the patient is mildly confused, oriented to self only. Lying in bed, said want to be left alone. VITAL SIGNS: Temperature 96.7, heart rate 78, respiratory rate 18, O2 saturation 98% on room air, blood pressure 148/69, HEENT: Atraumatic normocephalic. Eyes: EOMI. Sclerae anicteric and not pale. Oral mucosa is moist. NECK: Supple. Normal range of motion. No JVD. No stridor. No nuchal rigidity. LUNGS: Clear to auscultation bilaterally. No wheezes, rales, or rhonchi. Normal respiratory effort. CARDIOVASCULAR: S1, S2 heard. No murmurs. Regular rate and rhythm with no rubs or gallops. ABDOMEN: Soft, nondistended. Bowel sounds are active in all 4 quadrants. Mild suprapubic tenderness to deep palpation. No CVA tenderness. NEUROLOGIC: Awake and alert, oriented in person. She is unable to actively participate in conversation asking why am I here, what am I doing here, I want to be left alone. SKIN: Clean, dry, no rashes. PSYCHIATRIC: Normal mood. DIAGNOSTIC STUDIES/LAB DATA: Hematology: WBC 6.3, RBC 3.80, hemoglobin 10.21 , hematocrit 31, MCV 82, MCH 27, MCHC 32, RDW 16, platelet count 440. MPV 8.1, neutrophil percentage 3.4, absolute neutrophils 3.9. Chemistry: Sodium 140, potassium 4.1, chloride 107, carbon dioxide 26, anion gap 7, BUN 17, creatinine 1.01, estimated GFR non- 51.8, BUN and creatinine ratio 16.8, glucose 86, lactic acid 0.8, calcium 9.4. Total bilirubin 0.30, AST 13, ALT 8, alkaline phosphatase 80. Ammonia 33. Troponin 0.01. Total protein 7.3, albumin 3.4, globulin 3.9, albumin/globulin ratio 0.9. TSH 1.92. Toxicology: Salicylate less than 3.50. Acetaminophen less than 16. Urine alcohol less than 10. Electrocardiogram: Sinus rhythm. Normal P axis. Chest x-ray: Awaiting official report. Cardiomegaly. ASSESSMENT AND PLAN: An 88-year-old female with past medical history significant for coronary artery disease; hypertension; hyperlipidemia; dementia ; history of DVT, failed Coumadin therapy, now on Xarelto; history of GI bleeding with erosive esophagitis; history of hematuria, who presented to the ED with chief complaint of altered mental status and urinary tract infection that failed outpatient p.o. antibiotic therapy. The patient will be admitted to the medical floor with admitting diagnoses of urinary tract infection and altered mental status. For urinary tract infection, I will start the patient on Rocephin IV 1 g daily, follow up. For altered mental status, which I believe is as the result of urinary tract infection. We will monitor. Ammonia noted to be within normal limits. The patient does have baseline dementia. History of deep vein thrombosis. The patient will continue Xarelto. She is on 20 mg daily, but due to worsening renal function, Xarelto will be renally dosed and the dose is 15 mg daily. So, the patient will continue on 15 Xarelto daily until renal function improves and she will go back to her normal dose of 20 mg p.o. daily. For acute kidney injury, gentle hydration with normal saline. Encourage p.o. fluid intake. Follow up BMP in a.m. For gastroesophageal reflux disease, the patient will be placed on Pepcid, which is also renally dosed at 20 mg daily. Hypertension. She will continue on her home med metoprolol 12.5 mg daily. For hypothyroidism, I will continue levothyroxine 100 mcg daily. For coronary artery disease, the patient will continue on aspirin as well as statin. For DVT prophylaxis, the patient is already on Xarelto. Code status, full code. Diet, cardiac diet. TIME SPENT: Time spent on the admission 60 minutes, greater than half of the time spent at the bedside reviewing events leading thus far to the hospitalization, performing physical examination, reviewing my plan of care with the patient. Thank you very much for the opportunity to partake in the healthcare needs of this lizzeth lady. [id number]/CPS #: [id number] MAURICE
[2019-09-08 07:15] LABS: BUN/Creatinine Ratio 15.7 (8-20); Calcium 8.7 mg/dL (8.6-10.3); EGFR African American 72.6 (>60); Potassium 3.9 mmol/L (3.5-5.0)
[2019-09-08 07:53] LABS: ABS Basophils 0.1 10^3/ul (0-0.2); ABS Eosinophils 0.3 10^3/ul (0-0.6); ABS Monocytes 0.7 10^3/ul (0-0.8); ABS Neutrophils 2.7 10^3/ul (1.5-7.7); Eosinophil % 5.7 %; Lymphocyte % 21.8 %
[2019-09-08] MEDS ORDERED: Rivaroxaban TAB(*) 15 MG PO SCH (09:00)
[2019-09-08] MEDS: Famotidine TAB* 20 MG PO SCH (09:51)
[2019-09-08] MEDS: Cetirizine* 10 MG TAB PO SCH (09:51)
[2019-09-08] MEDS: Calcium Carbonate TAB* 1250 MG (CALCIUM 500 MG) PO SCH (09:51)
[2019-09-08] MEDS: Docusate CAP* 100 MG PO SCH ×2 (09:51→21:08)
[2019-09-08] MEDS: Ascorbic Acid TAB* 500 MG PO SCH (09:51)
[2019-09-08] MEDS: Escitalopram * 20 MG TABLET PO SCH (09:51)
[2019-09-08] MEDS: Ferrous Gluconate TAB* 324 MG TAB PO SCH (09:52)
[2019-09-08] MEDS: Potassium Chlor TAB* 10 MEQ TAB.ER PO SCH (09:52)
[2019-09-08] MEDS: Metoprolol Tartrate TAB* 25 MG PO SCH (09:52)
--- NOTE | 2019-09-08 16:33 | PN ---
Subjective Date of Service: 09/08/19 Interval History: Ms. Arjun Vaca states she is doing well today. She is not sure why she is here, but is aware that she is in the hospital. She denies dysuria, frequency, urgency, retention. She denies CP, SOB, cough, fevers/chills, abd pain, n/v/d. No other complaints today. Nursing staff report intermittent agitation, particularly in the afternoon/evenings. Called son, who states that patient has been combative recently and intermittently somnolent, which is not her baseline. She typically is oriented to person, place, but often does not know date. She has 24h/7d home health aids. Objective Active Medications: Acetaminophen (Tylenol Tab*) 650 mg PO Q4H PRN PRN Reason: MILD PAIN or TEMP > 100.4 Al Hydrox/Mg Hydrox/Simethicone (Maalox Plus*) 30 ml PO Q6H PRN PRN Reason: INDIGESTION Ascorbic Acid (Vitamin C Tab*) 500 mg PO DAILY [facility] Last Admin: 09/08/19 09:51 Dose: 500 mg Calcium Carbonate (Calcium Carbonate Tab*) 1,250 mg PO DAILY [facility] Last Admin: 09/08/19 09:51 Dose: 1,250 mg Cetirizine HCl (Zyrtec*) 10 mg PO DAILY [facility] Last Admin: 09/08/19 09:51 Dose: 10 mg Docusate Sodium (Colace Cap*) 100 mg PO BID [facility] Last Admin: 09/08/19 09:51 Dose: 100 mg Escitalopram Oxalate (Lexapro *) 20 mg PO DAILY [facility] Last Admin: 09/08/19 09:51 Dose: 20 mg Famotidine (Pepcid Tab*) 20 mg PO DAILY [facility]; Protocol Last Admin: 09/08/19 09:51 Dose: 20 mg Ferrous Gluconate (Fergon Tab*) 324 mg PO DAILY [facility] Last Admin: 09/08/19 09:52 Dose: 324 mg Ceftriaxone Sodium 1 gm/ (Sodium Chloride) 50 mls @ 100 mls/hr IVPB Q24H [facility] Sodium Chloride (Ns 0.9% 1000 Ml) 1,000 mls @ 100 mls/hr IV PER RATE [facility] Last Admin: 09/08/19 05:06 Dose: 100 mls/hr Levothyroxine Sodium (Synthroid Tab*) 100 mcg PO DAILY@0600 [facility] Last Admin: 09/08/19 05:06 Dose: 100 mcg Melatonin (Melatonin) 3 mg PO BEDTIME [facility] Metoprolol Tartrate (Lopressor Tab*) 12.5 mg PO QAM [facility] Last Admin: 09/08/19 09:52 Dose: 12.5 mg Potassium Chloride (Klor Con Er Tab*) 10 meq PO QAM [facility] Last Admin: 09/08/19 09:52 Dose: 10 meq Rivaroxaban (Xarelto(*)) 15 mg PO DAILY [facility] Last Admin: 09/08/19 09:52 Dose: 15 mg Vital Signs: Temp Pulse Resp BP Pulse Ox 97.9 F 59 18 122/48 100 09/08/19 15:27 09/08/19 15:27 09/08/19 15:27 09/08/19 15:27 09/08/19 15:27 Oxygen Devices in Use Now: None Appearance: Ms. Arjun Vaca is an elderly white female who is sitting up in bed. She appears to be in no acute distress and is pleasant, cooperative, mildly confused. Eyes: No Scleral Icterus, PERRLA Ears/Nose/Mouth/Throat: Clear Oropharnyx, Mucous Membranes Moist, - - poor dentition Neck: NL Appearance and Movements; NL JVP Respiratory: Symmetrical Chest Expansion and Respiratory Effort, Clear to Auscultation Cardiovascular: NL Sounds; No Murmurs; No JVD, RRR, No Edema Abdominal: NL Sounds; No Tenderness; No Distention, No Hepatosplenomegaly Extremities: No Edema, No Clubbing, Cyanosis Neurological: - - alert, oriented to person, place; does not know date Result Diagrams: 09/08/19 06:44 09/08/19 06:44 Assess/Plan/Problems-Billing Assessment: Ms. Arjun Vaca is an 88 yof with PMHx CAD, HTN, HLD, hypothryoidism who presented to the ER with AMS and h/o UTI. - Patient Problems (1) UTI (urinary tract infection) Comment: -UC from 09/01 growing Proteus -sensitive to ceftriaxone -continue ceftriaxone (2) Encephalopathy Comment: -AMS with known infection -TSH, ammonia WNL -CT brain 09/01 unremarkable -with baseline dementia, which is suspected to be contributing -h/o Proteus UTI; continue treatment and monitor for improvement (3) SHIV (acute kidney injury) Comment: -resolved (4) H/O deep venous thrombosis Comment: -continue rivaroxaban at home dose (5) HTN (hypertension) Comment: -SBP 100-150's -continue home metoprolol (6) Coronary heart disease Comment: -continue BB (7) Hypothyroid Comment: -TSH WNL -continue levothyroxine (8) GERD (gastroesophageal reflux disease) Comment: -continue famotidine (9) DVT prophylaxis Comment: -h/o DVT; continue home rivaroxaban (10) Full code status Comment: Status and Disposition: Inpatient. Discharge when stable.
[2019-09-08] MEDS: cefTRIAXone(*) 1 GM in NS 0.9% 50 ML* 50 ML IVPB SCH (21:06)
[2019-09-08] MEDS: Melatonin 3 MG TAB PO SCH (21:08)
[2019-09-09] MEDS: Levothyroxine TAB* 100 MCG TAB PO SCH (05:19)
[2019-09-09 07:17] LABS: Hematocrit 28 % (35-47); Hemoglobin 8.9 g/dL (12.0-16.0); Mean Corpuscular HGB Conc 32 g/dL (31-36); Mean Corpuscular Hemoglobin 26 pg (27-31); Mean Corpuscular Volume 82 fL (80-97); Mean Platelet Volume 7.5 fL (7.4-10.4); Platelet Count 387 10^3/uL (150-450); Red Blood Count 3.41 10^6 /uL (3.70-4.87); Red Cell Distribution Width 16 % (10-15); White Blood Count 5.9 10^3/uL (3.5-10.8)
[2019-09-09] MEDS: Rivaroxaban TAB(*) 20 MG TAB PO SCH (08:46)
[2019-09-09] MEDS: Ascorbic Acid TAB* 500 MG PO SCH ×2 (08:46→09:27)
[2019-09-09] MEDS: Ferrous Gluconate TAB* 324 MG TAB PO SCH (08:46)
[2019-09-09 08:47] LABS: ABS Basophils 0.1 10^3/ul (0-0.2); ABS Eosinophils 0.3 10^3/ul (0-0.6); ABS Lymphocytes 1.3 10^3/ul (1.0-4.8); ABS Monocytes 0.6 10^3/ul (0-0.8); ABS Neutrophils 3.5 10^3/ul (1.5-7.7); Eosinophil % 5.8 %
[2019-09-09] MEDS: Potassium Chlor TAB* 10 MEQ TAB.ER PO SCH (08:47)
[2019-09-09] MEDS: Escitalopram * 20 MG TABLET PO SCH (08:47)
[2019-09-09] MEDS: Calcium Carbonate TAB* 1250 MG (CALCIUM 500 MG) PO SCH ×2 (08:47→09:27)
[2019-09-09] MEDS: Docusate CAP* 100 MG PO SCH ×3 (08:47→21:19)
[2019-09-09] MEDS: Metoprolol Tartrate TAB* 25 MG PO SCH ×2 (08:47→21:18)
[2019-09-09] MEDS: Cetirizine* 10 MG TAB PO SCH (08:47)
[2019-09-09] MEDS: Famotidine TAB* 20 MG PO SCH (08:47)
--- NOTE | 2019-09-09 17:35 | PN ---
Subjective Date of Service: 09/09/19 Interval History: Ms. Arjun Vaca states she is feeling well today. She is pleasantly confused and has no complaints. She denies CP, SOB, cough, fever, chills, abd pain/ flank pain, n/v/d, dysuria, frequency, urgency, retention. She has a Purewick external catheter in place. Objective Active Medications: Acetaminophen (Tylenol Tab*) 650 mg PO Q4H PRN PRN Reason: MILD PAIN or TEMP > 100.4 Al Hydrox/Mg Hydrox/Simethicone (Maalox Plus*) 30 ml PO Q6H PRN PRN Reason: INDIGESTION Ascorbic Acid (Vitamin C Tab*) 500 mg PO DAILY [facility] Last Admin: 09/09/19 09:27 Dose: Not Given Calcium Carbonate (Calcium Carbonate Tab*) 1,250 mg PO DAILY [facility] Last Admin: 09/09/19 09:27 Dose: Not Given Cetirizine HCl (Zyrtec*) 10 mg PO DAILY [facility] Last Admin: 09/09/19 08:47 Dose: 10 mg Docusate Sodium (Colace Cap*) 100 mg PO BID [facility] Last Admin: 09/09/19 09:27 Dose: Not Given Escitalopram Oxalate (Lexapro *) 20 mg PO DAILY [facility] Last Admin: 09/09/19 08:47 Dose: 20 mg Famotidine (Pepcid Tab*) 20 mg PO DAILY [facility]; Protocol Last Admin: 09/09/19 08:47 Dose: 20 mg Ferrous Gluconate (Fergon Tab*) 324 mg PO DAILY [facility] Last Admin: 09/09/19 08:46 Dose: 324 mg Ceftriaxone Sodium 1 gm/ (Sodium Chloride) 50 mls @ 100 mls/hr IVPB Q24H [facility] Last Admin: 09/08/19 21:06 Dose: 100 mls/hr Sodium Chloride (Ns 0.9% 1000 Ml) 1,000 mls @ 100 mls/hr IV PER RATE [facility] Last Admin: 09/08/19 05:06 Dose: 100 mls/hr Levothyroxine Sodium (Synthroid Tab*) 100 mcg PO DAILY@0600 [facility] Last Admin: 09/09/19 05:19 Dose: 100 mcg Melatonin (Melatonin) 3 mg PO BEDTIME [facility] Last Admin: 09/08/19 21:08 Dose: 3 mg Metoprolol Tartrate (Lopressor Tab*) 12.5 mg PO QAM [facility] Last Admin: 09/09/19 08:47 Dose: 12.5 mg Potassium Chloride (Klor Con Er Tab*) 10 meq PO QAM [facility] Last Admin: 09/09/19 08:47 Dose: 10 meq Rivaroxaban (Xarelto(*)) 20 mg PO DAILY WITH MEAL [facility] Last Admin: 09/09/19 08:46 Dose: 20 mg Vital Signs: Temp Pulse Resp BP Pulse Ox 97.8 F 57 22 138/59 98 09/09/19 16:14 09/09/19 16:14 09/09/19 16:14 09/09/19 16:14 09/09/19 16:14 Oxygen Devices in Use Now: None Appearance: Ms. Arjun Vaca is an elderly white female who is sitting up in bed , in no acute distress. She is pleasantly confused. Eyes: No Scleral Icterus, PERRLA Ears/Nose/Mouth/Throat: Clear Oropharnyx, Mucous Membranes Moist Neck: NL Appearance and Movements; NL JVP, Trachea Midline Respiratory: Symmetrical Chest Expansion and Respiratory Effort, Clear to Auscultation Cardiovascular: NL Sounds; No Murmurs; No JVD, RRR, No Edema Abdominal: NL Sounds; No Tenderness; No Distention, No Hepatosplenomegaly Extremities: No Edema, No Clubbing, Cyanosis Neurological: - - alert; oriented to person only Result Diagrams: 09/09/19 07:05 09/08/19 06:44 Assess/Plan/Problems-Billing Assessment: Ms. Arjun Vaca is an 88 yof with PMHx CAD, HTN, HLD, hypothryoidism who presented to the ER with AMS and h/o UTI. - Patient Problems (1) UTI (urinary tract infection) Comment: -UC from 09/01 growing Proteus -unable to repeat UA/UC as patient is incontinent and combative when approached for straight cath -previousl culture sensitive to ceftriaxone -continue ceftriaxone (2) Encephalopathy Comment: -AMS with known infection -TSH, ammonia WNL -CT brain 09/01 unremarkable -with baseline dementia, which is suspected to be contributing -h/o Proteus UTI; continue infection treatment and monitor for improvement (3) H/O deep venous thrombosis Comment: -continue rivaroxaban at home dose (4) HTN (hypertension) Comment: -SBP 120-140's -continue home metoprolol (5) Coronary heart disease Comment: -continue BB (6) Hypothyroid Comment: -TSH WNL -continue levothyroxine (7) GERD (gastroesophageal reflux disease) Comment: -continue famotidine (8) DVT prophylaxis Comment: -h/o DVT; continue home rivaroxaban (9) Full code status Comment: Status and Disposition: Inpatient. Discharge when stable.
[2019-09-09] MEDS: Melatonin 3 MG TAB PO SCH (21:18)
[2019-09-09] MEDS: cefTRIAXone(*) 1 GM in NS 0.9% 50 ML* 50 ML IVPB SCH (21:18)
[2019-09-10] MEDS: Levothyroxine TAB* 100 MCG TAB PO SCH (07:25)
[2019-09-10] MEDS: Rivaroxaban TAB(*) 20 MG TAB PO SCH (09:13)
[2019-09-10] MEDS: Cetirizine* 10 MG TAB PO SCH (09:14)
[2019-09-10] MEDS: Metoprolol Tartrate TAB* 25 MG PO SCH (09:14)
[2019-09-10] MEDS: Escitalopram * 20 MG TABLET PO SCH (09:15)
[2019-09-10] MEDS: Potassium Chlor TAB* 10 MEQ TAB.ER PO SCH (09:18)
[2019-09-10] MEDS: Famotidine TAB* 20 MG PO SCH (09:18)
[2019-09-10] MEDS: Ascorbic Acid TAB* 500 MG PO SCH (09:19)
[2019-09-10] MEDS: Docusate CAP* 100 MG PO SCH (09:19)
[2019-09-10] MEDS: Ferrous Gluconate TAB* 324 MG TAB PO SCH (09:19)
[2019-09-10] MEDS: Calcium Carbonate TAB* 1250 MG (CALCIUM 500 MG) PO SCH (09:19)
[2019-09-10 12:07] VITALS: BP 101/58
--- NOTE | 2019-09-10 19:44 | DS ---
AMENDED REPORT NOW INCLUDES DESIGNATED COSIGNER CC: Dr. Hiral Bloom * DISCHARGE SUMMARY: DATE OF ADMISSION: 09/07/19 DATE OF DISCHARGE: 09/10/19 PRIMARY CARE PROVIDER: Hiral Bloom MD ATTENDING PHYSICIAN: Rosana Dietrich MD * (dictated by DAVEY Lema). PRIMARY DIAGNOSES: 1. Proteus urinary tract infection. 2. Encephalopathy. 3. Acute kidney injury. SECONDARY DIAGNOSES: 1. Coronary artery disease, status post stenting. 2. Hypertension. 3. Hyperlipidemia. 4. Hypothyroidism. 5. Anemia. 6. Gastroesophageal reflux disease. 7. Asthma. 8. History of deep vein thrombosis, on Xarelto. 9. Chronic back pain. 10. History of gastrointestinal bleed associated with erosive esophagitis. 11. Likely dementia. STUDIES WHILE IN THE HOSPITAL: Chest x-ray, impression: Mild cardiomegaly. No active cardiopulmonary disease. DISCHARGE MEDICATIONS: Home Medications: 1. Ascorbic acid 500 mg p.o. daily. 2. Calcium carbonate 500 mg p.o. daily. 3. Cefpodoxime 200 mg p.o. q.12 hours. 4. Cetirizine 10 mg p.o. daily. 5. Escitalopram 20 mg p.o. daily. 6. Ferrous gluconate 324 mg p.o. daily. 7. Levothyroxine 100 mcg p.o. daily. 8. Melatonin 3 mg p.o. at bedtime. 9. Metoprolol tartrate 12.5 mg p.o. daily. 10. Potassium chloride 10 mEq p.o. daily. 11. Ranitidine 150 mg p.o. b.i.d. 12. Rivaroxaban 20 mg p.o. daily. [place] Medication: Cefpodoxime. HISTORY OF PRESENT ILLNESS/HOSPITAL COURSE: Ms. Arjun Vaca is an 88-year-old female with past medical history of CAD, hypertension, hypothyroidism, dementia who presented to the ER on 09/07/19 with confusion and altered mental status. She is unable to relay any information, and therefore, most information is obtained from her medical chart and her son. For full and complete details, please see the history and physical dictated by Dr. Neri Pereira, but in short the patient presented with the above symptoms. She had recently been diagnosed with a UTI by her primary care provider and was prescribed medication. There was some concern that she may have failed therapy, and therefore, she was admitted and started on ceftriaxone. A repeat urinalysis was ordered, but was unobtainable due to the patient's agitation. Her chart revealed a urine culture resulting with Proteus mirabilis sensitive to ceftriaxone. Therefore, the patient was continued on ceftriaxone throughout her stay. At discharge, she was transitioned to a third generation cephalosporin. Throughout her stay, the patient's altered mental status improved. She does have what appears to be baseline dementia with intermittent agitation. In discussion with her son, her agitation is not uncommon. The patient is often very confused, but is typically pleasant, although at times she becomes combative at times. Again, he states this has been occurring for quite some time and is unchanged. With this information, the patient will be discharged to home with continuation of treatment for her urinary tract infection and she will follow with her primary care provider. She has 24/ home health aides and her son declines need for further help at home. In the interview with Ms. Arjun Vaca, she states she is feeling well and has no complaints at this time. Ms. Arjun Vaca is stable for discharge. PHYSICAL EXAMINATION: Vital signs: Temperature 97.7 oral, heart rate 49, respiratory rate 18, oxygen saturation 99% on room air, blood pressure 101/58. General: Ms. Arjun Vaca is a well-developed, well-nourished elderly white female who is sitting up in her chair with her lower extremities at the floor. She appears to be in no acute distress. She is pleasantly confused. HEENT: PERRL. Extraocular movements appear to be intact, although the patient is unable to follow instructions. Hearing is grossly intact. Oral mucous membranes are moist. There are no lesions. Pharynx is clear. Tongue is at midline. Palate elevates symmetrically. Cardiovascular: Regular rate and rhythm with S1, S2 present. No murmurs, rubs, clicks, or gallops. There is no JVD or peripheral edema. Pulmonary: Symmetrical chest expansion without use of accessory muscles. Clear to auscultation bilaterally without rhonchi, wheezes, or rales. Abdomen: Bowel sounds in all quadrants. Soft, nontender to palpation. Negative CVA tenderness. Musculoskeletal: The patient is able to move all of her extremities. She is able to stand and transfer to chair, although she declines ambulation. Neuro: The patient is awake. She is alert. She is oriented to person only. DISCHARGE PLAN: Ms. Arjun Vaca will be discharged to home with 24x7 home health aide. CONDITION: Fair. DIET: Heart healthy. ACTIVITY: As tolerated. MEDICATIONS: Continue Cefpodoxime 200 mg p.o. b.i.d. for 10 doses starting tonight at 2100. EDUCATION: 1. Follow up with primary care provider in 4 to 7 days. 2. Return to the ER or nearest hospital if you experience any return or worsening of symptoms, chest pain or discomfort, shortness of breath, dizziness , lightheadedness, loss of consciousness, high fevers, chills, nights sweats, or any other worrisome signs or symptoms. This is a summarized report of a complex medical history and hospital stay. For further details, please see the entire medical record. TIME SPENT: Approximately 35 minutes was spent on this discharge, greater than half that time was spent [id number] with the patient or in discussion with the patient's son regarding discharge plans and instructions. DAVEY FLORES [id number]/[facility] #: [id number] [place]
== END 2019-09-10 17:57 | disposition home or self-care (01) | DRG 690 ==
LOC: ED 19:06 → MED 22:08
PROVIDERS: ADMIT Family Medicine; ATTEND Internal Medicine
DX: N39.0 Urinary tract infection, site not specified (principal); N17.9 Acute kidney failure, unspecified; G93.40 Encephalopathy, unspecified; F03.90 Unspecified dementia, unspecified severity, without behavioral disturbance, psychotic disturbance, mood disturbance, and anxiety; B96.4 Proteus (mirabilis) (morganii) as the cause of diseases classified elsewhere; I25.10 Atherosclerotic heart disease of native coronary artery without angina pectoris; I10 Essential (primary) hypertension; E78.5 Hyperlipidemia, unspecified; G89.4 Chronic pain syndrome; M54.9 Dorsalgia, unspecified; J45.909 Unspecified asthma, uncomplicated; K21.9 Gastro-esophageal reflux disease without esophagitis; E03.9 Hypothyroidism, unspecified; D64.9 Anemia, unspecified; Z86.718 Personal history of other venous thrombosis and embolism; Z87.19 Personal history of other diseases of the digestive system; Z95.5 Presence of coronary angioplasty implant and graft; Z79.01 Long term (current) use of anticoagulants; Z79.899 Other long term (current) drug therapy; Z88.2 Allergy status to sulfonamides
CPT/HCPCS: 36415; 71045; 80048; 80053; 80320; 80329; 82140; 83605; 84443; 84484; 85025; 93005; 96365; 99284; A9270-GY; G0480; J0696

== ENCOUNTER 2019-11-01 15:58 | Inpatient (IN) ==
[2019-11-01 16:38] LABS: Hematocrit 25 % (35-47); Mean Corpuscular HGB Conc 32 g/dL (31-36); Mean Corpuscular Hemoglobin 24 pg (27-31); Mean Corpuscular Volume 76 fL (80-97); Mean Platelet Volume 7.2 fL (7.4-10.4); Platelet Count 438 10^3/uL (150-450); Red Blood Count 3.33 10^6 /uL (3.70-4.87); Red Cell Distribution Width 17 % (10-15); White Blood Count 7.1 10^3/uL (3.5-10.8)
[2019-11-01 16:47] LABS: Activated Partial Thrombo Time 36.5 seconds (26.0-38.0); INR 2.58 (0.82-1.09)
[2019-11-01 16:56] LABS: Albumin 3.3 g/dL (3.2-5.2); Albumin/Globulin Ratio 0.9 (1-3); BUN/Creatinine Ratio 22.8 (8-20); C Reactive Protein 24.37 mg/L (<8.01); Calcium 9.5 mg/dL (8.6-10.3); EGFR African American 69.7 (>60); EGFR Non-African American 57.6 (>60); Globulin 3.7 g/dL (2-4); Total Bilirubin 0.2 mg/dL (0.2-1.0)
[2019-11-01 17:12] LABS: ABS Basophils 0.1 10^3/ul (0-0.2); ABS Eosinophils 0.2 10^3/ul (0-0.6); ABS Lymphocytes 1.4 10^3/ul (1.0-4.8); ABS Monocytes 0.7 10^3/ul (0-0.8); Eosinophil % 3.3 %; Lymphocyte % 20.2 %; Nucleated Red Blood Cells % 0.1
[2019-11-01] MEDS ORDERED: NS 0.9% 1000 ml BAG 1,000 ML IV SCH (18:00)
[2019-11-01] MEDS ORDERED: NS 0.9% 500 ml BAG 500 ML IV SCH (18:00)
[2019-11-01] MEDS ORDERED: Pantoprazole VIAL 40 MG VIAL IV ONE (18:56)
[2019-11-01 20:22] LABS: Ferritin 5.1 ng/mL (11-307)
[2019-11-01] MEDS: NS 0.9% 1000 ml BAG 1,000 ML IV SCH (21:20)
[2019-11-01] MEDS: Potassium Chlor 20 meq TAB.ER PO SCH (21:24)
[2019-11-02 06:18] LABS: Hematocrit 25 % (35-47); Hemoglobin 7.7 g/dL (12.0-16.0); Mean Corpuscular HGB Conc 31 g/dL (31-36); Mean Corpuscular Hemoglobin 24 pg (27-31); Mean Corpuscular Volume 77 fL (80-97); Mean Platelet Volume 7.6 fL (7.4-10.4); Platelet Count 395 10^3/uL (150-450); Red Blood Count 3.25 10^6 /uL (3.70-4.87); Red Cell Distribution Width 17 % (10-15); White Blood Count 6.7 10^3/uL (3.5-10.8)
[2019-11-02 06:39] LABS: BUN/Creatinine Ratio 18.3 (8-20); Calcium 8.8 mg/dL (8.6-10.3); EGFR African American 79.6 (>60); EGFR Non-African American 65.8 (>60); Potassium 4.3 mmol/L (3.5-5.0)
[2019-11-02] MEDS ORDERED: Pantoprazole VIAL 40 MG VIAL IV SCH (09:00)
[2019-11-02] MEDS: Potassium Chlor 20 meq TAB.ER PO SCH ×2 (09:22→22:37)
[2019-11-02] MEDS: NS 0.9% 1000 ml BAG 1,000 ML IV SCH ×2 (09:32→23:24)
[2019-11-02 10:37] LABS: ABS Basophils 0.1 10^3/ul (0-0.2); ABS Eosinophils 0.3 10^3/ul (0-0.6); ABS Lymphocytes 1.4 10^3/ul (1.0-4.8); ABS Monocytes 0.6 10^3/ul (0-0.8); Eosinophil % 3.8 %; Lymphocyte % 20.5 %
[2019-11-02 17:35] LABS: Hematocrit 24 % (35-47); Hemoglobin 7.6 g/dL (12.0-16.0); Mean Corpuscular HGB Conc 33 g/dL (31-36); Mean Corpuscular Hemoglobin 25 pg (27-31); Mean Corpuscular Volume 76 fL (80-97); Mean Platelet Volume 7.3 fL (7.4-10.4); Platelet Count 368 10^3/uL (150-450); Red Blood Count 3.11 10^6 /uL (3.70-4.87); Red Cell Distribution Width 17 % (10-15); White Blood Count 5.2 10^3/uL (3.5-10.8)
[2019-11-02 18:25] LABS: Total Iron Binding Capacity 298 mcg/dL (250-450); Transferrin 213 mg/dL (203-362)
[2019-11-02 18:56] LABS: % Iron Saturation 7 % (15-55); Iron < 20 ug/dL (50-212)
[2019-11-02 18:58] LABS: ABS Basophils 0.1 10^3/ul (0-0.2); ABS Eosinophils 0.2 10^3/ul (0-0.6); ABS Lymphocytes 1.2 10^3/ul (1.0-4.8); ABS Monocytes 0.5 10^3/ul (0-0.8); Eosinophil % 4.6 %; Lymphocyte % 22.2 %
[2019-11-02] MEDS ORDERED: Iron Sucrose 200 MG in NS 0.9% 100 ml BAG 100 ML IVPB ONE (19:12)
[2019-11-02] MEDS: Pantoprazole VIAL 40 MG VIAL IV SCH (22:37)
[2019-11-03] MEDS: Potassium Chlor 20 meq TAB.ER PO SCH (09:57)
[2019-11-03] MEDS: Pantoprazole VIAL 40 MG VIAL IV SCH ×2 (10:05→21:57)
[2019-11-03 12:33] LABS: Hematocrit 25 % (35-47); Hemoglobin 7.7 g/dL (12.0-16.0)
[2019-11-04 07:02] LABS: Hematocrit 22 % (35-47); Hemoglobin 6.9 g/dL (12.0-16.0)
[2019-11-04 07:14] LABS: BUN/Creatinine Ratio 10.1 (8-20); Calcium 8.4 mg/dL (8.6-10.3); EGFR African American 72.4 (>60); EGFR Non-African American 59.9 (>60); Magnesium 1.7 mg/dL (1.9-2.7); Potassium 3.9 mmol/L (3.5-5.0)
[2019-11-04] MEDS ORDERED: Magnesium Sulfate 2 gm BAG 2 GM/50 ML BAG IVPB ONE (08:18)
[2019-11-04] MEDS: Pantoprazole VIAL 40 MG VIAL IV SCH ×2 (08:44→21:49)
[2019-11-04] MEDS: Senna TAB 8.6 mg TAB PO SCH (21:49)
[2019-11-04 22:34] LABS: Urine Appearance Cloudy; Urine Bilirubin Negative (Negative); Urine Blood 1+ (Negative); Urine Color Yellow; Urine Glucose Negative (Negative); Urine Ketones Negative (Negative); Urine Nitrite Negative (Negative); Urine Protein Negative (Negative); Urine Specific Gravity 1.015 (1.010-1.030); Urine Urobilinogen Negative (Negative)
[2019-11-04 22:38] LABS: Urine Bacteria Absent (Absent); Urine Red Blood Cell 3+(>10/hpf) (Absent); Urine Squamous Epithelial Cell Present (Absent); Urine White Blood Cell 1+(6-10/hpf) (Absent)
[2019-11-05 06:48] LABS: ABS Basophils 0.1 10^3/ul (0-0.2); ABS Eosinophils 0.3 10^3/ul (0-0.6); ABS Lymphocytes 1.2 10^3/ul (1.0-4.8); ABS Monocytes 0.5 10^3/ul (0-0.8); Hematocrit 29 % (35-47); Hemoglobin 9.2 g/dL (12.0-16.0); Lymphocyte % 21.4 %; Mean Corpuscular HGB Conc 32 g/dL (31-36); Mean Corpuscular Hemoglobin 25 pg (27-31); Mean Corpuscular Volume 79 fL (80-97); Mean Platelet Volume 7.9 fL (7.4-10.4); Nucleated Red Blood Cells % 0.5; Platelet Count 348 10^3/uL (150-450); Red Blood Count 3.67 10^6 /uL (3.70-4.87); Red Cell Distribution Width 18 % (10-15); White Blood Count 5.7 10^3/uL (3.5-10.8)
[2019-11-05] MEDS: Pantoprazole VIAL 40 MG VIAL IV SCH ×2 (08:35→22:24)
[2019-11-05] MEDS ORDERED: Iron Sucrose 200 MG in NS 0.9% 100 ml BAG 100 ML IVPB ONE (13:20)
[2019-11-05] MEDS ORDERED: Polyethylene Glycol 3350 17 GM PACKET PO PRN (16:22)
[2019-11-05] MEDS: Senna TAB 8.6 mg TAB PO SCH (22:24)
[2019-11-06 07:46] LABS: Hematocrit 27 % (35-47); Hemoglobin 8.5 g/dL (12.0-16.0); Mean Corpuscular HGB Conc 32 g/dL (31-36); Mean Corpuscular Hemoglobin 25 pg (27-31); Mean Corpuscular Volume 78 fL (80-97); Mean Platelet Volume 7.8 fL (7.4-10.4); Platelet Count 291 10^3/uL (150-450); Red Blood Count 3.42 10^6 /uL (3.70-4.87); Red Cell Distribution Width 19 % (10-15); White Blood Count 5.7 10^3/uL (3.5-10.8)
[2019-11-06 09:07] LABS: Calcium 8.4 mg/dL (8.6-10.3); Magnesium 1.9 mg/dL (1.9-2.7); Potassium 4.2 mmol/L (3.5-5.0)
[2019-11-06] MEDS: Pantoprazole VIAL 40 MG VIAL IV SCH ×2 (09:09→21:41)
[2019-11-06 09:13] LABS: BUN/Creatinine Ratio 12.6 (8-20); EGFR African American 74.4 (>60); EGFR Non-African American 61.4 (>60)
[2019-11-06 10:04] LABS: ABS Basophils 0.1 10^3/ul (0-0.2); ABS Eosinophils 0.4 10^3/ul (0-0.6); ABS Lymphocytes 1.1 10^3/ul (1.0-4.8); ABS Monocytes 0.6 10^3/ul (0-0.8); Eosinophil % 6.4 %; Lymphocyte % 19.5 %; Nucleated Red Blood Cells % 0.4; Polychromasia 1+
[2019-11-06] MEDS: Senna TAB 8.6 mg TAB PO SCH (21:41)
[2019-11-07 06:30] LABS: Hematocrit 27 % (35-47); Hemoglobin 8.6 g/dL (12.0-16.0); Mean Corpuscular HGB Conc 32 g/dL (31-36); Mean Corpuscular Hemoglobin 25 pg (27-31); Mean Corpuscular Volume 79 fL (80-97); Mean Platelet Volume 8.3 fL (7.4-10.4); Platelet Count 312 10^3/uL (150-450); Red Blood Count 3.46 10^6 /uL (3.70-4.87); Red Cell Distribution Width 18 % (10-15); White Blood Count 5.8 10^3/uL (3.5-10.8)
[2019-11-07 06:36] LABS: ABS Basophils 0.1 10^3/ul (0-0.2); ABS Eosinophils 0.3 10^3/ul (0-0.6); ABS Monocytes 0.5 10^3/ul (0-0.8); Eosinophil % 4.5 %; Nucleated Red Blood Cells % 0.2
[2019-11-07 06:57] LABS: Polychromasia 1+
[2019-11-07] MEDS: Pantoprazole VIAL 40 MG VIAL IV SCH (07:50)
[2019-11-07 12:21] VITALS: BP 177/85
== END 2019-11-07 14:55 | disposition home or self-care (01) | DRG 378 ==
LOC: ED 15:58 → MED 15:58 → MEDTELE 11-06 23:21
PROVIDERS: ADMIT Internal Medicine; ATTEND Internal Medicine

== ENCOUNTER 2020-06-21 18:14 | Inpatient (IN) ==
[2020-06-21 19:14] LABS: Eosinophil % 0.1 %; Hematocrit 30 % (35-47); Hemoglobin 9.6 g/dL (12.0-16.0); Lymphocyte % 4.7 %; Mean Corpuscular HGB Conc 32 g/dL (31-36); Mean Corpuscular Hemoglobin 30 pg (27-31); Mean Corpuscular Volume 93 fL (80-97); Mean Platelet Volume 8.2 fL (7.4-10.4); Platelet Count 333 10^3/uL (150-450); Red Blood Count 3.26 10^6 /uL (3.70-4.87); Red Cell Distribution Width 15 % (10-15)
[2020-06-21 19:22] LABS: Urine Appearance Turbid; Urine Bilirubin Negative (Negative); Urine Blood 3+ (Negative); Urine Color Amber; Urine Glucose Negative (Negative); Urine Ketones Negative (Negative); Urine Nitrite Negative (Negative); Urine Protein 2+(100 mg/dL) (Negative); Urine Specific Gravity 1.012 (1.010-1.030); Urine Urobilinogen Negative (Negative)
[2020-06-21 19:23] LABS: Activated Partial Thrombo Time 36.1 seconds (26.0-38.0); INR 3.14 (0.82-1.09)
[2020-06-21 19:29] LABS: Urine Bacteria Absent (Absent); Urine Red Blood Cell 3+(>10/hpf) (Absent); Urine White Blood Cell 3+(>20/hpf) (Absent)
[2020-06-21] MEDS ORDERED: cefTRIAXone 1 gm/50 mL NS BAG 1 GM/50 ML BAG IV ONE ×2 (19:36→21:17)
[2020-06-21] MEDS ORDERED: NS 0.9% 1000 ml BAG 1,000 ML IV ONE (19:36)
[2020-06-21 19:43] LABS: ALT 27 U/L (7-52); AST 37 U/L (13-39); Albumin 3.3 g/dL (3.2-5.2); Alkaline Phosphatase 78 U/L (34-104); Anion Gap 6 mmol/L (2-11); BUN/Creatinine Ratio 14.4 (8-20); Blood Urea Nitrogen 30 mg/dL (6-24); C Reactive Protein 160.97 mg/L (<8.01); CO2 Carbon Dioxide 25 mmol/L (22-32); Chloride 107 mmol/L (101-111); EGFR African American 27.2 (>60); EGFR Non-African American 22.5 (>60); Globulin 3.4 g/dL (2-4); Glucose 79 mg/dL (70-100); Potassium 4.9 mmol/L (3.5-5.0); Sodium 138 mmol/L (135-145); Total Protein 6.7 g/dL (6.4-8.9)
[2020-06-21 19:44] LABS: Troponin I 0.03 ng/mL (<0.03)
[2020-06-21] MEDS ORDERED: Ondansetron 4 mg VIAL 2 MG/ML 2 ml VIAL IV PRN (21:17)
[2020-06-21] MEDS ORDERED: Albuterol HFA INHALER 8 gm MDI INH PRN (21:21)
[2020-06-21] MEDS ORDERED: NS 0.9% 1000 ml BAG 1,000 ML IV SCH (21:30)
[2020-06-21] MEDS ORDERED: Albuterol 2.5mg/3 ml (0.083%) NEB.SOLN INH PRN (21:47)
[2020-06-21] MEDS ORDERED: cefTRIAXone 1 gm/50 mL NS BAG 1 GM/50 ML BAG ONE (22:54)
[2020-06-22 00:12] LABS: Urine Creatinine Concentration 107.22 mg/dL
[2020-06-22 00:48] LABS: Potassium 4.4 mmol/L (3.5-5.0)
[2020-06-22 00:54] LABS: BUN/Creatinine Ratio 14.3 (8-20); EGFR African American 29.1 (>60); EGFR Non-African American 24.1 (>60)
[2020-06-22 03:04] LABS: Troponin I 0.03 ng/mL (<0.03)
[2020-06-22 03:12] LABS: ABS Lymphocytes 0.3 10^3/ul (1.0-4.8); ABS Monocytes 0.9 10^3/ul (0-0.8); Eosinophil % 0.2 %; Hematocrit 30 % (35-47); Hemoglobin 9.4 g/dL (12.0-16.0); Lymphocyte % 1.7 %; Mean Corpuscular HGB Conc 32 g/dL (31-36); Mean Corpuscular Hemoglobin 30 pg (27-31); Mean Corpuscular Volume 93 fL (80-97); Mean Platelet Volume 8.6 fL (7.4-10.4); Platelet Count 314 10^3/uL (150-450); Red Blood Count 3.19 10^6 /uL (3.70-4.87); Red Cell Distribution Width 15 % (10-15); White Blood Count 19.4 10^3/uL (3.5-10.8)
[2020-06-22] MEDS: Levothyroxine 100 MCG/5 ML VIAL IV SCH (05:22)
[2020-06-22 07:03] LABS: INR 2.55 (0.82-1.09)
[2020-06-22 07:43] LABS: Troponin I 0.04 ng/mL (<0.03)
[2020-06-22] MEDS ORDERED: Pantoprazole VIAL 40 MG VIAL IV SCH (09:00)
[2020-06-22] MEDS ORDERED: Iohexol 180 (CONTRAST) 10 ML SDV IV ONE (09:07)
[2020-06-22] MEDS ORDERED: fentaNYL 100 mcg/2 ml 50 MCG/ML VIAL IV PRN (09:50)
[2020-06-22] MEDS ORDERED: Ondansetron 4 mg VIAL 2 MG/ML 2 ml VIAL IV PRN (09:50)
[2020-06-22] MEDS ORDERED: Levalbuterol 0.63MG/3ML NEB UNIT OF USE INH PRN (09:50)
[2020-06-22] MEDS ORDERED: Naloxone 0.4 mg VIAL 0.4 mg/ml 1 ml VIAL IV PRN (09:50)
[2020-06-22] MEDS ORDERED: Lidocaine 2% PF 5 ML VIAL ONE (10:13)
[2020-06-22] MEDS ORDERED: Propofol 10 MG/ML 20 ML BTL ONE (10:13)
[2020-06-22] MEDS ORDERED: fentaNYL 100 mcg/2 ml 50 MCG/ML VIAL ONE (10:16)
[2020-06-22] MEDS ORDERED: Phenylephrine 40 mcg/mL 10mL (400mcg) SYRINGE ONE (10:33)
[2020-06-22] MEDS ORDERED: Metoprolol Tartrate 5 mg VIAL 5 ml VIAL (1 mg/ml) IV PRN (13:42)
[2020-06-22] MEDS ORDERED: Furosemide 40 mg/4 ml IV VIAL IV ONE (13:43)
[2020-06-22] MEDS: cefTRIAXone 2 GM ADDV.VIAL 2 GM in NS 0.9% 100 ml BAG 100 ML IV SCH (20:04)
[2020-06-23 05:57] LABS: ABS Basophils 0.1 10^3/ul (0-0.2); ABS Lymphocytes 0.7 10^3/ul (1.0-4.8); ABS Monocytes 0.7 10^3/ul (0-0.8); ABS Neutrophils 9.6 10^3/ul (1.5-7.7); Eosinophil % 0.4 %; Hematocrit 28 % (35-47); Hemoglobin 9.1 g/dL (12.0-16.0); Lymphocyte % 6.5 %; Mean Corpuscular HGB Conc 32 g/dL (31-36); Mean Corpuscular Hemoglobin 30 pg (27-31); Mean Corpuscular Volume 92 fL (80-97); Mean Platelet Volume 8.8 fL (7.4-10.4); Platelet Count 291 10^3/uL (150-450); Red Blood Count 3.07 10^6 /uL (3.70-4.87); Red Cell Distribution Width 15 % (10-15); White Blood Count 11.1 10^3/uL (3.5-10.8)
[2020-06-23] MEDS: Levothyroxine 100 MCG/5 ML VIAL IV SCH (06:11)
[2020-06-23 06:15] LABS: BUN/Creatinine Ratio 14.5 (8-20); Calcium 8.1 mg/dL (8.6-10.3); EGFR African American 35.5 (>60); EGFR Non-African American 29.4 (>60); Potassium 3.4 mmol/L (3.5-5.0)
[2020-06-23] MEDS: cefTRIAXone 2 GM ADDV.VIAL 2 GM in NS 0.9% 100 ml BAG 100 ML IV SCH (21:30)
[2020-06-24 05:30] LABS: BUN/Creatinine Ratio 16.3 (8-20); Calcium 7.8 mg/dL (8.6-10.3); EGFR African American 40.6 (>60); EGFR Non-African American 33.5 (>60); Potassium 3.3 mmol/L (3.5-5.0)
[2020-06-24] MEDS ORDERED: Potassium Chlor 20 meq TAB.ER PO ONE (08:01)
[2020-06-24] MEDS: cefTRIAXone 2 GM ADDV.VIAL 2 GM in NS 0.9% 100 ml BAG 100 ML IV SCH (22:03)
[2020-06-25 09:20] LABS: C Reactive Protein 171.45 mg/L (<8.01)
[2020-06-25] MEDS: cefTRIAXone 2 GM ADDV.VIAL 2 GM in NS 0.9% 100 ml BAG 100 ML IV SCH (20:56)
[2020-06-26 11:28] VITALS: BP 166/78
== END 2020-06-26 13:25 | disposition home health service (06) ==
LOC: ED 18:14 → MED 21:13 → SSU 06-23 03:13
PROVIDERS: ADMIT Internal Medicine; ATTEND Internal Medicine

== ENCOUNTER 2021-02-24 00:45 | Inpatient (IN) ==
[2021-02-24 01:49] LABS: Hematocrit 40 % (35-47); Hemoglobin 13.6 g/dL (12.0-16.0); Mean Corpuscular HGB Conc 34 g/dL (31-36); Mean Corpuscular Hemoglobin 31 pg (27-31); Mean Corpuscular Volume 92 fL (80-97); Mean Platelet Volume 8.5 fL (7.4-10.4); Platelet Count 310 10^3/uL (150-450); Red Blood Count 4.35 10^6 /uL (3.70-4.87); Red Cell Distribution Width 15 % (10-15); White Blood Count 21.2 10^3/uL (3.5-10.8)
[2021-02-24 02:04] LABS: ALT 29 U/L (7-52); AST 42 U/L (13-39); Albumin 3.8 g/dL (3.2-5.2); Albumin/Globulin Ratio 0.9 (1-3); Alkaline Phosphatase 101 U/L (35-149); Anion Gap 7 mmol/L (2-11); Blood Urea Nitrogen 14 mg/dL (6-24); CO2 Carbon Dioxide 22 mmol/L (22-32); Calcium 9.7 mg/dL (8.6-10.3); Chloride 104 mmol/L (101-111); EGFR African American 64.7 (>60); EGFR Non-African American 53.4 (>60); Globulin 4.3 g/dL (2-4); Glucose 179 mg/dL (70-100); Potassium 4.2 mmol/L (3.5-5.0); Sodium 133 mmol/L (135-145); Total Protein 8.1 g/dL (6.4-8.9)
[2021-02-24 02:16] LABS: ABS Basophils 0.1 10^3/ul (0-0.2); ABS Lymphocytes 0.3 10^3/ul (1.0-4.8); ABS Monocytes 0.5 10^3/ul (0-0.8); ABS Neutrophils 20.3 10^3/ul (1.5-7.7); Lymphocyte % 1.2 %
[2021-02-24] MEDS ORDERED: Lactated Ringers 1000 ml BAG 1,000 ML IV ONE (02:40)
[2021-02-24] MEDS ORDERED: Levofloxacin 750 MG IVPREMIX 750 MG/150 ML BAG IVPB ONE (03:29)
[2021-02-24] MEDS ORDERED: Albuterol HFA INHALER 8 gm MDI INH PRN (05:48)
[2021-02-24 05:52] LABS: Rapid COVID-19 Molecular Undetected (Undetected)
[2021-02-24 10:01] LABS: TSH Ultra Thyroid Stim Horm 2.68 mcIU/mL (0.34-5.60)
[2021-02-24 10:12] LABS: Folate 13.92 ng/mL (5.90-24.80)
[2021-02-24 10:13] LABS: Vitamin B12 287 pg/mL (180-914)
[2021-02-24] MEDS: Potassium Chlor 20 meq TAB.ER PO SCH ×2 (11:44→12:04)
[2021-02-24] MEDS: Meropenem 1 GM PREMIX(*) 1 GM/50 ML BAG IV SCH ×2 (11:47→22:38)
[2021-02-25 05:03] LABS: ABS Lymphocytes 0.8 10^3/ul (1.0-4.8); ABS Monocytes 0.7 10^3/ul (0-0.8); Eosinophil % 0.1 %; Hematocrit 36 % (35-47); Hemoglobin 11.6 g/dL (12.0-16.0); Lymphocyte % 3.9 %; Mean Corpuscular HGB Conc 32 g/dL (31-36); Mean Corpuscular Hemoglobin 30 pg (27-31); Mean Corpuscular Volume 95 fL (80-97); Mean Platelet Volume 8.8 fL (7.4-10.4); Platelet Count 247 10^3/uL (150-450); Red Blood Count 3.81 10^6 /uL (3.70-4.87); Red Cell Distribution Width 15 % (10-15); White Blood Count 19.4 10^3/uL (3.5-10.8)
[2021-02-25 05:17] LABS: Albumin/Globulin Ratio 0.8 (1-3); Calcium 8.8 mg/dL (8.6-10.3); EGFR African American 53.8 (>60); EGFR Non-African American 44.4 (>60); Globulin 3.7 g/dL (2-4); Total Bilirubin 0.6 mg/dL (0.2-1.0); Total Protein 6.7 g/dL (6.4-8.9)
[2021-02-25 06:51] LABS: % Iron Saturation 8 % (15-55); Iron 21 ug/dL (50-212); Total Iron Binding Capacity 274 mcg/dL (250-450); Transferrin 196 mg/dL (203-362); Unsaturated Iron Binding < 259 ug/dL
[2021-02-25 07:17] LABS: Ferritin 56.9 ng/mL (11-307)
[2021-02-25] MEDS ORDERED: LEVOFLOXACIN IVPB SCH (09:00)
[2021-02-25] MEDS: Potassium Chlor 20 meq TAB.ER PO SCH (09:34)
[2021-02-25] MEDS ORDERED: Meropenem 1 GM PREMIX(*) 1 GM/50 ML BAG IV SCH (10:00)
[2021-02-25] MEDS: cefTRIAXone 1 gm/50 mL NS BAG 1 GM/50 ML BAG IVPB SCH (10:56)
[2021-02-25 15:43] LABS: Urine Appearance Cloudy; Urine Bilirubin Negative (Negative); Urine Blood Negative (Negative); Urine Color Yellow; Urine Glucose Negative (Negative); Urine Ketones Negative (Negative); Urine Nitrite Negative (Negative); Urine Protein Negative (Negative); Urine Specific Gravity 1.015 (1.002-1.030); Urine Urobilinogen Negative (Negative)
[2021-02-25 15:54] LABS: Urine Bacteria 1+ (Absent); Urine Red Blood Cell 1+(3-5/hpf) (Absent); Urine Squamous Epithelial Cell Present (Absent); Urine White Blood Cell 3+(>20/hpf) (Absent)
[2021-02-26 05:00] LABS: Hematocrit 39 % (35-47); Hemoglobin 12.3 g/dL (12.0-16.0); Mean Corpuscular HGB Conc 32 g/dL (31-36); Mean Corpuscular Hemoglobin 31 pg (27-31); Mean Corpuscular Volume 98 fL (80-97); Mean Platelet Volume 9.3 fL (7.4-10.4); Platelet Count 255 10^3/uL (150-450); Red Blood Count 3.95 10^6 /uL (3.70-4.87); Red Cell Distribution Width 16 % (10-15); White Blood Count 9.4 10^3/uL (3.5-10.8)
[2021-02-26 05:13] LABS: Calcium 8.9 mg/dL (8.6-10.3); EGFR African American 60.4 (>60); EGFR Non-African American 49.9 (>60); Potassium 3.7 mmol/L (3.5-5.0)
[2021-02-26] MEDS ORDERED: Perflutren Lipid Microsphere 3 ML VIAL ONE (07:59)
[2021-02-26] MEDS: Potassium Chlor 20 meq TAB.ER PO SCH (08:56)
[2021-02-26] MEDS: cefTRIAXone 1 gm/50 mL NS BAG 1 GM/50 ML BAG IVPB SCH (08:57)
[2021-02-26] MEDS ORDERED: NS 0.45% 1000 ml BAG 1,000 ML IV SCH (19:00)
[2021-02-27 06:19] LABS: Hematocrit 40 % (35-47); Mean Corpuscular HGB Conc 33 g/dL (31-36); Mean Corpuscular Hemoglobin 31 pg (27-31); Mean Corpuscular Volume 94 fL (80-97); Platelet Count 336 10^3/uL (150-450); Red Blood Count 4.27 10^6 /uL (3.70-4.87); Red Cell Distribution Width 15 % (10-15); White Blood Count 6.2 10^3/uL (3.5-10.8)
[2021-02-27 06:40] LABS: Calcium 9.3 mg/dL (8.6-10.3); EGFR African American 67.8 (>60); EGFR Non-African American 56.1 (>60); Potassium 3.5 mmol/L (3.5-5.0)
[2021-02-27] MEDS: Potassium Chlor 20 meq TAB.ER PO SCH (09:54)
[2021-02-27] MEDS: cefTRIAXone 1 gm/50 mL NS BAG 1 GM/50 ML BAG IVPB SCH (11:39)
[2021-02-28] MEDS: Potassium Chlor 20 meq TAB.ER PO SCH (09:01)
[2021-02-28] MEDS ORDERED: Lorazepam PYXIS KEY PRN (10:03)
[2021-02-28] MEDS ORDERED: LORazepam 2 mg VIAL 1 ml IM PRN (10:04)
[2021-02-28] MEDS: cefTRIAXone 1 gm/50 mL NS BAG 1 GM/50 ML BAG IVPB SCH (11:03)
[2021-02-28] MEDS ORDERED: fentaNYL 100 mcg/2 ml 50 MCG/ML VIAL ONE ×2 (12:45→14:00)
[2021-02-28] MEDS ORDERED: Naloxone 0.4 mg VIAL 0.4 mg/ml 1 ml VIAL ONE (12:45)
[2021-02-28] MEDS ORDERED: Flumazenil 0.5 mg/5 ml 0.1 MG/ML 5 ml VIAL ONE (12:45)
[2021-02-28] MEDS ORDERED: Midazolam 5 mg/5 ml VIAL 1 mg/ml 5 ml VIAL (5 mg) ONE (12:45)
[2021-03-01] MEDS: Potassium Chlor 20 meq TAB.ER PO SCH (09:35)
[2021-03-01] MEDS: cefTRIAXone 1 gm/50 mL NS BAG 1 GM/50 ML BAG IVPB SCH (11:09)
[2021-03-01 13:02] VITALS: BP 143/62
== END 2021-03-01 11:16 | disposition home or self-care (01) | DRG 603 ==
LOC: ED 00:45 → MED 00:45 → SUATTDRO 02-25 11:00 → ICU 02-28 16:30 → MED 02-28 23:06
PROVIDERS: ADMIT Hospitalist; ATTEND Student in an Organized Health Care Education/Training Program

== ENCOUNTER 2021-03-22 11:45 | Inpatient (IN) ==
[2021-03-22 12:34] LABS: Hematocrit 37 % (35-47); Hemoglobin 12.5 g/dL (12.0-16.0); Mean Corpuscular HGB Conc 34 g/dL (31-36); Mean Corpuscular Hemoglobin 31 pg (27-31); Mean Corpuscular Volume 93 fL (80-97); Mean Platelet Volume 8.4 fL (7.4-10.4); Platelet Count 340 10^3/uL (150-450); Red Blood Count 4.01 10^6 /uL (3.70-4.87); Red Cell Distribution Width 15 % (10-15); White Blood Count 9.2 10^3/uL (3.5-10.8)
[2021-03-22 12:39] LABS: INR 2.48 (0.86-1.15)
[2021-03-22 12:46] LABS: ABS Eosinophils 0.3 10^3/ul (0-0.6); ABS Lymphocytes 0.9 10^3/ul (1.0-4.8); ABS Monocytes 0.7 10^3/ul (0-0.8); Eosinophil % 3.5 %; Lymphocyte % 10.1 %
[2021-03-22 12:52] LABS: ALT 19 U/L (7-52); AST 15 U/L (13-39); Albumin 3.1 g/dL (3.2-5.2); Albumin/Globulin Ratio 0.9 (1-3); Alkaline Phosphatase 70 U/L (35-149); Anion Gap 4 mmol/L (2-11); Blood Urea Nitrogen 23 mg/dL (6-24); CO2 Carbon Dioxide 27 mmol/L (22-32); Calcium 8.9 mg/dL (8.6-10.3); Chloride 106 mmol/L (101-111); Creatine Kinase 15 U/L (10-223); Globulin 3.5 g/dL (2-4); Glucose 109 mg/dL (70-100); Potassium 4.5 mmol/L (3.5-5.0); Sodium 137 mmol/L (135-145); Total Protein 6.6 g/dL (6.4-8.9)
[2021-03-22 13:04] LABS: Troponin I 0.03 ng/mL (<0.03)
[2021-03-22 13:48] LABS: TSH Ultra Thyroid Stim Horm 10.84 mcIU/mL (0.34-5.60)
[2021-03-22 15:35] LABS: Urine Appearance Clear; Urine Bilirubin Negative (Negative); Urine Blood Negative (Negative); Urine Color Yellow; Urine Glucose Negative (Negative); Urine Ketones Negative (Negative); Urine Nitrite Negative (Negative); Urine Protein Negative (Negative); Urine Specific Gravity 1.017 (1.002-1.030); Urine Urobilinogen Negative (Negative)
[2021-03-22] MEDS: Potassium Chlor 20 meq TAB.ER PO SCH (20:58)
[2021-03-22 21:39] LABS: Rapid COVID-19 Molecular Undetected (Undetected)
[2021-03-22 22:35] LABS: Troponin I 0.03 ng/mL (<0.03)
[2021-03-23] MEDS: NS 0.9% 1000 ml BAG 1,000 ML IV SCH ×2 (01:15→16:13)
[2021-03-23 07:13] LABS: ABS Eosinophils 0.5 10^3/ul (0-0.6); ABS Lymphocytes 0.9 10^3/ul (1.0-4.8); ABS Monocytes 0.6 10^3/ul (0-0.8); Eosinophil % 5.4 %; Hematocrit 40 % (35-47); Hemoglobin 13.3 g/dL (12.0-16.0); Mean Corpuscular HGB Conc 33 g/dL (31-36); Mean Corpuscular Hemoglobin 31 pg (27-31); Mean Corpuscular Volume 94 fL (80-97); Mean Platelet Volume 8.4 fL (7.4-10.4); Platelet Count 299 10^3/uL (150-450); Red Blood Count 4.26 10^6 /uL (3.70-4.87); Red Cell Distribution Width 15 % (10-15)
[2021-03-23 07:30] LABS: Phosphorus 3.1 mg/dL (2.5-5.0); Potassium 4.9 mmol/L (3.5-5.0)
[2021-03-23 08:12] LABS: TSH Ultra Thyroid Stim Horm 8.41 mcIU/mL (0.34-5.60)
[2021-03-23] MEDS: Potassium Chlor 20 meq TAB.ER PO SCH ×2 (10:50→19:40)
[2021-03-23] MEDS ORDERED: Lactated Ringers 1000 ml BAG 1,000 ML IV ONE ×2 (19:00)
[2021-03-23 20:30] LABS: Free T4 0.91 ng/dL (0.61-1.12)
[2021-03-24] MEDS: Potassium Chlor 20 meq TAB.ER PO SCH ×2 (07:46→21:21)
[2021-03-24 13:13] LABS: Calcium 8.3 mg/dL (8.6-10.3); Phosphorus 2.5 mg/dL (2.5-5.0); Potassium 4.2 mmol/L (3.5-5.0)
[2021-03-25] MEDS: Potassium Chlor 20 meq TAB.ER PO SCH (09:22)
[2021-03-25 18:32] VITALS: BP 142/86
== END 2021-03-25 18:30 | disposition home or self-care (01) | DRG 682 ==
LOC: ED 11:45 → MED 11:45 → MEDTELE 03-24 22:42
PROVIDERS: ADMIT Internal Medicine; ATTEND Internal Medicine

== ENCOUNTER 2021-05-08 20:34 | Inpatient (IN) ==
[2021-05-08 22:57] LABS: Hematocrit 36 % (35-47); Hemoglobin 11.9 g/dL (12.0-16.0); Mean Corpuscular HGB Conc 33 g/dL (31-36); Mean Corpuscular Hemoglobin 31 pg (27-31); Mean Corpuscular Volume 92 fL (80-97); Mean Platelet Volume 8.3 fL (7.4-10.4); Platelet Count 306 10^3/uL (150-450); Red Blood Count 3.88 10^6 /uL (3.70-4.87); Red Cell Distribution Width 15 % (10-15); White Blood Count 22.9 10^3/uL (3.5-10.8)
[2021-05-08] MEDS: NS 0.9% 1000 ml BAG 1,000 ML IV SCH (23:00)
[2021-05-08 23:13] LABS: ALT 26 U/L (7-52); AST 29 U/L (13-39); Albumin 3.6 g/dL (3.2-5.2); Alkaline Phosphatase 103 U/L (35-149); Anion Gap 7 mmol/L (2-11); Blood Urea Nitrogen 17 mg/dL (6-24); CO2 Carbon Dioxide 26 mmol/L (22-32); Calcium 9.3 mg/dL (8.6-10.3); Chloride 103 mmol/L (101-111); Creatine Kinase 59 U/L (10-223); Globulin 3.6 g/dL (2-4); Glucose 124 mg/dL (70-100); Magnesium 1.8 mg/dL (1.9-2.7); Potassium 4.1 mmol/L (3.5-5.0); Sodium 136 mmol/L (135-145); Total Protein 7.2 g/dL (6.4-8.9); eGFR CKD-EPI 47.5 (>60)
[2021-05-08 23:19] LABS: Acetaminophen < 15 mcg/mL; Alcohol, S < 13 mg/dL (<13); Salicylate < 2.50 mg/dL (<30)
[2021-05-08 23:31] LABS: Troponin I 0.07 ng/mL (<0.03)
[2021-05-08 23:35] LABS: TSH Ultra Thyroid Stim Horm 8.36 mcIU/mL (0.34-5.60)
[2021-05-08 23:38] LABS: ABS Lymphocytes 0.2 10^3/ul (1.0-4.8); ABS Monocytes 0.8 10^3/ul (0-0.8); ABS Neutrophils 21.8 10^3/ul (1.5-7.7)
[2021-05-09 01:11] LABS: Urine Appearance Cloudy; Urine Bilirubin Negative (Negative); Urine Blood Negative (Negative); Urine Color Yellow; Urine Glucose Negative (Negative); Urine Ketones Trace (Negative); Urine Nitrite Positive (Negative); Urine Protein 1+(30 mg/dL) (Negative); Urine Specific Gravity 1.015 (1.002-1.030); Urine Urobilinogen Negative (Negative)
[2021-05-09 01:33] LABS: Urine Bacteria 2+ (Absent); Urine Red Blood Cell 3+(>10/hpf) (Absent); Urine Squamous Epithelial Cell Present (Absent); Urine White Blood Cell 3+(>20/hpf) (Absent)
[2021-05-09 01:39] LABS: Urine Benzodiazepine Screen None Detected (None Detect); Urine Cannabinoids Screen None Detected (None Detect); Urine Opiates Screen None Detected (None Detect)
[2021-05-09] MEDS ORDERED: cefTRIAXone 1 gm/50 mL NS BAG 1 GM/50 ML BAG IV ONE (01:45)
[2021-05-09] MEDS: Meropenem 1 GM PREMIX(*) 1 GM/50 ML BAG IV SCH ×2 (04:30→15:32)
[2021-05-09 05:20] LABS: Troponin I 0.06 ng/mL (<0.03)
[2021-05-09] MEDS: NS 0.9% 1000 ml BAG 1,000 ML IV SCH ×3 (06:53→22:28)
[2021-05-09] MEDS ORDERED: Magnesium Sulfate 2 gm BAG 2 GM/50 ML BAG IVPB ONE (07:11)
[2021-05-09 09:37] LABS: Hematocrit 34 % (35-47); Hemoglobin 11.2 g/dL (12.0-16.0); Mean Corpuscular HGB Conc 33 g/dL (31-36); Mean Corpuscular Hemoglobin 30 pg (27-31); Mean Corpuscular Volume 92 fL (80-97); Mean Platelet Volume 8.7 fL (7.4-10.4); Platelet Count 280 10^3/uL (150-450); Red Cell Distribution Width 15 % (10-15); White Blood Count 23.7 10^3/uL (3.5-10.8)
[2021-05-09 09:40] LABS: ABS Lymphocytes 0.7 10^3/ul (1.0-4.8); ABS Monocytes 0.4 10^3/ul (0-0.8); ABS Neutrophils 22.6 10^3/ul (1.5-7.7); Lymphocyte % 2.8 %
[2021-05-09] MEDS: Pantoprazole VIAL 40 MG VIAL IV SCH (09:51)
[2021-05-09 09:58] LABS: Magnesium 1.8 mg/dL (1.9-2.7); Potassium 4.1 mmol/L (3.5-5.0); eGFR CKD-EPI 55.9 (>60)
[2021-05-10] MEDS: Meropenem 1 GM PREMIX(*) 1 GM/50 ML BAG IV SCH (04:20)
[2021-05-10] MEDS: NS 0.9% 1000 ml BAG 1,000 ML IV SCH (04:22)
[2021-05-10 09:39] LABS: ABS Basophils 0.1 10^3/ul (0-0.2); ABS Eosinophils 0.3 10^3/ul (0-0.6); ABS Lymphocytes 0.7 10^3/ul (1.0-4.8); ABS Monocytes 0.6 10^3/ul (0-0.8); ABS Neutrophils 13.2 10^3/ul (1.5-7.7); Eosinophil % 1.7 %; Hematocrit 33 % (35-47); Hemoglobin 10.7 g/dL (12.0-16.0); Lymphocyte % 4.8 %; Mean Corpuscular HGB Conc 32 g/dL (31-36); Mean Corpuscular Hemoglobin 30 pg (27-31); Mean Corpuscular Volume 93 fL (80-97); Mean Platelet Volume 8.9 fL (7.4-10.4); Platelet Count 272 10^3/uL (150-450); Red Blood Count 3.55 10^6 /uL (3.70-4.87); Red Cell Distribution Width 15 % (10-15); White Blood Count 14.8 10^3/uL (3.5-10.8)
[2021-05-10] MEDS: Pantoprazole VIAL 40 MG VIAL IV SCH (09:46)
[2021-05-10 09:53] LABS: Calcium 8.1 mg/dL (8.6-10.3); Magnesium 2.2 mg/dL (1.9-2.7); Potassium 3.6 mmol/L (3.5-5.0); eGFR CKD-EPI 60.3 (>60)
[2021-05-10] MEDS: cefTRIAXone 2 GM ADDV.VIAL 2 GM in NS 0.9% 100 ml BAG 100 ML IV SCH (12:07)
[2021-05-11 06:47] LABS: ABS Basophils 0.1 10^3/ul (0-0.2); ABS Eosinophils 0.5 10^3/ul (0-0.6); ABS Lymphocytes 0.9 10^3/ul (1.0-4.8); ABS Monocytes 0.5 10^3/ul (0-0.8); ABS Neutrophils 5.6 10^3/ul (1.5-7.7); Eosinophil % 6.6 %; Hematocrit 33 % (35-47); Hemoglobin 10.9 g/dL (12.0-16.0); Lymphocyte % 11.9 %; Mean Corpuscular HGB Conc 33 g/dL (31-36); Mean Corpuscular Hemoglobin 31 pg (27-31); Mean Corpuscular Volume 94 fL (80-97); Mean Platelet Volume 8.8 fL (7.4-10.4); Platelet Count 282 10^3/uL (150-450); Red Blood Count 3.52 10^6 /uL (3.70-4.87); Red Cell Distribution Width 16 % (10-15); White Blood Count 7.6 10^3/uL (3.5-10.8)
[2021-05-11 07:03] LABS: Calcium 8.3 mg/dL (8.6-10.3); Magnesium 2.2 mg/dL (1.9-2.7); Potassium 3.7 mmol/L (3.5-5.0)
[2021-05-11] MEDS: cefTRIAXone 2 GM ADDV.VIAL 2 GM in NS 0.9% 100 ml BAG 100 ML IV SCH (09:23)
[2021-05-11] MEDS: Albuterol HFA INHALER 8 gm MDI INH PRN (16:14)
[2021-05-12] MEDS: Albuterol HFA INHALER 8 gm MDI INH PRN ×2 (02:13→11:11)
[2021-05-12 06:31] LABS: ABS Basophils 0.1 10^3/ul (0-0.2); ABS Eosinophils 0.4 10^3/ul (0-0.6); ABS Lymphocytes 0.8 10^3/ul (1.0-4.8); ABS Monocytes 0.5 10^3/ul (0-0.8); ABS Neutrophils 3.4 10^3/ul (1.5-7.7); Hematocrit 33 % (35-47); Lymphocyte % 16.2 %; Mean Corpuscular HGB Conc 33 g/dL (31-36); Mean Corpuscular Hemoglobin 31 pg (27-31); Mean Corpuscular Volume 93 fL (80-97); Mean Platelet Volume 8.6 fL (7.4-10.4); Nucleated Red Blood Cells % 0.1; Platelet Count 321 10^3/uL (150-450); Red Blood Count 3.55 10^6 /uL (3.70-4.87); Red Cell Distribution Width 15 % (10-15); White Blood Count 5.2 10^3/uL (3.5-10.8)
[2021-05-12 06:57] LABS: Calcium 8.5 mg/dL (8.6-10.3); Magnesium 2.1 mg/dL (1.9-2.7); Potassium 3.6 mmol/L (3.5-5.0); eGFR CKD-EPI 64.5 (>60)
[2021-05-12 08:01] VITALS: BP 151/78
[2021-05-12] MEDS: cefTRIAXone 2 GM ADDV.VIAL 2 GM in NS 0.9% 100 ml BAG 100 ML IV SCH (11:01)
== END 2021-05-12 14:20 | disposition home or self-care (01) | DRG 871 ==
LOC: ED 20:34 → SUATTDRO 05-09 03:21 → EDHOLD 05-09 03:21 → MEDTELE 05-09 06:11 → MED 05-09 06:42
PROVIDERS: ADMIT Internal Medicine; ATTEND Internal Medicine

== ENCOUNTER 2021-07-21 14:28 | Inpatient (IN) ==
[2021-07-21 16:07] LABS: ABS Basophils 0.1 10^3/ul (0-0.2); ABS Eosinophils 0.3 10^3/ul (0-0.6); ABS Lymphocytes 0.8 10^3/ul (1.0-4.8); ABS Monocytes 0.6 10^3/ul (0-0.8); ABS Neutrophils 3.6 10^3/ul (1.5-7.7); Eosinophil % 4.6 %; Hematocrit 39 % (35-47); Hemoglobin 12.6 g/dL (12.0-16.0); Lymphocyte % 15.7 %; Mean Corpuscular HGB Conc 33 g/dL (31-36); Mean Corpuscular Hemoglobin 30 pg (27-31); Mean Corpuscular Volume 93 fL (80-97); Mean Platelet Volume 8.1 fL (7.4-10.4); Platelet Count 315 10^3/uL (150-450); Red Blood Count 4.17 10^6 /uL (3.70-4.87); Red Cell Distribution Width 15 % (10-15); White Blood Count 5.4 10^3/uL (3.5-10.8)
[2021-07-21 16:11] LABS: Albumin 3.3 g/dL (3.2-5.2); Albumin/Globulin Ratio 0.8 (1-3); Calcium 9.2 mg/dL (8.6-10.3); Globulin 3.9 g/dL (2-4); Magnesium 2.1 mg/dL (1.9-2.7); Potassium 4.5 mmol/L (3.5-5.0); Total Bilirubin 0.5 mg/dL (0.2-1.0); Total Protein 7.2 g/dL (6.4-8.9)
[2021-07-21 17:05] LABS: Urine Appearance Cloudy; Urine Bilirubin Negative (Negative); Urine Blood 1+ (Negative); Urine Color Yellow; Urine Glucose Negative (Negative); Urine Ketones Negative (Negative); Urine Nitrite Negative (Negative); Urine Protein Negative (Negative); Urine Specific Gravity 1.019 (1.002-1.030); Urine Urobilinogen Negative (Negative)
[2021-07-21 17:08] LABS: Urine Bacteria Absent (Absent); Urine Red Blood Cell 3+(>10/hpf) (Absent); Urine White Blood Cell Trace(0-5/hpf) (Absent)
[2021-07-21] MEDS ORDERED: Ondansetron 4 mg VIAL 2 MG/ML 2 ml VIAL IV PRN (17:47)
[2021-07-21] MEDS ORDERED: Albuterol HFA INHALER 8 gm MDI INH PRN (18:01)
[2021-07-21] MEDS ORDERED: Lactated Ringers 1000 ml BAG 1,000 ML IV ONE (18:02)
[2021-07-21] MEDS: cefTRIAXone 1 gm/50 mL NS BAG 1 GM/50 ML BAG IVPB SCH (20:48)
[2021-07-21] MEDS: Nystatin TOP POWDER 15 GM BTL TOPICAL SCH (23:53)
[2021-07-22 05:55] LABS: ABS Basophils 0.1 10^3/ul (0-0.2); ABS Eosinophils 0.3 10^3/ul (0-0.6); ABS Lymphocytes 0.9 10^3/ul (1.0-4.8); ABS Monocytes 0.6 10^3/ul (0-0.8); ABS Neutrophils 3.6 10^3/ul (1.5-7.7); Hematocrit 39 % (35-47); Hemoglobin 12.6 g/dL (12.0-16.0); Lymphocyte % 15.8 %; Mean Corpuscular HGB Conc 33 g/dL (31-36); Mean Corpuscular Hemoglobin 30 pg (27-31); Mean Corpuscular Volume 92 fL (80-97); Mean Platelet Volume 7.9 fL (7.4-10.4); Platelet Count 280 10^3/uL (150-450); Red Blood Count 4.21 10^6 /uL (3.70-4.87); Red Cell Distribution Width 15 % (10-15); White Blood Count 5.4 10^3/uL (3.5-10.8)
[2021-07-22 06:19] LABS: C Reactive Protein 17.71 mg/L (<8.01); Calcium 8.9 mg/dL (8.6-10.3); Magnesium 1.9 mg/dL (1.9-2.7); Potassium 4.1 mmol/L (3.5-5.0)
[2021-07-22] MEDS: Nystatin TOP POWDER 15 GM BTL TOPICAL SCH ×3 (10:14→20:50)
[2021-07-22] MEDS: Potassium Chlor 20 meq TAB.ER PO SCH ×3 (10:14→13:30)
[2021-07-22] MEDS: cefTRIAXone 1 gm/50 mL NS BAG 1 GM/50 ML BAG IVPB SCH (20:49)
[2021-07-23 06:44] LABS: ABS Basophils 0.1 10^3/ul (0-0.2); ABS Eosinophils 0.3 10^3/ul (0-0.6); ABS Lymphocytes 0.8 10^3/ul (1.0-4.8); ABS Monocytes 0.6 10^3/ul (0-0.8); ABS Neutrophils 5.4 10^3/ul (1.5-7.7); Eosinophil % 3.8 %; Hematocrit 37 % (35-47); Hemoglobin 12.1 g/dL (12.0-16.0); Lymphocyte % 10.9 %; Mean Corpuscular HGB Conc 33 g/dL (31-36); Mean Corpuscular Hemoglobin 30 pg (27-31); Mean Corpuscular Volume 91 fL (80-97); Mean Platelet Volume 8.7 fL (7.4-10.4); Platelet Count 270 10^3/uL (150-450); Red Blood Count 4.08 10^6 /uL (3.70-4.87); Red Cell Distribution Width 15 % (10-15); White Blood Count 7.1 10^3/uL (3.5-10.8)
[2021-07-23 07:02] LABS: Calcium 8.9 mg/dL (8.6-10.3); Magnesium 1.8 mg/dL (1.9-2.7); Potassium 3.8 mmol/L (3.5-5.0); eGFR CKD-EPI 55.2 (>60)
[2021-07-23] MEDS ORDERED: Magnesium Sulfate 2 gm BAG 2 GM/50 ML BAG IVPB ONE (07:03)
[2021-07-23] MEDS: Potassium Chlor 20 meq TAB.ER PO SCH (09:34)
[2021-07-23] MEDS: Nystatin TOP POWDER 15 GM BTL TOPICAL SCH ×2 (09:52→20:03)
[2021-07-23] MEDS ORDERED: cefTRIAXone 1 gm/50 mL NS BAG 1 GM/50 ML BAG IVPB ONE (14:16)
[2021-07-23 20:12] VITALS: BP 141/42
== END 2021-07-23 21:00 | disposition home or self-care (01) | DRG 690 ==
LOC: EDHOLD 14:28 → ED 14:28 → SUATTDRO 18:35 → EDHOLD 21:36 → MEDTELE 21:52
PROVIDERS: ADMIT Hospitalist; ATTEND Family Medicine